=== PATIENT | male | born 1945 | race Caucasian/White ===

== ENCOUNTER 2019-10-17 13:34 | Outpatient (CLI) | payer MEDICARE, SELFPAY ==
--- NOTE | ~2019-10-17 | CT_ITS ---
EXAMINATION: CT chest wo con DATE: 10/17/2019 13:56 INDICATION: Prostate cancer, pleural plaque TECHNIQUE: Computed tomography (CT) of the chest was performed without intravenous contrast. The dose -length product (DLP) was 351.52 mGy-cm. Automated exposure control and iterative reconstruction tech Mediastream were employed. COMPARISON: 10/15/2018 FINDINGS: Scarring is present in the lung apices. There are stable left lung nodules measuring up to 4 mm. There are multiple calcified pleural plaques without significant change, consistent with histor y of asbestos exposure. There are multiple areas of adjacent rounded atelectasis. Small stable pleura l effusions are present. There is no pneumothorax. No pathologically enlarged thoracic lymph nodes ar e identified. The heart size is normal. Calcified coronary artery atherosclerosis is noted. The liver is diffusely low in attenuation when compared with the spleen, consistent with hepatic steatosis. Bi lateral gynecomastia is again seen. IMPRESSION: 1. Unchanged calcified pleural plaques, consistent with history of asbestos exposure. 2. Stable pulmonary nodules, consistent with old granulomatous disease. Reviewed, dictated and finalized at location B. IMPRESSION: 1. Unchanged calcified pleural plaques, consistent with history of asbestos exp osure. 2. Stable pulmonary nodules, consistent with old granulomatous disease.
== END 2019-10-17 13:35 | disposition home or self-care (01) ==
PROVIDERS: PCP Physician Assistant; Visit Provider Internal Medicine Medical Oncology
DX: C61 Malignant neoplasm of prostate (principal); J92.9 Pleural plaque without asbestos; R91.8 Other nonspecific abnormal finding of lung field
CPT/HCPCS: 71250

== ENCOUNTER 2020-10-22 10:38 | Outpatient (CLI) | payer MEDICARE, SELFPAY ==
--- NOTE | ~2020-10-22 | CT_ITS ---
EXAMINATION: CT diagnostic chest wo con DATE: 10/22/2020 11:09 INDICATION: Prostate cancer, pleural plaque TECHNIQUE: Computed tomography (CT) of the chest was performed without intravenous contrast. The dose -length product (DLP) was 305.80 mGy-cm. Automated exposure control and iterative reconstruction tech Abaxiaque were employed. COMPARISON: 10/17/2019 FINDINGS: Scarring is present in the lung apices. There are stable nodules of the left lung which julio sure up to 4 mm. There are stable calcified pleural plaques, some of which demonstrate adjacent round ed atelectasis. Stable small pleural effusions are present. There are peripheral airspace opacities i n the right upper lobe. There is no pneumothorax. No pathologically enlarged thoracic lymph nodes are identified. The heart size is normal. Calcified coronary artery atherosclerosis is noted. The liver is diffusely low in attenuation when compared with the spleen, consistent with hepatic steatosis. The re is bilateral gynecomastia. IMPRESSION: 1. Stable calcified pleural plaques, consistent with prior asbestos exposure. 2. Stable pulmonary nodules, consistent with old granulomatous disease. Reviewed, dictated and finalized at location A.
== END 2020-10-22 10:39 | disposition home or self-care (01) ==
LOC: ANHIMG 10:42
PROVIDERS: PCP Physician Assistant; Visit Provider Internal Medicine Medical Oncology
DX: C61 Malignant neoplasm of prostate (principal); J92.9 Pleural plaque without asbestos; R91.8 Other nonspecific abnormal finding of lung field
CPT/HCPCS: 71250

== ENCOUNTER 2021-10-24 09:57 | Outpatient (CLI) | payer MEDICARE, SELFPAY ==
--- NOTE | ~2021-10-24 | CT_ITS ---
EXAMINATION:CT diagnostic chest w con DATE: 10/24/2021 10:28 INDICATION: Asbestos exposure. TECHNIQUE: Computed tomography (CT) of the chest was performed with 75 mL Omnipaque 350 intravenous c ontrast. Automated exposure control and iterative reconstruction technique were employed. The dose-le ngth product (DLP) was 280.81 mGy-cm. COMPARISON: Chest CT 10/22/2020 FINDINGS: There are calcified pleural plaques bilaterally, which may be seen with asbestosis exposure . There is a trace left pleural effusion. There is mild peripheral rounded atelectasis in all lobes. There is scarring at the lung apices, right worse than left. The heart size is normal. There are ganga nary artery calcifications. No pericardial effusion. There are no pathologically enlarged lymph nodes . There is bilateral gynecomastia. There is diffuse hepatic steatosis. There is a small sliding hiata l hernia. There is mild thoracic spondylosis. IMPRESSION: 1. Stable asbestosis. 2. Small sliding hiatal hernia. Reviewed, dictated and finalized at location A.
[2021-10-24 10:19] LABS: Estimated Glomerular Filt Rate 54
== END 2021-10-24 09:58 | disposition home or self-care (01) ==
PROVIDERS: PCP Physician Assistant; Visit Provider Internal Medicine Medical Oncology
DX: Z77.090 Contact with and (suspected) exposure to asbestos (principal); K44.9 Diaphragmatic hernia without obstruction or gangrene
CPT/HCPCS: 71260; Q9967

== ENCOUNTER 2022-10-25 08:27 | Outpatient (CLI) | payer MEDICARE, SELFPAY ==
--- NOTE | ~2022-10-25 | CT_ITS ---
Clinical Indication: Prostate cancer CT Scan of the Chest with Contrast: Technique: Contiguous sections were acquired throughout the chest after intravenous administration of 75 cc of Omnipaque 350. Dose reduction technique was used on this scan by utilizing automated exposu re control and iterative reconstruction technique. The dose-length product (DLP) was 239.11 mGy-cm. COMPARISON: 10/24/2021 Findings: There is no evidence of any significant mediastinal, hilar or axillary lymphadenopathy. There is no f illing defect in the pulmonary arterial tree to suggest pulmonary embolus. There is no evidence of ao rtic dissection or aneurysm. There is no evidence of pleural or pericardial effusion. Extensive calcified pleural plaques are pres ent. There is right apical and right upper lobe scarring, with additional lingular scarring. No suspicious pulmonary nodule evident. Images through the upper abdomen reveal diffuse fatty infiltration of the liver. 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 Diffuse fatty infiltration of the liver. Reviewed, dictated and finalized at [facility]. 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 Diffuse fatty infiltration of the liver.
[2022-10-25 09:01] LABS: Estimated Glomerular Filt Rate 42
== END 2022-10-25 08:28 | disposition home or self-care (01) ==
PROVIDERS: PCP Physician Assistant; Visit Provider Internal Medicine Medical Oncology
DX: C61 Malignant neoplasm of prostate (principal); Z12.2 Encounter for screening for malignant neoplasm of respiratory organs; Z77.090 Contact with and (suspected) exposure to asbestos; K76.0 Fatty (change of) liver, not elsewhere classified
CPT/HCPCS: 71260; Q9967

== ENCOUNTER 2022-12-12 09:55 | Outpatient (CLI) | payer MEDICARE, SELFPAY ==
--- NOTE | ~2022-12-12 | US_ITS ---
US abdomen limited 12/12/2022 10:24 Indication: Splenomegaly Procedure: High-resolution Limited abdominal ultrasound Comparison: CT dated 09/15/2027 Findings: Spleen is within normal limits measuring 10.4 cm. No focal splenic masses. There is mild le ft hydronephrosis. Nevertheless, left renal echotexture is unremarkable. Left kidney measures 10.2 cm in length. Impression: 1: Normal spleen. 2: Mild left hydronephrosis. Reviewed, dictated and finalized at location L. Impression: 1: Normal spleen. 2: Mild left hydronephrosis.
== END 2022-12-12 09:56 | disposition home or self-care (01) ==
LOC: ANHIMG 09:56
PROVIDERS: PCP Physician Assistant; Visit Provider Internal Medicine Medical Oncology
DX: R16.1 Splenomegaly, not elsewhere classified (principal)
CPT/HCPCS: 76705

== ENCOUNTER 2023-08-07 10:46 | Outpatient (CLI) | payer MEDICARE, SELFPAY ==
--- NOTE | ~2023-08-07 | DEXA_ITS ---
Bone Density Report Name: BLANE TAN Age: 77 Sex: Male Ethnicity: White Date of : 1945 Indication: screening for osteoporosis; height loss; history of glucocorticoids; cancer; Referring Provider: WILLIAM MROA Study: Bone densitometry was performed. Exam Date: August 07, 2023 Accession number: [id number] Bone Density: Region BMD T-score Z-score Classification AP Spine (L1-L4) 1.000 -0.8 0.2 Normal Femoral Neck (Left) 0.666 -1.9 -0.6 Osteopenia Total Hip (Left) 0.850 -1.2 -0.4 Osteopenia Femoral Neck (Right) 0.783 -1.1 0.3 Osteopenia Total Hip (Right) 0.966 -0.4 0.4 Normal Total Hip Mean 0.908 -0.8 0.0 Normal World Health Organization criteria for BMD impression classify patients as: Normal (T-score at or above -1.0), Osteopenia (T-score between -1.0 and -2.5), or Osteoporosis (T-score at or below -2.5). 10-year Fracture Risk(1): Major Osteoporotic Fracture 12% Hip Fracture 4.5% Reported Risk Factors: [place] (), Neck BMD=0.666, BMI=28.7, glucocorticoids (1) FRAX(R) Version 3.08. Fracture probability calculated for an untreated patient. Fracture probability may be lower if the patient has received treatment. Clinical Information Provided by Patient: Has taken Glucocorticoids Has used the following medications: Vitamin D, Calcium, MTV, MARTHA Has the following medical conditions: Cancer, PROSTATE CA WITH RADIATION AND CHEMO -2009 Patient maximum height was 75.0 No regular weight bearing exercise Drinks caffeinated beverages Impression: The patient has low bone mass, based on the Left Femoral Neck T-score. The patient has an estimated ten-year risk of hip fracture of 4.5% and an estimated ten-year risk of major fracture of 12%, based on the WHO FRAX algorithm. The patient has risk factors, including: history of glucocorticoid therapy. Discussion: BONE DENSITY IS LOW AT ONE OR MORE SKELETAL SITES. THE PATIENT'S BMD AND CLINICAL RISK FACTORS CONTRIBUTE TO THIS PATIENT'S INCREASED RISK OF FRACTURE. This patient's lowest T-score is low at one or more skeletal sites. It meets the World Health Organization's (WHO) criteria for ?low bone mass? (T-score between -1.0 and -2.5). The patient's 10-year risk of hip fracture as calculated by FRAX exceeds the threshold where pharmacological therapy is recommended by the National Osteoporosis Foundation (NOF). However, all treatment decisions require clinical judgment and consideration of individual patient factors, including patient preferences, comorbidities, previous drug use, risk factors not captured in the FRAX model (e.g., frailty, falls, vitamin D deficiency, increased bone turnover, interval significant decline in bone density) and possible under or overestimation of fracture risk by FRAX. The patient should follow a healthful
== END 2023-08-07 10:47 ==
LOC: MICIMG 10:47
PROVIDERS: PCP Internal Medicine Medical Oncology; Visit Provider Urology
DX: C61 Malignant neoplasm of prostate (principal); M85.852 Other specified disorders of bone density and structure, left thigh; M85.851 Other specified disorders of bone density and structure, right thigh
CPT/HCPCS: 77080

== ENCOUNTER 2023-12-18 14:17 | Outpatient (CLI) | payer MEDICARE, SELFPAY ==
--- NOTE | ~2023-12-18 | CT_ITS ---
CT abdomen pelvis wo/w con Ordering provider: Hardik Call MD History: 78 years Male with . GROSS HEAMTURIA . Comparison: None. Technique: CT abdomen and pelvis with IV and without oral contrast. Automated exposure control and it erative reconstruction technique were employed. The dose-length product was 1554.51 mGy-cm. 150 mL Om nipaque 350 was given IV. Findings: VISUALIZED LOWER CHEST: Pleural calcification is seen bilaterally which may indicate previous asbesto sis versus postsurgical traumatic changes. UPPER ABDOMINAL ORGANS: Liver: Normal. Gallbladder: Normal. Spleen: Normal. Stomach/duodenum: Normal. Pancreas: Normal. Adrenals: Normal. Kidneys: Left parapelvic cysts. No definite stones in the left ureter. Stones seen in the left kidney lower pole medially. Tiny cyst in the right kidney upper pole. PELVIC ORGANS: The bladder is underfilled with slightly thickened wall. Air is seen in the urinary bl adder which may be due to catheterization. BOWEL AND MESENTERY: Colon: No evidence of diverticulitis. Appendix is not demonstrated most likely removed surgically. Small Bowel: Normal. No obstruction. Peritoneum/mesentery: No free air or free fluid. No mesenteric lymphadenopathy. RETROPERITONEUM: Mild atheromatous disease of the abdominal aorta. Atherosclerotic changes of the [place] perior mesenteric artery with slight narrowing. No retroperitoneal lymphadenopathy. MUSCULOSKELETAL: Superficial soft tissues: Bilateral fat containing inguinal hernias. The superficial soft tissues are normal. Bones: Age appropriate degenerative changes of the spine. IMPRESSION: 1. Left parapelvic cyst with stones in the left kidney lower pole medially. 2. Pleural calcification bilaterally. 3. Thickened wall of the urinary bladder suggestive of cystitis. Reviewed, dictated and finalized at location A.
[2023-12-18 14:41] LABS: Estimated Glomerular Filt Rate 39
== END 2023-12-18 14:18 | disposition home or self-care (01) ==
PROVIDERS: PCP Internal Medicine; Visit Provider Urology
DX: R31.0 Gross hematuria (principal); N28.1 Cyst of kidney, acquired; N20.0 Calculus of kidney; J94.8 Other specified pleural conditions; N32.89 Other specified disorders of bladder
CPT/HCPCS: 74178; Q9967

== ENCOUNTER 2024-01-04 13:05 | Outpatient (CLI) | payer MEDICARE, SELFPAY ==
--- NOTE | 2024-01-04 13:14 | ECG_ITS ---
Test Date: 2024-01-04 13:26:58 Measurements Intervals [place] Rate: 72 P: 34 NV: 210 QRS: -52 QRSD: 110 T: 65 QT: 395 QTc: 433 Interpretive Statements SINUS RHYTHM WITH FIRST DEGREE AV BLOCK WITH OCCASIONAL VENTRICULAR PREMATURE COMPLEXES LEFT ANTERIOR FASCICULAR BLOCK [QRS AXIS <= -45, QR IN I, RS IN II] ANTEROSEPTAL MYOCARDIAL INFARCTION [40+ ms Q WAVE IN V1-V4], PROBABLY OLD No previous ECG available for comparison Electronically Signed On 01-04-2024 13:46:28 CDT by Katelyn Grover M.D.
== END 2024-01-04 13:06 | disposition home or self-care (01) ==
PROVIDERS: PCP Internal Medicine; Visit Provider Urology
DX: Z01.818 Encounter for other preprocedural examination (principal); I10 Essential (primary) hypertension; I44.0 Atrioventricular block, first degree; I44.4 Left anterior fascicular block; I49.3 Ventricular premature depolarization; I21.9 Acute myocardial infarction, unspecified
CPT/HCPCS: 93005

== ENCOUNTER 2024-01-10 01:30 | Day surgery (SDC) | payer MEDICARE, SELFPAY ==
--- NOTE | 2024-01-04 09:04 | PC.NURSE ---
Report to the Outpatient Waiting Room, entrance under the green pavilion located off [facility], at time __11 AM on date 01/10/24 . Planned Procedure Time: _1:00 PM .? Time changes happen often and if your time is changed the preop area will call you the afternoon before. - You and your visitor will be asked to self-screen and do not enter if you have any COVID symptoms. Please call surgeon if you need to reschedule. - A mask is optional within the hospital at this time. Patients may have clear liquids (water, carbonated beverages, clear teas, apple juice) until 3 hours prior to surgery( 10 AM) with a maximum of 20 ounces. - No food from midnight until time of surgery and no smoking - Infants may have breast milk until 4 hours before surgery, infant formula 6 hours prior to surgery. - Children will be allowed to drink immediately following surgery.? If applicable, please bring a bottle or sippy cup to assist with drinking. Juice, water, soda, and popsicles are readily available.? For infants on formula, please bring formula the day of surgery.? Pacifiers are allowed. Take only the following medications with a SIP of water on the morning of surgery: _CARVEDILOL,PREDNISONE DO NOT STOP ANY OF YOUR OTHER PRESCRIPTION MEDICATIONS PRIOR TO SURGERY EXCEPT THE FOLLOWING Medications to discontinue per physician _PT STATES_HOLD ALL VITAMINS AND SUPPLEMENTS 7 DAYS PRE OP_PER DR MORA Date to take last dose 01/02/24 Please no make-up, nail azeri, hairspray, perfume, deodorant, or body powder the day of surgery.? No jewelry (including any body piercings) or valuables the day of surgery, leave them at home.? Please take a shower or bath the night before, or the morning of, surgery with an antibacterial soap.? Wear comfortable, loose fitting clothing.? Children are encouraged to wear pajamas. - Jewelry must be removed prior to entering the operating room.? Rings and piercings that are not removed may be cut off. - The hospital will not accept responsibility for valuables.? - Please leave all valuables, including medications, at home the day of surgery. If you are going home after surgery, a licensed regional company truck driver must drive you home.? - NO public transportation without another adult if you receive anesthesia. - We recommend that an adult stay with you for 24 hours following discharge. - We also recommend that you do not drive, make important decision, drink alcoholic beverages, or take any drugs that were not prescribed by your health care provider for at least 24 hours after your discharge time. For Pediatric surgeries, we recommend two adults accompany the child home. Follow any additional instructions given to you from your surgeon. Telephone instructions given to ___PATIENT and asked if any additional questions and then verbalized understanding. Patient advised to call surgeon office or pre surgery nurse liaison [phone] if any additional questions.
[2024-01-04 09:12] VITALS: BMI 27.6
--- NOTE | 2024-01-08 07:15 | PM.HPGS ---
History of Present Illness History of Present Illness Consent: Risks, benefits, and alternatives have been discussed and questions answered. Patient agrees to proceed with procedure. Chief complaint: gross hematuria Narrative: Tano Gupta is a 78 year old male With remote history of prostate cancer status post pelvic radiation. He recently presented with gross hematuria. CT scan revealed normal upper urinary tracts but possible bladder wall thickening. 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 After discussion of options patient elects for TURBT followed by gemcitabine installation. He is aware of the risks including, but not limited to, recurrent neoplasm, need for additional therapy, bladder injury requiring catheterization or additional surgery. Review of Systems Cardiovascular: Cardiovascular: Denies chest pain, Denies lightheadedness, Denies palpitations and Denies dyspnea Respiratory: Respiratory: Denies dyspnea Gastrointestinal: Gastrointestinal: Denies diarrhea, Denies nausea and Denies vomiting Genitourinary: Genitourinary: Denies hematuria and Denies dysuria Endocrine: Endocrine: Denies palpitations [facility] Past Medical History Medical History (Updated 01/08/24 @ 07:16 by Hardik Call MD) Broken arm (~1952) Cardiac abnormality Essential hypertension History of broken leg (~1970) Incontinence Other idiopathic peripheral autonomic neuropathy Prostate cancer Pure hyperglyceridemia Unspecified disorder of circulatory system Surgical History Surgical History H/O hernia repair (~2014) History of prostatectomy History of sinus surgery Total knee replacement status (~07/23/18) Total knee replacement status (~2005) Family History Family History Father Family history of malignant neoplasm Mother Family history of malignant neoplasm of breast in first degree relative Other Family history of cardiovascular disease Hypertension Social History Social History Social History: Caffeine- Smoking packs per day: 1 Smoking cigarettes per day: 20.0 Years smoked: 25 Smoking pack-years: 25.00 Smoking status: Former smoker Tobacco type: cigarettes Second hand tobacco smoke exposure: No Smoking end date: 03/19/85 Alcohol intake: current Drinks per week: 3 Substance use: never Substance use type: does not use Lack of Transportation: No Lack of Food: Never True Current Housing: I Have Housing Concerned About Future Housing: No Difficulty Paying Gas/Electric Bills: No Difficulty Paying for Meds: No Currently Unemployed: No Education: Associate Degree Difficulty w/ Childcare or Family Care: No Living arrangements: with family Spiritual care concerns: No Meds Home Medications and Allergies Home Medications Medication Instructions Recorded Confirmed Type multivitamin (Multiple Vitamins 1 tablet PO DAILY 09/30/19 01/04/24 History tablet) omeprazole 20 mg capsule,delayed 20 mg PO DAILY 09/30/19 01/04/24 History release pyridoxine (vitamin B6) 500 mg 500 mg PO DAILY 09/30/19 01/04/24 History tablet cholecalciferol (vitamin D3) 50 50 mcg PO DAILY 10/07/19 01/04/24 History mcg (2,000 unit) capsule calcium carbonate (Calcium 500) 600 mg PO DAILY 10/24/19 01/04/24 History leuprolide acetate (6 month) 45 mg 45 mg subcut [id number] 10/24/19 01/04/24 History (6 month) subcutaneous syringe ([employer]) fenofibrate 160 mg tablet 160 mg PO DAILY #90 tabs 04/08/23 01/04/24 Rx gabapentin 300 mg capsule 800 mg PO QHS 06/12/23 01/04/24 History prednisone 10 mg tablet 20 mg PO DAILY 06/12/23 01/04/24 History carvedilol 3.125 mg tablet 3.125 mg PO Q12H #180 tabs 12/21/23 01/04/24 Rx lovastatin 20 mg tablet 20 mg PO DAILY #90 tabs 12/21/23 01/04/24 Rx alendronate 70 mg tablet 70 mg PO WEEKLY 01/04/24 01/04/24 History melatonin 10 mg tablet 10 mg PO HS PRN Insomnia 01/04/24 01/04/24 History Allergies Allergy/AdvReac Type Severity Reaction Status Date / Time No Known Allergies Allergy Verified 01/04/24 08:51 Exam Const: General: no acute distress Resp: Effort & Inspection: normal respiratory effort GI: Inspection: non-distended GI Palp: No abdominal tenderness and No Guarding due to palpation present (GI) Auscultation: normal bowel sounds Assessment and Plan Assessment and plan (1) Gross hematuria: Code(s): R31.0 - Gross hematuria Status: Acute Assessment and Plan: TURBT followed by gemcitabine installation
[2024-01-10] VITALS (13 sets, daily range): BP systolic 114–168; BP diastolic 61–96; PULSE 67–75; RESP 14–20; TEMP 36.2–36.4; O2SAT 93–100; BMI 29.0
--- NOTE | 2024-01-10 06:20 | WPDHPUPDATE1 ---
History and Physical Update Update Date/Time: 01/10/24 06:20 History and Physical has been reviewed, including an updated exam of the patient. There are NO changes in the patient's condition. Risks, benefits, and alternatives have been discussed and questions answered. Patient agrees to proceed with procedure.
[2024-01-10] MEDS: LACTATED RINGERS 1,000 ML 30 ML IV CONT (11:50)
[2024-01-10] MEDS: ceFAZolin 2 GM/D5W 50 ML 2 GM/50 ML BAG IVPB (14:06)
[2024-01-10] MEDS: LIDOCAINE HCL 2% GEL UROJET 10 ML PKG MUCOUS MEM (14:39)
--- NOTE | 2024-01-10 14:42 | P.OP_ITS ---
Procedure Note - Detailed Date of Procedure 01/10/24 Pre-op Diagnosis Gross hematuria Post-op Diagnosis Same Procedure Performed TURBT medium (4 cm) Surgeon Hardik Call MD Anesthesia General Description of Procedure Patient is brought the operative suite was prepped draped in routine sterile fashion while in dorsal lithotomy position after the uneventful induction of a general LMA anesthetic. Has a very tight bladder neck contracture that I had to dilate to 24 F in order to pass a 24 F resectoscope. The bladder was very carefully inspected. He has papillary growth in the left posterior lateral wall it measures 3-4 cm. This is resected in its entirety with attempt made to include detrusor muscle for pathological evaluation of invasion. Base and periphery was cauterized with the rollerball. This is done with care to preserve the ureteral orifices. The remainder the bladder mucosa is endos copically normal. Has a tight bladder neck contracture but the urethra was otherwise unremarkable. He has had a prior prostatectomy. This point the resectoscope was removed and a 16 F coude tip catheter was placed to drainage. Drains Yes Pathology Yes Complications No immediate complications
--- NOTE | 2024-01-10 14:55 | W.PM.PROC2 ---
Procedure Note - Detailed Date of Procedure 01/10/24 Pre-op Diagnosis Gross hematuria Post-op Diagnosis Other ( Bladder tumor) Procedure Performed Gemcitabine installation Surgeon Hardik Call MD Anesthesia General Description of Procedure With the patient in the supine position, a 16F Baird catheter is placed using sterile technique. Using a protective facemask, gown and double layer of gloves Gemcitabine 2gm in 100cc saline is administered through the catheter/into the bladder. The catheter is then plugged. Patient was instructed to lie supine x20min, then to roll both the left and right x20 min. each. Total dwell time will be 60 min., after which the bladder will be drained and catheter removed. Drains No Packing No Pathology None sent
[2024-01-10] MEDS: SODIUM CHLORIDE 0.9% IV 23.7 ML, GEMCITABINE HCL 1,000 MG BLADDER ×2 (15:05→15:06)
[2024-01-10] MEDS: fentaNYL CITRATE INJ (*CRX) 100 MCG/2 ML VIAL 25 MCG IV PUSH ×6 (15:13→16:06)
--- NOTE | 2024-01-10 17:45 | SUR.PHASEII ---
1720: bladder scan= 223ml Dr. Jean notified. new orders received for IVF.
== END 2024-01-10 17:20 | disposition home or self-care (01) ==
PROVIDERS: PCP Internal Medicine; Visit Provider Urology
PROC: 0TBB8ZZ Excision of Bladder, Via Natural or Artificial Opening Endoscopic (ICD-10-PCS; CPT 52235; principal; 2024-01-10 13:00)
DX: C67.2 Malignant neoplasm of lateral wall of bladder (principal); I10 Essential (primary) hypertension; E78.1 Pure hyperglyceridemia; G90.89 Other disorders of autonomic nervous system; Z85.46 Personal history of malignant neoplasm of prostate; Z92.3 Personal history of irradiation; Z87.891 Personal history of nicotine dependence
CPT/HCPCS: 52235; 51720; 88305; C1769; J0690; J1100; J2405; J2704; J3010; J7120; J9201

== ENCOUNTER 2024-06-02 14:43 | Inpatient (IN) | payer MEDICARE, SELFPAY ==
--- NOTE | ~2024-06-02 | US_ITS ---
Limited Abdominal Sonogram: Real-time sonographic imaging of the right upper quadrant was performed. Clinical History: Abnormal LFTs Findings: The liver appears echogenic, with no evidence of mass lesion or bile duct dilatation. Main portal vein demonstrates normal direction of flow. The gallbladder is well distended, and appears no rmal with no evidence of gallstone or wall thickening. The common bile duct measures 4 mm. The visua lized pancreas, aorta, and IVC are unremarkable. Impression: Diffuse fatty infiltration of the liver. Reviewed, dictated and finalized at location M. Impression: Diffuse fatty infiltration of the liver.
--- NOTE | ~2024-06-02 | CT_ITS ---
CLINICAL INDICATION: Fever, UTI, sepsis COMPARISON: 12/18/2023 and 10/25/2022. TECHNIQUE: Multiple contiguous axial images of the abdomen and pelvis were performed without the admi nistration of intravenous contrast The dose-length product (DLP) was 855.05 mGy-cm. Automated exposure control and iterative reconstruction technique were employed. FINDINGS/OBSERVATIONS: Visualized lower thorax: Extensive pleural plaques with bilateral parenchymal scarring. The heart is of normal size, without pericardial effusion. Small hiatal hernia is present. Liver: The liver demonstrates homogeneous attenuation and is enlarged measuring 21 cm in longitudinal dimens ion (an interval increase since 2023 when the liver measured 19 cm in longitudinal dimension. Gallbladder and biliary system: The gallbladder is only minimally distended, and otherwise unremarkable. Pancreas: Limited evaluation of the pancreas secondary to the lack of intravenous contrast. Spleen: The spleen demonstrates homogeneous attenuation and is not enlarged measuring 10 cm in longitudinal d imension. Kidneys: Redemonstration of a 9.6 mm calculus within the lower pole of the left kidney, unchanged from 202. P rominence of the left renal hilum is present, likely secondary to chronic obstruction of the left UVJ , unchanged from 202. The right kidney and remainder of the left are unremarkable. Adrenal glands: Unremarkable. Gastrointestinal tract: Colonic diverticulosis without surrounding inflammatory change. Appendix: The appendix is not definitively visualized. However, no pericecal inflammatory change is identified suggest the presence of acute appendicitis. Vasculature: Densely calcified atherosclerotic disease. Lymph nodes: Limited evaluation without intravenous contrast. Pelvic structures: The bladder is decompressed, limiting its evaluation. The prostate gland is not enlarged. Body wall and musculoskeletal: Degenerative disease within the lumbosacral spine, most prominent at the level of L4/L5 with osteophy te formation, disc space narrowing, endplate changes and vacuum phenomena. IMPRESSION: No acute pathology within the abdomen or pelvis. Innumerable nonacute findings, as detailed above. Incompletely evaluated on the current study is a 24 x 17 mm density which has increased in size from previous studies dating back to [address] examination of the chest is suggested (no nemergently when the patient is clinically able). Reviewed, dictated and finalized at location A. IMPRESSION: No acute pathology within the abdomen or pelvis. Innumerable nonacute findings, as detailed above. Incompletely evaluated on the current study is a 24 x 17 mm density which has i ncreased in size from previous studies dating back to [address] examination of the chest is suggested (nonemergently when the patient is cli nically able).
--- NOTE | ~2024-06-02 | XR_ITS ---
CHEST RADIOGRAPH, PA AND LATERAL CLINICAL HISTORY: sepsis w/u . COMPARISON: Reference is made to a CT examination of the chest dated 10/25/2022 TECHNIQUE: PA and lateral views of the chest. FINDINGS The cardiomediastinal silhouette is unremarkable. Redemonstration of pleural disease (extensive calcified pleural plaques), with right apical scarring as well as right upper lobe scarring. A small amount of scarring is within the left periphery as well. IMPRESSION: Stable imaging of the chest, when compared to 2022, as detailed above. Reviewed, dictated and finalized at location A.
--- NOTE | ~2024-06-02 | CT_ITS ---
EXAMINATION: CT diagnostic chest wo con DATE: 06/03/2024 14:59 INDICATION: ?pneumonia TECHNIQUE: Computed tomography (CT) of the chest was performed without intravenous contrast. Addition al 3D reconstructions utilizing coronal maximum intensity projection (MIP) were performed. Automated exposure control and iterative reconstruction technique were employed. The dose-length product was 32 4.86 mGy-cm. 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 Unchang ed very small left and trace right pleural effusions with some associated pleural thickening. Stable appearance of some biapical pleural-parenchymal scarring as well as scattered peripheral round atelec tasis and linear and curvilinear discoid atelectasis in both lungs. No new opacities suspicious for p neumonia. Heart size is normal. Atherosclerotic coronary artery calcification is. No pericardial effu michelle. Small sliding-type hiatal hernia. Thoracic aorta is normal in caliber. No pathologically enlarg ed thoracic lymphadenopathy. Bilateral gynecomastia. Mild thoracic spondylosis with chronic appearing T5 compression fracture with mild anterior wedging which appears new since 11/04/2022. IMPRESSION: 1. Stable appearance of bilateral calcified pleural plaques with chronic discoid and peripheral round atelectasis in both lungs likely related to asbestosis. 2. Unchanged chronic very small left and trace right pleural effusions. 3. Small sliding-type hiatal hernia. Reviewed, dictated and finalized at location A. IMPRESSION: 1. Stable appearance of bilateral calcified pleural plaques with chronic discoi d and peripheral round atelectasis in both lungs likely related to asbestosis. 2. Unchanged chronic very small left and trace right pleural effusions. 3. Small sliding-type hiatal hernia.
[2024-06-02 15:25] VITALS: BP 93/58; PULSE 92; RESP 16; TEMP 36.4; O2SAT 96
--- OUTSIDE RECORDS SUMMARY | 2024-06-02 17:21 | XMS_ITS | Encounter Summary ---
Author Organization [facility] Healthcare Address [address] [place] [address] Care Team Providers Care Septic Tank Setter Name Role Phone Tano Ibarra DO Unavailable [phone] Hardik Call MD Unavailable [phone] Don Bronson DO Primary Care Provider [phone] Encounter Details Date Type Department Care Team (Late st Contact Info) Description 05/21/2024 Results Follow-Up [facility] at [address] [id number] Kasandra Davila NP [address] [place] [id number] Social History Tobacco Use Types Packs/Day Years Used Date Smoking Tobacco: Former Cigarettes Q uit: 1985 Smokeless Tobacco: Former Comments:Smoking History Pac ks/day: 1 Packs Alcohol Use Standard Drinks/Week Comments Yes 0 (1 standard drink = 0.6 oz pur e alcohol) Sex and Gender Information Value Date Recorded Sex Assigned at Not on file Legal 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 Organism is NOT susceptible to bactrim so a new antibiotic has been called out. Please ensure patient knows to stop the Bactrim and start taking the new antibiotic. Would suggest that he follows up with his primary care doctor in the next week or sooner if symptoms are worsening. ION WEIGHER documented in this encounter Plan of Treatment Not on file documented as of this encounter Visit Diagnoses Not on filedocumented in this encounter Care Teams Septic Tank Setter Relationship Specialty Start Date End Date Don Bronson DO [id number] [place] [address] PCP - General Internal Medicine 05/02/24 Tano Ibarra DO [address] [place] [id number] Medical Oncologist/President [employer] Hematology and Oncology 04/30/20 Hardik Call MD [address] [place] [id number] Consulting Physician Urology 10/28/21 documented as of this encounter
--- OUTSIDE RECORDS SUMMARY | 2024-06-02 17:21 | XMS_ITS | Referral Summary ---
Author Organization [address] Address [address] [place] [address] Care Team Providers Care Biotechnician Name Role Phone Tano Ibarra DO Unavailable [phone] Hardik Call MD Unavailable [phone] Don Bronson DO Primary Care Provider [phone] Encounters Date Type Department Care Team Description 05/26/2024 Telephone [facility] Oncology [address] [place] [address] [address] [place] [address] Jacquelin Rosenberg RN 05/21/2024 Results Follow-Up [facility] at [address] [address] Kasandra Davila NP 05/19/2024 12:14 PM WILDLIFE PROTECTOR - 05/19/2024 11:59 PM WILDLIFE PROTECTOR Hospital Encounter [address] [address] Dysuria Discharge Disposition: Discharge to home or self care 05/19/2024 12:00 PM WILDLIFE PROTECTOR Office Visit [facility] at [address] [address] Veronica Flannery NP Dysuria (Primary Dx) 05/02/2024 1:15 PM WILDLIFE PROTECTOR Office Visit [facility] Oncology [address] [place] [address] [address] [place] [address] Stacey, Tano L., DO Prostate cancer (HCC) (Primary Dx); Pancytopenia (HCC); Osteopenia, unspecified location 04/25/2024 Orders Only [facility] Physicians [facility] Oncology [facility] [address] [place] [address] Tano Ibarra DO from Last 3 Months Allergies No known active allergies Medications omeprazole (PriLOSEC) 20 mg capsule take 1 capsule by oral route every day before a meal 0 0 5 Active Additional Information Patient taking differently:20 mgoral Every other day, Reported on 05/19/2024 lovastatin (MEVACOR) 20 mg tablet TAKE 1 TABLET BY MOUTH EVERY DAY 90 2 2 Active carvedilol (COREG) 3.125 mg tablet Take 1 tablet (3.125 mg total) by mouth 2 (two) times a day with meals. 180 tablet 3 7 Active fenofibrate (TRIGLIDE) 160 mg tablet 8 Active calcium carb and citrate-vitD3 600 mg calcium- 500 unit tablet extended release Take by mouth Active leuprolide, 3 month, (ELIGARD) 22.5 mg syringe Active calcium carbonate-rashmi min D3 500 mg(1,250mg) -400 unit chewable tablet Take 1 tablet by mouth daily Active pyridoxine (VITAMIN B-6) 100 mg tablet Take 1 tablet (100 mg total) by mouth daily Active cholecalcifero l (VITAMIN D-3) 2000 unit capsule 1 capsule (2,000 Units total) Active ciprofloxacin (CIPRO) 500 mg tablet Take 1 tablet (500 mg total) by mouth 2 (two) times a day 5 Active levOCARNitine (CARNITOR) 330 mg tabletIndicati ons:Carnitine Deficiency Take 2 tablets (660 mg total) by mouth 2 (two) times a day For neuropathy 360 tablet 5 026 Active gabapentin (NEURONTIN) 800 mg tablet Take 1 tablet (800 mg total) by mouth daily 90 tablet 3 5 Active predniSONE (DELTASONE) 10 mg tablet Take 1.5 tablets (15 mg) by mouth daily 135 tablet 1 5 Active predniSONE (DELTASONE) 10 mg tablet Take 1.5 tablets (15 mg) by mouth daily 135 tablet 4 025 Discontinu ed(Reorder ) sulfamethoxazo le-trimethopri m (BACTRIM DS) 800-160 mg per tabletIndicati ons:Dysuria Take 1 tablet by mouth 2 (two) times a day for 7 days 14 tablet 5 025 cefdinir (OMNICEF) 300 mg capsuleIndicat ions:Urinary Tract/Genitour inary Infection Take 1 capsule (300 mg total) by mouth 2 (two) times a day for 5 days 10 capsule 5 025 Active Problems Problem Noted Date Diagnosed Date Pancytopenia 05/15/2023 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 Heart failure is unchanged. NYHA Class I. Continue current treatment regimen. Dietary sodium restriction. Heart failure will be reassessed in 3 months. Prostate cancer 08/31/2016 Cancer Staging:Clinical stage from 01/13/2010:Stage IIC(cT2c, cN0, cM0, PSA: 8, Grade Group: 4) - Signed by Tano Ibarra DO on 09/28/2017 Assessment & Plan (08/31/2016 11:07 AM CDT): Continue with current regimen.. Immunizations Immunization Administration Dates Next Due Influenza, Quadrivalent, Spl it, Intramuscular 02/16/2016 Influenza, Trivalent, Adjuva nted, Intramuscular 12/25/2018 Influenza, Trivalent, IM (MDV) 5,12/23/2013,01/17/2013,01/10 Influenza, Unspecified 01/07/2021,12/01/2017, Moderna SARS-CoV-2 Monovalen t Vaccination (12+ YRS) 01/24/2021,07/08/2020,05/10/2020 Pneumococcal Conjugate PCV 13 02/16/2016 Pneumococcal Conjugate, Unspecified 02/22/2017 Pneumococcal Polysaccharide PPV23 02/22/2017,03/2012 Tdap 05/05/2016 Social History Tobacco Use Types Packs/Day Years Used Date Smoking Tobacco: Former Cigarettes Q uit: 1985 Smokeless Tobacco: Former Comments:Smoking History Pac ks/day: 1 Packs Alcohol Use Standard Drinks/Week Comments Yes 0 (1 standard drink = 0.6 oz pur e alcohol) Sex and Gender Information Value Date Recorded Sex Assigned at Not on file Legal Sex Male 2:39 PM WILDLIFE PROTECTOR Gender Identity Not on file Sexual Orientation Not on file Last Filed Vital Signs Vital Sign Reading Time Taken Comments Blood Pressure 157/83 05/19/2024 12:01 PM WILDLIFE PROTECTOR Pulse 95 05/19/2024 12:01 PM WILDLIFE PROTECTOR Temperature 37.4 C (99.3 F) 05/19/2024 12:01 PM WILDLIFE PROTECTOR Respiratory Rate 20 05/19/2024 12:01 PM WILDLIFE PROTECTOR Oxygen Saturation 96% 05/19/2024 12:01 PM WILDLIFE PROTECTOR Inhaled Oxygen Concentration - - Weight 105.2 kg (232 lb) 05/19/2024 12:01 PM WILDLIFE PROTECTOR Height 182.9 cm (6') 05/25/2023 2:58 PM WILDLIFE PROTECTOR Body Mass Index 31.46 05/25/2023 2:58 PM WILDLIFE PROTECTOR Plan of Treatment Not on file Procedures Procedure Name Priority Date/Time Associated Diagnosis Comments URINE CULTURE Routine 05/19/2024 12:14 PM WILDLIFE PROTECTOR Dysuria POCT URINALYSIS DIPSTICK Routine 05/19/2024 12:05 PM WILDLIFE PROTECTOR Dysuria CBC/DIFF AMBIGUOUS DEFAULT Routine 04/25/2024 2:34 PM WILDLIFE PROTECTOR from Last 3 Months Results * (ABNORMAL) Urine culture Urine, clean voided (05/19/2024 12:14 PM WILDLIFE PROTECTOR) Report Final Report: Greater than or equal to 100,000 colonies/mL of Aerococcus urinae Isolates of Aerococcus urinae are typically susceptible to beta-lactams (including penicillin and cephalosporins), vancomycin, and tetracyclines (including doxycycline), but resistant to trimethoprim-sulf amethoxazole. Plus growth of clinically insignificant bacterial gurpreet. (.) Comment:Testing performed by : [facility], [address] [facility], [place]., [address] Organism AEROCOCCUS URINAE SEMAJ Organism PLUS GROWTH OF CLINICALLY INSIGNIFICANT GURPREET. SEMAJ Urine, clean voided 05/19/2024 12:14 PM WILDLIFE PROTECTOR 05/20/2024 12:03 AM WILDLIFE PROTECTOR Narrative [facility] HALL - 05/21/2024 7:46 AM WILDLIFE PROTECTOR Testing performed by [facility] Microbiology Laboratory ([phone]) Veronica Flannery NP LAB MICROBIOLOGY - GENERAL ORDERABLES Final Result SEMAJ [id number] [address] Department [place] [address] * (ABNORMAL) POCT urinalysis dipstick (05/19/2024 12:05 PM WILDLIFE PROTECTOR) Color, Urine, POC Yellow Clarity, ur, POC Cloudy(A) Clear Glucose, ur, POC Negative Negative MG/DL Bilirubin, ur, POC Negative Negative, Small, Moderate, Large Ketones, ur, POC Negative Negative Specific [place], POC 1.020 1.003 - 1.030 Blood, ur, POC Small(A) Negative pH, ur, POC 7.0 5.0 - 8.0 Protein, ur, POC 300.(A) Negative Urobilinogen, urine, POC 1.0 0.2 - 1.0 mg/dL Nitrite, ur, POC Negative Negative Leukocytes, ur, POC Small(A) Negative Lot Number [id number] Urine 05/19/2024 12:0 5 PM WILDLIFE PROTECTOR Veronica Flannery NP POINT OF CARE TEST ORDERAB LES Final Result * (ABNORMAL) CBC/Diff Ambiguous Default (04/25/2024 2:34 PM WILDLIFE PROTECTOR) WBC 2.2(LL) 3.4 - 10.8 x10E3/uL [facility] - 01 RBC 4.36 4.14 - 5.80 x10E6/uL [facility] - 01 Hgb 12.5(L) 13.0 - 17.7 g/dL [facility] - 01 Hct 38.9 37.5 - 51.0 % [facility] - 01 MCV 89 79 - 97 fL [facility] - 01 MCH 28.7 26.6 - 33.0 pg [facility] - 01 MCHC 32.1 31.5 - 35.7 g/dL [facility] - 01 Rdw 13.5 11.6 - 15.4 % [facility] - 01 Platelets 353 150 - 450 x10E3/uL [facility] - 01 Neutrophils pct 51 Not Estab. % [facility] - 01 Lymphs pct 22 Not Estab. % [facility] - 01 Monocytes pct 25 Not Estab. % [facility] - 01 Eosinophils pct 1 Not Estab. % [facility] - 01 Basophil pct 1 Not Estab. % [facility] - 01 Neutrophil abs 1.1(L) 1.4 - 7.0 x10E3/uL [facility] - 01 Lymphs (Absolute) 0.5(L) 0.7 - 3.1 x10E3/uL [facility] - 01 Monocyte abs 0.5 0.1 - 0.9 x10E3/uL [facility] - 01 Eosinophils, abs 0.0 0.0 - 0.4 x10E3/uL [facility] - 01 Basophils, abs 0.0 0.0 - 0.2 x10E3/uL [facility] - 01 Immature Granulocytes 0 Not Estab. % [facility] - 01 Immature Grans (Abs) 0.0 0.0 - 0.1 x10E3/uL [facility] - 01 Hematology Comments: Note: [facility] - 01 Comment: Verified by microscopic examination. A hand-written panel/profile was received from your office. In accordance with the [facility] Ambiguous Test Code Policy dated September 2002, we have assigned CBC with Differential/Platelet, Test Code #836728 to this request. If this is not the testing you wished to receive on this specimen, please [facility] Services Department to clarify the test order. We appreciate your business. 04/25/2024 2:34 PM WILDLIFE PROTECTOR 04/25/2024 Narrative [facility] - 04/26/2024 9:36 AM WILDLIFE PROTECTOR Performed at: [address], [place] [id number] Head Mechanic: Ascencion Thomas PhD, Phone: [phone] us Tano Ibarra DO LAB BLOOD ORDERABLES Final R esult [facility] - 01 from Last 3 Months Insurance MEDICARE [employer] [facility] MEDICARE [facility] MEDICARE SUPPLEMENT MEDICARE [facility] MEDICARE SUPPLEMENT Care Teams Biotechnician Relationship Specialty Start Date End Date Don Bronson DO [address] [place] [address] PCP - General Internal Medicine 05/02/24 Tano Ibarra DO [address] [place] [id number] Medical Oncologist/Disaster Or Damage Control Specialist Hematology and Oncology 04/30/20 aHrdik Call MD [address] [place] [id number] Consulting Physician Urology 10/28/21
--- OUTSIDE RECORDS SUMMARY | 2024-06-02 17:21 | XMS_ITS | Clinical Summary ---
Author Organization [place] [address] [place] Address [address] [place] [address] Care Team Providers Care Protector Plate Attacher Name Role Phone Tano Ibarra DO Unavailable [phone] Hardik Call MD Unavailable [phone] Don Bronson DO Primary Care Provider [phone] Allergies No known active allergies Medications omeprazole [...] 11:07 AM CDT): Continue with current regimen.. Encounters Date Type Department Care Team Description 05/26/[address] [facility] Oncology [address] [facility] [address] [place] [address] Jacquelin Rosenberg RN 05/21/2024 Results Follow-Up [facility] at [address] [address] Kasandra Davila NP 05/19/2024 12:14 PM TECHNICAL INSTRUCTOR - 05/19/2024 11:59 PM TECHNICAL INSTRUCTOR [place] [address] Dysuria Discharge Disposition: Discharge to home or self care 05/19/2024 12:00 PM TECHNICAL INSTRUCTOR Office Visit [facility] at [address] [address] Veronica Flannery NP Dysuria (Primary Dx) 05/02/2024 1:15 PM TECHNICAL INSTRUCTOR Office Visit [facility] Oncology [address] [place] [address] [address] [place] [address] Tano Ibarra DO Prostate cancer (HCC) (Primary Dx); Pancytopenia (HCC); Osteopenia, unspecified location 04/25/[address] [facility] Oncology [address] [place] [address] [address] [place] [address] Tano Ibarra DO from Last 3 Months Immunizations Immunization Administration Dates Next Due Influenza, Quadrivalent, Spl it, Intramuscular 02/16/2016 Influenza, Trivalent, Adjuva nted, Intramuscular 12/25/2018 Influenza, Trivalent, IM (MDV) 5,12/23/2013,01/17/2013,01/10 Influenza, Unspecified 01/07/2021,12/01/2017, Moderna SARS-CoV-2 Monovalen t Vaccination (12+ YRS) 01/24/2021,07/08/2020,05/10/2020 Pneumococcal Conjugate PCV 13 02/16/2016 Pneumococcal Conjugate, Unspecified 02/22/2017 Pneumococcal Polysaccharide PPV23 02/22/2017,03/2012 Tdap 05/05/2016 Surgical History Surgery Date Site/Laterality Comments OTHER SURGICAL HISTORY cancer prostrate: removal KNEE ARTHROPLASTY 03/19/2005 - 03/18/2006 Knee replacement PROSTATE BIOPSY 03/19/2007 - 03/18/2008 Prostate biopsy OTHER SURGICAL HISTORY 03/19/2014 - 03/18/2015 Hx prostrate cancer: Medical Management BLADDER TUMOR EXCISION 03/19/2023 - 04/18/2023 Medical History Medical History Date Comments Hx Other Medical 2009 cancer prostrat e Hx Other Medical 1971 compound fractu re left side Congestive heart failure (HCC) C ongestive heart failure Malignant neoplasm of prostate (HCC) Cancer, prostate Hx Other Medical prostrate cance ; Comments: follow-up for prostrate cancer. Hx Other Medical prostrate cance r; Comments: Patient getting radiation treatment every day/ total of 36 treatments Hx Other Medical Elevated PSA Hx Other Medical Hx prostrate ca ncer Bladder cancer (HCC) Family History Medical History Relation Name Comments Coronary artery disease Father 2 Josselin nary artery disease; Leukemia Father 2 Cancer -leukemi a; Cause of : Cancer -leukemia Breast cancer Mother 2 Cancer, breast ; Coronary artery disease Mother 2 Josselin nary artery disease; Other Mother 2 Alive and well; Relation Name Status Comments Father 1 (Age 68) Father 2 Mother 1 Alive Mother 2 Social History Tobacco Use Types Packs/Day Years Used Date Smoking Tobacco: Former Cigarettes Q uit: 1985 Smokeless Tobacco: Former Comments:Smoking History Pac ks/day: 1 Packs Alcohol Use Standard Drinks/Week Comments Yes 0 (1 standard drink = 0.6 oz pur e alcohol) Sex and Gender Information Value Date Recorded Sex Assigned at Not on file Legal Sex Male 2:39 PM TECHNICAL INSTRUCTOR Gender Identity Not on file Sexual Orientation Not on file Obstetrics History Last Filed Vital Signs Vital Sign Reading Time Taken Comments Blood Pressure 157/83 05/19/2024 12:01 PM TECHNICAL INSTRUCTOR Pulse 95 05/19/2024 12:01 PM TECHNICAL INSTRUCTOR Temperature 37.4 C (99.3 F) 05/19/2024 12:01 PM TECHNICAL INSTRUCTOR Respiratory Rate 20 05/19/2024 12:01 PM TECHNICAL INSTRUCTOR Oxygen Saturation 96% 05/19/2024 12:01 PM TECHNICAL INSTRUCTOR Inhaled Oxygen Concentration - - Weight 105.2 kg (232 lb) 05/19/2024 12:01 PM TECHNICAL INSTRUCTOR Height 182.9 cm (6') 05/25/2023 2:58 PM TECHNICAL INSTRUCTOR Body Mass Index 31.46 05/25/2023 2:58 PM TECHNICAL INSTRUCTOR Plan of Treatment Health Maintenance Due Date Last Done Comments Fall Risk Assessment 1945 Hepatitis C Screening 1945 Hepatitis B Screening 10/11/1965 Zoster Vaccine (1 of 2) 10/11/1966 Abdominal Aortic Aneurysm (A AA) Screen 10/11/2012 Well Visit 65+ 10/11/2012 Depression Screening 12/18/2017 12/18/2016, 08/25/19 17 Covid-19 Vaccine (2023-2 5 season) 2023 01/24/2021, 07/08/2020, 05/10/2020 Influenza Vaccine (#1) 2023 , 12/25/2018, 12/01/2017, Additional history exists DTaP/Tdap/Td Vaccine (2 - Td or Tdap) 05/05/2026 05/05/2016 Pneumococcal vaccine 65+ Completed 017, 02/22/2017, 02/16/2016, Additional history exists Procedures Procedure Name Priority Date/Time Associated Diagnosis Comments URINE CULTURE Routine 05/19/2024 12:14 PM TECHNICAL INSTRUCTOR Dysuria POCT URINALYSIS DIPSTICK Routine 05/19/2024 12:05 PM TECHNICAL INSTRUCTOR Dysuria CBC/DIFF AMBIGUOUS DEFAULT Routine 04/25/2024 2:34 PM TECHNICAL INSTRUCTOR from Last 3 Months Results * (ABNORMAL) Urine culture Urine, clean voided (05/19/2024 12:14 PM TECHNICAL INSTRUCTOR) Report Final Report: Greater than or equal to 100,000 colonies/mL of Aerococcus urinae Isolates of Aerococcus urinae are typically susceptible to beta-lactams (including penicillin and cephalosporins), vancomycin, and tetracyclines (including doxycycline), but resistant to trimethoprim-sulf amethoxazole. Plus growth of clinically insignificant bacterial gurpreet. (.) Comment:Testing performed by : [facility], [address] [place]., [address] Organism AEROCOCCUS URINAE SEMAJ Organism PLUS GROWTH OF CLINICALLY INSIGNIFICANT GURPREET. SEMAJ Urine, clean voided 05/19/2024 12:14 PM TECHNICAL INSTRUCTOR 05/20/2024 12:03 AM TECHNICAL INSTRUCTOR Narrative [facility] - 05/21/2024 7:46 AM TECHNICAL INSTRUCTOR Testing performed by [facility] Microbiology Laboratory ([phone]) Veronica Flannery NP LAB MICROBIOLOGY - GENERAL ORDERABLES Final Result SEMAJ [id number] [address] Department [place] [address] * (ABNORMAL) POCT urinalysis dipstick (05/19/2024 12:05 PM TECHNICAL INSTRUCTOR) Color, Urine, POC Yellow Clarity, ur, POC Cloudy(A) Clear Glucose, ur, POC Negative Negative MG/DL Bilirubin, ur, POC Negative Negative, Small, Moderate, Large Ketones, ur, POC Negative Negative Specific [place], POC 1.020 1.003 - 1.030 Blood, ur, POC Small(A) Negative pH, ur, POC 7.0 5.0 - 8.0 Protein, ur, POC 300.(A) Negative Urobilinogen, urine, POC 1.0 0.2 - 1.0 mg/dL Nitrite, ur, POC Negative Negative Leukocytes, ur, POC Small(A) Negative Lot Number [id number] Urine 05/19/2024 12:0 5 PM TECHNICAL INSTRUCTOR Veronica Flannery NP POINT OF CARE TEST ORDERAB LES Final Result * (ABNORMAL) CBC/Diff Ambiguous Default (04/25/2024 2:34 PM TECHNICAL INSTRUCTOR) WBC 2.2(LL) 3.4 - 10.8 x10E3/uL [facility] [...] from your office. In accordance with the [facility] Ambiguous Test Code Policy dated September 2002, we have assigned CBC with Differential/Platelet, Test Code #[id number] to this request. If this is not the testing you wished to receive on this specimen, please contact the [facility] Client Inquiry/ Technical Services Department to clarify the test order. We appreciate your business. 04/25/2024 2:34 PM TECHNICAL INSTRUCTOR 04/25/2024 Narrative [facility] - 04/26/2024 9:36 AM TECHNICAL INSTRUCTOR Performed at: [address] [place] [id number] Case Checker: Ascencion Thomas PhD, Phone: [phone] us Tano Ibarra DO LAB BLOOD ORDERABLES Final R esult [facility] - 01 from Last 3 Months Insurance [employer] [place] MEDICARE [employer] MEDICARE SUPPLEMENT MEDICARE [facility] MEDICARE SUPPLEMENT Care Teams Protector Plate Attacher Relationship Specialty Start Date End Date Don Bronson DO [address] [place], [place] [id number] PCP - General Internal Medicine 05/02/24 Tano Ibarra DO [address] [place] [id number] Medical Oncologist/Excel Developer Hematology and Oncology 04/30/20 Hardik Call MD [address] [place] [id number] Consulting Physician Urology 10/28/21
--- NOTE | 2024-06-02 17:44 | ED.FEVER ---
HPI - Fever General Chief Complaint: Fever <Yolanda Muhammad PA-C - Last Filed: 06/02/24 22:04> Stated Complaint: fever x 2 days <Yolanda Muhammad PA-C - Last Filed: 06/02/24 22:04> Time Seen by Provider: 06/02/24 17:43 <Yolanda Muhammad PA-C - Last Filed: 06/02/24 22:04> Source: patient <BRYAN Hurst Last Filed: 06/02/24 22:04> Mode of arrival: ambulatory <BRYAN Hurst Last Filed: 06/02/24 22:04> Limitations: no limitations <Yolanda Muhammad PA-C - Last Filed: 06/02/24 22:04> History of Present Illness HPI Narrative: Patient is a 78 year old male, w/ past medical history of prostate cancer s/p prostatectomy, who presents the ED with report of fever. Patient reports he has had intermittent fevers since Sunday. T-max up to 103F. Has been taking Aleve for his fevers. Denies fever today. Reports he has been dealing with recurrent UTI over the last 1.5 months. Has been on multiple different antibiotics, including Macrobid, Bactrim, cefdinir, ciprofloxacin. Most recently finished Macrobid on Sunday. States his most recent urine culture from outpatient facility has grown positive for aerococcus urinae. He does report some difficulty urinating, feeling of incomplete bladder emptying. Denies hematuria. Denies abdominal or back pain. Denies cough or cold symptoms. <Yolanda Muhammad PA-C - Last Filed: 06/02/24 22:04> Related Data Home Medications: Home Medications ?Medication ?Instructions ?Recorded ?Confirmed ?Last Taken ?Type multivitamin (Multiple Vitamins 1 tablet PO DAILY 09/30/19 01/10/24 01/03/24 History tablet) omeprazole 20 mg capsule,delayed 20 mg PO DAILY 09/30/19 01/04/24 Unknown History release pyridoxine (vitamin B6) 500 mg 500 mg PO DAILY 09/30/19 01/10/24 01/03/24 History tablet cholecalciferol (vitamin D3) 50 50 mcg PO DAILY 10/07/19 01/10/24 01/03/24 History mcg (2,000 unit) capsule calcium carbonate (Calcium 500) 600 mg PO DAILY 10/24/19 01/10/24 01/03/24 History leuprolide acetate (6 month) 45 mg 45 mg subcut [id number] 10/24/19 01/04/24 Unknown History (6 month) subcutaneous syringe (Eligard) gabapentin 300 mg capsule 800 mg PO QHS 06/12/23 01/04/24 Unknown History prednisone 10 mg tablet 20 mg PO DAILY 06/12/23 01/10/24 01/10/24 07:00 History alendronate 70 mg tablet 70 mg PO WEEKLY 01/04/24 01/04/24 Unknown History melatonin 10 mg tablet 10 mg PO HS PRN Insomnia 01/04/24 01/04/24 Unknown History <Yolanda Muhammad PA-C - Last Filed: 06/02/24 22:04> Allergies/Adverse Reactions: Allergies Allergy/AdvReac Type Severity Reaction Status Date / Time No Known Allergies Allergy Verified 01/10/24 11:56 <Yolanda Muhammad PA-C - Last Filed: 06/02/24 22:04> Review of Systems Review of Systems: All systems reviewed & are unremarkable except as noted in HPI. <Yolanda Muhammad PA-C - Last Filed: 06/02/24 22:04> All systems reviewed & are unremarkable except as noted in HPI and below <Yolanda uMhammad PA-C - Last Filed: 06/02/24 22:04> [facility] Past Medical History Medical History: Medical History Other idiopathic peripheral autonomic neuropathy Unspecified disorder of circulatory system Broken arm (~1953) History of broken leg (~1970) Prostate cancer Pure hyperglyceridemia Essential hypertension Cardiac abnormality Incontinence <Yolanda Muhammad PA-C - Last Filed: 06/02/24 22:04> Surgical History Surgical History: Surgical History History of prostatectomy History of sinus surgery Total knee replacement status (~2005) H/O hernia repair (~2014) Total knee replacement status (~07/23/18) <Yolanda Muhammad PA-C - Last Filed: 06/02/24 22:04> Family History Family History: Family History Father Family history of malignant neoplasm Mother Family history of malignant neoplasm of breast in first degree relative Other Family history of cardiovascular disease Hypertension <Yolanda Muhammad PA-C - Last Filed: 06/02/24 22:04> Social History Social History: Social History Social History: Caffeine- Smoking packs per day: 1 Smoking cigarettes per day: 20.0 Years smoked: 25 Smoking pack-years: 25.00 Smoking status: Former smoker Tobacco type: cigarettes Second hand tobacco smoke exposure: No Smoking end date: 03/19/85 Alcohol intake: current Drinks per week: 3 Substance use: never Substance use type: does not use Lack of Transportation: No Lack of Food: Never True Current Housing: I Have Housing Concerned About Future Housing: No Difficulty Paying Gas/Electric Bills: No Difficulty Paying for Meds: No Currently Unemployed: No Education: Associate Degree Difficulty w/ Childcare or Family Care: No Living arrangements: with family Spiritual care concerns: No <Yolanda Muhammad PA-C - Last Filed: 06/02/24 22:04> Exam Narrative: GENERAL: Well appearing, obese with BMI of 30.0, non-toxic, in no acute distress. HEAD: Normocephalic, atraumatic. RESPIRATORY: Airway patent, respirations nonlabored. Clear to auscultation bilaterally, no rales, rhonchi, wheezing. CARDIOVASCULAR: Regular rate and rhythm without murmurs, rubs, or gallops. ABDOMINAL: Soft, no tenderness throughout abdomen, nondistended. Normoactive BS. No CVA tenderness to percussion. MUSCULOSKELETAL: Moves all extremities. No gross deformities. SKIN: Warm, dry, normal color. Diffuse papular rash to abdomen, lower legs/ankles, arms, chest pain. No significant rash on back. NEURO: A&O X3. Speech clear. Cranial nerves II-XII grossly intact. Steady gait. No ataxic movements. PSYCHIATRIC: Appropriate mood and affect. Normal interaction. <Yolanda Muhammad PA-C - Last Filed: 06/02/24 22:04> Course PRODUCTION SUPPORT SUPERVISOR/PA Physician Supervision For this patient encounter, I reviewed the PRODUCTION SUPPORT SUPERVISOR or PA documentation, treatment plan, and medical decision making; and I had [id number] time with this patient. <Castillo Kerr MD - Last Filed: 06/02/24 22:34> Vital Signs Vital signs: Vital Signs Temperature 97.6 F 06/02/24 15:25 Pulse Rate 92 06/02/24 15:25 Respiratory Rate 16 06/02/24 15:25 Blood Pressure 93/58 L 06/02/24 15:25 Pulse Oximetry 96 06/02/24 15:25 Temperature 97.9 F 06/02/24 18:22 Pulse Rate 72 06/02/24 22:01 Respiratory Rate 17 06/02/24 22:01 Blood Pressure 112/64 06/02/24 22:01 Pulse Oximetry 94 06/02/24 22:01 <Yolanda Muhammad PA-C - Last Filed: 06/02/24 22:04> Vital Signs Temperature 97.6 F 06/02/24 15:25 Pulse Rate 92 06/02/24 15:25 Respiratory Rate 16 06/02/24 15:25 Blood Pressure 93/58 L 06/02/24 15:25 Pulse Oximetry 96 06/02/24 15:25 Temperature 97.9 F 06/02/24 18:22 Pulse Rate 72 06/02/24 22:01 Respiratory Rate 17 06/02/24 22:01 Blood Pressure 112/64 06/02/24 22:01 Pulse Oximetry 94 06/02/24 22:01 <Castillo Kerr MD - Last Filed: 06/02/24 22:34> MDM - Fever MDM Narrative Medical decision making narrative: Patient presented to ED with several day history of intermittent fevers, dealing with recurrent UTIs over the past 1.5 months. Has been on several antibiotics as an outpatient. Most recently finished course of macrobid on Sunday. Patient was mildly hypotensive upon arrival. Afebrile currently. Sepsis workup was initiated. Patient was only able to void a very small amount for urinalysis but postvoid residual was < 10mL. Will continue to monitor. Patient does appear dry on exam. CBC with white blood cell count of 2.4. There are 43% neutrophils, 42% bands on differential. Lymphocytes are low. H&H is stable. Platelets stable. Sodium 132. Does have anion gap of 15. Fluids are ongoing. Acute renal failure with creatinine today of 3.21. Baseline around 1.3-1.6. Blood sugar is moderately elevated to 338. Will re-evaluate after fluids. Beta hydroxy within normal range. Lactic acid elevated to 2.9. CRP is markedly elevated to 36.3. UA with trace ketones, 1+ leuk esterase, 11-20 WBC. No urine bacteria seen. Sent for culture. Will treat given acute symptomatology. Blood cultures were obtained. Viral swabs are negative. CT abd/pelvis obtained and unremarkable. Bladder without concerning findings. Showing chronic kidney stones which appear unchanged from 2023. Does show density in the lungs recommending nonemergent f/u. Patient is meeting sepsis criteria based on vital signs, laboratory studies, elev lactic. Rocephin started in the ED patient will be admitted for further evaluation. Given 30 cc/kg fluids. Discussed case with Dr. Summers, hospitalist, accepted patient for admission. <Yolanda Muhammad PA-C - Last Filed: 06/02/24 22:04> Medical Records Attestation: I reviewed the patient's medical records. <Yolanda Muhammad PA-C - Last Filed: 06/02/24 22:04> Lab Data Attestation: I reviewed the patient's lab results. <Yolanda Muhammad PA-C - Last Filed: 06/02/24 22:04> Result diagrams: 06/02/24 18:01 06/02/24 18:01 <Yolanda Muhammad PA-C - Last Filed: 06/02/24 22:04> Labs: Lab Results 06/02/24 06/02/24 06/02/24 Range/Units 18:01 18:04 18:58 WBC 2.4 L (4.5-10.0) K/mm3 RBC 4.10 L (4.6-6.20) M/mm3 Hgb 11.4 L (14.0-18.0) g/dL Hct 36.1 L (42.0-52.0) % MCV 88.0 (80-100) fl MCH 27.8 (26-34) pg MCHC 31.6 L (32-36) g/dl RDW 14.9 H (11.5-14.5) % Plt Count 196 (150-375) k/mm3 MPV 8.8 (7.4-10.4) fl Immature Gran % (Auto) Not Reportable Neut % (Auto) Not Reportable Lymph % (Auto) Not Reportable Phillips % (Auto) Not Reportable Eos % (Auto) Not Reportable Baso % (Auto) Not Reportable Lymph # (Auto) Not Reportable Phillips # (Auto) Not Reportable Eos # (Auto) Not Reportable Baso # (Auto) Not Reportable Abs Immat Gran (auto) Not Reportable Absolute Neuts (auto) Not Reportable Absolute Nucleated RBC Not Reportable Total Counted 100 Neutrophils % (Manual) 43 L (46-73) % Band Neutrophils % 42 H (0-6) % Lymphocytes % (Manual) 6.0 L (18-44) % Monocytes % (Manual) 8 (3-9) % Eosinophils % (Manual) 1 (0-4) % Nucleated RBC % Not Reportable Abs Neuts (Manual) 2.04 (1.3-6.7) K/mm3 Abs Lymphs (Manual) 0.14 L (1.1-4.5) K/mm3 Abs Monocytes (Manual) 0.19 (0.1-0.90) K/mm3 Absolute Eos (Manual) 0.02 (0.02-0.50) K/mm3 Platelet Estimate Adequate (Adequate) Clumped Platelets Present Hypochromasia 1+ Schistocytes None seen ESR 48 H (0-20) mm/hr Sodium 132 L (137-145) mmol/L Potassium 4.2 (3.4-5.0) mmol/L Chloride 95 L (98-107) mmol/L Carbon Dioxide 22 (22-30) mmol/L Anion Gap 15 H (4-12) mmol/L BUN 47 H (9-20) mg/dL Creatinine 3.21 H (0.7-1.3) mg/dL Estim Creat Clear Calc 20 ml/min Estimated GFR 19 L (59 - ) Glucose 338 H (65-110) mg/dL Lactic Acid 2.9 H (0.7-2.0) mmol/L Calcium 9.0 (8.4-10.2) mg/dL Total Bilirubin 0.9 (0.2-1.3) mg/dL AST 48 (17-59) U/L ALT 57 H (6-50) U/L Alkaline Phosphatase 106 (38-126) U/L C-Reactive Protein 36.3 H (<1.0) mg/dL Total Protein 7.0 (6.3-8.2) g/dL Albumin 3.9 (3.5-5.1) g/dL Beta-Hydroxybutyrate/Acetoacetate 0.10 (0.02-0.27) mmol/L Urine Color Dark yellow (Yellow) Urine Appearance Cloudy H (Clear) Urine pH 5.0 (5.0-9.0) Ur Specific [place] 1.019 (1.001-1.035) Urine Protein 1+ H (Negative) mg/dL Urine Glucose (UA) Trace H (Negative) mg/dL Urine Ketones Trace H (Negative) mg/dL Ur Blood (Man) Negative (Negative) Urine Nitrate Negative (Negative) Urine Bilirubin 2+ H (Negative) Urine Urobilinogen 1.0 (<2.0) mg/dL Leukocyte Esterase Rfl 1+ H (Negative) ANITA/UL Urine RBC 0-2 (0-2) /hpf Urine WBC 11-20 H (0-3) /hpf Ur Squamous Epith Cells Many H (Few) /hpf Urine Bacteria None seen /hpf Urine Casts >20 Hyaline Casts Present (None) /lpf Urine Eosinophils None seen (None Seen) % Ur Random Creatinine Pending Ur Random Chloride Pending U Random Chloride/Creat Pending Urine Creatinine 292.1 mg/dL Influenza A (RT-PCR) Negative (Negative) Influenza B (RT-PCR) Negative (Negative) RSV (RT-PCR) Negative (Negative) SARS-CoV-2 RNA (RT-PCR) Negative (Negative) <Yolanda Muhammad PA-C - Last Filed: 06/02/24 22:04> Lab Results 06/02/24 06/02/24 06/02/24 Range/Units 18:01 18:04 18:58 WBC 2.4 L (4.5-10.0) K/mm3 RBC 4.10 L (4.6-6.20) M/mm3 Hgb 11.4 L (14.0-18.0) g/dL Hct 36.1 L (42.0-52.0) % MCV 88.0 (80-100) fl MCH 27.8 (26-34) pg MCHC 31.6 L (32-36) g/dl RDW 14.9 H (11.5-14.5) % Plt Count 196 (150-375) k/mm3 MPV 8.8 (7.4-10.4) fl Immature Gran % (Auto) Not Reportable Neut % (Auto) Not Reportable Lymph % (Auto) Not Reportable Phillips % (Auto) Not Reportable Eos % (Auto) Not Reportable Baso % (Auto) Not Reportable Lymph # (Auto) Not Reportable Phillips # (Auto) Not Reportable Eos # (Auto) Not Reportable Baso # (Auto) Not Reportable Abs Immat Gran (auto) Not Reportable Absolute Neuts (auto) Not Reportable Absolute Nucleated RBC Not Reportable Total Counted 100 Neutrophils % (Manual) 43 L (46-73) % Band Neutrophils % 42 H (0-6) % Lymphocytes % (Manual) 6.0 L (18-44) % Monocytes % (Manual) 8 (3-9) % Eosinophils % (Manual) 1 (0-4) % Nucleated RBC % Not Reportable Abs Neuts (Manual) 2.04 (1.3-6.7) K/mm3 Abs Lymphs (Manual) 0.14 L (1.1-4.5) K/mm3 Abs Monocytes (Manual) 0.19 (0.1-0.90) K/mm3 Absolute Eos (Manual) 0.02 (0.02-0.50) K/mm3 Platelet Estimate Adequate (Adequate) Clumped Platelets Present Hypochromasia 1+ Schistocytes None seen ESR 48 H (0-20) mm/hr Sodium 132 L (137-145) mmol/L Potassium 4.2 (3.4-5.0) mmol/L Chloride 95 L (98-107) mmol/L Carbon Dioxide 22 (22-30) mmol/L Anion Gap 15 H (4-12) mmol/L BUN 47 H (9-20) mg/dL Creatinine 3.21 H (0.7-1.3) mg/dL Estim Creat Clear Calc 20 ml/min Estimated GFR 19 L (59 - ) Glucose 338 H (65-110) mg/dL Lactic Acid 2.9 H (0.7-2.0) mmol/L Calcium 9.0 (8.4-10.2) mg/dL Total Bilirubin 0.9 (0.2-1.3) mg/dL AST 48 (17-59) U/L ALT 57 H (6-50) U/L Alkaline Phosphatase 106 (38-126) U/L C-Reactive Protein 36.3 H (<1.0) mg/dL Total Protein 7.0 (6.3-8.2) g/dL Albumin 3.9 (3.5-5.1) g/dL Beta-Hydroxybutyrate/Acetoacetate 0.10 (0.02-0.27) mmol/L Urine Color Dark yellow (Yellow) Urine Appearance Cloudy H (Clear) Urine pH 5.0 (5.0-9.0) Ur Specific [place] 1.019 (1.001-1.035) Urine Protein 1+ H (Negative) mg/dL Urine Glucose (UA) Trace H (Negative) mg/dL Urine Ketones Trace H (Negative) mg/dL Ur Blood (Man) Negative (Negative) Urine Nitrate Negative (Negative) Urine Bilirubin 2+ H (Negative) Urine Urobilinogen 1.0 (<2.0) mg/dL Leukocyte Esterase Rfl 1+ H (Negative) ANITA/UL Urine RBC 0-2 (0-2) /hpf Urine WBC 11-20 H (0-3) /hpf Ur Squamous Epith Cells Many H (Few) /hpf Urine Bacteria None seen /hpf Urine Casts >20 Hyaline Casts Present (None) /lpf Urine Eosinophils None seen (None Seen) % Ur Random Creatinine Pending Ur Random Chloride Pending U Random Chloride/Creat Pending Urine Creatinine 292.1 mg/dL Influenza A (RT-PCR) Negative (Negative) Influenza B (RT-PCR) Negative (Negative) RSV (RT-PCR) Negative (Negative) SARS-CoV-2 RNA (RT-PCR) Negative (Negative) <Castillo Kerr MD - Last Filed: 06/02/24 22:34> Imaging Data Attestation: I personally reviewed and interpreted this imaging study as follows: <Yolanda Muhammad PA-C - Last Filed: 06/02/24 22:04> Radiologist's impression: ITS Impressions Chest X-Ray 06/02/24 19:21 IMPRESSION: Stable imaging of the chest, when compared to 2022, as detailed above. Abdomen/Pelvis CT 06/02/24 19:26 IMPRESSION: No acute pathology within the abdomen or pelvis. Innumerable nonacute findings, as detailed above. Incompletely evaluated on the current study is a 24 x 17 mm density which has increased in size from previous studies dating back to [address] examination of the chest is suggested (nonemergently when the patient is clinically able). <Yolanda Muhammad PA-C - Last Filed: 06/02/24 22:04> Discharge Plan Discharge Clinical Impression: Lactic acidosis UTI (urinary tract infection) Qualifiers: Urinary tract infection type: acute cystitis Hematuria presence: without hematuria Qualified Code(s): N30.00 - Acute cystitis without hematuria Sepsis Qualifiers: Sepsis type: sepsis due to unspecified organism Sepsis acute organ dysfunction status: unspecified Qualified Code(s): A41.9 - Sepsis, unspecified organism Acute renal failure Qualifiers: Acute renal failure type: unspecified Qualified Code(s): N17.9 - Acute kidney failure, unspecified <Yolanda Muhammad PA-C - Last Filed: 06/02/24 22:04> Patient Disposition: Still a Patient <BRYAN Hurst Last Filed: 06/02/24 22:04> Condition: Stable <BRYAN Hurst Last Filed: 06/02/24 22:04>
[2024-06-02 18:09] LABS: Hematocrit 36.1 % (42.0-52.0); Hemoglobin 11.4 g/dL (14.0-18.0); Mean Corpuscular HGB Conc 31.6 g/dl (32-36); Mean Corpuscular Hemoglobin 27.8 pg (26-34); Mean Platelet Volume 8.8 fl (7.4-10.4); Platelet Count Result 196 k/mm3 (150-375); Red Cell Distribution Width 14.9 % (11.5-14.5); White Blood Count 2.4 K/mm3 (4.5-10.0)
[2024-06-02] MEDS: SODIUM CHLORIDE 0.9% IV 1,000 ML 999 ML IV CONT ×3 (18:16)
[2024-06-02 18:20] LABS: Lactic Acid Reflex 2.9 mmol/L (0.7-2.0)
[2024-06-02 18:22] VITALS: BP 109/61; PULSE 84; RESP 16; TEMP 36.6; O2SAT 96
[2024-06-02 18:23] VITALS: RESP 18
[2024-06-02 18:26] LABS: Alanine Aminotransferase 57 U/L (6-50); Albumin Level 3.9 g/dL (3.5-5.1); Alkaline Phosphatase 106 U/L (38-126); Anion Gap 15 mmol/L (4-12); Aspartate Amino Transferase 48 U/L (17-59); Bilirubin,Total 0.9 mg/dL (0.2-1.3); Blood Urea Nitrogen 47 mg/dL (9-20); Carbon Dioxide 22 mmol/L (22-30); Chloride 95 mmol/L (98-107); Estimated CRCL calculation 20 ml/min; Estimated Glomerular Filt Rate 19; Glucose 338 mg/dL (65-110); Potassium 4.2 mmol/L (3.4-5.0); Sodium 132 mmol/L (137-145)
[2024-06-02 18:40] LABS: Band Neutrophils Percent 42 % (0-6); Eosinophils Absolute Manual 0.02 K/mm3 (0.02-0.50); Eosinophils Percent Manual 1 % (0-4); Lymphocytes Absolute Manual 0.14 K/mm3 (1.1-4.5); Monocytes Absolute Manual 0.19 K/mm3 (0.1-0.90); Monocytes Percent Manual 8 % (3-9); Neutrophils Absolute Manual 2.04 K/mm3 (1.3-6.7); Neutrophils Percent Manual 43 % (46-73); Total Cells Counted 100
[2024-06-02 18:41] LABS: Hypochromasia 1+; Platelet Clumps Present; Platelet Estimate Adequate (Adequate); Schistocytes None Seen
[2024-06-02 18:45] LABS: Influenza A QL RT-PCR Negative (Negative); Influenza B QL RT-PCR Negative (Negative); RSV RNA, RT-PCR Negative (Negative); SARS-CoV-2 RNA PCR Negative (Negative)
[2024-06-02 18:50] LABS: CRP 36.3 mg/dL (<1.0)
--- OUTSIDE RECORDS SUMMARY | 2024-06-02 19:10 | XMS_ITS | Referral Summary ---
Author Organization [address] Address [address] [place] [id number] Care Team Providers Care Child & Adolescent Psychiatrist Name Role Phone Tano Ibarra DO Unavailable [phone] Hardik Call MD Unavailable [phone] Don Bronson DO Primary Care Provider [phone] Encounters Date Type Department Care Team Description 05/26/2024 Telephone [facility] Oncology [address] [place] [address] [address] [place] [address] Jacquelin Rosenberg RN 05/21/2024 Results Follow-Up [facility] at [address] [address] Kasandra Davila NP 05/19/2024 12:14 PM LOCOMOTIVE ENGINEER ELECTRIC - 05/19/2024 11:59 PM LOCOMOTIVE ENGINEER ELECTRIC Hospital Encounter [address] [address] Dysuria Discharge Disposition: Discharge to home or self care 05/19/2024 12:00 PM LOCOMOTIVE ENGINEER ELECTRIC Office Visit [facility] at [address] [address] Veronica Flannery NP Dysuria (Primary Dx) 05/02/2024 1:15 PM LOCOMOTIVE ENGINEER ELECTRIC Office Visit [facility] Oncology [address] [place] [address] [address] [place] [address] Stacey, Tano L., DO Prostate cancer (HCC) (Primary Dx); Pancytopenia (HCC); Osteopenia, unspecified location 04/25/2024 Orders Only [facility] Physicians [facility] Oncology [facility] [address] [place] [address] Tano Ibarra DO from Last [...] 8, Grade Group: 4) - Signed by Tnao Ibarra DO on 09/28/2017 Assessment & Plan [...] on file Legal Sex Male 2:39 PM LOCOMOTIVE ENGINEER ELECTRIC Gender Identity Not on file Sexual Orientation Not on file Last Filed Vital Signs Vital Sign Reading Time Taken Comments Blood Pressure 157/83 05/19/2024 12:01 PM LOCOMOTIVE ENGINEER ELECTRIC Pulse 95 05/19/2024 12:01 PM LOCOMOTIVE ENGINEER ELECTRIC Temperature 37.4 C (99.3 F) 05/19/2024 12:01 PM LOCOMOTIVE ENGINEER ELECTRIC Respiratory Rate 20 05/19/2024 12:01 PM LOCOMOTIVE ENGINEER ELECTRIC Oxygen Saturation 96% 05/19/2024 12:01 PM LOCOMOTIVE ENGINEER ELECTRIC Inhaled Oxygen Concentration - - Weight 105.2 kg (232 lb) 05/19/2024 12:01 PM LOCOMOTIVE ENGINEER ELECTRIC Height 182.9 cm (6') 05/25/2023 2:58 PM LOCOMOTIVE ENGINEER ELECTRIC Body Mass Index 31.46 05/25/2023 2:58 PM LOCOMOTIVE ENGINEER ELECTRIC Plan of Treatment Not on file Procedures Procedure Name Priority Date/Time Associated Diagnosis Comments URINE CULTURE Routine 05/19/2024 12:14 PM LOCOMOTIVE ENGINEER ELECTRIC Dysuria POCT URINALYSIS DIPSTICK Routine 05/19/2024 12:05 PM LOCOMOTIVE ENGINEER ELECTRIC Dysuria CBC/DIFF AMBIGUOUS DEFAULT Routine 04/25/2024 2:34 PM LOCOMOTIVE ENGINEER ELECTRIC from Last 3 Months Results * (ABNORMAL) Urine culture Urine, clean voided (05/19/2024 12:14 PM LOCOMOTIVE ENGINEER ELECTRIC) Report Final Report: Greater than or equal to 100,000 colonies/mL of Aerococcus urinae Isolates of Aerococcus urinae are typically susceptible to beta-lactams (including penicillin and cephalosporins), vancomycin, and tetracyclines (including doxycycline), but resistant to trimethoprim-sulf amethoxazole. Plus growth of clinically insignificant bacterial gurpreet. (.) Comment:Testing performed by : [facility], [address] [facility], [place]., [address] Organism AEROCOCCUS URINAE SEMAJ Organism PLUS GROWTH OF CLINICALLY INSIGNIFICANT GURPREET. SEMAJ Urine, clean voided 05/19/2024 12:14 PM LOCOMOTIVE ENGINEER ELECTRIC 05/20/2024 12:03 AM LOCOMOTIVE ENGINEER ELECTRIC Narrative [facility]ALL - 05/21/2024 7:46 AM LOCOMOTIVE ENGINEER ELECTRIC Testing performed by [facility] Microbiology Laboratory ([phone]) Veronica Flannery NP LAB MICROBIOLOGY - GENERAL ORDERABLES Final Result SEMAJ [address] [address] Department [place] [address] * (ABNORMAL) POCT urinalysis dipstick (05/19/2024 12:05 PM LOCOMOTIVE ENGINEER ELECTRIC) Color, Urine, POC Yellow Clarity, ur, POC Cloudy(A) Clear Glucose, ur, POC Negative Negative MG/DL Bilirubin, ur, POC Negative Negative, Small, Moderate, Large Ketones, ur, POC Negative Negative Specific [place], POC 1.020 1.003 - 1.030 Blood, ur, POC Small(A) Negative pH, ur, POC 7.0 5.0 - 8.0 Protein, ur, POC 300.(A) Negative Urobilinogen, urine, POC 1.0 0.2 - 1.0 mg/dL Nitrite, ur, POC Negative Negative Leukocytes, ur, POC Small(A) Negative Lot Number [id number] Urine 05/19/2024 12:0 5 PM LOCOMOTIVE ENGINEER ELECTRIC Veronica Flannery NP POINT OF CARE TEST ORDERAB LES Final Result * (ABNORMAL) CBC/Diff Ambiguous Default (04/25/2024 2:34 PM LOCOMOTIVE ENGINEER ELECTRIC) WBC 2.2(LL) 3.4 - 10.8 x10E3/uL [facility] [...] have assigned CBC with Differential/Platelet, Test Code #[id number] to this request. If this is not the testing you wished to receive on this specimen, please [facility] Services Department to clarify the test order. We appreciate your business. 04/25/2024 2:34 PM LOCOMOTIVE ENGINEER ELECTRIC 04/25/2024 Narrative [facility] - 04/26/2024 9:36 AM LOCOMOTIVE ENGINEER ELECTRIC Performed at: [address], [place] [id number] [employer] Mill[employer]: Ascencion Thomas PhD, Phone: [phone] us Tano Ibarra DO LAB BLOOD ORDERABLES Final R esult [facility] - 01 from Last 3 Months Insurance MEDICARE [facility] [facility] MEDICARE [facility] MEDICARE SUPPLEMENT MEDICARE [facility] MEDICARE SUPPLEMENT Care Teams Child & Adolescent Psychiatrist Relationship Specialty Start Date End Date Don Bronson DO [address] [place] [address] PCP - General Internal Medicine 05/02/24 Tano Ibarra DO [address] [place] [id number] Medical Oncologist/Source Inspector Hematology and Oncology 04/30/20 Hardik Call MD [address] [place] [id number] Consulting Physician Urology 10/28/21
--- OUTSIDE RECORDS SUMMARY | 2024-06-02 19:10 | XMS_ITS | Encounter Summary ---
Author Organization [facility] Healthcare Address [address] [place] [address] Care Team Providers Care Fence Erector Name Role Phone Tano Ibarra DO Unavailable [phone] Hardik Call MD Unavailable [phone] Don Bronson DO Primary Care Provider [phone] Encounter Details Date Type Department Care Team (Late st Contact Info) Description 05/21/2024 Results Follow-Up [facility] at [address] [address] Kasandra Davila NP [address] [place] [address] Social History Tobacco Use Types Packs/Day Years Used Date Smoking Tobacco: Former Cigarettes Q uit: 1985 Smokeless Tobacco: Former Comments:Smoking History Pac ks/day: 1 Packs Alcohol Use Standard Drinks/Week Comments Yes 0 (1 standard drink = 0.6 oz pur e alcohol) Sex and Gender Information Value Date Recorded Sex Assigned at Not on file Legal Sex Male 2:39 PM SALES REPRESENTATIVE LIVESTOCK Gender Identity Not on file Sexual Orientation [...] week or sooner if symptoms are worsening. S REPRESENTATIVE LIVESTOCK documented in this encounter Plan of Treatment Not on file documented as of this encounter Visit Diagnoses Not on filedocumented in this encounter Care Teams Fence Erector Relationship Specialty Start Date End Date Don Bronson DO [address] [place] [address] PCP - General Internal Medicine 05/02/24 Tano Ibarra DO [address] [place] [id number] Medical Oncologist/Lay Out Helper Hematology and Oncology 04/30/20 Hardik Call MD [address] [place] [id number] Consulting Physician Urology 10/28/21 documented as of this encounter
--- OUTSIDE RECORDS SUMMARY | 2024-06-02 19:10 | XMS_ITS | Clinical Summary ---
Author Organization [facility] [id number] Address [address] [place] [id number] Care Team Providers Care Buffer Automatic Name Role Phone Tano Ibarra DO Unavailable [phone] Hardik Call MD Unavailable Don Brosnon DO Primary Care Provider [phone] Allergies No known active allergies Medications omeprazole [...] Type Department Care Team Description 05/26/2024 Telephone [facility] Oncology [address] [place] [address] Jacquelin Rosenberg RN 05/21/2024 Results Follow-Up [facility] at [address] [address] Kasandra Davila NP 05/19/2024 12:14 PM PLAY THERAPIST - 05/19/2024 11:59 PM PLAY [place] [address] Dysuria Discharge Disposition: Discharge to home or self care 05/19/2024 12:00 PM PLAY THERAPIST Office Visit [facility] at [address] [address] Veronica Flannery NP Dysuria (Primary Dx) 05/02/2024 1:15 PM PLAY THERAPIST Office Visit [facility] Oncology [address] [place] [address] [address] [place] [address] Tano Ibarra DO Prostate cancer (HCC) (Primary Dx); Pancytopenia (HCC); Osteopenia, unspecified location 04/25/2024 Orders Only [facility] [address] [place] [address] [address] [place] [address] Tano Ibarra DO from Last [...] on file Legal Sex Male 2:39 PM PLAY THERAPIST Gender Identity Not on file Sexual Orientation Not on file Obstetrics History Last Filed Vital Signs Vital Sign Reading Time Taken Comments Blood Pressure 157/83 05/19/2024 12:01 PM PLAY THERAPIST Pulse 95 05/19/2024 12:01 PM PLAY THERAPIST Temperature 37.4 C (99.3 F) 05/19/2024 12:01 PM PLAY THERAPIST Respiratory Rate 20 05/19/2024 12:01 PM PLAY THERAPIST Oxygen Saturation 96% 05/19/2024 12:01 PM PLAY THERAPIST Inhaled Oxygen Concentration - - Weight 105.2 kg (232 lb) 05/19/2024 12:01 PM PLAY THERAPIST Height 182.9 cm (6') 05/25/2023 2:58 PM PLAY THERAPIST Body Mass Index 31.46 05/25/2023 2:58 PM PLAY THERAPIST Plan of Treatment Health Maintenance Due Date [...] Comments URINE CULTURE Routine 05/19/2024 12:14 PM PLAY THERAPIST Dysuria POCT URINALYSIS DIPSTICK Routine 05/19/2024 12:05 PM PLAY THERAPIST Dysuria CBC/DIFF AMBIGUOUS DEFAULT Routine 04/25/2024 2:34 PM PLAY THERAPIST from Last 3 Months Results * (ABNORMAL) Urine culture Urine, clean voided (05/19/2024 12:14 PM PLAY THERAPIST) Report Final Report: Greater than or equal to 100,000 colonies/mL of Aerococcus urinae Isolates of Aerococcus urinae are typically susceptible to beta-lactams (including penicillin and cephalosporins), vancomycin, and tetracyclines (including doxycycline), but resistant to trimethoprim-sulf amethoxazole. Plus growth of clinically insignificant bacterial gurpreet. (.) Comment:Testing performed by : [facility], [address] [place]., [address] Organism AEROCOCCUS URINAE SEMAJ Organism PLUS GROWTH OF CLINICALLY INSIGNIFICANT GURPREET. SEMAJ Urine, clean voided 05/19/2024 12:14 PM PLAY THERAPIST 05/20/2024 12:03 AM PLAY THERAPIST Narrative SEM[facility] - 05/21/2024 7:46 AM PLAY THERAPIST Testing performed by [facility] Laboratory ([phone]) Veronica Flannery NP LAB MICROBIOLOGY - GENERAL ORDERABLES Final Result SEM[facility] [id number] Department [place] [address] * (ABNORMAL) POCT urinalysis dipstick (05/19/2024 12:05 PM PLAY THERAPIST) Color, Urine, POC Yellow Clarity, ur, POC Cloudy(A) Clear Glucose, ur, POC Negative Negative MG/DL Bilirubin, ur, POC Negative Negative, Small, Moderate, Large Ketones, ur, POC Negative Negative Specific Dilley, POC 1.020 1.003 - 1.030 Blood, ur, POC Small(A) Negative pH, ur, POC 7.0 5.0 - 8.0 Protein, ur, POC 300.(A) Negative Urobilinogen, urine, POC 1.0 0.2 - 1.0 mg/dL Nitrite, ur, POC Negative Negative Leukocytes, ur, POC Small(A) Negative Lot Number [id number] Urine 05/19/2024 12:0 5 PM PLAY THERAPIST Veronica Flannery NP POINT OF CARE TEST ORDERAB LES Final Result * (ABNORMAL) CBC/Diff Ambiguous Default (04/25/2024 2:34 PM PLAY THERAPIST) WBC 2.2(LL) 3.4 - 10.8 x10E3/uL [facility] [...] have assigned CBC with Differential/Platelet, Test Code #[id number] to this request. If this is not the testing you wished to receive on this specimen, please contact the [facility] Client Inquiry/ Technical Services Department to clarify the test order. We appreciate your business. 04/25/2024 2:34 PM PLAY THERAPIST 04/25/2024 Narrative [facility] - 04/26/2024 9:36 AM PLAY THERAPIST Performed at: [address] [place] [id number] Plant Engineering Supervisor: Ascencion Thomas PhD, Phone: [phone] us Tano Ibarra DO LAB BLOOD ORDERABLES Final R esult [facility] - 01 from Last 3 Months Insurance [place] MEDICARE [employer] MEDICARE SUPPLEMENT MEDICARE [facility] MEDICARE SUPPLEMENT Care Teams Buffer Automatic Relationship Specialty Start Date End Date Don Bronson DO [id number] [place], [place] [id number] PCP - General Internal Medicine 05/02/24 Tano Ibarra DO [address] [place] [id number] Medical Oncologist/Retail Wireless Sales Consultant Hematology and Oncology 04/30/20 Hardik Call MD [address] [place] [id number] Consulting Physician Urology 10/28/21
[2024-06-02 19:14] LABS: Add Urine Microscopic? YES; Appearance Urine Cloudy (Clear); Bacteria Urine None Seen /hpf; Bilirubin Urine 2+ (Negative); Blood Urine Negative (Negative); Color Urine Dark Yellow (Yellow); Glucose Urine UA Trace mg/dL (Negative); Hyaline Casts Urine Present /lpf; Ketones Urine Trace mg/dL (Negative); Leukocyte Esterase Ur 1+ LEU/UL (Negative); Nitrate Urine Negative (Negative); Non Pathogenic Casts >20; Protein Urine 1+ mg/dL (Negative); RBC Urine 0-2 /hpf (0-2); Specific Grav Ur 1.019 (1.001-1.035); Squamous Epithelial Cell Urine Many /hpf (Few)
[2024-06-02] MEDS: SODIUM CHLORIDE 0.9% IV 100 ML 999 ML IV CONT (19:55)
[2024-06-02 20:07] LABS: Reflex Lactic Acid Yes or No Add Lactic
[2024-06-02 21:03] VITALS: BP 114/71; PULSE 72; RESP 18; O2SAT 98
[2024-06-02 21:28] LABS: Creatinine Urine 292.1 mg/dL
[2024-06-02 21:34] LABS: Erythrocyte Sedimentation Rate 48 mm/hr (0-20)
[2024-06-02 21:56] LABS: Eosinophil Urine None Seen % (None Seen); Urine Eos QC 2nd Tech Confirmed
[2024-06-02 22:01] VITALS: BP 112/64; PULSE 72; RESP 17; O2SAT 94
[2024-06-02 22:55] VITALS: BMI 31.1
[2024-06-02 22:57] LABS: Lactic Acid 1.1 mmol/L (0.7-2.0)
[2024-06-02 23:04] LABS: Complement C3 126 mg/dL (88-165)
[2024-06-02] MEDS: SODIUM CHLORIDE 0.9% IV 1,000 ML 150 ML IV CONT (23:28)
[2024-06-03] MEDS: diphenhydrAMINE HCl CAP 25 MG CAPSULE PO (00:32)
[2024-06-03 01:32] VITALS: BP 106/55; PULSE 94; RESP 18; TEMP 36.3; O2SAT 96
[2024-06-03 01:58] LABS: Alanine Aminotransferase 53 U/L (6-50); Albumin Level 3.4 g/dL (3.5-5.1); Alkaline Phosphatase 98 U/L (38-126); Aspartate Amino Transferase 42 U/L (17-59); Bilirubin,Total 0.5 mg/dL (0.2-1.3)
[2024-06-03 02:09] LABS: Creatine Kinase 77 U/L (55-170)
[2024-06-03] MEDS: SODIUM CHLORIDE 0.9% IV 1,000 ML 150 ML IV CONT (03:30)
[2024-06-03 06:00] VITALS: BP 101/47; PULSE 79; RESP 16; TEMP 36.5; O2SAT 95
[2024-06-03 14:00] VITALS: BP 133/77; PULSE 93; RESP 18; TEMP 36.3; O2SAT 97
--- NOTE | 2024-06-03 14:35 | P.HP_ITS ---
H&P: HPI History of Present Illness Date/Time: 06/03/24 14:35 Chief Complaint: Fever Narrative: 78-year-old male past medical history of hypertension, prostate cancer status post TURBT followed by Gecitabine instillation, who presented to the ER with complaint of fever. Patient reported he has been treated multiple times recently for UTI, last antibiotics was Bactrim. Noted he has had fever in the past 3 days, and due to persistence he presented to the ER for proper positioning care. Denies any coughing no chest pain or shortness over no nausea no vomiting no dysuria no focal symptoms. Patient reported he has been antibiotics for 6 times in a. Your evaluation notable for temperature 97.7?, pulse rate 79, respiratory 16, blood pressure 101/47, saturating 95% on room air.\ Labs notable for WBC, gradient 3.21, baseline is 1.6. UA positive for leukocyte Estrace, pyuria. Patient was given Rocephin in the ER which reacted to pinprick another option. Antibodies as switched to doxycycline. Review of Systems Review of Systems: All other systems reviewed and negative except as noted in history above who [facility] Past Medical History Medical History Other idiopathic peripheral autonomic neuropathy Unspecified disorder of circulatory system Broken arm (~1952) History of broken leg (~1970) Prostate cancer Pure hyperglyceridemia Essential hypertension Cardiac abnormality Incontinence Surgical History Surgical History History of prostatectomy History of sinus surgery Total knee replacement status (~2005) H/O hernia repair (~2014) Total knee replacement status (~07/23/18) Family History Family History Father Family history of malignant neoplasm Mother Family history of malignant neoplasm of breast in first degree relative Other Family history of cardiovascular disease Hypertension Social History Social History Social History: Caffeine- Smoking packs per day: 1 Smoking cigarettes per day: 20.0 Years smoked: 20 Smoking pack-years: 20.00 Smoking status: Former smoker Tobacco type: cigarettes Second hand tobacco smoke exposure: No Smoking end date: 03/19/85 Alcohol intake: current Drinks per week: 4 Substance use: never Substance use type: does not use Do You Feel Safe in your Home?: Yes Lack of Transportation: No Lack of Food: Never True Current Housing: I Have Housing Concerned About Future Housing: No Difficulty Paying Gas/Electric Bills: No Difficulty Paying for Meds: No Currently Unemployed: No Education: Associate Degree Difficulty w/ Childcare or Family Care: No Living arrangements: with family Spiritual care concerns: No Meds Home Medications and Allergies Home Medications ?Medication ?Instructions ?Recorded ?Confirmed ?Type omeprazole 20 mg capsule,delayed 20 mg PO DAILY 09/30/19 06/03/24 History release pyridoxine (vitamin B6) 500 mg 500 mg PO DAILY 09/30/19 06/03/24 History tablet cholecalciferol (vitamin D3) 50 50 mcg PO DAILY 10/07/19 06/03/24 History mcg (2,000 unit) capsule leuprolide acetate (6 month) 45 mg 45 mg subcut [id number] 10/24/19 06/03/24 History (6 month) subcutaneous syringe (RachaelAvokiakennedy) gabapentin 300 mg capsule 800 mg PO QHS 06/12/23 06/03/24 History prednisone 10 mg tablet 15 mg PO DAILY 06/12/23 06/03/24 History carvedilol 3.125 mg tablet 3.125 mg PO Q12H #180 tabs 12/21/23 06/03/24 Rx lovastatin 20 mg tablet 20 mg PO DAILY #90 tabs 12/21/23 06/03/24 Rx alendronate 70 mg tablet 70 mg PO WEEKLY 01/04/24 06/03/24 History melatonin 10 mg tablet 10 mg PO HS PRN Insomnia 01/04/24 06/03/24 History fenofibrate 160 mg tablet 160 mg PO DAILY #90 tabs 01/25/24 06/03/24 Rx Allergies Allergy/AdvReac Type Severity Reaction Status Date / Time No Known Allergies Allergy Verified 01/10/24 11:56 Vital Signs Vital Signs - 24 hr 06/02/24 15:25 06/02/24 18:22 06/02/24 18:23 Temperature 97.6 F 97.9 F Pulse Rate 92 84 Respiratory Rate 16 16 18 Blood Pressure 93/58 L 109/61 Pulse Oximetry 96 96 Oxygen Delivery 06/02/24 21:03 06/02/24 22:01 06/03/24 01:24 Temperature Pulse Rate 72 72 Respiratory Rate 18 17 Blood Pressure 114/71 112/64 Pulse Oximetry 98 94 Oxygen Delivery Room Air 06/03/24 01:32 06/03/24 06:00 06/03/24 11:22 Temperature 97.3 F L 97.7 F Pulse Rate 94 79 Respiratory Rate 18 16 Blood Pressure 106/55 L 101/47 L Pulse Oximetry 96 95 Oxygen Delivery Room Air Exam Narrative: General: alert and comfortable Eyes: EOMI, PERRLA ENNT External ears normal, Neck is supple, no masses, Respiratory systems: Clear to auscultation Cardiovascular S1, S2, normal rhythm, no murmur, rub, or gallop; no thrill or palpable murmurs on palpation. Gastrointestinal: soft, non-tender, and non-distended abdomen with no masses; BS present Skin: Diffuse maculopapular rash. Musculoskeletal: no abnormality and no tenderness, normal ROM Neurologic: Alert and oriented x3, non focal Mental Status Exam: normal affect H&P: Results Labs Labs: Short CBC 06/02/24 Range/Units 18:01 WBC 2.4 L (4.5-10.0) K/mm3 Hgb 11.4 L (14.0-18.0) g/dL Hct 36.1 L (42.0-52.0) % Plt Count 196 (150-375) k/mm3 BMP 06/02/24 18:01 Sodium 132 L Potassium 4.2 Chloride 95 L Carbon Dioxide 22 BUN 47 H Creatinine 3.21 H Glucose 338 H Calcium 9.0 Cardiac Enzymes 06/02/24 Range/Units 22:34 Total Creatine Kinase 77 (55-170) U/L Liver Function 06/02/24 06/02/24 Range/Units 18:01 22:34 Total Bilirubin 0.9 0.5 (0.2-1.3) mg/dL Direct Bilirubin 0.0 (0-0.3) mg/dL AST 48 42 (17-59) U/L ALT 57 H 53 H (6-50) U/L Alkaline Phosphatase 106 98 (38-126) U/L Albumin 3.9 3.4 L (3.5-5.1) g/dL Urine 06/02/24 Range/Units 18:58 Urine Color Dark yellow (Yellow) Urine Appearance Cloudy H (Clear) Urine pH 5.0 (5.0-9.0) Ur Specific Nadeau 1.019 (1.001-1.035) Urine Protein 1+ H (Negative) mg/dL Urine Glucose (UA) Trace H (Negative) mg/dL Assessment and Plan Assessment and plan (1) Acute renal failure: Qualifiers: Acute renal failure type: unspecified Qualified Code(s): N17.9 - Acute kidney failure, unspecified Code(s): N17.9 - Acute kidney failure, unspecified Status: Acute Plan ELIZABETH on CKD Likely from Bactrim Patient reported he was recently treated for UTI with Bactrim Bactrim on hold. Continue IV fluid Monitor. CT abdomen and pelvis no acute changes Fever likely from UTI Patient noted multiple UTI recently last placed on bactrim which is on hold most recent urine culture positive for Aerococcus urinae sensitive to Bactrim, penicillins, vanc and Doxycycline F/u urine and blood cultures monitor Liver mass per CT ? lung mass US liver and CT chest ordered Prostate s/p TURP with Gencitabine instillation monitor DVT prophylaxis on Sq heparin Full code Surrogate decision maker is Charlene Gupta
[2024-06-03] MEDS: SODIUM CHLORIDE 0.9% IV 1,000 ML 75 ML IV CONT (16:03)
[2024-06-03] MEDS: levoFLOXacin 750 MG/D5W 150 ML 750 MG/150 ML BAG 100 MG IVPB (16:05)
[2024-06-03] MEDS: ACETAMINOPHEN 325 MG TABLET 650 MG PO (16:12)
[2024-06-03 20:52] VITALS: BP 123/59; PULSE 105; RESP 16; TEMP 36.5; O2SAT 95
[2024-06-03] MEDS: HEPARIN SODIUM 5,000 UNITS/ML VIAL 5000 UNITS SUB-Q (20:55)
[2024-06-03] MEDS: DOXYCYCLINE 100 MG/NS 100 ML 100 MG/100 ML BAG IVPB (20:55)
[2024-06-04] MEDS: MELATONIN 5 MG TABLET 10 MG PO (00:22)
[2024-06-04] MEDS: SODIUM CHLORIDE 0.9% IV 1,000 ML 75 ML IV CONT (05:58)
[2024-06-04] MEDS: HEPARIN SODIUM 5,000 UNITS/ML VIAL 5000 UNITS SUB-Q (05:58)
[2024-06-04 06:00] VITALS: BP 139/74; PULSE 107; RESP 16; TEMP 36.6; O2SAT 94
[2024-06-04 06:13] LABS: Basophils Percent Auto 0.4 % (0.2-1.2); Eosinophils Absolute Auto 0.5 K/mm3 (0-0.3); Eosinophils Percent Auto 17.6 % (0-4.4); Hematocrit 31.6 % (42.0-52.0); Hemoglobin 9.8 g/dL (14.0-18.0); Immature Granulocyte Absolute 0.02 K/mm3 (0.00-0.031); Immature Granulocyte Percent A 0.8 % (0-0.5); Lymphocytes Absolute Auto 0.41 K/mm3 (0.9-3.2); Lymphocytes Percent Auto 16.1 % (18.3-44.2); Mean Corpuscular Hemoglobin 27.4 pg (26-34); Mean Corpuscular Volume 88.3 fl (80-100); Mean Platelet Volume 9.3 fl (7.4-10.4); Monocytes Absolute Auto 0.3 K/mm3 (0.1-0.6); Monocytes Percent Auto 10.6 % (2.6-8.5); Neutrophils Absolute Auto 1.4 K/mm3 (1.3-6.7); Neutrophils Percent Auto 54.5 % (45.5-73.1); Platelet Count Result 185 k/mm3 (150-375); Red Blood Count 3.58 M/mm3 (4.6-6.20); White Blood Count 2.6 K/mm3 (4.5-10.0)
[2024-06-04 06:30] LABS: Alanine Aminotransferase 39 U/L (6-50); Alkaline Phosphatase 110 U/L (38-126); Anion Gap 10 mmol/L (4-12); Aspartate Amino Transferase 32 U/L (17-59); Bilirubin,Total 0.5 mg/dL (0.2-1.3); Blood Urea Nitrogen 32 mg/dL (9-20); Calcium 8.3 mg/dL (8.4-10.2); Carbon Dioxide 19 mmol/L (22-30); Chloride 107 mmol/L (98-107); Estimated CRCL calculation 44 ml/min; Estimated Glomerular Filt Rate 41; Glucose 112 mg/dL (65-110); Magnesium 1.7 mg/dL (1.6-2.3); Potassium 3.7 mmol/L (3.4-5.0); Sodium 136 mmol/L (137-145)
[2024-06-04 06:58] LABS: Platelet Estimate Adequate (Adequate)
[2024-06-04 06:59] LABS: Anisocytosis 1+; Hypochromasia 1+; Schistocytes None Seen
[2024-06-04 08:26] LABS: Iron 19 ug/dL (49-181)
[2024-06-04 08:37] LABS: Percent Iron Saturation 6 % (20-50)
[2024-06-04] MEDS: predniSONE 20 MG TABLET 40 MG PO (09:10)
--- NOTE | 2024-06-04 12:13 | PM.DS ---
DS: Admitting Diagnosis Discharge Date 06/04/24 Admitting Diagnosis Fever DS: Discharge Diagnosis Discharge Diagnosis (1) Acute renal failure: Qualifiers: Acute renal failure type: unspecified Qualified Code(s): N17.9 - Acute kidney failure, unspecified Code(s): N17.9 - Acute kidney failure, unspecified Status: Acute DS: Summary Hospital Course Hospital Course: 78-year-old male past medical history of hypertension, prostate cancer status post TURBT followed by Gemcitabine instillation, who presented to the ER with complaint of fever. Patient reported he has been treated multiple times recently for UTI, last antibiotics was Bactrim. Noted he has had fever in the past 3 days, and due to persistence he presented to the ER for proper positioning care. Denies any coughing no chest pain or shortness over no nausea no vomiting no dysuria no focal symptoms. Patient reported he has been antibiotics for 6 times in a. Your evaluation notable for temperature 97.7?, pulse rate 79, respiratory 16, blood pressure 101/47, saturating 95% on room air.\ Labs notable for WBC, gradient 3.21, baseline is 1.6. UA positive for leukocyte Estrace, pyuria. Patient was given Rocephin in the ER which reacted to pinprick another option. Antibodies as switched to doxycycline. Today, patient has not had any fever since admission and urine culture is negative. Patient showed me his outpatient Urine culture that grew Aerococcus urinae sensitive to Bactrim and he completed 7 days of Bactrim. I will consider that adequate treatment for his infection and since he did not have any fever inhouse will discharge him today. Also patient reacted to Rocephin with diffuse body rash, Rocephin was discontinued and no itching this morning, discharge on 2 days of Prednisone. F/u with PCP in 3-5 days Continue other home meds. Time Spent with Patient Time attestation: Total time spent providing and/or coordinating discharge services: DS: Data Data Completed and Pending Labs on day of discharge: Labs from last 24 hours 06/04/24 06/04/24 05:44 05:41 WBC 2.6 L RBC 3.58 L Hgb 9.8 L Hct 31.6 L MCV 88.3 MCH 27.4 MCHC 31.0 L RDW 15.0 H Plt Count 185 MPV 9.3 Immature Gran % (Auto) 0.8 H Neut % (Auto) 54.5 Lymph % (Auto) 16.1 L Denali % (Auto) 10.6 H Eos % (Auto) 17.6 H Baso % (Auto) 0.4 Lymph # (Auto) 0.41 L Denali # (Auto) 0.3 Eos # (Auto) 0.5 H Baso # (Auto) 0.0 Abs Immat Gran (auto) 0.02 Absolute Neuts (auto) 1.4 Absolute Nucleated RBC 0.000 Band Neutrophils % Not Reportable Nucleated RBC % 0.0 Platelet Estimate Adequate Hypochromasia 1+ Anisocytosis 1+ Schistocytes None seen Sodium 136 L Potassium 3.7 Chloride 107 Carbon Dioxide 19 L Anion Gap 10 BUN 32 H D Creatinine 1.65 H Estim Creat Clear Calc 44 Estimated GFR 41 L Glucose 112 H Calcium 8.3 L Magnesium 1.7 Iron 19 L TIBC 293 % Saturation 6 L Ferritin 97.80 Total Bilirubin 0.5 AST 32 ALT 39 Alkaline Phosphatase 110 Total Protein 6.0 L Albumin 3.0 L Preliminary micro results at discharge 06/02/24 18:01 Blood Culture - Preliminary Blood 06/02/24 18:09 Blood Culture - Preliminary Blood Discharge Plan Discharge Attending physician on discharge: Brad Mejia Discharging Clinician: Brad Mejia Anticipated Discharge Date/Time: 06/04/24 12:05 Patient Disposition: Home, Self-Care Activity: as tolerated Diet: regular Patient Instructions: Antibiotic Form Patient Language: Chinese Stand Alone Forms: General Discharge Information Follow-up/Referrals: Don Bronson DO [Primary Care Provider] - (F/u with PCP in 3-5 days ) Discharge Medications: New prednisone 20 mg tablet 20 mg PO DAILY Qty: 2 0RF Continued gabapentin 300 mg capsule 800 mg PO QHS omeprazole 20 mg capsule,delayed release(DR/EC) 20 mg PO DAILY Patient Comments: TAKES EVERYOTHER DAY pyridoxine (vitamin B6) 500 mg tablet 500 mg PO DAILY cholecalciferol (vitamin D3) 50 mcg (2,000 unit) capsule 50 mcg PO DAILY Eligard (6 month) 45 mg syringe 45 mg [id number] prednisone 10 mg tablet 15 mg PO DAILY melatonin 10 mg Tablet 10 mg PO HS PRN (Reason: Insomnia) alendronate 70 mg tablet 70 mg PO WEEKLY Patient Comments: TAKES ON FRIDAYS carvedilol 3.125 mg tablet 3.125 mg PO Q12H Qty: 180 3RF Rx Instructions: must administer with a meal/food lovastatin 20 mg tablet 20 mg PO DAILY Qty: 90 3RF fenofibrate 160 mg tablet 160 mg PO DAILY Qty: 90 3RF Date of admission: 06/03/24 07:50 Primary Care Provider: Don Bronson Admitting Provider: Briseyda Summers Attending physician on admission: Briseyda Summers Condition: Stable
[2024-06-04] MEDS: ACETAMINOPHEN 325 MG TABLET 650 MG PO (12:32)
[2024-06-04 16:14] LABS: Complement Total CH50 >60 U/mL (31-60)
--- NOTE | 2024-06-05 06:26 | WPDCDIQUERY2 ---
CDI Query Clarification Request Sepsis has been documented by ER provider but not in discharge Please clarify if sepsis was ruled in or ruled out The chart reflects the following: Patient is a 78 year old male, w/ past medical history of prostate cancer s/p prostatectomy, who presents the ED with report of fever. Patient reports he has had intermittent fevers since Sunday. T-max up to 103F. Has been taking Aleve for his fevers. Denies fever today. Reports he has been dealing with recurrent UTI over the last 1.5 months. Has been on multiple different antibiotics, including Macrobid, Bactrim, cefdinir, ciprofloxacin. Most recently finished Macrobid on Sunday. States his most recent urine culture from outpatient facility has grown positive for aerococcus urinae. He does report some difficulty urinating, feeling of incomplete bladder emptying. Denies hematuria. Denies abdominal or back pain. Denies cough or cold symptoms. Patient is meeting sepsis criteria based on vital signs, laboratory studies, elev lactic. Rocephin started in the ED patient will be admitted for further evaluation. Given 30 cc/kg fluids. <Zehra Willams RN - Last Filed: 06/05/24 06:29> Clarified Diagnosis Clarified Diagnosis: Sepsis was ruled out <Brad Mejia MD - Last Filed: 06/05/24 09:09>
[2024-06-06 16:44] LABS: Chloride Rand Ur <20 mmol/L (32-290); Creatinine Random Urine 252 mg/dL (20-320)
== END 2024-06-04 13:20 | disposition home or self-care (01) | DRG 684 ==
LOC: ANHED 20:03 → ANH3MEDSUR 21:22 → ANH3MED 22:19
PROVIDERS: Admitting Provider Internal Medicine; Emergency Provider Physician Assistant; PCP Internal Medicine; Visit Provider Internal Medicine
DX: N17.9 Acute kidney failure, unspecified (principal); I12.9 Hypertensive chronic kidney disease with stage 1 through stage 4 chronic kidney disease, or unspecified chronic kidney disease; N18.9 Chronic kidney disease, unspecified; R32 Unspecified urinary incontinence; R16.0 Hepatomegaly, not elsewhere classified; G60.8 Other hereditary and idiopathic neuropathies; L27.0 Generalized skin eruption due to drugs and medicaments taken internally; T36.1X5A Adverse effect of cephalosporins and other beta-lactam antibiotics, initial encounter; Z96.659 Presence of unspecified artificial knee joint; Z20.822 Contact with and (suspected) exposure to COVID-19; Z85.46 Personal history of malignant neoplasm of prostate; Z87.891 Personal history of nicotine dependence
CPT/HCPCS: 36415; 71046; 71250; 74176; 76705; 80053; 80076; 81001; 82010; 82436; 82550; 82570; 82728; 83540; 83550; 83605; 83735; 83930; 85025; 85652; 85999; 86140; 86160; 86162; 87040; 87086; 87637; 96361; 96365; 96375; 99285; A9270; G0378; J0696; J1644; J1956; J7030; J7512

== ENCOUNTER 2024-07-21 20:10 | Inpatient (IN) | payer MEDICARE, SELFPAY ==
[2024-07-21] VITALS (19 sets, daily range): BP systolic 62–132; BP diastolic 40–99; PULSE 90–122; RESP 18–36; TEMP 37.7; O2SAT 85–100
--- NOTE | ~2024-07-21 | CT_ITS ---
CLINICAL INDICATION: Lactic acidosis COMPARISON: 06/02/2024. TECHNIQUE: Multiple contiguous axial images of the abdomen and pelvis were performed without the admi nistration of intravenous contrast The dose-length product (DLP) was 957.65 mGy-cm. Automated exposure control and iterative reconstruction technique were employed. FINDINGS/OBSERVATIONS: Visualized lower thorax: Extensive pleural plaques with bilateral parenchymal scarring. Round atelectasis within the right lower lobe. Small left-sided pleural effusion, unchanged. The heart is of normal size, without pericardial effusion. Small hiatal hernia is present. Liver: The liver demonstrates homogeneous attenuation and is enlarged measuring 21 cm in longitudinal dimens ion, unchanged from prior. Gallbladder and biliary system: The gallbladder is only minimally distended, and otherwise unremarkable. Pancreas: Limited evaluation of the pancreas secondary to the lack of intravenous contrast. Spleen: The spleen demonstrates homogeneous attenuation and is not enlarged. Kidneys: Redemonstration of a 10 mm calculus within the lower pole of the left kidney, unchanged from 2023. Prominence of the left renal hilum is present, likely secondary to chronic obstruction of the left UPJ, unchanged from 2023. The right kidney and the remainder of the left are unremarkable. Adrenal glands: Unremarkable. Gastrointestinal tract: Colonic diverticulosis without surrounding inflammatory change. Appendix: The appendix is not definitively visualized. However, no pericecal inflammatory change is identified suggest the presence of acute appendicitis. Vasculature: Densely calcified atherosclerotic disease. Lymph nodes: Limited evaluation without intravenous contrast. Pelvic structures: The bladder is decompressed, with surrounding inflammatory change and thickened solis, consistent wit h patient's history. The prostate gland is not enlarged. Body wall and musculoskeletal: Age-appropriate degenerative disease. IMPRESSION: No acute pathology within the abdomen or pelvis. Redemonstration of a 10 mm calculus within the left kidney. Chronic left UPJ obstruction. Findings suggesting cystitis Hepatomegaly Reviewed, dictated and finalized at location A.
--- NOTE | ~2024-07-21 | US_ITS ---
EXAM: RENAL ULTRASOUND HISTORY: ELIZABEHT/ARF COMPARISON: None FINDINGS: RIGHT KIDNEY: 11.1 x 5.8 x 6.1 cm. The parenchyma of the right kidney is increased in echogenicity. No hydronephrosis or bulky renal calculi. LEFT KIDNEY: 10.5 x 6.4 x 6.3 cm No hydronephrosis or renal calculi. The parenchyma of the left kidney is increased in echogenicity. Redemonstration of prominence of the left renal pelvis, likely secondary to chronic long-term UPJ obs truction. The 10 mm nonobstructing left renal lower pole calculus present on multiple CT evaluations of the abd omen and pelvis is poorly visualized on the current study. BLADDER: Decompressed, limiting its evaluation (patient is incontinent of urine). IMPRESSION: No hydronephrosis or renal calculi. Findings suggesting medical renal disease. Reviewed, dictated and finalized at location A.
--- NOTE | ~2024-07-21 | US_ITS ---
EXAMINATION: US abdomen limited DATE: 07/22/2024 09:44 INDICATION: Elevated liver function tests TECHNIQUE: Multiple grayscale and Doppler ultrasound images of the abdomen were obtained. COMPARISON: CT dated 07/21/2024 FINDINGS: The pancreatic head and body are normal in appearance. The pancreatic tail is not visualized. Liver has normal contour, with a smooth surface. There is increased parenchymal echogenicity and coarsened echotexture consistent with diffuse hepatic steatosis. No liver lesion identified. No intrahepatic b iliary duct dilation suspected. Portal venous flow was seen in the hepatopetal, normal direction and has normal Doppler waveform. The gallbladder is normal in appearance. There is no cholelithiasis. Th e common bile duct measures 4 mm, which is normal. Sonographic Trotter sign was reported as negative b y the scabbler. Visualized portion of the right kidney demonstrates normal contour and axis tube w ith no hydronephrosis. The visualized proximal aorta and inferior vena cava are normal. IMPRESSION: 1. Diffuse hepatic steatosis. Reviewed, dictated and finalized at location A.
--- NOTE | ~2024-07-21 | XR_ITS ---
CHEST RADIOGRAPH, PA AND LATERAL CLINICAL HISTORY: dizziness . COMPARISON: 06/02/2024 TECHNIQUE: PA and lateral views of the chest. FINDINGS The cardiomediastinal silhouette is unremarkable. Redemonstration of calcified pleural plaques, most prominent within the left lung base and right apex . Coarse interstitial lung markings are detected bilaterally. Blunting of the bilateral costophrenic sulci are present suggesting small bilateral pleural effusions , also unchanged from prior. IMPRESSION: Calcified pleural plaques with coarse interstitial lung markings and small bilateral pleural effusion s Reviewed, dictated and finalized at location A. IMPRESSION: Calcified pleural plaques with coarse interstitial lung markings and small bila teral pleural effusions
--- NOTE | ~2024-07-21 | XR_ITS ---
CHEST RADIOGRAPH CLINICAL HISTORY: s/p CVC . COMPARISON: 07/21/2024 TECHNIQUE: Single portable view of the chest. FINDINGS Interval placement of a left internal jugular central venous catheter, with its tip projecting over t he superior vena cava. No left-sided pneumothorax is identified. Bilateral lung kline are unchanged. IMPRESSION: Interval placement of a left internal jugular central venous catheter, in position and ready for imme diate use. Reviewed, dictated and finalized at location A. IMPRESSION: Interval placement of a left internal jugular central venous catheter, in posit ion and ready for immediate use.
--- OUTSIDE RECORDS SUMMARY | 2024-07-21 20:12 | XMS_ITS | Clinical Summary ---
Author Organization [place] [id number] [place] Address [address] [place] [phone] Care Team Providers Care Vice Squad Police Officer Name Role Phone Tnao Ibarra DO Unavailable [phone] Hardik Call MD Unavailable [phone] Don Bronson DO Primary Care Provider [phone] Allergies No known active allergies Medications omeprazole [...] a day For neuropathy 360 tablet 5 05/02/19 26 Active gabapentin (NEURONTIN) 800 mg tablet Take 1 tablet (800 mg total) by mouth daily 90 tablet 3 5 Active predniSONE (DELTASONE) 10 mg tablet Take 1.5 tablets (15 mg) by mouth daily 135 tablet 1 5 Active predniSONE (DELTASONE) 10 mg tablet Take 1.5 tablets (15 mg) by mouth daily 135 tablet 1 5 07/01/19 25 Discontin ued(Reord er) Active Problems Problem Noted Date Diagnosed Date [...] Encounters Date Type Department Care Team Description 07/01/2024 Orders Only [facility] Oncology [address] [place] [address] 140 [place] [address] Tano Ibarra DO 06/18/2024 Orders Only [facility] Oncology [address] [place] [address] 180 [place] [address] ProviderKy MD 05/26/2024 Telephone [facility] Oncology [address] [facility] [address] [place] [phone] Jacquelin Rosenberg RN 05/21/2024 Results Follow-Up [facility] at [address] [phone] Kasandra Davila NP 05/19/2024 12:14 PM FIELD CONTROL INSPECTOR - 05/19/2024 11:59 PM FIELD CONTROL INSPECTOR Hospital Encounter [address] [address] Dysuria Discharge Disposition: Discharge to home or self care 05/19/2024 12:00 PM FIELD CONTROL INSPECTOR Office Visit [facility] at [address] [address] Veronica Flannery NP Dysuria (Primary Dx) 05/02/2024 1:15 PM FIELD CONTROL INSPECTOR Office Visit [facility] Oncology [address] [place] [address] [address] [place] [address] Tano Ibarra DO Prostate cancer (HCC) (Primary Dx); Pancytopenia (HCC); Osteopenia, unspecified location 04/25/2024 Orders Only [facility] Oncology [address] [place] [address] 140 [place] [address] Tano Ibarra DO from Last [...] 2009 cancer prostrat e Hx Other Medical 1970 compound fractu re left side Congestive heart [...] on file Legal Sex Male 2:39 PM FIELD CONTROL INSPECTOR Gender Identity Not on file Sexual Orientation Not on file Obstetrics History Last Filed Vital Signs Vital Sign Reading Time Taken Comments Blood Pressure 157/83 05/19/2024 12:01 PM FIELD CONTROL INSPECTOR Pulse 95 05/19/2024 12:01 PM FIELD CONTROL INSPECTOR Temperature 37.4 C (99.3 F) 05/19/2024 12:01 PM FIELD CONTROL INSPECTOR Respiratory Rate 20 05/19/2024 12:01 PM FIELD CONTROL INSPECTOR Oxygen Saturation 96% 05/19/2024 12:01 PM FIELD CONTROL INSPECTOR Inhaled Oxygen Concentration - - Weight 105.2 kg (232 lb) 05/19/2024 12:01 PM FIELD CONTROL INSPECTOR Height 182.9 cm (6') 05/25/2023 2:58 PM FIELD CONTROL INSPECTOR Body Mass Index 31.46 05/25/2023 2:58 PM FIELD CONTROL INSPECTOR Plan of Treatment Health Maintenance Due Date Last Done Comments Fall Risk Assessment 1945 Hepatitis C Screening 1945 Hepatitis B Screening 10/11/1965 Zoster Vaccine (1 of 2) 10/11/1966 Abdominal Aortic Aneurysm (A AA) Screen 10/11/2012 Well Visit 65+ 10/11/2012 Depression Screening 12/18/2017 12/18/2016, 08/25/19 17 Covid-19 Vaccine (4 - 2023-2 5 season) 2023 01/24/2021, 07/08/2020, 05/10/2020 Influenza Vaccine (Season Ended) 2024 01/07/2021, 12/25/2018, 12/01/2017, Additional history exists DTaP/Tdap/Td Vaccine (2 - Td or Tdap) 05/05/2026 05/05/2016 Pneumococcal vaccine 65+ Completed 017, 02/22/2017, 02/16/2016, Additional history exists Procedures Procedure Name Priority Date/Time Associated Diagnosis Comments CBC WITH AUTO DIFFERENTIAL Routine 07/01/2024 3:05 PM CDT BMP - BASIC METABOLIC PANEL (7) Routine 06/17/2024 8:42 AM CDT CBC WITH AUTO DIFFERENTIAL Routine 06/17/2024 8:42 AM CDT URINE CULTURE Routine 05/19/2024 12:14 PM FIELD CONTROL INSPECTOR Dysuria POCT URINALYSIS DIPSTICK Routine 05/19/2024 12:05 PM FIELD CONTROL INSPECTOR Dysuria CBC/DIFF AMBIGUOUS DEFAULT Routine 04/25/2024 2:34 PM FIELD CONTROL INSPECTOR from Last 3 Months Results * (ABNORMAL) CBC with auto differential (07/01/2024 3:05 PM CDT) WBC 3.0(L) 3.4 - 10.8 x10E3/uL [facility] - 01 RBC 4.17 4.14 - 5.80 x10E6/uL [facility] - 01 Hgb 11.5(L) 13.0 - 17.7 g/dL [facility] - 01 Hct 35.9(L) 37.5 - 51.0 % [facility] - 01 MCV 86 79 - 97 fL [facility] - 01 MCH 27.6 26.6 - 33.0 pg [facility] - 01 MCHC 32.0 31.5 - 35.7 g/dL [facility] - 01 Rdw 14.3 11.6 - 15.4 % [facility] - 01 Platelets 317 150 - 450 x10E3/uL [facility] - 01 Neutrophils pct 60 Not Estab. % [facility] - 01 Lymphs pct 16 Not Estab. % [facility] - 01 Monocytes pct 20 Not Estab. % [facility] - 01 Eosinophils pct 4 Not Estab. % [facility] - 01 Basophil pct 0 Not Estab. % [facility] - 01 Neutrophil abs 1.8 1.4 - 7.0 x10E3/uL [facility] - 01 Lymphs (Absolute) 0.5(L) 0.7 - 3.1 x10E3/uL [facility] - 01 Monocyte abs 0.6 0.1 - 0.9 x10E3/uL [facility] - 01 Eosinophils, abs 0.1 0.0 - 0.4 x10E3/uL [facility] - 01 Basophils, abs 0.0 0.0 - 0.2 x10E3/uL [facility] - 01 Immature Granulocytes 0 Not Estab. % [facility] - 01 Immature Grans (Abs) 0.0 0.0 - 0.1 x10E3/uL [facility] - 01 07/01/2024 3:05 PM CDT 07/01/2024 Narrative [facility] - 07/02/2024 6:09 AM CDT Performed at: - [facility] [address] [id number] District Resource Officer: Ascencion Thomas PhD, Phone: [phone] Specimen Comment: A courtesy copy of this report has been sent to [phone] us Tano Ibarra DO LAB BLOOD ORDERABLES Final R esult [facility] - * BMP - Basic Metabolic Panel (7) (06/17/2024 8:42 AM CDT) Result [facility] Historical Provider LAB BLOOD ORDERABLES Vivian l Result EXTERNAL LAB * CBC with auto differential (06/17/2024 8:42 AM CDT) Blood Result [facility] Historical Provider MD LAB BLOOD ORDERABLES Vivian l Result * (ABNORMAL) Urine culture Urine, clean voided (05/19/2024 12:14 PM FIELD CONTROL INSPECTOR) Report Final Report: Greater than or equal to 100,000 colonies/mL of Aerococcus urinae Isolates of Aerococcus urinae are typically susceptible to beta-lactams (including penicillin and cephalosporins), vancomycin, and tetracyclines (including doxycycline), but resistant to trimethoprim-sulf amethoxazole. Plus growth of clinically insignificant bacterial gurpreet. (.) Comment:Testing performed by : [facility], [address] [place]., [address] Organism AEROCOCCUS URINAE SEMAJ Organism PLUS GROWTH OF CLINICALLY INSIGNIFICANT GURPREET. SEMAJ Urine, clean voided 05/19/2024 12:14 PM FIELD CONTROL INSPECTOR 05/20/2024 12:03 AM FIELD CONTROL INSPECTOR Narrative SEMAJ - 05/21/2024 7:46 AM FIELD CONTROL INSPECTOR Testing performed by [facility] ([phone]) Veronica Flannery NP LAB MICROBIOLOGY - GENERAL ORDERABLES Final Result Performing Organization Address City/[facility]/ZIP Co de Phone Number SEMAJ [address] Department of Laboratories [place], [place] [id number] * (ABNORMAL) POCT urinalysis dipstick (05/19/2024 12:05 PM FIELD CONTROL INSPECTOR) Color, Urine, POC Yellow Clarity, ur, POC Cloudy(A) Clear Glucose, ur, POC Negative Negative MG/DL Bilirubin, ur, POC Negative Negative, Small, Moderate, Large Ketones, ur, POC Negative Negative Specific [place], POC 1.020 1.003 - 1.030 Blood, ur, POC Small(A) Negative pH, ur, POC 7.0 5.0 - 8.0 Protein, ur, POC 300.(A) Negative Urobilinogen, urine, POC 1.0 0.2 - 1.0 mg/dL Nitrite, ur, POC Negative Negative Leukocytes, ur, POC Small(A) Negative Lot Number [id number] Urine 05/19/2024 12:0 5 PM FIELD CONTROL INSPECTOR Veronica Flannery NP POINT OF CARE TEST ORDERAB LES Final Result * (ABNORMAL) CBC/Diff Ambiguous Default (04/25/2024 2:34 PM FIELD CONTROL INSPECTOR) Pathologist [facility] WBC 2.2(LL) 3.4 - 10.8 x10E3/uL [facility] [...] from your office. In accordance with the [facility] Ambiguous Test Code Policy dated September 2002, we have assigned CBC with Differential/Platelet, Test Code #786068 to this request. If this is not the testing you wished to receive on this specimen, please contact the [facility] Client Inquiry/ Technical Services Department to clarify the test order. We appreciate your business. 04/25/2024 2:34 PM FIELD CONTROL INSPECTOR 04/25/2024 Narrative [facility] - 04/26/2024 9:36 AM FIELD CONTROL INSPECTOR Performed at: - [place] [address] District Resource Officer: Ascencion Thomas PhD, Phone: [phone] us Tano Ibarra DO LAB BLOOD ORDERABLES Final R esult [facility] - 01 from Last 3 Months Insurance MEDICARE [facility] Address: [facility] [id number] [place] [phone] [facility] MEDICARE [facility] MEDICARE SUPPLEMENT MEDICARE [facility] MEDICARE SUPPLEMENT Care Teams Vice Squad Police Officer Relationship Specialty Start Date End Date Don Bronson DO [address] [facility] [address] [place] [address] PCP - General Internal Medicine 05/02/24 Tano Ibarra DO [address] [place] [id number] Medical Oncologist/Airline Reservationist Hematology and Oncology 04/30/20 Hardik Call MD [address] [place] [phone] Consulting Physician Urology 10/28/21
--- OUTSIDE RECORDS SUMMARY | 2024-07-21 20:13 | XMS_ITS | Referral Summary ---
Author Organization [place] [address] [place] Address [address] [place] [address] Care Team Providers Care Shipping Track Supervisor Name Role Phone Tano Ibarra DO Unavailable [phone] Hadrik Call MD Unavailable [phone] Don Bronson DO Primary Care Provider [phone] Encounters Date Type Department Care Team Description 07/01/2024 Orders Only [facility] Physicians [facility] Oncology [address] [place] [address] 140 [place] [address] Tano Ibarra DO 06/18/2024 Orders Only [facility] Physicians [facility] Oncology [address] [place] [address] 180 [place] [address] ProviderKy MD 05/26/2024 Telephone [facility] Oncology [address] [place] [address] 180 [place] [address] Jacquelin Rosenberg, CHANDLER 05/21/2024 Results Follow-Up [facility] Convenient Care at [address] [address] Kasandra Davila NP 05/19/2024 12:14 PM POT ROOM TAPPER - 05/19/2024 11:59 PM POT ROOM TAPPER Hospital Encounter [address] [address] Dysuria Discharge Disposition: Discharge to home or self care 05/19/2024 12:00 PM POT ROOM TAPPER Office Visit [facility] Medical [facility] Convenient Care at [address] [phone] Veronica Flannery NP Dysuria (Primary Dx) 05/02/2024 1:15 PM POT ROOM TAPPER Office Visit [facility] Oncology [address] [place] [address] 140 [place] [address] Tano Ibarra DO Prostate cancer (HCC) (Primary Dx); Pancytopenia (HCC); Osteopenia, unspecified location 04/25/2024 Orders Only [facility] Oncology [address] [place] [address] Tano Ibarra DO from Last 3 [...] on file Legal Sex Male 2:39 PM POT ROOM TAPPER Gender Identity Not on file Sexual Orientation Not on file Last Filed Vital Signs Vital Sign Reading Time Taken Comments Blood Pressure 157/83 05/19/2024 12:01 PM POT ROOM TAPPER Pulse 95 05/19/2024 12:01 PM POT ROOM TAPPER Temperature 37.4 C (99.3 F) 05/19/2024 12:01 PM POT ROOM TAPPER Respiratory Rate 20 05/19/2024 12:01 PM POT ROOM TAPPER Oxygen Saturation 96% 05/19/2024 12:01 PM POT ROOM TAPPER Inhaled Oxygen Concentration - - Weight 105.2 kg (232 lb) 05/19/2024 12:01 PM POT ROOM TAPPER Height 182.9 cm (6') 05/25/2023 2:58 PM POT ROOM TAPPER Body Mass Index 31.46 05/25/2023 2:58 PM POT ROOM TAPPER Plan of Treatment Not on file Procedures Procedure Name Priority Date/Time Associated Diagnosis Comments CBC WITH AUTO DIFFERENTIAL Routine 07/01/2024 3:05 PM CDT BMP - BASIC METABOLIC PANEL (7) Routine 06/17/2024 8:42 AM CDT CBC WITH AUTO DIFFERENTIAL Routine 06/17/2024 8:42 AM CDT URINE CULTURE Routine 05/19/2024 12:14 PM POT ROOM TAPPER Dysuria POCT URINALYSIS DIPSTICK Routine 05/19/2024 12:05 PM POT ROOM TAPPER Dysuria CBC/DIFF AMBIGUOUS DEFAULT Routine 04/25/2024 2:34 PM POT ROOM TAPPER from Last 3 Months Results * (ABNORMAL) [...] 6:09 AM CDT Performed at: - [facility] [address] [id number] Electrical Installation Supervisor: Ascencion Thomas PhD, Phone: [phone] Specimen Comment: A courtesy copy of this report has been sent to [phone] us Tano Ibarra DO LAB BLOOD ORDERABLES Final R esult [facility] - 01 * BMP - Basic Metabolic Panel (7) (06/17/2024 8:42 AM CDT) Result [facility] Historical Provider MD LAB BLOOD ORDERABLES Vivian l Result EXTERNAL LAB * CBC with auto differential (06/17/2024 8:42 AM CDT) Blood Result [facility] Historical Provider MD LAB BLOOD ORDERABLES Vivian l Result * (ABNORMAL) Urine culture Urine, clean voided (05/19/2024 12:14 PM POT ROOM TAPPER) Report Final Report: Greater than or equal to 100,000 colonies/mL of Aerococcus urinae Isolates of Aerococcus urinae are typically susceptible to beta-lactams (including penicillin and cephalosporins), vancomycin, and tetracyclines (including doxycycline), but resistant to trimethoprim-sulf amethoxazole. Plus growth of clinically insignificant bacterial gurpreet. (.) Comment:Testing performed by : [facility], [address] [place]., [address] Organism AEROCOCCUS URINAE SEMAJ HALL Organism PLUS GROWTH OF CLINICALLY INSIGNIFICANT GURPREET. SEMAJ HALL Urine, clean voided 05/19/2024 12:14 PM POT ROOM TAPPER 05/20/2024 12:03 AM POT ROOM TAPPER Narrative SEM[facility] - 05/21/2024 7:46 AM POT ROOM TAPPER Testing performed by [facility] Microbiology Laboratory ([phone]) Veronica Flannery NP LAB MICROBIOLOGY - GENERAL ORDERABLES Final Result [place] [address] [address] Department [place] [address] * (ABNORMAL) POCT urinalysis dipstick (05/19/2024 12:05 PM POT ROOM TAPPER) Color, Urine, POC Yellow Clarity, ur, POC Cloudy(A) Clear Glucose, ur, POC Negative Negative MG/DL Bilirubin, ur, POC Negative Negative, Small, Moderate, Large Ketones, ur, POC Negative Negative Specific [place], POC 1.020 1.003 - 1.030 Blood, ur, POC Small(A) Negative pH, ur, POC 7.0 5.0 - 8.0 Protein, ur, POC 300.(A) Negative Urobilinogen, urine, POC 1.0 0.2 - 1.0 mg/dL Nitrite, ur, POC Negative Negative Leukocytes, ur, POC Small(A) Negative Lot Number [id number] Urine 05/19/2024 12:0 5 PM POT ROOM TAPPER Veronica Flannery NP POINT OF CARE TEST ORDERAB LES Final Result * (ABNORMAL) CBC/Diff Ambiguous Default (04/25/2024 2:34 PM POT ROOM TAPPER) WBC 2.2(LL) 3.4 - 10.8 x10E3/uL [facility] [...] from your office. In accordance with the [facility] Ambiguous Test Code Policy dated September 2002, we have assigned CBC with Differential/Platelet, Test Code #[id number] to this request. If this is not the testing you wished to receive on this specimen, please contact the [facility] Client Inquiry/ Technical Services Department to clarify the test order. We appreciate your business. 04/25/2024 2:34 PM POT ROOM TAPPER 04/25/2024 Narrative [facility] - 04/26/2024 9:36 AM POT ROOM TAPPER Performed at: [facility] [id number] Electrical Installation Supervisor: Ascencion Thomas PhD, Phone: [phone] Tano Ibarra DO LAB BLOOD ORDERABLES Final R esult Performing Organization Address City/State/[facility] Co de Phone Number [facility] - 01 from Last 3 Months Insurance MEDICARE [facility] MEDICARE [facility] MEDICARE SUPPLEMENT MEDICARE [place] [facility] MEDICARE SUPPLEMENT Care Teams Shipping Track Supervisor Relationship Specialty Start Date End Date Don Bronson DO [address] [facility] [address] [place], [place] [id number] PCP - General Internal Medicine 05/02/24 Tano Ibarra DO [address] [place] [id number] Medical Oncologist/Vegetable Washing Machine Operator Hematology and Oncology 04/30/20 Hardik Call MD [facility] [address] Consulting Physician Urology 10/28/21
--- OUTSIDE RECORDS SUMMARY | 2024-07-21 20:13 | XMS_ITS | Encounter Summary ---
Author Organization [facility] Healthcare Address [address] [place] [address] Care Team Providers Care Nurses Medical Assistants Phlebotomists Name Role Phone Tano Ibarra DO Unavailable [phone] Hardik Call MD Unavailable [phone] Don Bronson DO Primary Care Provider [phone] Encounter Details Date Type Department Care Team (Late st Contact Info) Description 05/21/2024 Results Follow-Up [facility] Medical Group Convenient Care at [address] [address] Kasandra Davila NP [address] [place] [address] Social History Tobacco Use Types Packs/Day Years Used Date Smoking Tobacco: Former Cigarettes Q uit: 1985 Smokeless Tobacco: Former Comments:Smoking History Pac ks/day: 1 Packs Alcohol Use Standard Drinks/Week Comments Yes 0 (1 standard drink = 0.6 oz pur e alcohol) Sex and Gender Information Value Date Recorded Sex Assigned at Not on file Legal Sex Male 2:39 PM TESTER VIBRATOR EQUIPMENT Gender Identity Not on file Sexual Orientation [...] week or sooner if symptoms are worsening. ER VIBRATOR EQUIPMENT documented in this encounter Plan of Treatment Not on file documented as of this encounter Visit Diagnoses Not on filedocumented in this encounter Care Teams Nurses Medical Assistants Phlebotomists Relationship Specialty Start Date End Date Don Bronson DO [address] [place] [address] PCP - General Internal Medicine 05/02/24 Tano Ibarra DO [address] [place] [id number] Medical Oncologist/Armhole Sewer Hematology and Oncology 04/30/20 Hardik Call MD [address] [place] [address] Consulting Physician Urology 10/28/21 documented as of this encounter
--- NOTE | 2024-07-21 20:22 | ECG_ITS ---
Test Date: 2024-07-21 21:20:15 Measurements Intervals [place] Rate: 108 P: 11 [place]: 163 QRS: -65 QRSD: 109 T: 107 QT: 339 QTc: 456 Interpretive Statements SINUS TACHYCARDIA LEFT ANTERIOR FASCICULAR BLOCK [QRS AXIS <= -45, QR IN I, RS IN II] ANTEROSEPTAL MYOCARDIAL INFARCTION , PROBABLY OLD [40+ ms Q WAVE IN V1-V4] MODERATE T-WAVE ABNORMALITY, CONSIDER LATERAL ISCHEMIA [-0.1+ mV T WAVE IN I/aVL/V5/V6] Compared to ECG 01/04/2024 13:26:58 SINUS TACHYCARDIA NOW PRESENT Electronically Signed On 07-22-2024 14:20:20 CDT by Katelyn Grover M.D.
[2024-07-21] MEDS: ACETAMINOPHEN 325 MG TABLET 650 MG PO (21:16)
--- OUTSIDE RECORDS SUMMARY | 2024-07-21 21:31 | XMS_ITS | Referral Summary ---
Author Organization [place] [facility] [facility] Address [address] [place] [address] Care Team Providers Care Coding And Reimbursement Specialist Name Role Phone Tano Ibarra DO Unavailable [phone] Hardik Call MD Unavailable [phone] Don Bronson DO Primary Care Provider [phone] Encounters Date Type Department Care Team Description 07/01/2024 Orders Only [facility] Oncology [address] [place] [address] [address] [place] [address] Tano Ibarra DO 06/18/2024 Orders Only [facility] Oncology [address] [place] [address] [address] [place] [address] ProviderKy MD 05/26/2024 Telephone [facility] Oncology [address] [place] [address] [address] [place] [address] Jacquelin Rosenberg, CHANDLER 05/21/2024 Results Follow-Up [facility] Con[facility]ient Care at [address] [address] Kasandra Davila NP 05/19/2024 12:14 PM CONVERTIBLE SOFA BEDSPRING TESTER - 05/19/2024 11:59 PM CONVERTIBLE SOFA BEDSPRING TESTER Hospital Encounter [address] [address] Dysuria Discharge Disposition: Discharge to home or self care 05/19/2024 12:00 PM CONVERTIBLE SOFA BEDSPRING TESTER Office Visit [facility] Care at [address] [phone] Veronica Flannery NP Dysuria (Primary Dx) 05/02/2024 1:15 PM CONVERTIBLE SOFA BEDSPRING TESTER Office Visit [facility] Oncology [address] [place] [address] [address] [place] [address] Tano Ibarra DO Prostate cancer (HCC) (Primary Dx); Pancytopenia (HCC); Osteopenia, unspecified location 04/25/2024 Orders Only [facility] Oncology [address] [place] [address] Tano Ibarra DO from Last 3 [...] on file Legal Sex Male 2:39 PM CONVERTIBLE SOFA BEDSPRING TESTER Gender Identity Not on file Sexual Orientation Not on file Last Filed Vital Signs Vital Sign Reading Time Taken Comments Blood Pressure 157/83 05/19/2024 12:01 PM CONVERTIBLE SOFA BEDSPRING TESTER Pulse 95 05/19/2024 12:01 PM CONVERTIBLE SOFA BEDSPRING TESTER Temperature 37.4 C (99.3 F) 05/19/2024 12:01 PM CONVERTIBLE SOFA BEDSPRING TESTER Respiratory Rate 20 05/19/2024 12:01 PM CONVERTIBLE SOFA BEDSPRING TESTER Oxygen Saturation 96% 05/19/2024 12:01 PM CONVERTIBLE SOFA BEDSPRING TESTER Inhaled Oxygen Concentration - - Weight 105.2 kg (232 lb) 05/19/2024 12:01 PM CONVERTIBLE SOFA BEDSPRING TESTER Height 182.9 cm (6') 05/25/2023 2:58 PM CONVERTIBLE SOFA BEDSPRING TESTER Body Mass Index 31.46 05/25/2023 2:58 PM CONVERTIBLE SOFA BEDSPRING TESTER Plan of Treatment Not on file Procedures Procedure Name Priority Date/Time Associated Diagnosis Comments CBC WITH AUTO DIFFERENTIAL Routine 07/01/2024 3:05 PM CDT BMP - BASIC METABOLIC PANEL (7) Routine 06/17/2024 8:42 AM CDT CBC WITH AUTO DIFFERENTIAL Routine 06/17/2024 8:42 AM CDT URINE CULTURE Routine 05/19/2024 12:14 PM CONVERTIBLE SOFA BEDSPRING TESTER Dysuria POCT URINALYSIS DIPSTICK Routine 05/19/2024 12:05 PM CONVERTIBLE SOFA BEDSPRING TESTER Dysuria CBC/DIFF AMBIGUOUS DEFAULT Routine 04/25/2024 2:34 PM CONVERTIBLE SOFA BEDSPRING TESTER from Last 3 Months Results * (ABNORMAL) [...] 6:09 AM CDT Performed at: - [facility] [address] [id number] Radiator Specialist: Ascencion Thomas PhD, Phone: [phone] Specimen Comment: A courtesy copy of this report has been sent to [phone] us Tano Ibarra DO LAB BLOOD ORDERABLES Final R esult [facility] - 01 * BMP - Basic Metabolic Panel (7) (06/17/2024 8:42 AM CDT) Result [facility] Historical Provider MD LAB BLOOD ORDERABLES Vivian l Result EXTERNAL LAB * CBC with auto differential (06/17/2024 8:42 AM CDT) Blood Result [facility] Historical Provider MD LAB BLOOD ORDERABLES Vivian l Result * (ABNORMAL) Urine culture Urine, clean voided (05/19/2024 12:14 PM CONVERTIBLE SOFA BEDSPRING TESTER) Report Final Report: Greater than or equal to 100,000 colonies/mL of Aerococcus urinae Isolates of Aerococcus urinae are typically susceptible to beta-lactams (including penicillin and cephalosporins), vancomycin, and tetracyclines (including doxycycline), but resistant to trimethoprim-sulf amethoxazole. Plus growth of clinically insignificant bacterial gurpreet. (.) Comment:Testing performed by : [facility], [address] [place]., [address] Organism AEROCOCCUS URINAE SEMAJ HALL Organism PLUS GROWTH OF CLINICALLY INSIGNIFICANT GURPREET. SEMAJ HALL Urine, clean voided 05/19/2024 12:14 PM CONVERTIBLE SOFA BEDSPRING TESTER 05/20/2024 12:03 AM CONVERTIBLE SOFA BEDSPRING TESTER Narrative SEMAJ - 05/21/2024 7:46 AM CONVERTIBLE SOFA BEDSPRING TESTER Testing performed by [facility] Microbiology Laboratory ([phone]) Veronica Flannery NP LAB MICROBIOLOGY - GENERAL ORDERABLES Final Result [facility] [address] [address] [place] [address] * (ABNORMAL) POCT urinalysis dipstick (05/19/2024 12:05 PM CONVERTIBLE SOFA BEDSPRING TESTER) Color, Urine, POC Yellow Clarity, ur, POC Cloudy(A) Clear Glucose, ur, POC Negative Negative MG/DL Bilirubin, ur, POC Negative Negative, Small, Moderate, Large Ketones, ur, POC Negative Negative Specific [place]ony, POC 1.020 1.003 - 1.030 Blood, ur, POC Small(A) Negative pH, ur, POC 7.0 5.0 - 8.0 Protein, ur, POC 300.(A) Negative Urobilinogen, urine, POC 1.0 0.2 - 1.0 mg/dL Nitrite, ur, POC Negative Negative Leukocytes, ur, POC Small(A) Negative Lot Number [id number] Urine 05/19/2024 12:0 5 PM CONVERTIBLE SOFA BEDSPRING TESTER Veronica Flannery NP POINT OF CARE TEST ORDERAB LES Final Result * (ABNORMAL) CBC/Diff Ambiguous Default (04/25/2024 2:34 PM CONVERTIBLE SOFA BEDSPRING TESTER) WBC 2.2(LL) 3.4 - 10.8 x10E3/uL [facility] [...] from your office. In accordance with the [facility] Ambiguous Test Code Policy dated September 2002, we have assigned CBC with Differential/Platelet, Test Code #173013 to this request. If this is not the testing you wished to receive on this specimen, please contact the [facility] Client Inquiry/ Technical Services Department to clarify the test order. We appreciate your business. 04/25/2024 2:34 PM CONVERTIBLE SOFA BEDSPRING TESTER 04/25/2024 Narrative [facility] - 04/26/2024 9:36 AM CONVERTIBLE SOFA BEDSPRING TESTER Performed at: [facility] [id number] Radiator Specialist: Ascencion Thomas PhD, Phone: [phone] Tano Ibarra DO LAB BLOOD ORDERABLES Final R esult Performing Organization Address City/State/[facility] Co de Phone Number [facility] - 01 from Last 3 Months Insurance MEDICARE [facility] MEDICARE [facility] MEDICARE SUPPLEMENT MEDICARE [employer] MEDICARE SUPPLEMENT Care Teams Coding And Reimbursement Specialist Relationship Specialty Start Date End Date Don Bronson DO [address] [facility] [address] [place], [place] [id number] PCP - General Internal Medicine 05/02/24 Tano Ibarra DO [address] [place] [id number] Medical Oncologist/Grape Picker Hematology and Oncology 04/30/20 Hardik Call MD [employer] [address] Consulting Physician Urology 10/28/21
--- OUTSIDE RECORDS SUMMARY | 2024-07-21 21:31 | XMS_ITS | Encounter Summary ---
Author Organization [facility] Address [address] [place] [address] Care Team Providers Care Glove Turner And Former Name Role Phone Tano Ibarra DO Unavailable Hardik Call MD Unavailable [phone] Don Bronson DO Primary Care Provider [phone] Encounter Details Date Type Department Care Team (Late st Contact Info) Description 05/21/2024 Results Follow-Up [facility] Convenient Care at [address] [address] Kasandra Davila NP [address] [place] [address] Social History Tobacco Use Types Packs/Day Years Used Date Smoking Tobacco: Former Cigarettes Q uit: 1985 Smokeless Tobacco: Former Comments:Smoking History Pac ks/day: 1 Packs Alcohol Use Standard Drinks/Week Comments Yes 0 (1 standard drink = 0.6 oz pur e alcohol) Sex and Gender Information Value Date Recorded Sex Assigned at Not on file Legal Sex Male 2:39 PM MANAGER MSW Gender Identity Not on file Sexual Orientation [...] week or sooner if symptoms are worsening. GER MSW documented in this encounter Plan of Treatment Not on file documented as of this encounter Visit Diagnoses Not on filedocumented in this encounter Care Teams Glove Turner And Former Relationship Specialty Start Date End Date Don Bronson DO [address] [place] [address] PCP - General Internal Medicine 05/02/24 Tano Ibarra DO [address] [place] [address] Medical Oncologist/Hat Brim Curler Hematology and Oncology 04/30/20 Hardik Call MD [address] [place] [address] Consulting Physician Urology 10/28/21 documented as of this encounter
--- OUTSIDE RECORDS SUMMARY | 2024-07-21 21:31 | XMS_ITS | Clinical Summary ---
Author Organization [place] [address] [place] Address [address] [place] [address] Care Team Providers Care Health Researcher Name Role Phone Tano Ibarra DO Unavailable [phone] Hardik Call MD Unavailable [phone] Don Bronson DO Primary Care Provider [phone] Allergies No known active allergies Medications omeprazole [...] Department Care Team Description 07/01/2024 Orders Only [facility] Phys[facility] Oncology [address] [place] [address] [address] [place] [address] Tano Ibarra DO 06/18/2024 Orders Only [facility] [address] [place] [address] [address] [place] [address] ProviderKy MD 05/26/2024 Telephone [facility] [address] [facility] [address] [place] [phone] Jacquelin Rosenberg RN 05/21/2024 Results Follow-Up [facility] Convenient Care at [address] [phone] Kasandra Davila NP 05/19/2024 12:14 PM CASINO MANAGER - 05/19/2024 11:59 PM CASINO MANAGER Hospital Encounter [address] [address] Dysuria Discharge Disposition: Discharge to home or self care 05/19/2024 12:00 PM CASINO MANAGER Office Visit [facility] Convenient Care at [address] [address] Veronica Flannery NP Dysuria (Primary Dx) 05/02/2024 1:15 PM CASINO MANAGER Office Visit [facility] [address] [place] [address] [address] [place] [address] Tano Ibarra DO Prostate cancer (HCC) (Primary Dx); Pancytopenia (HCC); Osteopenia, unspecified location 04/25/2024 Orders Only [facility] [address] [place] [address] [address] [place] [address] Tano Ibarra DO from Last [...] on file Legal Sex Male 2:39 PM CASINO MANAGER Gender Identity Not on file Sexual Orientation Not on file Obstetrics History Last Filed Vital Signs Vital Sign Reading Time Taken Comments Blood Pressure 157/83 05/19/2024 12:01 PM CASINO MANAGER Pulse 95 05/19/2024 12:01 PM CASINO MANAGER Temperature 37.4 C (99.3 F) 05/19/2024 12:01 PM CASINO MANAGER Respiratory Rate 20 05/19/2024 12:01 PM CASINO MANAGER Oxygen Saturation 96% 05/19/2024 12:01 PM CASINO MANAGER Inhaled Oxygen Concentration - - Weight 105.2 kg (232 lb) 05/19/2024 12:01 PM CASINO MANAGER Height 182.9 cm (6') 05/25/2023 2:58 PM CASINO MANAGER Body Mass Index 31.46 05/25/2023 2:58 PM CASINO MANAGER Plan of Treatment Health Maintenance Due Date [...] CDT URINE CULTURE Routine 05/19/2024 12:14 PM CASINO MANAGER Dysuria POCT URINALYSIS DIPSTICK Routine 05/19/2024 12:05 PM CASINO MANAGER Dysuria CBC/DIFF AMBIGUOUS DEFAULT Routine 04/25/2024 2:34 PM CASINO MANAGER from Last 3 Months Results * (ABNORMAL) [...] 6:09 AM CDT Performed at: - [facility] [address] [id number] [place] Clerk: Ascencion Thomas PhD, Phone: [phone] Specimen Comment: A courtesy copy of this report has been sent to [phone] us Tano Ibarra DO LAB BLOOD ORDERABLES Final R esult [facility] - * BMP - Basic Metabolic Panel (7) (06/17/2024 8:42 AM CDT) Result [facility] Historical Provider LAB BLOOD ORDERABLES Vivian l Result EXTERNAL LAB * CBC with auto differential (06/17/2024 8:42 AM CDT) Blood Result [facility] Historical Provider MD LAB BLOOD ORDERABLES Vivian l Result * (ABNORMAL) Urine culture Urine, clean voided (05/19/2024 12:14 PM CASINO MANAGER) Report Final Report: Greater than or equal to 100,000 colonies/mL of Aerococcus urinae Isolates of Aerococcus urinae are typically susceptible to beta-lactams (including penicillin and cephalosporins), vancomycin, and tetracyclines (including doxycycline), but resistant to trimethoprim-sulf amethoxazole. Plus growth of clinically insignificant bacterial gurpreet. (.) Comment:Testing performed by : [facility], [address] [place]., [address] Organism AEROCOCCUS URINAE SEMAJ Organism PLUS GROWTH OF CLINICALLY INSIGNIFICANT GURPREET. SEMAJ Urine, clean voided 05/19/2024 12:14 PM CASINO MANAGER 05/20/2024 12:03 AM CASINO MANAGER Narrative SEMAJ - 05/21/2024 7:46 AM CASINO MANAGER Testing performed by [facility] Microbiology Laboratory ([phone]) Veronica Flannery NP LAB MICROBIOLOGY - GENERAL ORDERABLES Final Result Performing Organization Address City/[facility]/ZIP Co de Phone Number [facility] [address] [address] Department of Laboratories [place], [place] [id number] * (ABNORMAL) POCT urinalysis dipstick (05/19/2024 12:05 PM CASINO MANAGER) Color, Urine, POC Yellow Clarity, ur, POC Cloudy(A) Clear Glucose, ur, POC Negative Negative MG/DL Bilirubin, ur, POC Negative Negative, Small, Moderate, Large Ketones, ur, POC Negative Negative Specific [place], POC 1.020 1.003 - 1.030 Blood, ur, POC Small(A) Negative pH, ur, POC 7.0 5.0 - 8.0 Protein, ur, POC 300.(A) Negative Urobilinogen, urine, POC 1.0 0.2 - 1.0 mg/dL Nitrite, ur, POC Negative Negative Leukocytes, ur, POC Small(A) Negative Lot Number [id number] Urine 05/19/2024 12:0 5 PM CASINO MANAGER Veronica Flannery NP POINT OF CARE TEST ORDERAB LES Final Result * (ABNORMAL) CBC/Diff Ambiguous Default (04/25/2024 2:34 PM CASINO MANAGER) Pathologist [facility] WBC 2.2(LL) 3.4 - 10.8 x10E3/uL [facility] [...] from your office. In accordance with the [facility] Ambiguous Test Code Policy dated September 2002, we have assigned CBC with Differential/Platelet, Test Code #787445 to this request. If this is not the testing you wished to receive on this specimen, please contact the [facility] Client Inquiry/ Technical Services Department to clarify the test order. We appreciate your business. 04/25/2024 2:34 PM CASINO MANAGER 04/25/2024 Narrative [facility] - 04/26/2024 9:36 AM CASINO MANAGER Performed at: - [place] [address] [place] Clerk: Ascencion Thomas PhD, Phone: [phone] us Tano Ibarra DO LAB BLOOD ORDERABLES Final [facility]ult [facility] - 01 from Last 3 Months Insurance [facility] MEDICARE SUPPLEMENT MEDICARE [facility] MEDICARE SUPPLEMENT Care Teams Health Researcher Relationship Specialty Start Date End Date Don Bronson DO [address] [facility] [address] [place] [address] PCP - General Internal Medicine 05/02/24 Tano Ibarra DO [address] [place] [phone] Medical Oncologist/Crm Marketing Manager Hematology and Oncology 04/30/20 Hardik Call MD [address] [place] [phone] Consulting Physician Urology 10/28/21
[2024-07-21 21:35] LABS: Basophils Percent Auto 0.4 % (0.2-1.2); Eosinophils Absolute Auto 0.2 K/mm3 (0-0.3); Eosinophils Percent Auto 2.4 % (0-4.4); Hematocrit 37.7 % (42.0-52.0); Hemoglobin 11.4 g/dL (14.0-18.0); Immature Granulocyte Absolute 0.04 K/mm3 (0.00-0.031); Immature Granulocyte Percent A 0.5 % (0-0.5); Lymphocytes Absolute Auto 0.06 K/mm3 (0.9-3.2); Lymphocytes Percent Auto 0.8 % (18.3-44.2); Mean Corpuscular HGB Conc 30.2 g/dl (32-36); Mean Corpuscular Hemoglobin 27.5 pg (26-34); Mean Corpuscular Volume 90.8 fl (80-100); Mean Platelet Volume 8.7 fl (7.4-10.4); Monocytes Absolute Auto 0.1 K/mm3 (0.1-0.6); Monocytes Percent Auto 1.5 % (2.6-8.5); Neutrophils Percent Auto 94.4 % (45.5-73.1); Platelet Count Result 271 k/mm3 (150-375); Red Blood Count 4.15 M/mm3 (4.6-6.20); White Blood Count 7.4 K/mm3 (4.5-10.0)
[2024-07-21 21:47] LABS: Bacteria Urine None Seen /hpf; Mucus Urine Present /lpf; Need Manual Microscopic Reviewed; Non Pathogenic Casts >20; RBC Urine >100 /hpf (0-2); Squamous Epithelial Cell Urine Many /hpf (Few); WBC Clumps Urine Present /HPF; WBC Urine >100 /hpf (0-3)
[2024-07-21 21:51] LABS: Add Urine Microscopic? YES; Appearance Urine Cloudy (Clear); Color Urine Yellow (Yellow); Glucose Urine UA Negative (Negative); Ketones Urine 1+ mg/dL (Negative); Protein Urine 3+ mg/dL (Negative); Specific Grav Ur >= 1.030 (1.001-1.035); pH Urine 5.5 (5.0-9.0)
[2024-07-21 21:52] LABS: Bilirubin Urine 2+ (Negative); Blood Urine 3+ (Negative); Leukocyte Esterase Ur 1+ LEU/UL (Negative); Nitrate Urine Negative (Negative)
[2024-07-21 21:53] LABS: Alanine Aminotransferase 105 U/L (6-50); Albumin Level 4.1 g/dL (3.5-5.1); Alkaline Phosphatase 87 U/L (38-126); Anion Gap 14 mmol/L (4-12); Aspartate Amino Transferase 351 U/L (17-59); Bilirubin,Total 1.1 mg/dL (0.2-1.3); Blood Urea Nitrogen 28 mg/dL (9-20); Calcium 9.1 mg/dL (8.4-10.2); Carbon Dioxide 22 mmol/L (22-30); Chloride 101 mmol/L (98-107); Estimated CRCL calculation 27 ml/min; Estimated Glomerular Filt Rate 25; Glucose 117 mg/dL (65-110); Potassium 4.2 mmol/L (3.4-5.0); Sodium 137 mmol/L (137-145)
[2024-07-21 22:07] LABS: Anisocytosis 1+; Ovalocytes 1+; Platelet Estimate Adequate (Adequate); Schistocytes None Seen
[2024-07-21] MEDS: LACTATED RINGERS 1,000 ML 999 ML IV CONT ×2 (22:07→22:12)
[2024-07-21 22:08] LABS: Influenza A QL RT-PCR Negative (Negative); Influenza B QL RT-PCR Negative (Negative); RSV RNA, RT-PCR Negative (Negative); SARS-CoV-2 RNA PCR Negative (Negative)
[2024-07-21] MEDS: IPRATROPIUM 0.5 MG/ALBUTEROL SULFATE 2.5 MG AMPUL.NEB 3 ML INHALATION (22:14)
[2024-07-21 22:42] LABS: INR 1.1; Prothrombin Time 14.2 Seconds (11.1-14.7)
[2024-07-21 22:43] LABS: Partial Thromboplastin Time 23.8 Seconds (22.3-36.8)
[2024-07-21 23:01] LABS: CRP 4.3 mg/dL (<1.0)
[2024-07-21 23:02] LABS: Lactic Acid Reflex 4.8 mmol/L (0.7-2.0)
[2024-07-22] VITALS (81 sets, daily range): BP systolic 53–139; BP diastolic 33–91; PULSE 75–115; RESP 14–35; TEMP 36.4–36.8; O2SAT 94–100; BMI 27.0
--- NOTE | 2024-07-22 | ECHO_ITS ---
Patient Info Name: Tano Gupta Age: 78 years : 1945 Gender: Male Ht: 75 in Wt: 216 lbs BSA: 2.29 m2 HR: 101 bpm BP: 97 / 50 mmHg Heart Rhythm: Sinus Rhythm Technical Quality: Fair Exam Date: 07/22/2024 11:04 AM Exam Location: Echo Lab Patient Status: Inpatient Admit Date: 07/22/2024 Staff Ordering Physician: Duy Jules MD Dramatic Reader: Leeanne Blancas RDCS Attending Provider: Brad Mejia MD Exam Type: CA echo doppler color flow Study Info Indications - Shock Complete two-dimensional, color flow and Doppler transthoracic echocardiogram is performed. Summary 1. Complete two-dimensional, color flow and Doppler transthoracic echocardiogram is performed. 2. Left ventricular chamber dimension is normal. 3. Left ventricular systolic function is normal, estimated at 60-65%. 4. There is mild concentric increased left ventricular wall thickness. 5. The left ventricular diastolic function is grade I diastolic dysfunction. 6. E/e' 10 is mildly elevated. 7. The aortic root size at the sinus of Valsalva is borderline dilated at 4.2 cm. Left Ventricle E/e' 10 is mildly elevated. Left ventricular chamber dimension is normal. Left ventricular systolic function is normal, estimated at 60-65%. There is mild concentric increased left ventricular wall thickness. The left ventricular diastolic function is grade I diastolic dysfunction. Right Ventricle Right ventricular systolic function is normal and with normal TAPSE 1.9 cm. Right ventricular chamber dimension is normal. Left Atria Left atrial chamber dimension is normal. Right Atria Right atrial chamber dimension is normal. Aortic Valve The aortic valve is trileaflet. There is no aortic valve stenosis. There is no aortic valve regurgitation. Pulmonic Valve There is no pulmonic regurgitation. Mitral Valve There is no mitral valve stenosis. There is no mitral valve regurgitation. Tricuspid Valve There is no tricuspid valve regurgitation. Pericardium/Pleural There is no pericardial effusion. Inferior Vena Cava Normal inferior vena cava with >50% collapse upon inspiration consistent with normal right atrial pressure, 5 mmHg. Aorta The aortic root size at the sinus of Valsalva is borderline dilated at 4.2 cm. Left Ventricular Outflow Tract Name Value Normal LVOT 2D LVOT Diameter 2.0 cm LVOT Doppler LVOT Peak Gradient 3 mmHg LVOT Mean Gradient 2 mmHg LVOT VTI 16 cm LVOT VTI/AV VTI Ratio 0.8 LVOT Stroke Volume 49 ml LVOT CO 4.5 l/min LVOT CI 2.0 l/min/m2 Pulmonic Valve Name Value Normal RVOT Doppler RVOT Peak Gradient 4 mmHg PV Doppler PV Peak Gradient 6 mmHg Mitral Valve Name Value Normal MV Doppler MV Decel [place] 640 cm/s2 MV PHT 50 ms MV Area (PHT) 4.4 cm2 4.0-5.0 MV Diastolic Function MV E Peak Velocity 110 cm/s MV A Peak Velocity 133 cm/s MV E/A 0.8 MV Decel Time 172 ms MV Annular TDI MV E/e' (Septal) 16.3 <=8.0 MV E/e' (Lateral) 17.6 <=8.0 MV E/e' (Average) 17.0 Tricuspid Valve Name Value Normal Estimated PAP/RSVP RA Pressure 5 mmHg <=5 Aorta Name Value Normal Ascending Aorta Ao Root Diameter (MM) 4.2 cm Ao Root Diam Index (MM) 1.8 cm/m2 Aortic Valve Name Value Normal AV Doppler AV Peak Velocity 129 cm/s AV Peak Gradient 7 mmHg AV Mean Gradient 4 mmHg AV VTI 20 cm AV Area (Cont Eq VTI) 2.5 cm2 >=3.0 AV Area (Cont Eq Serafin) 2.0 cm2 AV Regurgitation 2D LVOT Area 3.1 cm2 Ventricles Name Value Normal LV Dimensions 2D/MM IVS Diastolic Thickness (2D) 0.9 cm 0.6-1.0 LVID Diastole (2D) 5.7 cm 4.2-5.8 LVIW Diastolic Thickness (2D) 0.9 cm 0.6-1.0 LVID Systole (2D) 3.3 cm 2.5-4.0 LVOT Diameter 2.0 cm LV Mass (2D Cubed) 203.17 g 88.00-224.00 LV Mass Index (2D Cubed) 89 g/m2 49-115 Relative Wall Thickness (2D) 0.33 LV Fractional Shortening/Ejection Fraction 2D/MM LV Fractional Shortening (2D) 42 % 25-43 LV EF (2D Teicholz) 73 % 52-72 LV Diastolic Volume (4C MOD) 73 ml LV EF (4C MOD) 69 % LV Diastolic Volume (2C MOD) 69 ml LV EF (2C MOD) 68 % LV Diastolic Volume (BP MOD) 74 ml 62-150 LV Diastolic Volume Index (BP MOD) 32 ml/m2 34-74 LV Systolic Volume (BP MOD) 23 ml 21-61 LV Systolic Volume Index (BP MOD) 10 ml/m2 11-31 LV EF (BP MOD) 69 % 52-72 LV Diastolic Length (4C) 7.6 cm LV Systolic Length (4C) 7.4 cm LV Stroke Volume (4C MOD) 50 ml Atria Name Value Normal LA Dimensions LA Dimension (MM) 3.6 cm 3.0-4.1 LA Volume (4C A-L) 43 ml LA Volume (BP A-L) 40 ml RA Dimensions RA Area (4C) 17.5 cm2 <=18.0 Report Signatures
[2024-07-22] MEDS: NOREPINEPHRINE 8 MG/D5W 250 ML 8 MG/250 ML BAG 9.38 MG IV CONT (00:15)
[2024-07-22 00:29] LABS: Reflex Lactic Acid Yes or No Add Lactic
[2024-07-22] MEDS: LACTATED RINGERS 1,000 ML 999 ML IV CONT (01:02)
--- NOTE | 2024-07-22 01:08 | PC.NURSE ---
Assisted MD Cook in CVC placement, sterile technique maintained and placement confirmed.
[2024-07-22 01:09] LABS: Lactic Acid 4.4 mmol/L (0.7-2.0)
--- NOTE | 2024-07-22 01:12 | ED_ITS ---
HPI - Syncope General Chief Complaint: Dizziness Stated Complaint: UTI? dizziness, fever Time Seen by Provider: 07/21/24 20:51 History of Present Illness HPI narrative: Patient has been treated recently for urinary tract infection, with several rounds of antibiotics recently, today was feeling generalized weakness and finally almost passed out, has been feeling weak with some shortness of breath also. Related Data Home Medications ?Medication ?Instructions ?Recorded ?Confirmed ?Last Taken ?Type omeprazole 20 mg capsule,delayed 20 mg PO DAILY 09/30/19 06/17/24 Unknown History release pyridoxine (vitamin B6) 500 mg 500 mg PO DAILY 09/30/19 06/17/24 01/03/24 History tablet cholecalciferol (vitamin D3) 50 50 mcg PO DAILY 10/07/19 06/17/24 01/03/24 History mcg (2,000 unit) capsule leuprolide acetate (6 month) 45 mg 45 mg subcut [id number] 10/24/19 06/17/24 Unknown History (6 month) subcutaneous syringe ([employer]) gabapentin 300 mg capsule 800 mg PO QHS 06/12/23 06/17/24 Unknown History prednisone 10 mg tablet 15 mg PO DAILY 06/12/23 06/17/24 01/10/24 07:00 History alendronate 70 mg tablet 70 mg PO WEEKLY 01/04/24 06/17/24 Unknown History melatonin 10 mg tablet 10 mg PO HS PRN Insomnia 01/04/24 06/17/24 Unknown History Allergies Allergy/AdvReac Type Severity Reaction Status Date / Time ceftriaxone (From Rocephin) AdvReac Mild Rash Verified 07/21/24 20:12 Review of Systems 2 Review of Systems: All systems reviewed & are unremarkable except as noted in HPI and below PMFSH Past Medical History Medical History (Updated 07/22/24 @ 02:40 by Amy Cook MD) LFT elevation Septic shock Other idiopathic peripheral autonomic neuropathy Unspecified disorder of circulatory system Broken arm (~3) History of broken leg (~1970) Prostate cancer Pure hyperglyceridemia Essential hypertension Cardiac abnormality Incontinence Surgical History Surgical History History of prostatectomy History of sinus surgery Total knee replacement status (~2005) H/O hernia repair (~2014) Total knee replacement status (~07/23/18) Family History Family History Father Family history of malignant neoplasm Mother Family history of malignant neoplasm of breast in first degree relative Other Family history of cardiovascular disease Hypertension Social History Social History Social History: Caffeine- Smoking packs per day: 1 Smoking cigarettes per day: 20.0 Years smoked: 20 Smoking pack-years: 20.00 Smoking status: Former smoker Tobacco type: cigarettes Second hand tobacco smoke exposure: No Smoking end date: 03/19/85 Alcohol intake: current Drinks per week: 4 Substance use: never Substance use type: does not use Do You Feel Safe in your Home?: Yes Lack of Transportation: No Lack of Food: Never True Current Housing: I Have Housing Concerned About Future Housing: No Difficulty Paying Gas/Electric Bills: No Difficulty Paying for Meds: No Currently Unemployed: No Education: Associate Degree Difficulty w/ Childcare or Family Care: No Living arrangements: with family Spiritual care concerns: No Exam 2 Narrative: EXAMINATION OF ORGAN SYSTEMS/BODY AREAS: Constitutional: Vital signs per nursing GENERAL: Appears sleepy and tired HEAD: Normal with no signs of head trauma. EYES: EOMI, conjunctiva normal ENT: Hearing grossly intact LUNGS: Nonlabored breathing. HEART: Tachycardic ABD: [Soft], [nontender to palpation] EXT: Normal range of motion SKIN: [No rashes or lesions.] NEURO: [Slightly sleepy but wakes easily. No gross focal sensory or strength deficits.] PSYCH: Normal affect Course Vital Signs Vital signs: Vital Signs Temperature 99.8 F H 07/21/24 20:23 Pulse Rate 122 H 07/21/24 20:23 Respiratory Rate 18 07/21/24 20:23 Blood Pressure 132/83 07/21/24 20:23 Pulse Oximetry 92 07/21/24 20:23 Oxygen Delivery Room Air 07/21/24 20:23 Temperature 99.8 F H 07/21/24 20:23 Pulse Rate 99 07/22/24 02:17 Respiratory Rate 25 H 07/22/24 01:55 Blood Pressure 71/38 L 07/22/24 02:17 Pulse Oximetry 98 07/22/24 02:05 Oxygen Delivery Nasal Cannula 07/21/24 22:18 Oxygen Flow Rate 2 07/21/24 22:18 Procedures Central Line Placement Left IJ: Central Line Date: 07/22/24 Central Line Time: 00:00 Discussed w/ the patient/family/POA,the placement of a central venous catheter, including its clinical necessity/indication & associated potential risks, benifits and alternatives.: Yes The patient/family/POA understand(s) and acknowledge(s) the need to proceed with central venous catheter insertion as an important element of the patient's clinical management.: Yes Patient Placed on Monitor/Pulse Ox: Yes Max. Sterile Barrier Technique: Caps, large sterile sheet and hand hygiene Central Line Prep: 2% chlorhexidine scrub and sterile drapes applied Technique: US-Guided Local Anesthetic: lidocaine 1% Amount of anesthesia used (mL): 3 Ultrasound Used for Placement: Yes Central Line Lumen Inserted: triple Post Procedure: sutured in place, all ports aspirated, flushed, capped and sterile dressing applied Post Procedure X-Ray: tip of catheter in good position and no pneumothorax seen Patient Tolerated Procedure: well and no complications Additional Comments: Initial CVC wire would not thread through the CVC brown port. New CVC kit opened and CVC easily threaded on guidewire and CVC inserted; no blood return through brown port but flushes well. Good blood return through white and blue ports. Sutured into place and confirmed placement on CXR. MDM - Syncope MDM Narrative Medical decision making narrative: Patient presenting with chills, generalized weakness, presyncope, shortness of breath. On exam he is quite hypertensive and tachycardic, with some increased work of breathing, infectious workup immediately initiated with sepsis protocol, 30 cc/kg IV fluids given, initial lactic elevated, slightly improved after fluids, blood pressure still quite low so I did offer central line placement and pressors started Patient and agreeable to plan throughout and he is full code. He is have elevated creatinine above baseline as well as LFTs, which I suspect may be from the low blood pressure, urine does show large amount of RBCs and WBCs, he has allergies ceftriaxone so I have started him on Levofloxacin after checking prior urine cultures. CT obtained to rule out infected stone, I did discuss this with urologist, no obvious obstruction so no plan for stent. But they will consult. Also consulted ICU, and discussed case with hospitalist for admission. Lab Data 07/21/24 21:26 07/21/24 21:26 Labs: Lab Results 07/21/24 07/21/24 07/21/24 Range/Units 21:26 21:28 22:24 WBC 7.4 (4.5-10.0) K/mm3 RBC 4.15 L (4.6-6.20) M/mm3 Hgb 11.4 L (14.0-18.0) g/dL Hct 37.7 L (42.0-52.0) % MCV 90.8 (80-100) fl MCH 27.5 (26-34) pg MCHC 30.2 L (32-36) g/dl RDW 16.0 H (11.5-14.5) % Plt Count 271 (150-375) k/mm3 MPV 8.7 (7.4-10.4) fl Immature Gran % (Auto) 0.5 (0-0.5) % Neut % (Auto) 94.4 H (45.5-73.1) % Lymph % (Auto) 0.8 L (18.3-44.2) % [place] % (Auto) 1.5 L (2.6-8.5) % Eos % (Auto) 2.4 (0-4.4) % Baso % (Auto) 0.4 (0.2-1.2) % Lymph # (Auto) 0.06 L (0.9-3.2) K/mm3 [place] # (Auto) 0.1 (0.1-0.6) K/mm3 Eos # (Auto) 0.2 (0-0.3) K/mm3 Baso # (Auto) 0.0 (0.0-0.1) K/mm3 Abs Immat Gran (auto) 0.04 H (0.00-0.031) K/mm3 Absolute Neuts (auto) 7.0 H (1.3-6.7) K/mm3 Absolute Nucleated RBC 0.000 (0.0-0.012) K/mm3 Band Neutrophils % Not Reportable Nucleated RBC % 0.0 (0.0-0.2) % Platelet Estimate Adequate (Adequate) Anisocytosis 1+ Ovalocytes 1+ Schistocytes None seen PT 14.2 (11.1-14.7) Seconds INR 1.1 APTT 23.8 (22.3-36.8) Seconds Sodium 137 (137-145) mmol/L Potassium 4.2 (3.4-5.0) mmol/L Chloride 101 (98-107) mmol/L Carbon Dioxide 22 (22-30) mmol/L Anion Gap 14 H (4-12) mmol/L BUN 28 H (9-20) mg/dL Creatinine 2.55 H (0.7-1.3) mg/dL Estim Creat Clear Calc 27 ml/min Estimated GFR 25 L (59 - ) Glucose 117 H (65-110) mg/dL Lactic Acid 4.8 H* (0.7-2.0) mmol/L Calcium 9.1 (8.4-10.2) mg/dL Total Bilirubin 1.1 (0.2-1.3) mg/dL AST 351 H (17-59) U/L ALT 105 H (6-50) U/L Alkaline Phosphatase 87 (38-126) U/L C-Reactive Protein 4.3 H (<1.0) mg/dL Total Protein 7.0 (6.3-8.2) g/dL Albumin 4.1 (3.5-5.1) g/dL Urine Color Yellow (Yellow) Urine Appearance Cloudy H (Clear) Urine pH 5.5 (5.0-9.0) Ur Specific [place] >= 1.030 (1.001-1.035) Urine Protein 3+ H (Negative) mg/dL Urine Glucose (UA) Negative (Negative) mg/dL Urine Ketones 1+ H (Negative) mg/dL Ur Blood (Man) 3+ H (Negative) Urine Nitrate Negative (Negative) Urine Bilirubin 2+ H (Negative) Urine Urobilinogen 1.0 (<2.0) mg/dL Add Ur Microanalysis Reviewed Leukocyte Esterase Rfl 1+ H (Negative) ANITA/UL Urine RBC >100 H (0-2) /hpf Urine WBC >100 H (0-3) /hpf Urine WBC Clumps Present H (None) /HPF Ur Squamous Epith Cells Many H (Few) /hpf Urine Bacteria None seen /hpf Urine Casts >20 Urine Mucus Present /lpf Influenza A (RT-PCR) Negative (Negative) Influenza B (RT-PCR) Negative (Negative) RSV (RT-PCR) Negative (Negative) SARS-CoV-2 RNA (RT-PCR) Negative (Negative) 07/22/24 Range/Units 00:51 WBC (4.5-10.0) K/mm3 RBC (4.6-6.20) M/mm3 Hgb (14.0-18.0) g/dL Hct (42.0-52.0) % MCV (80-100) fl MCH (26-34) pg MCHC (32-36) g/dl RDW (11.5-14.5) % Plt Count (150-375) k/mm3 MPV (7.4-10.4) fl Immature Gran % (Auto) (0-0.5) % Neut % (Auto) (45.5-73.1) % Lymph % (Auto) (18.3-44.2) % [place] % (Auto) (2.6-8.5) % Eos % (Auto) (0-4.4) % Baso % (Auto) (0.2-1.2) % Lymph # (Auto) (0.9-3.2) K/mm3 [place] # (Auto) (0.1-0.6) K/mm3 Eos # (Auto) (0-0.3) K/mm3 Baso # (Auto) (0.0-0.1) K/mm3 Abs Immat Gran (auto) (0.00-0.031) K/mm3 Absolute Neuts (auto) (1.3-6.7) K/mm3 Absolute Nucleated RBC (0.0-0.012) K/mm3 Band Neutrophils % Nucleated RBC % (0.0-0.2) % Platelet Estimate (Adequate) Anisocytosis Ovalocytes Schistocytes PT (11.1-14.7) Seconds INR APTT (22.3-36.8) Seconds Sodium (137-145) mmol/L Potassium (3.4-5.0) mmol/L Chloride (98-107) mmol/L Carbon Dioxide (22-30) mmol/L Anion Gap (4-12) mmol/L BUN (9-20) mg/dL Creatinine (0.7-1.3) mg/dL Estim Creat Clear Calc ml/min Estimated GFR (59 - ) Glucose (65-110) mg/dL Lactic Acid 4.4 H* (0.7-2.0) mmol/L Calcium (8.4-10.2) mg/dL Total Bilirubin (0.2-1.3) mg/dL AST (17-59) U/L ALT (6-50) U/L Alkaline Phosphatase (38-126) U/L C-Reactive Protein (<1.0) mg/dL Total Protein (6.3-8.2) g/dL Albumin (3.5-5.1) g/dL Urine Color (Yellow) Urine Appearance (Clear) Urine pH (5.0-9.0) Ur Specific [place] (1.001-1.035) Urine Protein (Negative) mg/dL Urine Glucose (UA) (Negative) mg/dL Urine Ketones (Negative) mg/dL Ur Blood (Man) (Negative) Urine Nitrate (Negative) Urine Bilirubin (Negative) Urine Urobilinogen (<2.0) mg/dL Add Ur Microanalysis Leukocyte Esterase Rfl (Negative) ANITA/UL Urine RBC (0-2) /hpf Urine WBC (0-3) /hpf Urine WBC Clumps (None) /HPF Ur Squamous Epith Cells (Few) /hpf Urine Bacteria /hpf Urine Casts Urine Mucus /lpf Influenza A (RT-PCR) (Negative) Influenza B (RT-PCR) (Negative) RSV (RT-PCR) (Negative) SARS-CoV-2 RNA (RT-PCR) (Negative) Critical Care Time Critical Care Time Critical Care Time: Yes Total Critical Care Time: 61 Discharge Plan Discharge Clinical Impression: Septic shock, Lactic acidosis, Gross hematuria UTI (urinary tract infection) Qualifiers: Urinary tract infection type: acute cystitis Hematuria presence: without hematuria Qualified Code(s): N30.00 - Acute cystitis without hematuria Patient Disposition: Still a Patient Condition: Critical
[2024-07-22] MEDS: levoFLOXacin 750 MG/D5W 150 ML 750 MG/150 ML BAG 100 MG IVPB (01:22)
--- NOTE | 2024-07-22 01:32 | P.PNUR_ITS ---
Progress Note: A&P Assessment and Plan (1) UTI (urinary tract infection): Qualifiers: Hematuria presence: without hematuria Urinary tract infection type: acute cystitis Qualified Code(s): N30.00 - Acute cystitis without hematuria Code(s): N39.0 - Urinary tract infection, site not specified Status: Acute Plan Called about patient with sepsis, possible from UTI, and left hydro without obstructing stone. On review of CT, left kidney looks like a parapelvic cyst which is confirmed on prior CT with contrast last year. There appears to be no evidence of any urinary tract obstruction and nothing I can imporove upon tonight. Will pass along to daytime team tomorrow to see. Subjective Subjective Date/Time Seen: 07/22/24 01:32 Objective Data Vital Signs Vital Signs: Vital Signs - 24 hr 07/21/24 20:23 07/21/24 20:43 07/21/24 20:43 Temperature 37.7 C H Pulse Rate 122 H Respiratory Rate 18 Blood Pressure 132/83 Pulse Oximetry 92 85 L 96 Oxygen Delivery Room Air Room Air Nasal Cannula Oxygen Flow Rate 2 07/21/24 21:29 07/21/24 21:55 07/21/24 22:11 Temperature Pulse Rate 109 H 106 H 111 H Respiratory Rate 36 H 34 H 26 H Blood Pressure 84/46 L 74/51 L 119/99 H Pulse Oximetry 93 Oxygen Delivery Oxygen Flow Rate 07/21/24 22:17 07/21/24 22:18 07/21/24 23:01 Temperature Pulse Rate 106 H 99 Respiratory Rate 20 34 H Blood Pressure 73/47 L Pulse Oximetry 97 97 Oxygen Delivery Nasal Cannula Oxygen Flow Rate 2 07/21/24 23:05 07/21/24 23:09 07/21/24 23:11 Temperature Pulse Rate 95 98 95 Respiratory Rate 31 H 31 H 29 H Blood Pressure 77/43 L 74/49 L 76/52 L Pulse Oximetry 96 96 97 Oxygen Delivery Oxygen Flow Rate 07/21/24 23:26 07/21/24 23:30 07/21/24 23:31 Temperature Pulse Rate 91 90 92 Respiratory Rate 27 H 30 H 24 H Blood Pressure 66/40 L 62/43 L Pulse Oximetry 97 96 97 Oxygen Delivery Oxygen Flow Rate 07/21/24 23:35 07/21/24 23:35 07/21/24 23:40 Temperature Pulse Rate 90 90 93 Respiratory Rate 27 H 29 H 30 H Blood Pressure 66/44 L 66/44 L 63/46 L Pulse Oximetry 96 96 97 Oxygen Delivery Oxygen Flow Rate 07/21/24 23:45 07/21/24 23:50 07/21/24 23:55 Temperature Pulse Rate 93 93 100 Respiratory Rate 30 H 22 H 22 H Blood Pressure 68/41 L 76/44 L 84/49 L Pulse Oximetry 98 97 100 Oxygen Delivery Oxygen Flow Rate 07/22/24 00:00 07/22/24 00:01 07/22/24 00:05 Temperature Pulse Rate 94 97 98 Respiratory Rate 29 H 32 H 32 H Blood Pressure 74/42 L 74/42 L Pulse Oximetry 100 100 100 Oxygen Delivery Oxygen Flow Rate 07/22/24 00:10 07/22/24 00:15 07/22/24 00:15 Temperature Pulse Rate 99 99 106 H Respiratory Rate 28 H 31 H Blood Pressure 67/43 L 67/43 L Pulse Oximetry 100 100 Oxygen Delivery Oxygen Flow Rate 07/22/24 00:17 07/22/24 00:19 07/22/24 00:20 Temperature Pulse Rate 93 97 94 Respiratory Rate 29 H 26 H 26 H Blood Pressure 57/38 L 53/35 L Pulse Oximetry 100 99 97 Oxygen Delivery Oxygen Flow Rate 07/22/24 00:22 07/22/24 00:25 07/22/24 00:26 Temperature Pulse Rate 94 99 91 Respiratory Rate 27 H 31 H Blood Pressure 59/37 L 63/42 L 63/42 L Pulse Oximetry 96 97 Oxygen Delivery Oxygen Flow Rate 07/22/24 00:30 07/22/24 00:35 07/22/24 00:41 Temperature Pulse Rate 91 97 96 Respiratory Rate 31 H 25 H 30 H Blood Pressure 70/39 L 74/44 L 76/40 L Pulse Oximetry 96 98 98 Oxygen Delivery Oxygen Flow Rate 07/22/24 00:42 07/22/24 00:45 07/22/24 00:46 Temperature Pulse Rate 93 95 92 Respiratory Rate 29 H 29 H Blood Pressure 76/40 L 69/42 L Pulse Oximetry 98 98 Oxygen Delivery Oxygen Flow Rate 07/22/24 00:50 07/22/24 00:51 07/22/24 00:53 Temperature Pulse Rate 90 90 100 Respiratory Rate 29 H 28 H Blood Pressure 60/38 L 60/38 L 57/38 L Pulse Oximetry 98 97 Oxygen Delivery Oxygen Flow Rate 07/22/24 01:00 07/22/24 01:04 07/22/24 01:05 Temperature Pulse Rate 92 90 91 Respiratory Rate 25 H 35 H 24 H Blood Pressure 60/38 L 63/39 L 68/41 L Pulse Oximetry 94 94 96 Oxygen Delivery Oxygen Flow Rate 07/22/24 01:19 07/22/24 01:23 Temperature Pulse Rate 90 91 Respiratory Rate Blood Pressure 60/38 L 74/41 L Pulse Oximetry Oxygen Delivery Oxygen Flow Rate Intake/Output Intake/Output: Intake & Output 07/19/24 07/20/24 07/21/24 07/22/24 23:59 23:59 23:59 23:59 Intake Total 3014.9 Balance 3014.9 Meds/Results Medications: Active Medications Generic Name Dose Route Start Last Admin Trade Name Freq PRN Reason Stop Dose Admin Norepinephrine Bitartrate 8 mg in 250 mls @ 18.75 mls/hr 07/21/24 23:55 07/22/24 01:23 Levophed 8 Mg/D5w 250 Ml IV CONT 10 mcg/min .[id number] [facility] 18.75 mls/hr Titration Protocol 10 MCG/MIN Lactated Ringer's 500 mls @ 150 mls/hr 07/22/24 01:15 Lactated Ringers IV CONT .[id number] [facility] Radiology Results: ITS Impressions Abdomen/Pelvis CT 07/21/24 23:33 IMPRESSION: No acute pathology within the abdomen or pelvis. Redemonstration of a 10 mm calculus within the left kidney. Chronic left UPJ obstruction. Findings suggesting cystitis Hepatomegaly Chest X-Ray 07/22/24 01:07 IMPRESSION: Interval placement of a left internal jugular central venous catheter, in position and ready for immediate use. Labs Labs: Laboratory Results - last 24 hr 07/21/24 07/21/24 07/21/24 21:26 21:28 22:24 WBC 7.4 RBC 4.15 L Hgb 11.4 L Hct 37.7 L MCV 90.8 MCH 27.5 MCHC 30.2 L RDW 16.0 H Plt Count 271 MPV 8.7 Immature Gran % (Auto) 0.5 Neut % (Auto) 94.4 H Lymph % (Auto) 0.8 L [place] % (Auto) 1.5 L Eos % (Auto) 2.4 Baso % (Auto) 0.4 Lymph # (Auto) 0.06 L [place] # (Auto) 0.1 Eos # (Auto) 0.2 Baso # (Auto) 0.0 Abs Immat Gran (auto) 0.04 H Absolute Neuts (auto) 7.0 H Absolute Nucleated RBC 0.000 Band Neutrophils % Not Reportable Nucleated RBC % 0.0 Platelet Estimate Adequate Anisocytosis 1+ Ovalocytes 1+ Schistocytes None seen PT 14.2 INR 1.1 APTT 23.8 Sodium 137 Potassium 4.2 Chloride 101 Carbon Dioxide 22 Anion Gap 14 H BUN 28 H Creatinine 2.55 H Estim Creat Clear Calc 27 Estimated GFR 25 L Glucose 117 H Lactic Acid 4.8 H* Calcium 9.1 Total Bilirubin 1.1 AST 351 H ALT 105 H Alkaline Phosphatase 87 C-Reactive Protein 4.3 H Total Protein 7.0 Albumin 4.1 Urine Color Yellow Urine Appearance Cloudy H Urine pH 5.5 Ur Specific [place] >= 1.030 Urine Protein 3+ H Urine Glucose (UA) Negative Urine Ketones 1+ H Ur Blood (Man) 3+ H Urine Nitrate Negative Urine Bilirubin 2+ H Urine Urobilinogen 1.0 Add Ur Microanalysis Reviewed Leukocyte Esterase Rfl 1+ H Urine RBC >100 H Urine WBC >100 H Urine WBC Clumps Present H Ur Squamous Epith Cells Many H Urine Bacteria None seen Urine Casts >20 Urine Mucus Present Influenza A (RT-PCR) Negative Influenza B (RT-PCR) Negative RSV (RT-PCR) Negative SARS-CoV-2 RNA (RT-PCR) Negative 07/22/24 00:51 WBC RBC Hgb Hct MCV MCH MCHC RDW Plt Count MPV Immature Gran % (Auto) Neut % (Auto) Lymph % (Auto) [place] % (Auto) Eos % (Auto) Baso % (Auto) Lymph # (Auto) [place] # (Auto) Eos # (Auto) Baso # (Auto) Abs Immat Gran (auto) Absolute Neuts (auto) Absolute Nucleated RBC Band Neutrophils % Nucleated RBC % Platelet Estimate Anisocytosis Ovalocytes Schistocytes PT INR APTT Sodium Potassium Chloride Carbon Dioxide Anion Gap BUN Creatinine Estim Creat Clear Calc Estimated GFR Glucose Lactic Acid 4.4 H* Calcium Total Bilirubin AST ALT Alkaline Phosphatase C-Reactive Protein Total Protein Albumin Urine Color Urine Appearance Urine pH Ur Specific [place] Urine Protein Urine Glucose (UA) Urine Ketones Ur Blood (Man) Urine Nitrate Urine Bilirubin Urine Urobilinogen Add Ur Microanalysis Leukocyte Esterase Rfl Urine RBC Urine WBC Urine WBC Clumps Ur Squamous Epith Cells Urine Bacteria Urine Casts Urine Mucus Influenza A (RT-PCR) Influenza B (RT-PCR) RSV (RT-PCR) SARS-CoV-2 RNA (RT-PCR)
[2024-07-22] MEDS: LACTATED RINGERS 500 ML 150 ML IV CONT (01:38)
--- NOTE | 2024-07-22 02:10 | PC.NURSE ---
Pt being taken to ICU on stretcher, clinical research monitor and cont. pulse oximeter with oxygen saturation 96% on 2L via NC by this RN and Ronnie electrophysiology tech. Pt has levo 12mcg/min infusing, Levofloxacin @ 100ML/hr and LR 2 150mg/hr.
--- NOTE | 2024-07-22 02:20 | P.HP_ITS ---
H&P: HPI History of Present Illness Date/Time: 07/22/24 02:20 Chief Complaint: Dizziness and weakness Narrative: This 78-year-old male patient with past medical history of idiopathic peripheral autonomic neuropathy, prostate cancer, hypertension, previous prostatectomy, previous total knee replacement who is a former user of tobacco, occasional user of alcohol and a nonuser of drugs comes to the emergency room with complaints of having dizziness and weakness. Patient endorses that he recently has been treated for a urinary tract infection and has just started his 2nd round of antibiotics this morning having had taken this 1st dose of Macrobid. Patient states he felt ill today generally overall and felt very weak. He states he fell at home and landed on his buttock, not hitting his head or injuring any other part of his body. Patient reports he has generalized weakness and denies any one-sided neglect. He has not had any fevers. No nausea, vomiting, diarrhea. He does endorse occasional burning with urination. Previous urine culture from June 02, 2024 in our EMR system shows no growth. Upon arrival to the emergency room patient is found to be hypotensive. Workup is initiated and findings significant for ELIZABETH with a creatinine of 2.5 which is well above patient's baseline, lactic acid of 4.8, CRP of 4.3 and elevated liver enzymes above be on patient's normal. Given that patient is allergic to ceftriaxone he was started on Levaquin in the emergency room and given a 2-1/2 L bolus of IV fluids. Despite this bolus of IV fluids patient remains hypotensive requiring central line placement and initiation of Levophed. Urinalysis continues to be consistent with an acute UTI. Urology was consulted and presented to the bedside to evaluate patient. There does not appear to be any acute findings on CT this evening that could be corrected surgically. There was redemonstration of a 10 mm calculus within the left kidney, chronic left UPJ obstruction and findings suggesting cystitis. Urology will continue to follow and patient is being placed in ICU at this time for further management of septic shock secondary to urinary tract infection. Review of Systems Review of Systems: All systems reviewed & are unremarkable except as noted in HPI and below PMFSH Past Medical History Medical History (Updated 07/22/24 @ 02:34 by ANTONIA RileyN-C) LFT elevation Septic shock Other idiopathic peripheral autonomic neuropathy Unspecified disorder of circulatory system Broken arm (~195) History of broken leg (~1970) Prostate cancer Pure hyperglyceridemia Essential hypertension Cardiac abnormality Incontinence Surgical History Surgical History History of prostatectomy History of sinus surgery Total knee replacement status (~2005) H/O hernia repair (~2014) Total knee replacement status (~07/23/18) Family History Family History Father Family history of malignant neoplasm Mother Family history of malignant neoplasm of breast in first degree relative Other Family history of cardiovascular disease Hypertension Social History Social History Social History: Caffeine- Smoking packs per day: 1 Smoking cigarettes per day: 20.0 Years smoked: 20 Smoking pack-years: 20.00 Smoking status: Former smoker Tobacco type: cigarettes Second hand tobacco smoke exposure: No Smoking end date: 03/19/85 Alcohol intake: current Drinks per week: 4 Substance use: never Substance use type: does not use Do You Feel Safe in your Home?: Yes Lack of Transportation: No Lack of Food: Never True Current Housing: I Have Housing Concerned About Future Housing: No Difficulty Paying Gas/Electric Bills: No Difficulty Paying for Meds: No Currently Unemployed: No Education: Associate Degree Difficulty w/ Childcare or Family Care: No Living arrangements: with family Spiritual care concerns: No Meds Home Medications and Allergies Home Medications ?Medication ?Instructions ?Recorded ?Confirmed ?Type omeprazole 20 mg capsule,delayed 20 mg PO DAILY 09/30/19 06/17/24 History release pyridoxine (vitamin B6) 500 mg 500 mg PO DAILY 09/30/19 06/17/24 History tablet cholecalciferol (vitamin D3) 50 50 mcg PO DAILY 10/07/19 06/17/24 History mcg (2,000 unit) capsule leuprolide acetate (6 month) 45 mg 45 mg subcut [id number] 10/24/19 06/17/24 History (6 month) subcutaneous syringe (Remember The Member) gabapentin 300 mg capsule 800 mg PO QHS 06/12/23 06/17/24 History prednisone 10 mg tablet 15 mg PO DAILY 06/12/23 06/17/24 History carvedilol 3.125 mg tablet 3.125 mg PO Q12H #180 tabs 12/21/23 06/17/24 Rx lovastatin 20 mg tablet 20 mg PO DAILY #90 tabs 12/21/23 06/17/24 Rx alendronate 70 mg tablet 70 mg PO WEEKLY 01/04/24 06/17/24 History melatonin 10 mg tablet 10 mg PO HS PRN Insomnia 01/04/24 06/17/24 History fenofibrate 160 mg tablet 160 mg PO DAILY #90 tabs 01/25/24 06/17/24 Rx Allergies Allergy/AdvReac Type Severity Reaction Status Date / Time ceftriaxone (From [facility]) AdvReac Mild Rash Verified 07/21/24 20:12 Vital Signs Vital Signs - 24 hr 07/21/24 20:23 07/21/24 20:43 07/21/24 20:43 Temperature 99.8 F H Pulse Rate 122 H Respiratory Rate 18 Blood Pressure 132/83 Pulse Oximetry 92 85 L 96 Oxygen Delivery Room Air Room Air Nasal Cannula Oxygen Flow Rate 2 07/21/24 21:29 07/21/24 21:55 07/21/24 22:11 Temperature Pulse Rate 109 H 106 H 111 H Respiratory Rate 36 H 34 H 26 H Blood Pressure 84/46 L 74/51 L 119/99 H Pulse Oximetry 93 Oxygen Delivery Oxygen Flow Rate 07/21/24 22:17 07/21/24 22:18 07/21/24 23:01 Temperature Pulse Rate 106 H 99 Respiratory Rate 20 34 H Blood Pressure 73/47 L Pulse Oximetry 97 97 Oxygen Delivery Nasal Cannula Oxygen Flow Rate 2 07/21/24 23:05 07/21/24 23:09 07/21/24 23:11 Temperature Pulse Rate 95 98 95 Respiratory Rate 31 H 31 H 29 H Blood Pressure 77/43 L 74/49 L 76/52 L Pulse Oximetry 96 96 97 Oxygen Delivery Oxygen Flow Rate 07/21/24 23:26 07/21/24 23:30 07/21/24 23:31 Temperature Pulse Rate 91 90 92 Respiratory Rate 27 H 30 H 24 H Blood Pressure 66/40 L 62/43 L Pulse Oximetry 97 96 97 Oxygen Delivery Oxygen Flow Rate 07/21/24 23:35 07/21/24 23:35 07/21/24 23:40 Temperature Pulse Rate 90 90 93 Respiratory Rate 27 H 29 H 30 H Blood Pressure 66/44 L 66/44 L 63/46 L Pulse Oximetry 96 96 97 Oxygen Delivery Oxygen Flow Rate 07/21/24 23:45 07/21/24 23:50 07/21/24 23:55 Temperature Pulse Rate 93 93 100 Respiratory Rate 30 H 22 H 22 H Blood Pressure 68/41 L 76/44 L 84/49 L Pulse Oximetry 98 97 100 Oxygen Delivery Oxygen Flow Rate 07/22/24 00:00 07/22/24 00:01 07/22/24 00:05 Temperature Pulse Rate 94 97 98 Respiratory Rate 29 H 32 H 32 H Blood Pressure 74/42 L 74/42 L Pulse Oximetry 100 100 100 Oxygen Delivery Oxygen Flow Rate 07/22/24 00:10 07/22/24 00:15 07/22/24 00:15 Temperature Pulse Rate 99 99 106 H Respiratory Rate 28 H 31 H Blood Pressure 67/43 L 67/43 L Pulse Oximetry 100 100 Oxygen Delivery Oxygen Flow Rate 07/22/24 00:17 07/22/24 00:19 07/22/24 00:20 Temperature Pulse Rate 93 97 94 Respiratory Rate 29 H 26 H 26 H Blood Pressure 57/38 L 53/35 L Pulse Oximetry 100 99 97 Oxygen Delivery Oxygen Flow Rate 07/22/24 00:22 07/22/24 00:25 07/22/24 00:26 Temperature Pulse Rate 94 99 91 Respiratory Rate 27 H 31 H Blood Pressure 59/37 L 63/42 L 63/42 L Pulse Oximetry 96 97 Oxygen Delivery Oxygen Flow Rate 07/22/24 00:30 07/22/24 00:35 07/22/24 00:41 Temperature Pulse Rate 91 97 96 Respiratory Rate 31 H 25 H 30 H Blood Pressure 70/39 L 74/44 L 76/40 L Pulse Oximetry 96 98 98 Oxygen Delivery Oxygen Flow Rate 07/22/24 00:42 07/22/24 00:45 07/22/24 00:46 Temperature Pulse Rate 93 95 92 Respiratory Rate 29 H 29 H Blood Pressure 76/40 L 69/42 L Pulse Oximetry 98 98 Oxygen Delivery Oxygen Flow Rate 07/22/24 00:50 07/22/24 00:51 07/22/24 00:53 Temperature Pulse Rate 90 90 100 Respiratory Rate 29 H 28 H Blood Pressure 60/38 L 60/38 L 57/38 L Pulse Oximetry 98 97 Oxygen Delivery Oxygen Flow Rate 07/22/24 01:00 07/22/24 01:04 07/22/24 01:05 Temperature Pulse Rate 92 90 91 Respiratory Rate 25 H 35 H 24 H Blood Pressure 60/38 L 63/39 L 68/41 L Pulse Oximetry 94 94 96 Oxygen Delivery Oxygen Flow Rate 07/22/24 01:11 07/22/24 01:15 07/22/24 01:19 Temperature Pulse Rate 97 98 90 Respiratory Rate 32 H 24 H Blood Pressure 72/41 L 72/46 L 60/38 L Pulse Oximetry 97 97 Oxygen Delivery Oxygen Flow Rate 07/22/24 01:23 07/22/24 01:26 07/22/24 01:30 Temperature Pulse Rate 91 93 95 Respiratory Rate 27 H 24 H Blood Pressure 74/41 L 79/40 L 70/43 L Pulse Oximetry 98 100 Oxygen Delivery Oxygen Flow Rate 07/22/24 01:40 07/22/24 01:40 07/22/24 01:42 Temperature Pulse Rate 100 101 H 99 Respiratory Rate 33 H 30 H Blood Pressure 78/47 L 78/47 L 84/53 L Pulse Oximetry 96 97 Oxygen Delivery Oxygen Flow Rate 07/22/24 01:51 07/22/24 01:55 07/22/24 01:57 Temperature Pulse Rate 101 H 99 Respiratory Rate 27 H 25 H Blood Pressure 74/40 L 85/33 L 76/42 L Pulse Oximetry 97 97 98 Oxygen Delivery Oxygen Flow Rate 07/22/24 02:00 07/22/24 02:01 07/22/24 02:05 Temperature Pulse Rate Respiratory Rate Blood Pressure 69/45 L 73/41 L Pulse Oximetry 100 98 98 Oxygen Delivery Oxygen Flow Rate 07/22/24 02:10 07/22/24 02:17 Temperature Pulse Rate 97 99 Respiratory Rate Blood Pressure 67/46 L 71/38 L Pulse Oximetry Oxygen Delivery Oxygen Flow Rate Exam Const: Other: Elderly male patient lying supine on stretcher at this time in no acute distress but appears acutely ill. HENMT: Mouth: Yes dry mucous membranes Eyes: General: appearance normal, both eyes and all related structures Sclera: sclerae normal Pupils: Equal, round and reactive pupils present EOM: EOMs intact bilaterally Neck: Neck: supple and no JVD Lymphatic: lymphadenopathy not noted Resp: Effort & Inspection: normal respiratory effort Auscultation: clear to auscultation bilaterally Cardio: Rate: regular rate Rhythm: regular rhythm Heart sounds: no gallops, Murmur heart sound present and no rubs Other: Grade 2 holosystolic murmur GI: Inspection: non-distended GI Palp: Yes Soft to palpation and No Tenderness to palpation present (GI) Auscultation: normal bowel sounds Skin: General skin exam: No normal color ([place]) Rashes: no rashes noted Wounds: no wounds Neuro: Speech: normal speech Motor exam (neuro): Abnormal motor strength present (Generalized, nonfocal weakness) Sensory Exam: normal sensation Extrem: General: normal to inspection, no edema and no pedal edema Other: Patient freely and equally moves all extremities well without deficit. Psych: Mental Status: mental status grossly normal Affect: normal affect H&P: Results Labs Labs: Short CBC 07/21/24 Range/Units 21:26 WBC 7.4 (4.5-10.0) K/mm3 Hgb 11.4 L (14.0-18.0) g/dL Hct 37.7 L (42.0-52.0) % Plt Count 271 (150-375) k/mm3 BMP 07/21/24 21:26 Sodium 137 Potassium 4.2 Chloride 101 Carbon Dioxide 22 BUN 28 H Creatinine 2.55 H Glucose 117 H Calcium 9.1 Liver Function 07/21/24 Range/Units 21:26 Total Bilirubin 1.1 (0.2-1.3) mg/dL AST 351 H (17-59) U/L ALT 105 H (6-50) U/L Alkaline Phosphatase 87 (38-126) U/L Albumin 4.1 (3.5-5.1) g/dL Urine 07/21/24 Range/Units 21:28 Urine Color Yellow (Yellow) Urine Appearance Cloudy H (Clear) Urine pH 5.5 (5.0-9.0) Ur Specific [place] >= 1.030 (1.001-1.035) Urine Protein 3+ H (Negative) mg/dL Urine Glucose (UA) Negative (Negative) mg/dL Assessment and Plan Assessment and plan (1) Septic shock: Code(s): A41.9 - Sepsis, unspecified organism; R65.21 - Severe sepsis with septic shock Status: Acute Assessment and Plan: * As evidenced by lactic acid of 4.8, hypotension persistent despite initiation of Levophed and IV fluids * Patient received IV fluid bolus of 2.5 L in the ER. * Blood cultures pending * Urine culture pending * Levaquin initiated * Admit to ICU * Monitor and trend labs and vitals * Repeat lactic acid * Sample Processor consulted and will follow. (2) UTI (urinary tract infection): Qualifiers: Hematuria presence: without hematuria Urinary tract infection type: acute cystitis Qualified Code(s): N30.00 - Acute cystitis without hematuria Code(s): N39.0 - Urinary tract infection, site not specified Status: Acute Assessment and Plan: * See 1. (3) LFT elevation: Code(s): R79.89 - Other specified abnormal findings of blood chemistry Status: Acute Assessment and Plan: * Uncertain etiology * Right upper quadrant ultrasound ordered * Patient is asymptomatic and biliary colic * Check lipase * Monitor and trend labs and vitals (4) Acute renal failure: Qualifiers: Acute renal failure type: unspecified Qualified Code(s): N17.9 - Acute kidney failure, unspecified Code(s): N17.9 - Acute kidney failure, unspecified Status: Acute Assessment and Plan: * Baseline creatinine 1.2-1.6 * Currently 2.55 * Patient receiving 500 mL of LR at 150 mL/hour. * Monitor and trend labs and vital signs. * Urology consult, CT scan was reviewed and no emergent surgical intervention is needed at this time. Urology will continue to follow. (5) Hyperlipidemia: Qualifiers: Hyperlipidemia type: unspecified Qualified Code(s): E78.5 - Hyperlipidemia, unspecified Code(s): E78.5 - Hyperlipidemia, unspecified Status: Chronic Assessment and Plan: * Continue home medications (6) Essential hypertension: Code(s): I10 - Essential (primary) hypertension Status: Chronic Assessment and Plan: * Hold home hypertensive medications in the setting that patient is requiring Levophed to maintain blood pressure. Quality VTE Prophylaxis VTE prophylaxis: pharmacologic ordered Hospitalist MIPS Advance Care Plan I have confirmed that the patient's Advanced Care Plan is present, code status is documented, or surrogate decision maker is listed in patient medical record.: Yes Medication Reconciliation I have utilized all available resources to obtain, update and review the patients current medications (includes all prescriptions, OTC, herbals, cannabis, and nutritional supplements).: Yes
--- NOTE | 2024-07-22 02:38 | PC.NURSE ---
This patient, Tano Gupta, was admitted to Intensive Care Unit-3. Patient/family oriented to hospital policies and general routines including ID bracelet, bed and alarms, visiting hours, pain management, procedures, bathroom and other care routines, personal items, smoking policy, room service/diet, and visiting hours. Information on how to activate the Rapid Response Team has been discussed. Patient/Family are encouraged to report perceived risks to care and to ask questions if they do not understand what they are told or what they should do.
--- NOTE | 2024-07-22 03:16 | PC.NURSE ---
Call placed to Dr. Sierra at this time r/t patient's blood pressures, MD with orders to continue titrating levophed drip and if blood pressure doesn't sustain with a MAP of 65 to add vasopressin.
[2024-07-22 04:35] LABS: MRSA (PCR) NOT DETECTED (NOT DETECTE)
[2024-07-22] MEDS: NOREPINEPHRINE 8 MG/D5W 250 ML 8 MG/250 ML BAG 46.88 MG IV CONT (07:53)
--- NOTE | 2024-07-22 09:38 | WPDCNINT ---
Assessment and Plan Assessment and plan (1) Septic shock: Code(s): A41.9 - Sepsis, unspecified organism; R65.21 - Severe sepsis with septic shock Status: Acute Assessment and Plan: Septic shock secondary to UTI. UA consistent of UTI and history CT scan review Blood and urine culture have been sent He is allergic to ceftriaxone and was started on Levaquin. I will discuss with Infectious Disease pharmacist Continue Levophed Add vasopressin and stress dose hydrocortisone Continue IV fluids Hold Coreg Check echo (2) Acute renal failure: Qualifiers: Acute renal failure type: unspecified Qualified Code(s): N17.9 - Acute kidney failure, unspecified Code(s): N17.9 - Acute kidney failure, unspecified Status: Acute Assessment and Plan: Patient was recently admitted and treated for acute kidney injury. Patient has elevated creatinine since 2022 and I suspect he has chronic kidney disease. His discharge creatinine was 1.65 and he presented today with 2.55 suggestive of ELIZABETH likely secondary to sepsis and septic shock Continue IV fluids. Monitor urine output electrolytes and creatinine Check urine electrolytes and CK level CT scan reviewed and showed No acute pathology within the abdomen or pelvis. Redemonstration of a 10 mm calculus within the left kidney. Chronic left UPJ obstruction. Findings suggesting cystitis Hepatomegaly Urology is following the patient (3) UTI (urinary tract infection): Qualifiers: Hematuria presence: without hematuria Urinary tract infection type: acute cystitis Qualified Code(s): N30.00 - Acute cystitis without hematuria Code(s): N39.0 - Urinary tract infection, site not specified Status: Acute Assessment and Plan: See above (4) LFT elevation: Code(s): R79.89 - Other specified abnormal findings of blood chemistry Status: Acute Assessment and Plan: Presented with elevated AST and ALT I suspect this is secondary to shock liver He had normal less than 2 months ago Right upper quadrant ultrasound is ordered. Hold statin Plan DVT prophylaxis -Lovenox Stress ulcer prophylaxis -Protonix Nutrition -diet ordered Code Status - Full Code Total Critical Care Time - 35 minutes Due to a high probability of clinically significant, life threatening deterioration, the patient required my highest level of preparedness to intervene emergently and I personally spent this critical care time directly and personally managing the patient. This critical care time included obtaining a history; examining the patient; pulse oximetry; ordering and review of studies; arranging urgent treatment with development of a management plan; evaluation of patient's response to treatment; frequent reassessment; and discussions with other providers. It was exclusive of separately billable procedures and treating other patients and teaching time. 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 He states that he has been diagnosed with UTI for last 3 months and has been on and off treatment. He is being managed by his urologist. He was currently taking Macrobid. Yesterday he felt so weak and dizzy and he fell on his buttocks. No loss of consciousness or injury to his head. He was brought to ER and was found to be hypotensive and tachycardic. He was diagnosed with UTI, sepsis and shock. He was given IV fluid bolus. Despite IV fluids blood pressure remained low. A central venous catheter was placed patient was started on Levophed. He also had elevated creatinine. Urology was consulted for CT scan finding. As a obstructing left kidney stone was suspected along with left hydronephrosis. Urologist felt that this is a cyst and not hydronephrosis. Patient now admitted to ICU for further evaluation management. He states he feels much better and denies any dizziness lightheadedness or weakness at this time. In review of system he did admit that he has some dysuria but no hematuria hematochezia melena. He states he had loose bowel movement after coming to the hospital. He states he has no problems with urination. All other systems were reviewed and were negative Review of Systems Review of Systems: All systems reviewed & are unremarkable except as noted in HPI and below (HPI) [facility] Past Medical History Medical History LFT elevation Septic shock Other idiopathic peripheral autonomic neuropathy Unspecified disorder of circulatory system Broken arm (~1952) History of broken leg (~1970) Prostate cancer Pure hyperglyceridemia Essential hypertension Cardiac abnormality Incontinence Surgical History Surgical History History of prostatectomy History of sinus surgery Total knee replacement status (~2005) H/O hernia repair (~2014) Total knee replacement status (~07/23/18) Family History Family History Father Family history of malignant neoplasm Mother Family history of malignant neoplasm of breast in first degree relative Other Family history of cardiovascular disease Hypertension Social History Social History Social History: Caffeine- Smoking packs per day: 1 Smoking cigarettes per day: 20.0 Years smoked: 20 Smoking pack-years: 20.00 Smoking status: Former smoker Tobacco type: cigarettes Second hand tobacco smoke exposure: No Smoking end date: 03/19/85 Alcohol intake: current Drinks per week: 4 Substance use: never Substance use type: does not use Do You Feel Safe in your Home?: Yes Lack of Transportation: No Lack of Food: Never True Current Housing: I Have Housing Concerned About Future Housing: No Difficulty Paying Gas/Electric Bills: No Difficulty Paying for Meds: No Currently Unemployed: No Education: Associate Degree Difficulty w/ Childcare or Family Care: No Living arrangements: with family Spiritual care concerns: No Meds Home Medications and Allergies Home Medications ?Medication ?Instructions ?Recorded ?Confirmed ?Type omeprazole 20 mg capsule,delayed 20 mg PO DAILY 09/30/19 07/22/24 History release pyridoxine (vitamin B6) 500 mg 500 mg PO DAILY 09/30/19 07/22/24 History tablet cholecalciferol (vitamin D3) 50 50 mcg PO DAILY 10/07/19 07/22/24 History mcg (2,000 unit) capsule leuprolide acetate (6 month) 45 mg 45 mg subcut [id number] 10/24/19 07/22/24 History (6 month) subcutaneous syringe (EliVineloopd) gabapentin 300 mg capsule 800 mg PO QHS 06/12/23 07/22/24 History prednisone 10 mg tablet 15 mg PO DAILY 06/12/23 07/22/24 History carvedilol 3.125 mg tablet 3.125 mg PO Q12H #180 tabs 12/21/23 07/22/24 Rx lovastatin 20 mg tablet 20 mg PO DAILY #90 tabs 12/21/23 07/22/24 Rx alendronate 70 mg tablet 70 mg PO WEEKLY 01/04/24 07/22/24 History melatonin 10 mg tablet 10 mg PO HS PRN Insomnia 01/04/24 07/22/24 History fenofibrate 160 mg tablet 160 mg PO DAILY #90 tabs 01/25/24 07/22/24 Rx calcium 600 mg (as 1 tablet PO BID 07/22/24 07/22/24 History carbonate)-vitamin D3 5 mcg (200 unit) tablet (Calcium 600 + D(3)) Allergies Allergy/AdvReac Type Severity Reaction Status Date / Time ceftriaxone (From [facility]) AdvReac Mild Rash Verified 07/22/24 02:46 Vital Signs Vital Signs - 24 hr 07/21/24 20:23 07/21/24 20:43 07/21/24 20:43 Temperature 37.7 C H Pulse Rate 122 H Respiratory Rate 18 Blood Pressure 132/83 Pulse Oximetry 92 85 L 96 Oxygen Delivery Room Air Room Air Nasal Cannula Oxygen Flow Rate 2 07/21/24 21:29 07/21/24 21:55 07/21/24 22:11 Temperature Pulse Rate 109 H 106 H 111 H Respiratory Rate 36 H 34 H 26 H Blood Pressure 84/46 L 74/51 L 119/99 H Pulse Oximetry 93 Oxygen Delivery Oxygen Flow Rate 07/21/24 22:17 07/21/24 22:18 07/21/24 23:01 Temperature Pulse Rate 106 H 99 Respiratory Rate 20 34 H Blood Pressure 73/47 L Pulse Oximetry 97 97 Oxygen Delivery Nasal Cannula Oxygen Flow Rate 2 07/21/24 23:05 07/21/24 23:09 07/21/24 23:11 Temperature Pulse Rate 95 98 95 Respiratory Rate 31 H 31 H 29 H Blood Pressure 77/43 L 74/49 L 76/52 L Pulse Oximetry 96 96 97 Oxygen Delivery Oxygen Flow Rate 07/21/24 23:26 07/21/24 23:30 07/21/24 23:31 Temperature Pulse Rate 91 90 92 Respiratory Rate 27 H 30 H 24 H Blood Pressure 66/40 L 62/43 L Pulse Oximetry 97 96 97 Oxygen Delivery Oxygen Flow Rate 07/21/24 23:35 07/21/24 23:35 07/21/24 23:40 Temperature Pulse Rate 90 90 93 Respiratory Rate 27 H 29 H 30 H Blood Pressure 66/44 L 66/44 L 63/46 L Pulse Oximetry 96 96 97 Oxygen Delivery Oxygen Flow Rate 07/21/24 23:45 07/21/24 23:50 07/21/24 23:55 Temperature Pulse Rate 93 93 100 Respiratory Rate 30 H 22 H 22 H Blood Pressure 68/41 L 76/44 L 84/49 L Pulse Oximetry 98 97 100 Oxygen Delivery Oxygen Flow Rate 07/22/24 00:00 07/22/24 00:01 07/22/24 00:05 Temperature Pulse Rate 94 97 98 Respiratory Rate 29 H 32 H 32 H Blood Pressure 74/42 L 74/42 L Pulse Oximetry 100 100 100 Oxygen Delivery Oxygen Flow Rate 07/22/24 00:10 07/22/24 00:15 07/22/24 00:15 Temperature Pulse Rate 99 99 106 H Respiratory Rate 28 H 31 H Blood Pressure 67/43 L 67/43 L Pulse Oximetry 100 100 Oxygen Delivery Oxygen Flow Rate 07/22/24 00:17 07/22/24 00:19 07/22/24 00:20 Temperature Pulse Rate 93 97 94 Respiratory Rate 29 H 26 H 26 H Blood Pressure 57/38 L 53/35 L Pulse Oximetry 100 99 97 Oxygen Delivery Oxygen Flow Rate 07/22/24 00:22 07/22/24 00:25 07/22/24 00:26 Temperature Pulse Rate 94 99 91 Respiratory Rate 27 H 31 H Blood Pressure 59/37 L 63/42 L 63/42 L Pulse Oximetry 96 97 Oxygen Delivery Oxygen Flow Rate 07/22/24 00:30 07/22/24 00:35 07/22/24 00:41 Temperature Pulse Rate 91 97 96 Respiratory Rate 31 H 25 H 30 H Blood Pressure 70/39 L 74/44 L 76/40 L Pulse Oximetry 96 98 98 Oxygen Delivery Oxygen Flow Rate 07/22/24 00:42 07/22/24 00:45 07/22/24 00:46 Temperature Pulse Rate 93 95 92 Respiratory Rate 29 H 29 H Blood Pressure 76/40 L 69/42 L Pulse Oximetry 98 98 Oxygen Delivery Oxygen Flow Rate 07/22/24 00:50 07/22/24 00:51 07/22/24 00:53 Temperature Pulse Rate 90 90 100 Respiratory Rate 29 H 28 H Blood Pressure 60/38 L 60/38 L 57/38 L Pulse Oximetry 98 97 Oxygen Delivery Oxygen Flow Rate 07/22/24 01:00 07/22/24 01:04 07/22/24 01:05 Temperature Pulse Rate 92 90 91 Respiratory Rate 25 H 35 H 24 H Blood Pressure 60/38 L 63/39 L 68/41 L Pulse Oximetry 94 94 96 Oxygen Delivery Oxygen Flow Rate 07/22/24 01:11 07/22/24 01:15 07/22/24 01:19 Temperature Pulse Rate 97 98 90 Respiratory Rate 32 H 24 H Blood Pressure 72/41 L 72/46 L 60/38 L Pulse Oximetry 97 97 Oxygen Delivery Oxygen Flow Rate 07/22/24 01:23 07/22/24 01:26 07/22/24 01:30 Temperature Pulse Rate 91 93 95 Respiratory Rate 27 H 24 H Blood Pressure 74/41 L 79/40 L 70/43 L Pulse Oximetry 98 100 Oxygen Delivery Oxygen Flow Rate 07/22/24 01:40 07/22/24 01:40 07/22/24 01:42 Temperature Pulse Rate 100 101 H 99 Respiratory Rate 33 H 30 H Blood Pressure 78/47 L 78/47 L 84/53 L Pulse Oximetry 96 97 Oxygen Delivery Oxygen Flow Rate 07/22/24 01:51 07/22/24 01:55 07/22/24 01:57 Temperature Pulse Rate 101 H 99 Respiratory Rate 27 H 25 H Blood Pressure 74/40 L 85/33 L 76/42 L Pulse Oximetry 97 97 98 Oxygen Delivery Oxygen Flow Rate 07/22/24 02:00 07/22/24 02:01 07/22/24 02:05 Temperature Pulse Rate Respiratory Rate Blood Pressure 69/45 L 73/41 L Pulse Oximetry 100 98 98 Oxygen Delivery Oxygen Flow Rate 07/22/24 02:10 07/22/24 02:17 07/22/24 02:38 Temperature Pulse Rate 97 99 Respiratory Rate Blood Pressure 67/46 L 71/38 L Pulse Oximetry 97 Oxygen Delivery Nasal Cannula Oxygen Flow Rate 2 07/22/24 02:45 07/22/24 03:00 07/22/24 03:15 Temperature Pulse Rate 105 H 102 H 100 Respiratory Rate Blood Pressure 79/42 L 81/47 L 92/65 L Pulse Oximetry Oxygen Delivery Oxygen Flow Rate 07/22/24 03:45 07/22/24 04:00 07/22/24 04:00 Temperature Pulse Rate 94 95 Respiratory Rate Blood Pressure 91/48 L 103/53 L Pulse Oximetry 99 Oxygen Delivery Nasal Cannula Oxygen Flow Rate 2 07/22/24 04:00 07/22/24 04:00 07/22/24 04:30 Temperature 36.8 C Pulse Rate 95 98 94 Respiratory Rate 19 Blood Pressure 103/53 L 89/46 L Pulse Oximetry 98 Oxygen Delivery Oxygen Flow Rate 07/22/24 04:45 07/22/24 05:30 07/22/24 06:00 Temperature Pulse Rate 115 H 94 93 Respiratory Rate 20 Blood Pressure 100/79 97/48 L 90/57 L Pulse Oximetry 99 Oxygen Delivery Oxygen Flow Rate 07/22/24 06:00 07/22/24 06:15 07/22/24 06:30 Temperature Pulse Rate 93 96 93 Respiratory Rate Blood Pressure 83/57 L 91/58 L Pulse Oximetry Oxygen Delivery Oxygen Flow Rate 07/22/24 07:53 07/22/24 07:53 07/22/24 08:00 Temperature 36.4 C Pulse Rate 95 95 101 H Respiratory Rate 24 H Blood Pressure 103/51 L 103/51 L 97/50 L Pulse Oximetry 99 Oxygen Delivery Oxygen Flow Rate 07/22/24 08:00 Temperature Pulse Rate 93 Respiratory Rate 22 H Blood Pressure Pulse Oximetry 98 Oxygen Delivery Nasal Cannula Oxygen Flow Rate 2 Exam Narrative: General: Pt is alert awake and in NAD Lungs/Chest: Trachea central Clear BS B/L, No crackles or wheezing. Cardiac: RRR. Normal S1 S2. No murmurs Circulation: Pedal pulses are intact and symmetrical. Abdomen: Normal bowel sounds.. Soft. NT. ND. Extremities: No clubbing, cyanosis or edema. Warm : NAD Neurologic: Follows commands. Moves all 4 extremities PERRL Skin: No Rash Results Labs 07/21/24 21:26 07/21/24 21:26 Labs: Impressions Chest X-Ray 07/21/24 21:45 IMPRESSION: Calcified pleural plaques with coarse interstitial lung markings and small bilateral pleural effusions Abdomen/Pelvis CT 07/21/24 23:33 IMPRESSION: No acute pathology within the abdomen or pelvis. Redemonstration of a 10 mm calculus within the left kidney. Chronic left UPJ obstruction. Findings suggesting cystitis Hepatomegaly Chest X-Ray 07/22/24 01:07 IMPRESSION: Interval placement of a left internal jugular central venous catheter, in position and ready for immediate use. Short CBC 07/21/24 Range/Units 21:26 WBC 7.4 (4.5-10.0) K/mm3 Hgb 11.4 L (14.0-18.0) g/dL Hct 37.7 L (42.0-52.0) % Plt Count 271 (150-375) k/mm3 BMP 07/21/24 21:26 Sodium 137 Potassium 4.2 Chloride 101 Carbon Dioxide 22 BUN 28 H Creatinine 2.55 H Glucose 117 H Calcium 9.1 Liver Function 07/21/24 Range/Units 21:26 Total Bilirubin 1.1 (0.2-1.3) mg/dL AST 351 H (17-59) U/L ALT 105 H (6-50) U/L Alkaline Phosphatase 87 (38-126) U/L Albumin 4.1 (3.5-5.1) g/dL Urine 07/21/24 Range/Units 21:28 Urine Color Yellow (Yellow) Urine Appearance Cloudy H (Clear) Urine pH 5.5 (5.0-9.0) Ur Specific [place] >= 1.030 (1.001-1.035) Urine Protein 3+ H (Negative) mg/dL Urine Glucose (UA) Negative (Negative) mg/dL
[2024-07-22] MEDS: PANTOPRAZOLE 40 MG TABLET PO (09:46)
[2024-07-22] MEDS: [UNRECOGNIZED DRUG - OTHER] BY MOUTH (09:46)
[2024-07-22] MEDS: ENOXAPARIN 40 MG/0.4 ML SYRINGE SUB-Q (09:46)
[2024-07-22] MEDS: CHOLECALCIFEROL 1,000 UNITS TABLET 2000 UNITS PO (09:46)
[2024-07-22] MEDS: FENOFIBRATE 160 MG BY MOUTH (09:46)
[2024-07-22] MEDS: LACTATED RINGERS 1,000 ML 150 ML IV CONT ×2 (09:47→16:58)
[2024-07-22] MEDS: CALCIUM/VITAMIN D 500 MG/5 MCG (200 I.U.) TABLET PO ×2 (09:47→16:57)
[2024-07-22 10:14] LABS: Creatine Kinase 156 U/L (55-170)
[2024-07-22] MEDS: MEROPENEM 1 GM/NS 100 ML 1 GM/100 ML BAG IVPB ×2 (10:53→20:27)
[2024-07-22 12:10] LABS: Creatinine Urine 72.6 mg/dL
[2024-07-22 12:12] LABS: Sodium Urine Random 29 meq/L
--- NOTE | 2024-07-22 12:13 | P.PNIM_ITS ---
Progress Note: A&P Assessment and Plan (1) Septic shock: Code(s): A41.9 - Sepsis, unspecified organism; R65.21 - Severe sepsis with septic shock Status: Acute Assessment and Plan: * As evidenced by lactic acid of 4.8, hypotension persistent despite initiation of IV fluids. * Started on Levophed * Patient received IV fluid bolus of 2.5 L in the ER. * Blood cultures pending * Urine culture pending * Levaquin initiated which has been switched to meropenem On hydrocortisone I (2) UTI (urinary tract infection): Qualifiers: Hematuria presence: without hematuria Urinary tract infection type: acute cystitis Qualified Code(s): N30.00 - Acute cystitis without hematuria Code(s): N39.0 - Urinary tract infection, site not specified Status: Acute Assessment and Plan: * See 1. 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 10 mm calculus within left kidney * Urology consult (5) Hyperlipidemia: Qualifiers: Hyperlipidemia type: unspecified Qualified Code(s): E78.5 - Hyperlipidemia, unspecified Code(s): E78.5 - Hyperlipidemia, unspecified Status: Chronic Assessment and Plan: * Continue home medications (6) Essential hypertension: Code(s): I10 - Essential (primary) hypertension Status: Chronic Assessment and Plan: * Hold home hypertensive medications in the setting that patient is requiring Levophed to maintain blood pressure. Plan DVT prophylaxis Lovenox Code status full code Subjective Date/time seen: 07/22/24 12:13 Interval history: Patient remains on Levophed. Feels better. Denies any other complaints. Review of Systems Review of Systems: All systems reviewed & are unremarkable except as noted in HPI and below (HPI) Exam Narrative: General: Pt is alert awake and in NAD Lungs/Chest: Trachea central Clear BS B/L, No crackles or wheezing. Cardiac: RRR. Normal S1 S2. No murmurs Circulation: Pedal pulses are intact and symmetrical. Abdomen: Normal bowel sounds.. Soft. NT. ND. Extremities: No clubbing, cyanosis or edema. Warm : NAD Neurologic: Follows commands. Moves all 4 extremities PERRL Skin: No Rash Objective Data Vital Signs Vital Signs: Vital Signs - 24 hr 07/21/24 20:23 07/21/24 20:43 07/21/24 20:43 Temperature 99.8 F H Pulse Rate 122 H Respiratory Rate 18 Blood Pressure 132/83 Pulse Oximetry 92 85 L 96 Oxygen Delivery Room Air Room Air Nasal Cannula Oxygen Flow Rate 2 07/21/24 21:29 07/21/24 21:55 07/21/24 22:11 Temperature Pulse Rate 109 H 106 H 111 H Respiratory Rate 36 H 34 H 26 H Blood Pressure 84/46 L 74/51 L 119/99 H Pulse Oximetry 93 Oxygen Delivery Oxygen Flow Rate 07/21/24 22:17 07/21/24 22:18 07/21/24 23:01 Temperature Pulse Rate 106 H 99 Respiratory Rate 20 34 H Blood Pressure 73/47 L Pulse Oximetry 97 97 Oxygen Delivery Nasal Cannula Oxygen Flow Rate 2 07/21/24 23:05 07/21/24 23:09 07/21/24 23:11 Temperature Pulse Rate 95 98 95 Respiratory Rate 31 H 31 H 29 H Blood Pressure 77/43 L 74/49 L 76/52 L Pulse Oximetry 96 96 97 Oxygen Delivery Oxygen Flow Rate 07/21/24 23:26 07/21/24 23:30 07/21/24 23:31 Temperature Pulse Rate 91 90 92 Respiratory Rate 27 H 30 H 24 H Blood Pressure 66/40 L 62/43 L Pulse Oximetry 97 96 97 Oxygen Delivery Oxygen Flow Rate 07/21/24 23:35 07/21/24 23:35 07/21/24 23:40 Temperature Pulse Rate 90 90 93 Respiratory Rate 27 H 29 H 30 H Blood Pressure 66/44 L 66/44 L 63/46 L Pulse Oximetry 96 96 97 Oxygen Delivery Oxygen Flow Rate 07/21/24 23:45 07/21/24 23:50 07/21/24 23:55 Temperature Pulse Rate 93 93 100 Respiratory Rate 30 H 22 H 22 H Blood Pressure 68/41 L 76/44 L 84/49 L Pulse Oximetry 98 97 100 Oxygen Delivery Oxygen Flow Rate 07/22/24 00:00 07/22/24 00:01 07/22/24 00:05 Temperature Pulse Rate 94 97 98 Respiratory Rate 29 H 32 H 32 H Blood Pressure 74/42 L 74/42 L Pulse Oximetry 100 100 100 Oxygen Delivery Oxygen Flow Rate 07/22/24 00:10 07/22/24 00:15 07/22/24 00:15 Temperature Pulse Rate 99 99 106 H Respiratory Rate 28 H 31 H Blood Pressure 67/43 L 67/43 L Pulse Oximetry 100 100 Oxygen Delivery Oxygen Flow Rate 07/22/24 00:17 07/22/24 00:19 07/22/24 00:20 Temperature Pulse Rate 93 97 94 Respiratory Rate 29 H 26 H 26 H Blood Pressure 57/38 L 53/35 L Pulse Oximetry 100 99 97 Oxygen Delivery Oxygen Flow Rate 07/22/24 00:22 07/22/24 00:25 07/22/24 00:26 Temperature Pulse Rate 94 99 91 Respiratory Rate 27 H 31 H Blood Pressure 59/37 L 63/42 L 63/42 L Pulse Oximetry 96 97 Oxygen Delivery Oxygen Flow Rate 07/22/24 00:30 07/22/24 00:35 07/22/24 00:41 Temperature Pulse Rate 91 97 96 Respiratory Rate 31 H 25 H 30 H Blood Pressure 70/39 L 74/44 L 76/40 L Pulse Oximetry 96 98 98 Oxygen Delivery Oxygen Flow Rate 07/22/24 00:42 07/22/24 00:45 07/22/24 00:46 Temperature Pulse Rate 93 95 92 Respiratory Rate 29 H 29 H Blood Pressure 76/40 L 69/42 L Pulse Oximetry 98 98 Oxygen Delivery Oxygen Flow Rate 07/22/24 00:50 07/22/24 00:51 07/22/24 00:53 Temperature Pulse Rate 90 90 100 Respiratory Rate 29 H 28 H Blood Pressure 60/38 L 60/38 L 57/38 L Pulse Oximetry 98 97 Oxygen Delivery Oxygen Flow Rate 07/22/24 01:00 07/22/24 01:04 07/22/24 01:05 Temperature Pulse Rate 92 90 91 Respiratory Rate 25 H 35 H 24 H Blood Pressure 60/38 L 63/39 L 68/41 L Pulse Oximetry 94 94 96 Oxygen Delivery Oxygen Flow Rate 07/22/24 01:11 07/22/24 01:15 07/22/24 01:19 Temperature Pulse Rate 97 98 90 Respiratory Rate 32 H 24 H Blood Pressure 72/41 L 72/46 L 60/38 L Pulse Oximetry 97 97 Oxygen Delivery Oxygen Flow Rate 07/22/24 01:23 07/22/24 01:26 07/22/24 01:30 Temperature Pulse Rate 91 93 95 Respiratory Rate 27 H 24 H Blood Pressure 74/41 L 79/40 L 70/43 L Pulse Oximetry 98 100 Oxygen Delivery Oxygen Flow Rate 07/22/24 01:40 07/22/24 01:40 07/22/24 01:42 Temperature Pulse Rate 100 101 H 99 Respiratory Rate 33 H 30 H Blood Pressure 78/47 L 78/47 L 84/53 L Pulse Oximetry 96 97 Oxygen Delivery Oxygen Flow Rate 07/22/24 01:51 07/22/24 01:55 07/22/24 01:57 Temperature Pulse Rate 101 H 99 Respiratory Rate 27 H 25 H Blood Pressure 74/40 L 85/33 L 76/42 L Pulse Oximetry 97 97 98 Oxygen Delivery Oxygen Flow Rate 07/22/24 02:00 07/22/24 02:01 07/22/24 02:05 Temperature Pulse Rate Respiratory Rate Blood Pressure 69/45 L 73/41 L Pulse Oximetry 100 98 98 Oxygen Delivery Oxygen Flow Rate 07/22/24 02:10 07/22/24 02:17 07/22/24 02:38 Temperature Pulse Rate 97 99 Respiratory Rate Blood Pressure 67/46 L 71/38 L Pulse Oximetry 97 Oxygen Delivery Nasal Cannula Oxygen Flow Rate 2 07/22/24 02:45 07/22/24 03:00 07/22/24 03:15 Temperature Pulse Rate 105 H 102 H 100 Respiratory Rate Blood Pressure 79/42 L 81/47 L 92/65 L Pulse Oximetry Oxygen Delivery Oxygen Flow Rate 07/22/24 03:45 07/22/24 04:00 07/22/24 04:00 Temperature Pulse Rate 94 95 Respiratory Rate Blood Pressure 91/48 L 103/53 L Pulse Oximetry 99 Oxygen Delivery Nasal Cannula Oxygen Flow Rate 2 07/22/24 04:00 07/22/24 04:00 07/22/24 04:30 Temperature 98.2 F Pulse Rate 95 98 94 Respiratory Rate 19 Blood Pressure 103/53 L 89/46 L Pulse Oximetry 98 Oxygen Delivery Oxygen Flow Rate 07/22/24 04:45 07/22/24 05:30 07/22/24 06:00 Temperature Pulse Rate 115 H 94 93 Respiratory Rate 20 Blood Pressure 100/79 97/48 L 90/57 L Pulse Oximetry 99 Oxygen Delivery Oxygen Flow Rate 07/22/24 06:00 07/22/24 06:15 07/22/24 06:30 Temperature Pulse Rate 93 96 93 Respiratory Rate Blood Pressure 83/57 L 91/58 L Pulse Oximetry Oxygen Delivery Oxygen Flow Rate 07/22/24 07:53 07/22/24 07:53 07/22/24 08:00 Temperature 97.6 F Pulse Rate 95 95 101 H Respiratory Rate 24 H Blood Pressure 103/51 L 103/51 L 97/50 L Pulse Oximetry 99 Oxygen Delivery Oxygen Flow Rate 07/22/24 08:00 07/22/24 08:00 07/22/24 08:00 Temperature Pulse Rate 93 93 95 Respiratory Rate 22 H Blood Pressure 114/43 L Pulse Oximetry 98 Oxygen Delivery Nasal Cannula Oxygen Flow Rate 2 07/22/24 10:00 07/22/24 10:00 07/22/24 10:00 Temperature Pulse Rate 94 95 97 Respiratory Rate 20 Blood Pressure 95/56 L 100/56 L Pulse Oximetry 100 Oxygen Delivery Oxygen Flow Rate 07/22/24 11:24 07/22/24 12:00 Temperature 97.8 F Pulse Rate 98 99 Respiratory Rate 20 Blood Pressure 114/56 L 114/57 L Pulse Oximetry 98 Oxygen Delivery Oxygen Flow Rate Intake/Output Intake/Output: Intake & Output 07/19/24 07/20/24 07/21/24 07/22/24 23:59 23:59 23:59 23:59 Intake Total 4164.9 Balance 4164.9 Meds/Results Medications: Active Medications Generic Name Dose Route Start Last Admin Trade Name Freq PRN Reason Stop Dose Admin Alendronate Sodium 70 mg 07/25/24 06:30 Alendronate Sodium 70 Mg Tablet PO WEEKLY@0630 [facility] Calcium Carbonate 500 mg 07/22/24 09:00 07/22/24 09:47 Calcium/Vitamin D 500 Mg/5 Mcg (200 I.U.) Tablet PO 500 mg BID [facility] Administration Enoxaparin Sodium 40 mg 07/22/24 09:00 07/22/24 09:46 Enoxaparin 40 Mg/0.4 Ml Syringe SUB-Q 40 mg DAILY ANOOP Administration Gabapentin 800 mg 07/22/24 21:00 Gabapentin 400 Mg Capsule PO QHS ANOOP Hydrocortisone Sodium Succinate 100 mg 07/22/24 14:00 Hydrocortisone Sodium Succinate 100 Mg/2 Ml Vial IV PUSH Q8HR ANOOP Norepinephrine Bitartrate 8 mg in 250 mls @ 43.125 mls/hr 07/21/24 23:55 07/22/24 11:24 Levophed 8 Mg/D5w 250 Ml IV CONT 23 mcg/min .Q5H48M ANOOP 43.13 mls/hr Titration Protocol 23 MCG/MIN Vasopressin 100 units/ 100 mls @ 2.4 mls/hr 07/22/24 08:55 Dextrose IV CONT .[id number] [facility] Protocol 0.04 UNITS/MIN Lactated Ringer's 1,000 mls @ 150 mls/hr 07/22/24 08:59 07/22/24 09:47 Lactated Ringers IV CONT 150 mls/hr .Q6H40M ANOOP Administration Meropenem 1 gm in 100 mls @ 200 mls/hr 07/22/24 11:00 07/22/24 11:23 IVPB Infused Q12HR ANOOP Infusion Melatonin 10 mg 07/22/24 04:50 Melatonin 5 Mg Tablet PO HS PRN Insomnia Miscellaneous Information 1 each 07/22/24 00:01 Pyridoxine 500 Mg Tablet Nonformulary, We Do Carry 50 Mg Tablets But Pt Would Have To Take XX 08/21/24 00:00 CLARIFY [facility] Miscellaneous Information 1 each 07/22/24 00:01 Duplicate Therapy Pantoprazole Iv & Po Order XX 08/21/24 00:00 CLARIFY [facility] Nonformulary Drug 0 mg 07/22/24 09:00 07/22/24 09:46 Fenofibrate 160 Mg BY MOUTH 08/21/24 08:59 160 mg Tablet DAILY ANOOP Administration Non-Formulary Medication 500 mg 07/22/24 09:00 Pyridoxine (Vitamin B6) PO 08/21/24 08:59 DAILY ANOOP Pantoprazole Sodium 40 mg 07/22/24 09:00 07/22/24 09:46 Pantoprazole 40 Mg Tablet PO 40 mg Q48H ANOOP Administration Pantoprazole Sodium 40 mg 07/22/24 09:00 Pantoprazole Sodium Iv 40 Mg Vial IV PUSH QAM [facility] Perflutren Lipid Microsphere 0 ml 07/22/24 08:38 Perflutren Lipid Microspheres 1.5 Ml Vial Diluted To 10 Ml Total Volume IV PUSH 07/25/24 08:38 ONCE PRN adequate visualization Protocol Vitamin D 2,000 units 07/22/24 09:00 07/22/24 09:46 Cholecalciferol 1,000 Units Tablet PO 2,000 units DAILY ANOOP Administration Radiology Results: ITS Impressions Abdomen/Pelvis CT 07/21/24 23:33 IMPRESSION: No acute pathology within the abdomen or pelvis. Redemonstration of a 10 mm calculus within the left kidney. Chronic left UPJ obstruction. Findings suggesting cystitis Hepatomegaly Chest X-Ray 07/22/24 01:07 IMPRESSION: Interval placement of a left internal jugular central venous catheter, in position and ready for immediate use. Abdomen Ultrasound 07/22/24 09:47 IMPRESSION: 1. Diffuse hepatic steatosis. Labs Labs: Laboratory Results - last 24 hr 07/21/24 07/21/24 07/21/24 21:26 21:28 22:24 WBC 7.4 RBC 4.15 L Hgb 11.4 L Hct 37.7 L MCV 90.8 MCH 27.5 MCHC 30.2 L RDW 16.0 H Plt Count 271 MPV 8.7 Immature Gran % (Auto) 0.5 Neut % (Auto) 94.4 H Lymph % (Auto) 0.8 L [place] % (Auto) 1.5 L Eos % (Auto) 2.4 Baso % (Auto) 0.4 Lymph # (Auto) 0.06 L [place] # (Auto) 0.1 Eos # (Auto) 0.2 Baso # (Auto) 0.0 Abs Immat Gran (auto) 0.04 H Absolute Neuts (auto) 7.0 H Absolute Nucleated RBC 0.000 Band Neutrophils % Not Reportable Nucleated RBC % 0.0 Platelet Estimate Adequate Anisocytosis 1+ Ovalocytes 1+ Schistocytes None seen PT 14.2 INR 1.1 APTT 23.8 Sodium 137 Potassium 4.2 Chloride 101 Carbon Dioxide 22 Anion Gap 14 H BUN 28 H Creatinine 2.55 H Estim Creat Clear Calc 27 Estimated GFR 25 L Glucose 117 H Lactic Acid 4.8 H* Calcium 9.1 Total Bilirubin 1.1 AST 351 H ALT 105 H Alkaline Phosphatase 87 Total Creatine Kinase C-Reactive Protein 4.3 H Total Protein 7.0 Albumin 4.1 Urine Color Yellow Urine Appearance Cloudy H Urine pH 5.5 Ur Specific [place] >= 1.030 Urine Protein 3+ H Urine Glucose (UA) Negative Urine Ketones 1+ H Ur Blood (Man) 3+ H Urine Nitrate Negative Urine Bilirubin 2+ H Urine Urobilinogen 1.0 Add Ur Microanalysis Reviewed Leukocyte Esterase Rfl 1+ H Urine RBC >100 H Urine WBC >100 H Urine WBC Clumps Present H Ur Squamous Epith Cells Many H Urine Bacteria None seen Urine Casts >20 Urine Mucus Present Ur Random Sodium Urine Creatinine Nasal MRSA (PCR) Influenza A (RT-PCR) Negative Influenza B (RT-PCR) Negative RSV (RT-PCR) Negative SARS-CoV-2 RNA (RT-PCR) Negative 07/22/24 07/22/24 07/22/24 00:51 03:19 09:44 WBC RBC Hgb Hct MCV MCH MCHC RDW Plt Count MPV Immature Gran % (Auto) Neut % (Auto) Lymph % (Auto) [place] % (Auto) Eos % (Auto) Baso % (Auto) Lymph # (Auto) [place] # (Auto) Eos # (Auto) Baso # (Auto) Abs Immat Gran (auto) Absolute Neuts (auto) Absolute Nucleated RBC Band Neutrophils % Nucleated RBC % Platelet Estimate Anisocytosis Ovalocytes Schistocytes PT INR APTT Sodium Potassium Chloride Carbon Dioxide Anion Gap BUN Creatinine Estim Creat Clear Calc Estimated GFR Glucose Lactic Acid 4.4 H* Calcium Total Bilirubin AST ALT Alkaline Phosphatase Total Creatine Kinase 156 C-Reactive Protein Total Protein Albumin Urine Color Urine Appearance Urine pH Ur Specific [place] Urine Protein Urine Glucose (UA) Urine Ketones Ur Blood (Man) Urine Nitrate Urine Bilirubin Urine Urobilinogen Add Ur Microanalysis Leukocyte Esterase Rfl Urine RBC Urine WBC Urine WBC Clumps Ur Squamous Epith Cells Urine Bacteria Urine Casts Urine Mucus Ur Random Sodium Urine Creatinine Nasal MRSA (PCR) Not detected Influenza A (RT-PCR) Influenza B (RT-PCR) RSV (RT-PCR) SARS-CoV-2 RNA (RT-PCR) 07/22/24 11:46 WBC RBC Hgb Hct MCV MCH MCHC RDW Plt Count MPV Immature Gran % (Auto) Neut % (Auto) Lymph % (Auto) [place] % (Auto) Eos % (Auto) Baso % (Auto) Lymph # (Auto) [place] # (Auto) Eos # (Auto) Baso # (Auto) Abs Immat Gran (auto) Absolute Neuts (auto) Absolute Nucleated RBC Band Neutrophils % Nucleated RBC % Platelet Estimate Anisocytosis Ovalocytes Schistocytes PT INR APTT Sodium Potassium Chloride Carbon Dioxide Anion Gap BUN Creatinine Estim Creat Clear Calc Estimated GFR Glucose Lactic Acid Calcium Total Bilirubin AST ALT Alkaline Phosphatase Total Creatine Kinase C-Reactive Protein Total Protein Albumin Urine Color Urine Appearance Urine pH Ur Specific [place] Urine Protein Urine Glucose (UA) Urine Ketones Ur Blood (Man) Urine Nitrate Urine Bilirubin Urine Urobilinogen Add Ur Microanalysis Leukocyte Esterase Rfl Urine RBC Urine WBC Urine WBC Clumps Ur Squamous Epith Cells Urine Bacteria Urine Casts Urine Mucus Ur Random Sodium 29 Urine Creatinine 72.6 Nasal MRSA (PCR) Influenza A (RT-PCR) Influenza B (RT-PCR) RSV (RT-PCR) SARS-CoV-2 RNA (RT-PCR)
[2024-07-22] MEDS: NOREPINEPHRINE 8 MG/D5W 250 ML 8 MG/250 ML BAG 43.13 MG IV CONT (13:23)
[2024-07-22] MEDS: HYDROCORTISONE SODIUM SUCCINATE 100 MG/2 ML VIAL IV PUSH ×2 (13:25→20:27)
[2024-07-22] MEDS: VASOPRESSIN INJ 100 UNITS in DEXTROSE 5% 95 ML IV CONT (13:51)
--- NOTE | 2024-07-22 15:37 | PC.NURSE ---
Addendum entered by Bruce Moses RN 07/22/24 15:39: Pyridoxine* Original Note: Informed patient and about unavailability of Pyroxidine in house for appropriate home dose. She will bring it in tomorrow for home supply use. Will verify med with pharmacy at that time.
[2024-07-22 15:45] LABS: Toxigenic C. Diff NEGATIVE (NEGATIVE)
--- NOTE | 2024-07-22 16:27 | P.CONUR_ITS ---
Assessment and Plan Assessment and plan (1) Acute renal failure: Qualifiers: Acute renal failure type: unspecified Qualified Code(s): N17.9 - Acute kidney failure, unspecified Code(s): N17.9 - Acute kidney failure, unspecified Status: Acute (2) UTI (urinary tract infection): Qualifiers: Hematuria presence: without hematuria Urinary tract infection type: a cute cystitis Qualified Code(s): N30.00 - Acute cystitis without hematuria Code(s): N39.0 - Urinary tract infection, site not specified Status: Acute (3) Hydronephrosis: Qualifiers: Hydronephrosis type: unspecified Qualified Code(s): N13.30 - Unspecified hydronephrosis Code(s): N13.30 - Unspecified hydronephrosis Status: Acute (4) Renal calculus, left: Code(s): N20.0 - Calculus of kidney Status: Acute Plan - Septic shock requiring pressor support, likely secondary to urinary tract infection following 07/16/24 cystoscopy. - Remote history of prostate cancer. 12/2023 TURBT revealed low-grade noninvasive urothelial carcinoma. - Acute kidney injury on chronic kidney disease. Cr 2.55 (baseline around 1.6). - Chronic, stable left kidney hydronephrosis (non-obstructing) - Nonobstructing left renal stone, 8-10mm Plan: - Agree with culture-directed antibiotics - Monitor urinary output and renal function - No indication for urologic intervention at this time as there is no evidence of obstruction - Consider suppressive antibiotic therapy after resolution of current infection - Follow up with Dr. Call for outpatient management Urology Consult Note HPI Date Seen: 07/22/24 Requesting Physician: Brad Mejia MD Primary Care Provider: Don Bronson DO Consult Narrative Reason for consult: UTI, left hydronephrosis Narrative: Mr. Gupta is a 78-year-old male admitted to [facility] on 07/22/2024 for evaluation of dizziness, suspected UTI, and fever. Yesterday he experienced weakness, near-syncope, and some shortness of breath. He underwent cystoscopy with Dr. Call on 07/16/2024 as part of surveillance for low-grade noninvasive urothelial carcinoma diagnosed December 2023. The patient denies feeling feverish yesterday but acknowledges improvement in his condition today. He has a history of recurrent UTIs, with his most recent infection occurring in May. -PERTINENT LABS: 07/21/2024 - WBC 7.4, hemoglobin 11.4, platelets 271, lactic acid 4.8, creatinine 2.55 07/21/2024 - Urinalysis: 3+ blood, negative nitrite, 1+ leukocyte esterase, >100 RBC, >100 WBC Blood and urine cultures pending -PERTINENT IMAGING: CT AP WO CON - No acute pathology within the abdomen or pelvis. Redemonstration of a 10 mm calculus within the left kidney. Chronic left UPJ obstruction. Findings suggesting cystitis Review of Systems 2 Constitutional: Constitutional: Reports weakness Cardiovascular: Cardiovascular: Denies chest pain Respiratory: Respiratory: Denies dyspnea Gastrointestinal: Gastrointestinal: Denies abdominal pain Genitourinary: Genitourinary: Denies hematuria, Denies flank pain and Reports urinary frequency [facility] Past Medical History Medical History LFT elevation Septic shock Other idiopathic peripheral autonomic neuropathy Unspecified disorder of circulatory system Broken arm (~1952) History of broken leg (~1970) Prostate cancer Pure hyperglyceridemia Essential hypertension Cardiac abnormality Incontinence Surgical History Surgical History History of prostatectomy History of sinus surgery Total knee replacement status (~2005) H/O hernia repair (~2014) Total knee replacement status (~07/23/18) Family History Family History Father Family history of malignant neoplasm Mother Family history of malignant neoplasm of breast in first degree relative Other Family history of cardiovascular disease Hypertension Social History Social History Social History: Caffeine- Smoking packs per day: 1 Smoking cigarettes per day: 20.0 Years smoked: 20 Smoking pack-years: 20.00 Smoking status: Former smoker Tobacco type: cigarettes Second hand tobacco smoke exposure: No Smoking end date: 03/19/85 Alcohol intake: current Drinks per week: 4 Substance use: never Substance use type: does not use Do You Feel Safe in your Home?: Yes Lack of Transportation: No Lack of Food: Never True Current Housing: I Have Housing Concerned About Future Housing: No Difficulty Paying Gas/Electric Bills: No Difficulty Paying for Meds: No Currently Unemployed: No Education: Associate Degree Difficulty w/ Childcare or Family Care: No Living arrangements: with family Spiritual care concerns: No Meds Home Medications and Allergies Home Medications ?Medication ?Instructions ?Recorded ?Confirmed ?Type omeprazole 20 mg capsule,delayed 20 mg PO DAILY 09/30/19 07/22/24 History release pyridoxine (vitamin B6) 500 mg 500 mg PO DAILY 09/30/19 07/22/24 History tablet cholecalciferol (vitamin D3) 50 50 mcg PO DAILY 10/07/19 07/22/24 History mcg (2,000 unit) capsule leuprolide acetate (6 month) 45 mg 45 mg subcut [id number] 10/24/19 07/22/24 History (6 month) subcutaneous syringe (Elifariba) gabapentin 300 mg capsule 800 mg PO QHS 06/12/23 07/22/24 History prednisone 10 mg tablet 15 mg PO DAILY 06/12/23 07/22/24 History carvedilol 3.125 mg tablet 3.125 mg PO Q12H #180 tabs 12/21/23 07/22/24 Rx lovastatin 20 mg tablet 20 mg PO DAILY #90 tabs 12/21/23 07/22/24 Rx alendronate 70 mg tablet 70 mg PO WEEKLY 01/04/24 07/22/24 History melatonin 10 mg tablet 10 mg PO HS PRN Insomnia 01/04/24 07/22/24 History fenofibrate 160 mg tablet 160 mg PO DAILY #90 tabs 01/25/24 07/22/24 Rx calcium 600 mg (as 1 tablet PO BID 07/22/24 07/22/24 History carbonate)-vitamin D3 5 mcg (200 unit) tablet (Calcium 600 + D(3)) Allergies Allergy/AdvReac Type Severity Reaction Status Date / Time [facility] Adv[facility]ac Mild Rash Verified 07/22/24 02:46 Vital Signs Vital Signs - 24 hr 07/21/24 20:23 07/21/24 20:43 07/21/24 20:43 Temperature 99.8 F H Pulse Rate 122 H Respiratory Rate 18 Blood Pressure 132/83 Pulse Oximetry 92 85 L 96 Oxygen Delivery Room Air Room Air Nasal Cannula Oxygen Flow Rate 2 07/21/24 21:29 07/21/24 21:55 07/21/24 22:11 Temperature Pulse Rate 109 H 106 H 111 H Respiratory Rate 36 H 34 H 26 H Blood Pressure 84/46 L 74/51 L 119/99 H Pulse Oximetry 93 Oxygen Delivery Oxygen Flow Rate 07/21/24 22:17 07/21/24 22:18 07/21/24 23:01 Temperature Pulse Rate 106 H 99 Respiratory Rate 20 34 H Blood Pressure 73/47 L Pulse Oximetry 97 97 Oxygen Delivery Nasal Cannula Oxygen Flow Rate 2 07/21/24 23:05 07/21/24 23:09 07/21/24 23:11 Temperature Pulse Rate 95 98 95 Respiratory Rate 31 H 31 H 29 H Blood Pressure 77/43 L 74/49 L 76/52 L Pulse Oximetry 96 96 97 Oxygen Delivery Oxygen Flow Rate 07/21/24 23:26 07/21/24 23:30 07/21/24 23:31 Temperature Pulse Rate 91 90 92 Respiratory Rate 27 H 30 H 24 H Blood Pressure 66/40 L 62/43 L Pulse Oximetry 97 96 97 Oxygen Delivery Oxygen Flow Rate 07/21/24 23:35 07/21/24 23:35 07/21/24 23:40 Temperature Pulse Rate 90 90 93 Respiratory Rate 27 H 29 H 30 H Blood Pressure 66/44 L 66/44 L 63/46 L Pulse Oximetry 96 96 97 Oxygen Delivery Oxygen Flow Rate 07/21/24 23:45 07/21/24 23:50 07/21/24 23:55 Temperature Pulse Rate 93 93 100 Respiratory Rate 30 H 22 H 22 H Blood Pressure 68/41 L 76/44 L 84/49 L Pulse Oximetry 98 97 100 Oxygen Delivery Oxygen Flow Rate 07/22/24 00:00 07/22/24 00:01 07/22/24 00:05 Temperature Pulse Rate 94 97 98 Respiratory Rate 29 H 32 H 32 H Blood Pressure 74/42 L 74/42 L Pulse Oximetry 100 100 100 Oxygen Delivery Oxygen Flow Rate 07/22/24 00:10 07/22/24 00:15 07/22/24 00:15 Temperature Pulse Rate 99 99 106 H Respiratory Rate 28 H 31 H Blood Pressure 67/43 L 67/43 L Pulse Oximetry 100 100 Oxygen Delivery Oxygen Flow Rate 07/22/24 00:17 07/22/24 00:19 07/22/24 00:20 Temperature Pulse Rate 93 97 94 Respiratory Rate 29 H 26 H 26 H Blood Pressure 57/38 L 53/35 L Pulse Oximetry 100 99 97 Oxygen Delivery Oxygen Flow Rate 07/22/24 00:22 07/22/24 00:25 07/22/24 00:26 Temperature Pulse Rate 94 99 91 Respiratory Rate 27 H 31 H Blood Pressure 59/37 L 63/42 L 63/42 L Pulse Oximetry 96 97 Oxygen Delivery Oxygen Flow Rate 07/22/24 00:30 07/22/24 00:35 07/22/24 00:41 Temperature Pulse Rate 91 97 96 Respiratory Rate 31 H 25 H 30 H Blood Pressure 70/39 L 74/44 L 76/40 L Pulse Oximetry 96 98 98 Oxygen Delivery Oxygen Flow Rate 07/22/24 00:42 07/22/24 00:45 07/22/24 00:46 Temperature Pulse Rate 93 95 92 Respiratory Rate 29 H 29 H Blood Pressure 76/40 L 69/42 L Pulse Oximetry 98 98 Oxygen Delivery Oxygen Flow Rate 07/22/24 00:50 07/22/24 00:51 07/22/24 00:53 Temperature Pulse Rate 90 90 100 Respiratory Rate 29 H 28 H Blood Pressure 60/38 L 60/38 L 57/38 L Pulse Oximetry 98 97 Oxygen Delivery Oxygen Flow Rate 07/22/24 01:00 07/22/24 01:04 07/22/24 01:05 Temperature Pulse Rate 92 90 91 Respiratory Rate 25 H 35 H 24 H Blood Pressure 60/38 L 63/39 L 68/41 L Pulse Oximetry 94 94 96 Oxygen Delivery Oxygen Flow Rate 07/22/24 01:11 07/22/24 01:15 07/22/24 01:19 Temperature Pulse Rate 97 98 90 Respiratory Rate 32 H 24 H Blood Pressure 72/41 L 72/46 L 60/38 L Pulse Oximetry 97 97 Oxygen Delivery Oxygen Flow Rate 07/22/24 01:23 07/22/24 01:26 07/22/24 01:30 Temperature Pulse Rate 91 93 95 Respiratory Rate 27 H 24 H Blood Pressure 74/41 L 79/40 L 70/43 L Pulse Oximetry 98 100 Oxygen Delivery Oxygen Flow Rate 07/22/24 01:40 07/22/24 01:40 07/22/24 01:42 Temperature Pulse Rate 100 101 H 99 Respiratory Rate 33 H 30 H Blood Pressure 78/47 L 78/47 L 84/53 L Pulse Oximetry 96 97 Oxygen Delivery Oxygen Flow Rate 07/22/24 01:51 07/22/24 01:55 07/22/24 01:57 Temperature Pulse Rate 101 H 99 Respiratory Rate 27 H 25 H Blood Pressure 74/40 L 85/33 L 76/42 L Pulse Oximetry 97 97 98 Oxygen Delivery Oxygen Flow Rate 07/22/24 02:00 07/22/24 02:01 07/22/24 02:05 Temperature Pulse Rate Respiratory Rate Blood Pressure 69/45 L 73/41 L Pulse Oximetry 100 98 98 Oxygen Delivery Oxygen Flow Rate 07/22/24 02:10 07/22/24 02:17 07/22/24 02:38 Temperature Pulse Rate 97 99 Respiratory Rate Blood Pressure 67/46 L 71/38 L Pulse Oximetry 97 Oxygen Delivery Nasal Cannula Oxygen Flow Rate 2 07/22/24 02:45 07/22/24 03:00 07/22/24 03:15 Temperature Pulse Rate 105 H 102 H 100 Respiratory Rate Blood Pressure 79/42 L 81/47 L 92/65 L Pulse Oximetry Oxygen Delivery Oxygen Flow Rate 07/22/24 03:45 07/22/24 04:00 07/22/24 04:00 Temperature Pulse Rate 94 95 Respiratory Rate Blood Pressure 91/48 L 103/53 L Pulse Oximetry 99 Oxygen Delivery Nasal Cannula Oxygen Flow Rate 2 07/22/24 04:00 07/22/24 04:00 07/22/24 04:30 Temperature 98.2 F Pulse Rate 95 98 94 Respiratory Rate 19 Blood Pressure 103/53 L 89/46 L Pulse Oximetry 98 Oxygen Delivery Oxygen Flow Rate 07/22/24 04:45 07/22/24 05:30 07/22/24 06:00 Temperature Pulse Rate 115 H 94 93 Respiratory Rate 20 Blood Pressure 100/79 97/48 L 90/57 L Pulse Oximetry 99 Oxygen Delivery Oxygen Flow Rate 07/22/24 06:00 07/22/24 06:15 07/22/24 06:30 Temperature Pulse Rate 93 96 93 Respiratory Rate Blood Pressure 83/57 L 91/58 L Pulse Oximetry Oxygen Delivery Oxygen Flow Rate 07/22/24 07:53 07/22/24 07:53 07/22/24 08:00 Temperature 97.6 F Pulse Rate 95 95 101 H Respiratory Rate 24 H Blood Pressure 103/51 L 103/51 L 97/50 L Pulse Oximetry 99 Oxygen Delivery Oxygen Flow Rate 07/22/24 08:00 07/22/24 08:00 07/22/24 08:00 Temperature Pulse Rate 93 93 95 Respiratory Rate 22 H Blood Pressure 114/43 L Pulse Oximetry 98 Oxygen Delivery Nasal Cannula Oxygen Flow Rate 2 07/22/24 10:00 07/22/24 10:00 07/22/24 10:00 Temperature Pulse Rate 94 95 97 Respiratory Rate 20 Blood Pressure 95/56 L 100/56 L Pulse Oximetry 100 Oxygen Delivery Oxygen Flow Rate 07/22/24 11:24 07/22/24 12:00 07/22/24 12:00 Temperature 97.8 F Pulse Rate 98 99 93 Respiratory Rate 20 Blood Pressure 114/56 L 114/57 L Pulse Oximetry 98 Oxygen Delivery Oxygen Flow Rate 07/22/24 12:00 07/22/24 13:23 07/22/24 13:23 Temperature Pulse Rate 93 96 96 Respiratory Rate 24 H Blood Pressure 107/63 107/63 Pulse Oximetry 98 Oxygen Delivery Nasal Cannula Oxygen Flow Rate 2 07/22/24 13:51 07/22/24 13:51 07/22/24 14:15 Temperature Pulse Rate 100 99 92 Respiratory Rate Blood Pressure 107/63 132/60 139/50 L Pulse Oximetry Oxygen Delivery Oxygen Flow Rate 07/22/24 14:30 07/22/24 15:45 Temperature Pulse Rate 87 82 Respiratory Rate Blood Pressure 131/60 129/65 Pulse Oximetry Oxygen Delivery Oxygen Flow Rate Exam 2 Const: General: comfortable and no acute distress HENMT: Face/Nose/Sinus: Normal nares present Resp: Effort & Inspection: normal respiratory effort Cardio: Rate: regular rate : Other: Yellow urine in bedside urinal Skin: General skin exam: normal color Neuro: Speech: normal speech Psych: Speech and movement: Normal speech and movement present Affect: n ormal affect Results Labs 07/21/24 21:26 07/21/24 21:26 Labs: Short CBC 07/21/24 Range/Units 21:26 WBC 7.4 (4.5-10.0) K/mm3 Hgb 11.4 L (14.0-18.0) g/dL Hct 37.7 L (42.0-52.0) % Plt Count 271 (150-375) k/mm3 BMP 05/05/25 21:26 Sodium 137 Potassium 4.2 Chloride 101 Carbon Dioxide 22 BUN 28 H Creatinine 2.55 H Glucose 117 H Calcium 9.1 Cardiac Enzymes 07/22/24 Range/Units 09:44 Total Creatine Kinase 156 (55-170) U/L Liver Function 07/21/24 Range/Units 21:26 Total Bilirubin 1.1 (0.2-1.3) mg/dL AST 351 H (17-59) U/L ALT 105 H (6-50) U/L Alkaline Phosphatase 87 (38-126) U/L Albumin 4.1 (3.5-5.1) g/dL Urine 07/21/24 Range/Units 21:28 Urine Color Yellow (Yellow) Urine Appearance Cloudy H (Clear) Urine pH 5.5 (5.0-9.0) Ur Specific [place] >= 1.030 (1.001-1.035) Urine Protein 3+ H (Negative) mg/dL Urine Glucose (UA) Negative (Negative) mg/dL
[2024-07-22] MEDS: GABAPENTIN 400 MG CAPSULE 800 MG PO (20:27)
[2024-07-22] MEDS: CENTRAL LINE FLUSH 10 ML IV PUSH (22:19)
[2024-07-23] VITALS (17 sets, daily range): BP systolic 111–147; BP diastolic 59–93; PULSE 79–103; RESP 14–28; TEMP 36.2–37.6; O2SAT 93–100
[2024-07-23] MEDS: LACTATED RINGERS 1,000 ML 150 ML IV CONT (00:26)
[2024-07-23] MEDS: LACTATED RINGERS 1,000 ML 150 ML (00:28)
[2024-07-23] MEDS: MELATONIN 5 MG TABLET 10 MG PO ×2 (01:41→22:17)
[2024-07-23 04:24] LABS: Eosinophils Percent Auto 0.5 % (0-4.4); Hematocrit 31.6 % (42.0-52.0); Hemoglobin 9.8 g/dL (14.0-18.0); Immature Granulocyte Absolute 0.01 K/mm3 (0.00-0.031); Immature Granulocyte Percent A 0.5 % (0-0.5); Lymphocytes Absolute Auto 0.13 K/mm3 (0.9-3.2); Lymphocytes Percent Auto 6.9 % (18.3-44.2); Mean Corpuscular Hemoglobin 27.5 pg (26-34); Mean Corpuscular Volume 88.5 fl (80-100); Mean Platelet Volume 8.3 fl (7.4-10.4); Monocytes Absolute Auto 0.4 K/mm3 (0.1-0.6); Monocytes Percent Auto 19.1 % (2.6-8.5); Neutrophils Absolute Auto 1.4 K/mm3 (1.3-6.7); Platelet Count Result 160 k/mm3 (150-375); Red Blood Count 3.57 M/mm3 (4.6-6.20); Red Cell Distribution Width 15.7 % (11.5-14.5)
[2024-07-23 04:38] LABS: Alanine Aminotransferase 79 U/L (6-50); Alkaline Phosphatase 86 U/L (38-126); Anion Gap 9 mmol/L (4-12); Aspartate Amino Transferase 86 U/L (17-59); Bilirubin,Total 0.6 mg/dL (0.2-1.3); Blood Urea Nitrogen 37 mg/dL (9-20); Calcium 8.4 mg/dL (8.4-10.2); Carbon Dioxide 23 mmol/L (22-30); Chloride 103 mmol/L (98-107); Estimated CRCL calculation 29 ml/min; Estimated Glomerular Filt Rate 27; Glucose 132 mg/dL (65-110); Lipase 528 U/L (23-300); Magnesium 1.6 mg/dL (1.6-2.3); Potassium 4.2 mmol/L (3.4-5.0); Sodium 135 mmol/L (137-145)
[2024-07-23 04:39] LABS: Lactic Acid Reflex 1.3 mmol/L (0.7-2.0)
[2024-07-23 05:29] LABS: White Blood Count 1.9 K/mm3 (4.5-10.0)
[2024-07-23 05:31] LABS: Band Neutrophils Percent 0 % (0-6); Ovalocytes 1+; Platelet Estimate Adequate (Adequate); Schistocytes None Seen
[2024-07-23] MEDS: HYDROCORTISONE SODIUM SUCCINATE 100 MG/2 ML VIAL IV PUSH (06:17)
[2024-07-23] MEDS: CENTRAL LINE FLUSH 10 ML IV PUSH ×3 (06:17→20:30)
[2024-07-23] MEDS: CHOLECALCIFEROL 1,000 UNITS TABLET 2000 UNITS PO (07:39)
[2024-07-23] MEDS: CALCIUM/VITAMIN D 500 MG/5 MCG (200 I.U.) TABLET PO ×2 (07:39→17:47)
[2024-07-23] MEDS: ENOXAPARIN 40 MG/0.4 ML SYRINGE SUB-Q (07:39)
[2024-07-23] MEDS: MEROPENEM 1 GM/NS 100 ML 1 GM/100 ML BAG IVPB ×2 (07:44→20:30)
[2024-07-23] MEDS: [UNRECOGNIZED DRUG - OTHER] BY MOUTH (08:33)
[2024-07-23] MEDS: FENOFIBRATE 160 MG BY MOUTH (08:33)
[2024-07-23] MEDS: LACTATED RINGERS 1,000 ML 50 ML IV CONT (09:27)
[2024-07-23 09:41] LABS: Hematocrit 32.2 % (42.0-52.0); Hemoglobin 9.9 g/dL (14.0-18.0); Mean Corpuscular HGB Conc 30.7 g/dl (32-36); Mean Corpuscular Hemoglobin 27.5 pg (26-34); Mean Corpuscular Volume 89.4 fl (80-100); Mean Platelet Volume 8.5 fl (7.4-10.4); Platelet Count Result 152 k/mm3 (150-375); Red Cell Distribution Width 15.9 % (11.5-14.5)
[2024-07-23 09:45] LABS: White Blood Count 1.8 K/mm3 (4.5-10.0)
--- NOTE | 2024-07-23 10:49 | P.PNINT_ITS ---
Progress Note: A&P Assessment and Plan (1) Septic shock: Code(s): A41.9 - Sepsis, unspecified organism; R65.21 - Severe sepsis with septic shock Status: Acute Assessment and Plan: Septic shock secondary to UTI. UA consistent of UTI and history CT scan reviewed Blood and urine culture have been sent and are pending He is allergic to ceftriaxone and was started on Levaquin which was later switched to meropenem after discussion with Infectious Disease pharmacist Levophed has been weaned off Continue stress dose hydrocortisone and wean as patient has been on off prednisone as an outpatient Continue IV fluids but decrease rate Continue to Hold Coreg Echo reviewed and shows EF of 60-65% with diastolic dysfunction (2) Acute renal failure: Qualifiers: Acute renal failure type: unspecified Qualified Code(s): N17.9 - Acute kidney failure, unspecified Code(s): N17.9 - Acute kidney failure, unspecified Status: Acute Assessment and Plan: Patient was recently admitted and treated for acute kidney injury. Patient has elevated creatinine since 2022 and I suspect he has chronic kidney disease. His discharge creatinine was 1.65 and he presented today with 2.55 suggestive of ELIZABETH likely secondary to sepsis and septic shock Continue IV fluids. Monitor urine output electrolytes and creatinine Normal CK level CT scan reviewed and showed No acute pathology within the abdomen or pelvis. Redemonstration of a 10 mm calculus within the left kidney. Chronic left UPJ obstruction. Findings suggesting cystitis Hepatomegaly Patient was well by Urology and she as per urology note patient has a nonobstructing left renal stone and stable left chronic hydronephrosis. No intervention planned at this time. Creatinine slightly improved to 2.34 Electrolytes are stable Consult nephrology (3) UTI (urinary tract infection): Qualifiers: Hematuria presence: without hematuria Urinary tract infection type: acute cystitis Qualified Code(s): N30.00 - Acute cystitis without hematuria Code(s): N39.0 - Urinary tract infection, site not specified Status: Acute Assessment and Plan: See above (4) LFT elevation: Code(s): R79.89 - Other specified abnormal findings of blood chemistry Status: Acute Assessment and Plan: Presented with elevated AST and ALT I suspect this is secondary to shock liver He had normal less than 2 months ago Right upper quadrant ultrasound showed hepatic steatosis Hold statin LFTs are improving Plan DVT prophylaxis -Lovenox Stress ulcer prophylaxis -Protonix Nutrition -diet ordered Full code Incentive spirometry and up in chair Transfer out of ICU today Subjective Date/time seen: 07/23/24 Overnight events reviewed. Afebrile On nasal cannula Levophed weaned off last night Continues to be sedated with Vitals acceptable Interval history: Patient remains on Levophed. Feels better. Denies any other complaints. Review of Systems Review of Systems: All systems reviewed & are unremarkable except as noted in HPI and below (HPI) Exam Narrative: General: Pt is alert awake and in NAD Lungs/Chest: Trachea central Clear BS B/L, No crackles or wheezing. Cardiac: RRR. Normal S1 S2. No murmurs Circulation: Pedal pulses are intact and symmetrical. Abdomen: Normal bowel sounds.. Soft. NT. ND. Extremities: No clubbing, cyanosis or edema. Warm : NAD Neurologic: Follows commands. Moves all 4 extremities PERRL Skin: No Rash Objective Data Vital Signs Vital Signs: Vital Signs - 24 hr 07/22/24 11:24 07/22/24 12:00 07/22/24 12:00 Temperature 36.6 C Pulse Rate 98 99 93 Respiratory Rate 20 Blood Pressure 114/56 L 114/57 L Pulse Oximetry 98 Oxygen Delivery Oxygen Flow Rate 07/22/24 12:00 07/22/24 12:00 07/22/24 13:23 Temperature Pulse Rate 93 90 96 Respiratory Rate 24 H Blood Pressure 107/63 Pulse Oximetry 98 Oxygen Delivery Nasal Cannula Oxygen Flow Rate 2 07/22/24 13:23 07/22/24 13:51 07/22/24 13:51 Temperature Pulse Rate 96 100 99 Respiratory Rate Blood Pressure 107/63 107/63 132/60 Pulse Oximetry Oxygen Delivery Oxygen Flow Rate 07/22/24 14:00 07/22/24 14:00 07/22/24 14:00 Temperature Pulse Rate 75 75 91 Respiratory Rate 24 H Blood Pressure 125/76 125/76 Pulse Oximetry 98 Oxygen Delivery Oxygen Flow Rate 07/22/24 14:00 07/22/24 14:15 07/22/24 14:30 Temperature Pulse Rate 79 92 87 Respiratory Rate Blood Pressure 125/76 139/50 L 131/60 Pulse Oximetry Oxygen Delivery Oxygen Flow Rate 07/22/24 15:45 07/22/24 16:00 07/22/24 16:00 Temperature Pulse Rate 82 84 84 Respiratory Rate 23 H Blood Pressure 129/65 123/54 L Pulse Oximetry 97 Oxygen Delivery Oxygen Flow Rate 07/22/24 16:00 07/22/24 16:00 07/22/24 16:00 Temperature Pulse Rate 81 81 79 Respiratory Rate 14 Blood Pressure 123/54 L 123/54 L Pulse Oximetry 96 Oxygen Delivery Nasal Cannula Oxygen Flow Rate 2 07/22/24 17:03 07/22/24 17:54 07/22/24 18:00 Temperature Pulse Rate 84 77 79 Respiratory Rate Blood Pressure 130/65 132/64 Pulse Oximetry Oxygen Delivery Oxygen Flow Rate 07/22/24 18:00 07/22/24 18:00 07/22/24 18:00 Temperature Pulse Rate 78 79 89 Respiratory Rate 22 H Blood Pressure 110/81 111/79 111/79 Pulse Oximetry 100 Oxygen Delivery Oxygen Flow Rate 07/22/24 19:30 07/22/24 19:35 07/22/24 19:45 Temperature Pulse Rate 81 88 79 Respiratory Rate 24 H 23 H Blood Pressure 134/74 134/74 126/71 Pulse Oximetry 100 96 Oxygen Delivery Oxygen Flow Rate 07/22/24 19:46 07/22/24 19:55 07/22/24 20:00 Temperature 36.6 C Pulse Rate 81 81 88 Respiratory Rate 23 H 26 H Blood Pressure 126/71 129/91 H Pulse Oximetry 96 99 Oxygen Delivery Nasal Cannula Oxygen Flow Rate 2 07/22/24 20:00 07/22/24 20:00 07/22/24 20:00 Temperature Pulse Rate 96 90 88 Respiratory Rate Blood Pressure 129/91 H 129/91 H Pulse Oximetry Oxygen Delivery Oxygen Flow Rate 07/22/24 20:20 07/22/24 20:30 07/22/24 20:45 Temperature Pulse Rate 89 105 H 98 Respiratory Rate 22 H Blood Pressure 117/67 117/63 120/75 Pulse Oximetry 99 Oxygen Delivery Oxygen Flow Rate 07/22/24 21:00 07/22/24 21:30 07/22/24 21:40 Temperature Pulse Rate 97 95 95 Respiratory Rate 24 H 24 H Blood Pressure 122/66 126/67 126/67 Pulse Oximetry 100 99 Oxygen Delivery Oxygen Flow Rate 07/22/24 21:45 07/22/24 22:00 07/22/24 22:00 Temperature Pulse Rate 95 93 93 Respiratory Rate 23 H 22 H Blood Pressure 116/62 115/64 Pulse Oximetry 99 99 Oxygen Delivery Oxygen Flow Rate 07/22/24 22:00 07/22/24 22:00 07/22/24 22:45 Temperature Pulse Rate 93 93 99 Respiratory Rate 28 H Blood Pressure 115/64 115/64 115/64 Pulse Oximetry 100 Oxygen Delivery Oxygen Flow Rate 07/23/24 00:00 07/23/24 00:00 07/23/24 00:00 Temperature Pulse Rate 98 98 93 Respiratory Rate Blood Pressure 126/66 126/66 Pulse Oximetry Oxygen Delivery Oxygen Flow Rate 07/23/24 00:00 07/23/24 00:15 07/23/24 02:00 Temperature 37.6 C Pulse Rate 95 103 H 91 Respiratory Rate 24 H 28 H Blood Pressure 126/66 Pulse Oximetry 100 100 Oxygen Delivery Nasal Cannula Oxygen Flow Rate 2 07/23/24 02:00 07/23/24 02:00 07/23/24 02:00 Temperature Pulse Rate 90 91 91 Respiratory Rate 19 Blood Pressure 112/59 L 112/59 L 112/59 L Pulse Oximetry 95 Oxygen Delivery Oxygen Flow Rate 07/23/24 04:00 07/23/24 04:00 07/23/24 04:00 Temperature 36.9 C Pulse Rate 87 87 87 Respiratory Rate 14 Blood Pressure 111/70 111/70 111/70 Pulse Oximetry 97 Oxygen Delivery Oxygen Flow Rate 07/23/24 04:00 07/23/24 04:00 07/23/24 06:00 Temperature Pulse Rate 87 92 89 Respiratory Rate 14 28 H Blood Pressure 129/71 Pulse Oximetry 97 100 Oxygen Delivery Nasal Cannula Oxygen Flow Rate 2 07/23/24 06:00 07/23/24 06:00 07/23/24 06:00 Temperature Pulse Rate 89 89 89 Respiratory Rate Blood Pressure 129/71 129/71 Pulse Oximetry Oxygen Delivery Oxygen Flow Rate 07/23/24 08:00 07/23/24 08:00 07/23/24 08:00 Temperature 36.2 C L Pulse Rate 84 89 89 Respiratory Rate 20 Blood Pressure 125/78 Pulse Oximetry 98 Oxygen Delivery Oxygen Flow Rate 07/23/24 08:00 07/23/24 08:00 07/23/24 08:56 Temperature Pulse Rate 79 Respiratory Rate Blood Pressure Pulse Oximetry 100 100 Oxygen Delivery Nasal Cannula Nasal Cannula Oxygen Flow Rate 1 1 07/23/24 10:00 07/23/24 10:00 Temperature Pulse Rate 84 84 Respiratory Rate 18 Blood Pressure 129/73 Pulse Oximetry 98 Oxygen Delivery Oxygen Flow Rate Intake/Output Intake/Output: Intake & Output 07/20/24 07/21/24 07/22/24 07/23/24 23:59 23:59 23:59 23:59 Intake Total 6101.1 2340 Output Total 1450 2200 Balance 4651.1 140 Meds/Results Medications: Active Medications Generic Name Dose Route Start Last Admin Trade Name Freq PRN Reason Stop Dose Admin Alendronate Sodium 70 mg 07/25/24 06:30 Alendronate Sodium 70 Mg Tablet PO WEEKLY@0630 ANOOP Calcium Carbonate 500 mg 07/22/24 09:00 07/23/24 07:39 Calcium/Vitamin D 500 Mg/5 Mcg (200 I.U.) Tablet PO 500 mg BID ANOOP Administration Enoxaparin Sodium 40 mg 07/22/24 09:00 07/23/24 07:39 Enoxaparin 40 Mg/0.4 Ml Syringe SUB-Q 40 mg DAILY ANOOP Administration Gabapentin 800 mg 07/22/24 21:00 07/22/24 20:27 Gabapentin 400 Mg Capsule PO 800 mg QHS ANOOP Administration Hydrocortisone Sodium Succinate 100 mg 07/22/24 14:00 07/23/24 06:17 Hydrocortisone Sodium Succinate 100 Mg/2 Ml Vial IV PUSH 100 mg Q8HR ANOOP Administration Lactated Ringer's 1,000 mls @ 50 mls/hr 07/22/24 08:59 07/23/24 09:27 Lactated Ringers IV CONT 07/23/24 23:59 50 mls/hr .Q20H ANOOP Administration Meropenem 1 gm in 100 mls @ 200 mls/hr 07/22/24 11:00 07/23/24 08:14 IVPB Infused Q12HR ANOOP Infusion Albumin Human 100 mls @ 60 mls/hr 07/23/24 12:00 Albutein IVPB 07/24/24 07:39 Q6HR ANOOP Melatonin 10 mg 07/22/24 04:50 07/23/24 01:41 Melatonin 5 Mg Tablet PO 10 mg HS PRN Administration Insomnia Miscellaneous Information 1 each 07/22/24 00:01 07/23/24 03:39 Pyridoxine 500 Mg Tablet Nonformulary, We Do Carry 50 Mg Tablets But Pt Would Have To Take XX 08/21/24 00:00 Not Given CLARIFY ANOOP Nonformulary Drug 0 mg 07/22/24 09:00 07/23/24 08:33 Fenofibrate 160 Mg BY MOUTH 08/21/24 08:59 160 mg Tablet DAILY ANOOP Administration Non-Formulary Medication 500 mg 07/22/24 09:00 Pyridoxine (Vitamin B6) PO 08/21/24 08:59 DAILY ANOOP Pantoprazole Sodium 40 mg 07/22/24 09:00 07/22/24 09:46 Pantoprazole 40 Mg Tablet PO 40 mg Q48H ANOOP Administration Perflutren Lipid Microsphere 0 ml 07/22/24 08:38 Perflutren Lipid Microspheres 1.5 Ml Vial Diluted To 10 Ml Total Volume IV PUSH 07/25/24 08:38 ONCE PRN adequate visualization Protocol Sodium Chloride 10 ml 07/22/24 22:00 07/23/24 06:17 Central Line Flush IV PUSH 10 ml Q8HR ANOOP Administration Sodium Chloride 20 ml 07/22/24 20:38 Central Line Flush IV PUSH PRN PRN after blood draws Vitamin D 2,000 units 07/22/24 09:00 07/23/24 07:39 Cholecalciferol 1,000 Units Tablet PO 2,000 units DAILY ANOOP Administration Radiology Results: ITS Impressions Abdomen/Pelvis CT 07/21/24 23:33 IMPRESSION: No acute pathology within the abdomen or pelvis. Redemonstration of a 10 mm calculus within the left kidney. Chronic left UPJ obstruction. Findings suggesting cystitis Hepatomegaly Chest X-Ray 07/22/24 01:07 IMPRESSION: Interval placement of a left internal jugular central venous catheter, in p osition and ready for immediate use. Abdomen Ultrasound 07/22/24 09:47 IMPRESSION: 1. Diffuse hepatic steatosis. Labs Labs: Laboratory Results - last 24 hr 07/22/24 07/22/24 07/23/24 11:46 14:47 04:17 WBC 1.9 L* RBC 3.57 L Hgb 9.8 L Hct 31.6 L MCV 88.5 MCH 27.5 MCHC 31.0 L RDW 15.7 H Plt Count 160 MPV 8.3 Immature Gran % (Auto) 0.5 Neut % (Auto) 73.0 Lymph % (Auto) 6.9 L Larue % (Auto) 19.1 H Eos % (Auto) 0.5 Baso % (Auto) 0.0 L Lymph # (Auto) 0.13 L Larue # (Auto) 0.4 Eos # (Auto) 0.0 Baso # (Auto) 0.0 Abs Immat Gran (auto) 0.01 Absolute Neuts (auto) 1.4 Absolute Nucleated RBC 0.000 Band Neutrophils % 0 Nucleated RBC % 0.0 Platelet Estimate Adequate Ovalocytes 1+ Schistocytes None seen Sodium 135 L Potassium 4.2 Chloride 103 Carbon Dioxide 23 Anion Gap 9 BUN 37 H Creatinine 2.34 H Estim Creat Clear Calc 29 Estimated GFR 27 L Glucose 132 H Lactic Acid 1.3 Calcium 8.4 Magnesium 1.6 Total Bilirubin 0.6 AST 86 H ALT 79 H Alkaline Phosphatase 86 Total Protein 6.0 L Albumin 3.0 L Lipase 528 H Ur Random Sodium 29 Urine Creatinine 72.6 C. difficile (PCR) Negative 07/23/24 09:28 WBC 1.8 L* RBC 3.60 L Hgb 9.9 L Hct 32.2 L MCV 89.4 MCH 27.5 MCHC 30.7 L RDW 15.9 H Plt Count 152 MPV 8.5 Immature Gran % (Auto) Neut % (Auto) Lymph % (Auto) Larue % (Auto) Eos % (Auto) Baso % (Auto) Lymph # (Auto) Larue # (Auto) Eos # (Auto) Baso # (Auto) Abs Immat Gran (auto) Absolute Neuts (auto) Absolute Nucleated RBC Band Neutrophils % Nucleated RBC % Platelet Estimate Ovalocytes Schistocytes Sodium Potassium Chloride Carbon Dioxide Anion Gap BUN Creatinine Estim Creat Clear Calc Estimated GFR Glucose Lactic Acid Calcium Magnesium Total Bilirubin AST ALT Alkaline Phosphatase Total Protein Albumin Lipase Ur Random Sodium Urine Creatinine C. difficile (PCR) Quality VTE Prophylaxis VTE prophylaxis: pharmacologic ordered
[2024-07-23] MEDS: ALBUMIN HUMAN 25% 25 GM/100 ML 100 ML IVPB ×3 (11:55→23:28)
--- NOTE | 2024-07-23 12:00 | PM.CNNEP ---
History of Present Illness Reason for Consult Consult date: 07/23/24 Reason for consult: acute renal failure (on chronic kidney disease) Chief Complaint Chief complaint: UTI? Septic shock Review of Systems Review of Systems: As per HPI. [facility] Past Medical History Medical History LFT elevation Septic shock Other idiopathic peripheral autonomic neuropathy Unspecified disorder of circulatory system Broken arm (~1952) History of broken leg (~1970) Prostate cancer Pure hyperglyceridemia Essential hypertension Cardiac abnormality Incontinence Surgical History Surgical History History of prostatectomy History of sinus surgery Total knee replacement status (~2005) H/O hernia repair (~2014) Total knee replacement status (~07/23/18) Family History Family History Father Family history of malignant neoplasm Mother Family history of malignant neoplasm of breast in first degree relative Other Family history of cardiovascular disease Hypertension Social History Social History Social History: Caffeine- Smoking packs per day: 1 Smoking cigarettes per day: 20.0 Years smoked: 20 Smoking pack-years: 20.00 Smoking status: Former smoker Tobacco type: cigarettes Second hand tobacco smoke exposure: No Smoking end date: 03/19/85 Alcohol intake: current Drinks per week: 4 Substance use: never Substance use type: does not use Do You Feel Safe in your Home?: Yes Lack of Transportation: No Lack of Food: Never True Current Housing: I Have Housing Concerned About Future Housing: No Difficulty Paying Gas/Electric Bills: No Difficulty Paying for Meds: No Currently Unemployed: No Education: Associate Degree Difficulty w/ Childcare or Family Care: No Living arrangements: with family Spiritual care concerns: No Meds Home Medications and Allergies Home Medications ?Medication ?Instructions ?Recorded ?Confirmed ?Type omeprazole 20 mg capsule,delayed 20 mg PO DAILY 09/30/19 07/22/24 History release pyridoxine (vitamin B6) 500 mg 500 mg PO DAILY 09/30/19 07/22/24 History tablet cholecalciferol (vitamin D3) 50 50 mcg PO DAILY 10/07/19 07/22/24 History mcg (2,000 unit) capsule leuprolide acetate (6 month) 45 mg 45 mg subcut [id number] 10/24/19 07/22/24 History (6 month) subcutaneous syringe (Elifariba) gabapentin 300 mg capsule 800 mg PO QHS 06/12/23 07/22/24 History prednisone 10 mg tablet 15 mg PO DAILY 06/12/23 07/22/24 History carvedilol 3.125 mg tablet 3.125 mg PO Q12H #180 tabs 12/21/23 07/22/24 Rx lovastatin 20 mg tablet 20 mg PO DAILY #90 tabs 12/21/23 07/22/24 Rx alendronate 70 mg tablet 70 mg PO WEEKLY 01/04/24 07/22/24 History melatonin 10 mg tablet 10 mg PO HS PRN Insomnia 01/04/24 07/22/24 History fenofibrate 160 mg tablet 160 mg PO DAILY #90 tabs 01/25/24 07/22/24 Rx calcium 600 mg (as 1 tablet PO BID 07/22/24 07/22/24 History carbonate)-vitamin D3 5 mcg (200 unit) tablet (Calcium 600 + D(3)) Allergies Allergy/AdvReac Type Severity Reaction Status Date / Time ceftriaxone (From [facility]) AdvReac Mild Rash Verified 07/22/24 02:46 Vital Signs Vital Signs Temp Pulse Resp BP Pulse Ox O2 Del Method O2 Flow Rate 07/23/24 12:00 97.3 F L 88 22 H 125/76 93 07/23/24 10:00 84 18 129/73 98 07/23/24 10:00 84 07/23/24 08:56 100 Nasal Cannula 1 07/23/24 08:00 100 Nasal Cannula 1 07/23/24 08:00 79 07/23/24 08:00 89 07/23/24 08:00 97.2 F L 89 20 125/78 98 07/23/24 08:00 84 07/23/24 06:00 89 129/71 07/23/24 06:00 89 129/71 07/23/24 06:00 89 07/23/24 06:00 89 28 H 129/71 100 07/23/24 04:00 92 07/23/24 04:00 87 14 97 Nasal Cannula 2 07/23/24 04:00 87 111/70 07/23/24 04:00 87 111/70 07/23/24 04:00 98.5 F 87 14 111/70 97 07/23/24 02:00 91 112/59 L 07/23/24 02:00 91 112/59 L 07/23/24 02:00 90 19 112/59 L 95 07/23/24 02:00 91 07/23/24 00:15 103 H 28 H 100 Nasal Cannula 2 07/23/24 00:00 99.6 F 95 24 H 126/66 100 07/23/24 00:00 93 07/23/24 00:00 98 126/66 07/23/24 00:00 98 126/66 07/22/24 22:45 99 28 H 115/64 100 07/22/24 22:00 93 115/64 07/22/24 22:00 93 115/64 07/22/24 22:00 93 22 H 115/64 99 07/22/24 22:00 93 07/22/24 21:45 95 23 H 116/62 99 07/22/24 21:40 95 126/67 07/22/24 21:30 95 24 H 126/67 99 07/22/24 21:00 97 24 H 122/66 100 07/22/24 20:45 98 120/75 07/22/24 20:30 105 H 117/63 07/22/24 20:20 89 22 H 117/67 99 07/22/24 20:00 88 07/22/24 20:00 90 129/91 H 07/22/24 20:00 96 129/91 H 07/22/24 20:00 98 F 88 26 H 129/91 H 99 07/22/24 19:55 81 23 H 96 Nasal Cannula 2 07/22/24 19:46 81 126/71 07/22/24 19:45 79 23 H 126/71 96 07/22/24 19:35 88 134/74 07/22/24 19:30 81 24 H 134/74 100 07/22/24 18:00 89 111/79 07/22/24 18:00 79 111/79 07/22/24 18:00 78 22 H 110/81 100 07/22/24 18:00 79 07/22/24 17:54 77 132/64 07/22/24 17:03 84 130/65 Results Lab Results 07/23/24 09:28 07/23/24 04:17 Lab results: Most recent lab results Calcium 8.4 mg/dL (8.4-10.2) 07/23/24 04:17 Magnesium 1.6 mg/dL (1.6-2.3) 07/23/24 04:17 Urine Creatinine 72.6 mg/dL 07/22/24 11:46
--- NOTE | 2024-07-23 16:33 | P.PNIM_ITS ---
Progress Note: A&P Assessment and Plan (1) Septic shock: Code(s): A41.9 - Sepsis, unspecified organism; R65.21 - Severe sepsis with septic shock Status: Acute Assessment and Plan: * As evidenced by lactic acid of 4.8, hypotension persistent despite initiation of IV fluids. * Started on Levophed * Patient received IV fluid bolus of 2.5 L in the ER. * Blood cultures pending * Urine culture pending * Levaquin initiated which has been switched to meropenem On hydrocortisone I (2) UTI (urinary tract infection): Qualifiers: Hematuria presence: without hematuria Urinary tract infection type: acute cystitis Qualified Code(s): N30.00 - Acute cystitis without hematuria Code(s): N39.0 - Urinary tract infection, site not specified Status: Acute Assessment and Plan: * See 1. 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 10 mm calculus within left kidney * Urology consult (5) Hyperlipidemia: Qualifiers: Hyperlipidemia type: unspecified Qualified Code(s): E78.5 - Hyperlipidemia, unspecified Code(s): E78.5 - Hyperlipidemia, unspecified Status: Chronic Assessment and Plan: * Continue home medications (6) Essential hypertension: Code(s): I10 - Essential (primary) hypertension Status: Chronic Assessment and Plan: * Hold home hypertensive medications in the setting that patient is requiring Levophed to maintain blood pressure. 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 patient remains clinically and stats feeling much better compare to when he arrived. patient is present and gave updates. 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 patient remains clinically and stats feeling much better compare to when he arrived. patient is present and gave updates. Review of Systems Review of Systems: All systems reviewed & are unremarkable except as noted in HPI and below (HPI) Exam Narrative: Patient is comfortable, NAD HEENT: eyes are clear and none icteric LUNGS:CTA HEART: RR S1S2 ABD: BS+, Soft and nontender Lower extremities: no edema SKIN: nonjaundiced Neuro: grossly intact. Objective Data Vital Signs Vital Signs: Vital Signs - 24 hr 07/22/24 17:03 07/22/24 17:54 07/22/24 18:00 Temperature Pulse Rate 84 77 79 Respiratory Rate Blood Pressure 130/65 132/64 Pulse Oximetry Oxygen Delivery Oxygen Flow Rate 07/22/24 18:00 07/22/24 18:00 07/22/24 18:00 Temperature Pulse Rate 78 79 89 Respiratory Rate 22 H Blood Pressure 110/81 111/79 111/79 Pulse Oximetry 100 Oxygen Delivery Oxygen Flow Rate 07/22/24 19:30 07/22/24 19:35 07/22/24 19:45 Temperature Pulse Rate 81 88 79 Respiratory Rate 24 H 23 H Blood Pressure 134/74 134/74 126/71 Pulse Oximetry 100 96 Oxygen Delivery Oxygen Flow Rate 07/22/24 19:46 07/22/24 19:55 07/22/24 20:00 Temperature 36.6 C Pulse Rate 81 81 88 Respiratory Rate 23 H 26 H Blood Pressure 126/71 129/91 H Pulse Oximetry 96 99 Oxygen Delivery Nasal Cannula Oxygen Flow Rate 2 07/22/24 20:00 07/22/24 20:00 07/22/24 20:00 Temperature Pulse Rate 96 90 88 Respiratory Rate Blood Pressure 129/91 H 129/91 H Pulse Oximetry Oxygen Delivery Oxygen Flow Rate 07/22/24 20:20 07/22/24 20:30 07/22/24 20:45 Temperature Pulse Rate 89 105 H 98 Respiratory Rate 22 H Blood Pressure 117/67 117/63 120/75 Pulse Oximetry 99 Oxygen Delivery Oxygen Flow Rate 07/22/24 21:00 07/22/24 21:30 07/22/24 21:40 Temperature Pulse Rate 97 95 95 Respiratory Rate 24 H 24 H Blood Pressure 122/66 126/67 126/67 Pulse Oximetry 100 99 Oxygen Delivery Oxygen Flow Rate 07/22/24 21:45 07/22/24 22:00 07/22/24 22:00 Temperature Pulse Rate 95 93 93 Respiratory Rate 23 H 22 H Blood Pressure 116/62 115/64 Pulse Oximetry 99 99 Oxygen Delivery Oxygen Flow Rate 07/22/24 22:00 07/22/24 22:00 07/22/24 22:45 Temperature Pulse Rate 93 93 99 Respiratory Rate 28 H Blood Pressure 115/64 115/64 115/64 Pulse Oximetry 100 Oxygen Delivery Oxygen Flow Rate 07/23/24 00:00 07/23/24 00:00 07/23/24 00:00 Temperature Pulse Rate 98 98 93 Respiratory Rate Blood Pressure 126/66 126/66 Pulse Oximetry Oxygen Delivery Oxygen Flow Rate 07/23/24 00:00 07/23/24 00:15 07/23/24 02:00 Temperature 37.6 C Pulse Rate 95 103 H 91 Respiratory Rate 24 H 28 H Blood Pressure 126/66 Pulse Oximetry 100 100 Oxygen Delivery Nasal Cannula Oxygen Flow Rate 2 07/23/24 02:00 07/23/24 02:00 07/23/24 02:00 Temperature Pulse Rate 90 91 91 Respiratory Rate 19 Blood Pressure 112/59 L 112/59 L 112/59 L Pulse Oximetry 95 Oxygen Delivery Oxygen Flow Rate 07/23/24 04:00 07/23/24 04:00 07/23/24 04:00 Temperature 36.9 C Pulse Rate 87 87 87 Respiratory Rate 14 Blood Pressure 111/70 111/70 111/70 Pulse Oximetry 97 Oxygen Delivery Oxygen Flow Rate 07/23/24 04:00 07/23/24 04:00 07/23/24 06:00 Temperature Pulse Rate 87 92 89 Respiratory Rate 14 28 H Blood Pressure 129/71 Pulse Oximetry 97 100 Oxygen Delivery Nasal Cannula Oxygen Flow Rate 2 07/23/24 06:00 07/23/24 06:00 07/23/24 06:00 Temperature Pulse Rate 89 89 89 Respiratory Rate Blood Pressure 129/71 129/71 Pulse Oximetry Oxygen Delivery Oxygen Flow Rate 07/23/24 08:00 07/23/24 08:00 07/23/24 08:00 Temperature 36.2 C L Pulse Rate 84 89 89 Respiratory Rate 20 Blood Pressure 125/78 Pulse Oximetry 98 Oxygen Delivery Oxygen Flow Rate 07/23/24 08:00 07/23/24 08:00 07/23/24 08:56 Temperature Pulse Rate 79 Respiratory Rate Blood Pressure Pulse Oximetry 100 100 Oxygen Delivery Nasal Cannula Nasal Cannula Oxygen Flow Rate 1 1 07/23/24 10:00 07/23/24 10:00 07/23/24 12:00 Temperature 36.3 C L Pulse Rate 84 84 88 Respiratory Rate 18 22 H Blood Pressure 129/73 125/76 Pulse Oximetry 98 93 Oxygen Delivery Oxygen Flow Rate 07/23/24 12:00 07/23/24 12:00 07/23/24 14:00 Temperature Pulse Rate 88 87 87 Respiratory Rate 18 Blood Pressure Pulse Oximetry 97 Oxygen Delivery Room Air Oxygen Flow Rate 07/23/24 14:00 Temperature Pulse Rate 84 Respiratory Rate 24 H Blood Pressure 132/74 Pulse Oximetry 96 Oxygen Delivery Oxygen Flow Rate Intake/Output Intake/Output: Intake & Output 07/20/24 07/21/24 07/22/24 07/23/24 23:59 23:59 23:59 23:59 Intake Total 6101.1 2560 Output Total 1450 2200 Balance 4651.1 360 Meds/Results Medications: Active Medications Generic Name Dose Route Start Last Admin Trade Name Freq PRN Reason Stop Dose Admin Alendronate Sodium 70 mg 07/25/24 06:30 Alendronate Sodium 70 Mg Tablet PO WEEKLY@0630 [facility] Calcium Carbonate 500 mg 07/22/24 09:00 07/23/24 07:39 Calcium/Vitamin D 500 Mg/5 Mcg (200 I.U.) Tablet PO 500 mg BID [facility] Administration Enoxaparin Sodium 40 mg 07/22/24 09:00 07/23/24 07:39 Enoxaparin 40 Mg/0.4 Ml Syringe SUB-Q 40 mg DAILY ANOOP Administration Gabapentin 800 mg 07/22/24 21:00 07/22/24 20:27 Gabapentin 400 Mg Capsule PO 800 mg QHS ANOOP Administration Hydrocortisone Sodium Succinate 100 mg 07/24/24 09:00 Hydrocortisone Sodium Succinate 100 Mg/2 Ml Vial IV PUSH QAM ANOOP Lactated Ringer's 1,000 mls @ 50 mls/hr 07/22/24 08:59 07/23/24 09:27 Lactated Ringers IV CONT 07/23/24 23:59 50 mls/hr .Q20H ANOOP Administration Meropenem 1 gm in 100 mls @ 200 mls/hr 07/22/24 11:00 07/23/24 08:14 IVPB Infused Q12HR ANOOP Infusion Albumin Human 100 mls @ 60 mls/hr 07/23/24 12:00 07/23/24 13:36 Albutein IVPB 07/24/24 07:39 Infused Q6HR ANOOP Infusion Melatonin 10 mg 07/22/24 04:50 07/23/24 01:41 Melatonin 5 Mg Tablet PO 10 mg HS PRN Administration Insomnia Miscellaneous Information 1 each 07/22/24 00:01 07/23/24 03:39 Pyridoxine 500 Mg Tablet Nonformulary, We Do Carry 50 Mg Tablets But Pt Would Have To Take XX 08/21/24 00:00 Not Given CLARIFY ANOOP Nonformulary Drug 0 mg 07/22/24 09:00 07/23/24 08:33 Fenofibrate 160 Mg BY MOUTH 08/21/24 08:59 160 mg Tablet DAILY ANOOP Administration Non-Formulary Medication 500 mg 07/22/24 09:00 Pyridoxine (Vitamin B6) PO 08/21/24 08:59 DAILY ANOOP Pantoprazole Sodium 40 mg 07/22/24 09:00 07/22/24 09:46 Pantoprazole 40 Mg Tablet PO 40 mg Q48H ANOOP Administration Perflutren Lipid Microsphere 0 ml 07/22/24 08:38 Perflutren Lipid Microspheres 1.5 Ml Vial Diluted To 10 Ml Total Volume IV PUSH 07/25/24 08:38 ONCE PRN adequate visualization Protocol Sodium Chloride 10 ml 07/22/24 22:00 07/23/24 13:28 Central Line Flush IV PUSH 10 ml Q8HR ANOOP Administration Sodium Chloride 20 ml 05/06/25 20:38 Central Line Flush IV PUSH PRN PRN after blood draws Vitamin D 2,000 units 07/22/24 09:00 07/23/24 07:39 Cholecalciferol 1,000 Units Tablet PO 2,000 units DAILY ANOOP Administration Radiology Results: ITS Impressions Abdomen/Pelvis CT 07/21/24 23:33 IMPRESSION: No acute pathology within the abdomen or pelvis. Redemonstration of a 10 mm calculus within the left kidney. Chronic left UPJ obstruction. Findings suggesting cystitis Hepatomegaly Chest X-Ray 07/22/24 01:07 IMPRESSION: Interval placement of a left internal jugular central venous catheter, in position and ready for immediate use. Abdomen Ultrasound 07/22/24 09:47 IMPRESSION: 1. Diffuse hepatic steatosis. Renal Ultrasound 07/23/24 16:18 IMPRESSION: No hydronephrosis or renal calculi. Findings suggesting medical renal disease. Labs Labs: Laboratory Results - last 24 hr 07/23/24 07/23/24 04:17 09:28 WBC 1.9 L* 1.8 L* RBC 3.57 L 3.60 L Hgb 9.8 L 9.9 L Hct 31.6 L 32.2 L MCV 88.5 89.4 MCH 27.5 27.5 MCHC 31.0 L 30.7 L RDW 15.7 H 15.9 H Plt Count 160 152 MPV 8.3 8.5 Immature Gran % (Auto) 0.5 Neut % (Auto) 73.0 Lymph % (Auto) 6.9 L [place] % (Auto) 19.1 H Eos % (Auto) 0.5 Baso % (Auto) 0.0 L Lymph # (Auto) 0.13 L [place] # (Auto) 0.4 Eos # (Auto) 0.0 Baso # (Auto) 0.0 Abs Immat Gran (auto) 0.01 Absolute Neuts (auto) 1.4 Absolute Nucleated RBC 0.000 Band Neutrophils % 0 Nucleated RBC % 0.0 Platelet Estimate Adequate Ovalocytes 1+ Schistocytes None seen Sodium 135 L Potassium 4.2 Chloride 103 Carbon Dioxide 23 Anion Gap 9 BUN 37 H Creatinine 2.34 H Estim Creat Clear Calc 29 Estimated GFR 27 L Glucose 132 H Lactic Acid 1.3 Calcium 8.4 Magnesium 1.6 Total Bilirubin 0.6 AST 86 H ALT 79 H Alkaline Phosphatase 86 Total Protein 6.0 L Albumin 3.0 L Lipase 528 H Quality VTE Prophylaxis VTE prophylaxis: pharmacologic ordered
[2024-07-23 18:21] LABS: Creatinine Urine 61.4 mg/dL; Total Protein Urine Random 15 mg/dL; Ur Ttl Prot Creatinine Ratio 0.24 mg/mg (0-0.20)
[2024-07-23] MEDS: GABAPENTIN 400 MG CAPSULE 800 MG PO (20:30)
[2024-07-23 21:23] LABS: Eosinophil Urine None Seen % (None Seen)
[2024-07-23 21:28] LABS: Urine Eos QC 2nd Tech Confirmed
[2024-07-24] VITALS (17 sets, daily range): BP systolic 117–162; BP diastolic 65–88; PULSE 78–134; RESP 18–28; TEMP 36.4–37.2; O2SAT 91–97
[2024-07-24] MEDS: ALBUMIN HUMAN 25% 25 GM/100 ML 100 ML IVPB (06:01)
[2024-07-24] MEDS: CENTRAL LINE FLUSH 10 ML IV PUSH ×2 (06:02→14:05)
[2024-07-24 06:19] LABS: Hematocrit 29.3 % (42.0-52.0); Hemoglobin 9.1 g/dL (14.0-18.0); Mean Corpuscular HGB Conc 31.1 g/dl (32-36); Mean Corpuscular Hemoglobin 27.8 pg (26-34); Mean Corpuscular Volume 89.6 fl (80-100); Mean Platelet Volume 9.2 fl (7.4-10.4); Platelet Count Result 157 k/mm3 (150-375); Red Blood Count 3.27 M/mm3 (4.6-6.20); Red Cell Distribution Width 16.3 % (11.5-14.5); White Blood Count 3.2 K/mm3 (4.5-10.0)
[2024-07-24 06:30] LABS: Alanine Aminotransferase 48 U/L (6-50); Albumin Level 3.7 g/dL (3.5-5.1); Alkaline Phosphatase 74 U/L (38-126); Anion Gap 9 mmol/L (4-12); Aspartate Amino Transferase 45 U/L (17-59); Bilirubin,Total 0.5 mg/dL (0.2-1.3); Blood Urea Nitrogen 32 mg/dL (9-20); Calcium 8.9 mg/dL (8.4-10.2); Carbon Dioxide 25 mmol/L (22-30); Chloride 106 mmol/L (98-107); Estimated CRCL calculation 43 ml/min; Estimated Glomerular Filt Rate 43; Glucose 95 mg/dL (65-110); Magnesium 1.8 mg/dL (1.6-2.3); Sodium 140 mmol/L (137-145)
--- NOTE | 2024-07-24 07:33 | ECG_ITS ---
Test Date: 2024-07-24 08:54:19 Measurements Intervals [place] Rate: 123 P: 6 IA: 184 QRS: -49 QRSD: 109 T: 102 QT: 309 QTc: 442 Interpretive Statements SINUS TACHYCARDIA WITH FIRST DEGREE AV BLOCK WITH OCCASIONAL VENTRICULAR PREMATURE COMPLEXES INCOMPLETE LEFT BUNDLE BRANCH BLOCK Compared to ECG 07/21/2024 21:20:15 Ventricular premature complex(es) now present Electronically Signed On 07-24-2024 10:10:33 CDT by Katelyn Grover M.D.
[2024-07-24] MEDS: carvediloL 6.25 MG TABLET PO ×2 (08:06→21:51)
[2024-07-24] MEDS: CALCIUM/VITAMIN D 500 MG/5 MCG (200 I.U.) TABLET PO ×2 (08:06→17:14)
[2024-07-24] MEDS: PANTOPRAZOLE 40 MG TABLET PO (08:07)
[2024-07-24] MEDS: HYDROCORTISONE SODIUM SUCCINATE 100 MG/2 ML VIAL IV PUSH (08:07)
[2024-07-24] MEDS: MEROPENEM 1 GM/NS 100 ML 1 GM/100 ML BAG IVPB ×2 (08:07→21:51)
[2024-07-24] MEDS: CHOLECALCIFEROL 1,000 UNITS TABLET 2000 UNITS PO (08:07)
[2024-07-24] MEDS: ENOXAPARIN 40 MG/0.4 ML SYRINGE SUB-Q (08:07)
[2024-07-24] MEDS: [UNRECOGNIZED DRUG - OTHER] BY MOUTH (08:08)
[2024-07-24] MEDS: FENOFIBRATE 160 MG BY MOUTH (08:08)
[2024-07-24 08:33] LABS: Lipase 288 U/L (23-300)
--- NOTE | 2024-07-24 09:07 | PM.IMPN ---
Progress Note: A&P Assessment and Plan (1) Septic shock: Code(s): A41.9 - Sepsis, unspecified organism; R65.21 - Severe sepsis with septic shock Status: Acute Assessment and Plan: Weaned Septic shock secondary to UTI. UA consistent of UTI and history CT scan reviewed Blood and urine culture have been sent and are negative was now He is allergic to ceftriaxone and was started on Levaquin which was later switched to meropenem after discussion with Infectious Disease pharmacist Levophed has been weaned off Decreased stress dose hydrocortisone to q.a.m. as patient is on prednisone as an outpatient Discontinue further IV fluid Echo reviewed and shows EF of 60-65% with diastolic dysfunction (2) Acute renal failure: Qualifiers: Acute renal failure type: unspecified Qualified Code(s): N17.9 - Acute kidney failure, unspecified Code(s): N17.9 - Acute kidney failure, unspecified Status: Acute Assessment and Plan: Patient was recently admitted and treated for acute kidney injury. Patient has elevated creatinine since 2022 and I suspect he has chronic kidney disease. His discharge creatinine was 1.65 and he presented today with 2.55 suggestive of ELIZABETH likely secondary to sepsis and septic shock Treated with IV fluids with for further IV fluids at this time. Monitor urine output electrolytes and creatinine Normal CK level CT scan reviewed and showed No acute pathology within the abdomen or pelvis. Redemonstration of a 10 mm calculus within the left kidney. Chronic left UPJ obstruction. Findings suggesting cystitis Hepatomegaly Patient was well by Urology and she as per urology note patient has a nonobstructing left renal stone and stable left chronic hydronephrosis. No intervention planned at this time. Creatinine improved to 1.5 Electrolytes are stable Nephrology consulted and follow (3) UTI (urinary tract infection): Qualifiers: Hematuria presence: without hematuria Urinary tract infection type: acute cystitis Qualified Code(s): N30.00 - Acute cystitis without hematuria Code(s): N39.0 - Urinary tract infection, site not specified Status: Acute Assessment and Plan: See above (4) LFT elevation: Code(s): R79.89 - Other specified abnormal findings of blood chemistry Status: Acute Assessment and Plan: Presented with elevated AST and ALT I suspect this is secondary to shock liver He had normal less than 2 months ago Right upper quadrant ultrasound showed hepatic steatosis Hold statin LFTs are improving (5) Tachycardia: Code(s): R00.0 - Tachycardia, unspecified Status: Acute Assessment and Plan: TSH normal Sinus tachycardia since last night. EKG done and reviewed Resume patient's home Coreg Plan DVT prophylaxis -Lovenox Stress ulcer prophylaxis -Protonix Nutrition -diet ordered Full code Incentive spirometry and up in chair Subjective Date/time seen: 07/24/24 Overnight events reviewed. Afebrile. Denies any complaints On nasal can Tachycardic this morning Patient denies fever, chest pain, shortness of breath, cough, nausea vomiting, abdominal pain,, diarrhea, headache or constipation. All other systems were reviewed and were negative Improved urine output Other Vitals acceptable Tolerating p.o. diet Review of Systems Review of Systems: All systems reviewed & are unremarkable except as noted in HPI and below (HPI) Exam Narrative: General: Pt is alert awake and in NAD Lungs/Chest: Trachea central Clear BS B/L, No crackles or wheezing. Cardiac: RRR. Normal S1 S2. No murmurs Circulation: Pedal pulses are intact and symmetrical. Abdomen: Normal bowel sounds.. Soft. NT. ND. Extremities: No clubbing, cyanosis or edema. Warm : NAD Neurologic: Follows commands. Moves all 4 extremities PERRL AO x3 Skin: No Rash Objective Data Vital Signs Vital Signs: Vital Signs - 24 hr 07/23/24 10:00 07/23/24 10:07/23/24 12:00 Temperature 36.3 C L Pulse Rate 84 84 88 Respiratory Rate 18 22 H Blood Pressure 129/73 125/76 Pulse Oximetry 98 93 Oxygen Delivery Oxygen Flow Rate Fraction of Inspired Oxygen 07/23/24 12:00 07/23/24 12:00 07/23/24 14:00 Temperature Pulse Rate 88 87 87 Respiratory Rate 18 Blood Pressure Pulse Oximetry 97 Oxygen Delivery Room Air Oxygen Flow Rate Fraction of Inspired Oxygen 07/23/24 14:00 07/23/24 16:00 07/23/24 16:00 Temperature 36.4 C L Pulse Rate 84 86 84 Respiratory Rate 24 H 22 H Blood Pressure 132/74 114/78 Pulse Oximetry 96 100 Oxygen Delivery Oxygen Flow Rate Fraction of Inspired Oxygen 07/23/24 16:00 07/23/24 18:00 07/23/24 18:00 Temperature Pulse Rate 90 90 89 Respiratory Rate 23 H 25 H Blood Pressure 114/78 Pulse Oximetry 97 98 Oxygen Delivery Room Air Oxygen Flow Rate Fraction of Inspired Oxygen 07/23/24 20:00 07/23/24 20:00 07/23/24 20:15 Temperature 36.6 C Pulse Rate 86 86 89 Respiratory Rate 25 H 23 H Blood Pressure 147/93 H Pulse Oximetry 100 99 Oxygen Delivery Room Air Oxygen Flow Rate Fraction of Inspired Oxygen 07/23/24 21:19 07/23/24 22:00 07/23/24 22:00 Temperature Pulse Rate 85 84 83 Respiratory Rate 18 Blood Pressure 147/93 H Pulse Oximetry 98 94 Oxygen Delivery Room Air Oxygen Flow Rate Fraction of Inspired Oxygen 21 07/23/24 23:30 07/24/24 00:00 07/24/24 00:00 Temperature 36.8 C Pulse Rate 93 93 95 Respiratory Rate 22 H 18 Blood Pressure 143/82 H Pulse Oximetry 94 93 Oxygen Delivery Room Air Oxygen Flow Rate Fraction of Inspired Oxygen 07/24/24 02:00 07/24/24 04:00 07/24/24 04:00 Temperature 36.6 C Pulse Rate 109 H 120 H 120 H Respiratory Rate 22 H Blood Pressure 162/88 H Pulse Oximetry 95 Oxygen Delivery Oxygen Flow Rate Fraction of Inspired Oxygen 07/24/24 04:25 07/24/24 06:00 07/24/24 08:00 Temperature Pulse Rate 119 H 123 H 123 H Respiratory Rate 22 H 27 H Blood Pressure Pulse Oximetry 95 95 Oxygen Delivery Room Air Nasal Cannula Oxygen Flow Rate 3 Fraction of Inspired Oxygen 21 07/24/24 08:00 07/24/24 08:06 Temperature 37.2 C Pulse Rate 122 H 128 H Respiratory Rate 28 H Blood Pressure 123/65 Pulse Oximetry 95 Oxygen Delivery Oxygen Flow Rate Fraction of Inspired Oxygen Intake/Output Intake/Output: Intake & Output 07/21/24 07/22/24 07/23/24 07/24/24 23:59 23:59 23:59 23:59 Intake Total 6101.1 3360 590 Output Total 1450 3100 1100 Balance 4651.1 260 -510 Meds/Results Medications: Active Medications Generic Name Dose Route Start Last Admin Trade Name Freq PRN Reason Stop Dose Admin Alendronate Sodium 70 mg 07/25/24 06:30 Alendronate Sodium 70 Mg Tablet PO WEEKLY@0630 [facility] Calcium Carbonate 500 mg 07/22/24 09:00 07/24/24 08:06 Calcium/Vitamin D 500 Mg/5 Mcg (200 I.U.) Tablet PO 500 mg BID ANOOP Administration Carvedilol 6.25 mg 07/24/24 09:00 07/24/24 08:06 Carvedilol 6.25 Mg Tablet PO 6.25 mg Q12HR ANOOP Administration Enoxaparin Sodium 40 mg 07/22/24 09:00 07/24/24 08:07 Enoxaparin 40 Mg/0.4 Ml Syringe SUB-Q 40 mg DAILY ANOOP Administration Gabapentin 800 mg 07/22/24 21:00 07/23/24 20:30 Gabapentin 400 Mg Capsule PO 800 mg QHS ANOOP Administration Hydrocortisone Sodium Succinate 100 mg 07/24/24 09:00 07/24/24 08:07 Hydrocortisone Sodium Succinate 100 Mg/2 Ml Vial IV PUSH 100 mg QAM ANOOP Administration Meropenem 1 gm in 100 mls @ 200 mls/hr 07/22/24 11:00 07/24/24 08:07 IVPB 200 mls/hr Q12HR ANOOP Administration Melatonin 10 mg 07/22/24 04:50 07/23/24 22:17 Melatonin 5 Mg Tablet PO 10 mg HS PRN Administration Insomnia Miscellaneous Information 1 each 07/22/24 00:01 07/23/24 03:39 Pyridoxine 500 Mg Tablet Nonformulary, We Do Carry 50 Mg Tablets But Pt Would Have To Take XX 08/21/24 00:00 Not Given CLARIFY ANOOP Nonformulary Drug 0 mg 07/22/24 09:00 07/24/24 08:08 Fenofibrate 160 Mg BY MOUTH 08/21/24 08:59 160 mg Tablet DAILY ANOOP Administration Non-Formulary Medication 500 mg 07/22/24 09:00 Pyridoxine (Vitamin B6) PO 08/21/24 08:59 DAILY ANOOP Pantoprazole Sodium 40 mg 07/22/24 09:00 07/24/24 08:07 Pantoprazole 40 Mg Tablet PO 40 mg Q48H ANOOP Administration Perflutren Lipid Microsphere 0 ml 07/22/24 08:38 Perflutren Lipid Microspheres 1.5 Ml Vial Diluted To 10 Ml Total Volume IV PUSH 07/25/24 08:38 ONCE PRN adequate visualization Protocol Sodium Chloride 10 ml 07/22/24 22:00 07/24/24 06:02 Central Line Flush IV PUSH 10 ml Q8HR ANOOP Administration Sodium Chloride 20 ml 07/22/24 20:38 Central Line Flush IV PUSH PRN PRN after blood draws Vitamin D 2,000 units 07/22/24 09:00 07/24/24 08:07 Cholecalciferol 1,000 Units Tablet PO 2,000 units DAILY ANOOP Administration Radiology Results: ITS Impressions Abdomen/Pelvis CT 07/21/24 23:33 IMPRESSION: No acute pathology within the abdomen or pelvis. Redemonstration of a 10 mm calculus within the left kidney. Chronic left UPJ obstruction. Findings suggesting cystitis Hepatomegaly Chest X-Ray 07/22/24 01:07 IMPRESSION: Interval placement of a left internal jugular central venous catheter, in position and ready for immediate use. Abdomen Ultrasound 07/22/24 09:47 IMPRESSION: 1. Diffuse hepatic steatosis. Renal Ultrasound 07/23/24 16:18 IMPRESSION: No hydronephrosis or renal calculi. Findings suggesting medical renal disease. Labs Labs: Laboratory Results - last 24 hr 07/23/24 07/23/24 07/24/24 09:28 17:52 06:06 WBC 1.8 L* 3.2 L RBC 3.60 L 3.27 L Hgb 9.9 L 9.1 L Hct 32.2 L 29.3 L MCV 89.4 89.6 MCH 27.5 27.8 MCHC 30.7 L 31.1 L RDW 15.9 H 16.3 H Plt Count 152 157 MPV 8.5 9.2 Sodium 140 Potassium 4.0 Chloride 106 Carbon Dioxide 25 Anion Gap 9 BUN 32 H Creatinine 1.56 H Estim Creat Clear Calc 43 Estimated GFR 43 L Glucose 95 Calcium 8.9 Magnesium 1.8 Total Bilirubin 0.5 AST 45 ALT 48 Alkaline Phosphatase 74 Total Protein 6.0 L Albumin 3.7 Lipase Urine Eosinophils None seen U Random Total Protein 15 Urine Creatinine 61.4 Protein/Creat Ratio 2 0.24 H 07/24/24 08:04 WBC RBC Hgb Hct MCV MCH MCHC RDW Plt Count MPV Sodium Potassium Chloride Carbon Dioxide Anion Gap BUN Creatinine Estim Creat Clear Calc Estimated GFR Glucose Calcium Magnesium Total Bilirubin AST ALT Alkaline Phosphatase Total Protein Albumin Lipase 288 Urine Eosinophils U Random Total Protein Urine Creatinine Protein/Creat Ratio 2 Quality VTE Prophylaxis VTE prophylaxis: pharmacologic ordered
--- NOTE | 2024-07-24 12:35 | P.PNNP_ITS ---
Subjective Date/time seen: 07/24/24 12:35 Interval history: Follow-up for acute kidney injury/acute renal failure on chronic kidney disease. Exam 2 Narrative: General: elderly but WD/WN male in NAD Heart: normal S1 and S2; no rub Lungs: clear anteriolry Abdomen: soft, nontender, nondistended, positive bowel sounds Extremities: no cyanosis or clubbing; no edema Skin: warm and dry Objective Data Vital Signs Vital Signs: Vital Signs Temp Pulse Resp BP Pulse Ox O2 Del Method O2 Flow Rate 07/24/24 12:00 97.9 F 105 H 26 H 117/80 93 07/24/24 10:00 110 H 07/24/24 08:06 128 H 07/24/24 08:00 134 H 07/24/24 08:00 99 F 122 H 28 H 123/65 95 07/24/24 08:00 123 H 27 H 95 Nasal Cannula 3 07/24/24 06:00 123 H 07/24/24 04:25 119 H 22 H 95 Room Air 07/24/24 04:00 120 H 07/24/24 04:00 98 F 120 H 22 H 162/88 H 95 07/24/24 02:00 109 H 07/24/24 00:00 95 07/24/24 00:00 98.2 F 93 18 143/82 H 93 07/23/24 23:30 93 22 H 94 Room Air 07/23/24 22:00 83 18 147/93 H 94 07/23/24 22:00 84 07/23/24 21:19 85 98 Room Air 07/23/24 20:15 89 23 H 99 Room Air 07/23/24 20:00 97.9 F 86 25 H 147/93 H 100 07/23/24 20:00 86 07/23/24 18:00 89 25 H 114/78 98 07/23/24 18:00 90 Intake/Output Intake/Output: Intake & Output 07/21/24 07/22/24 07/23/24 07/24/24 23:59 23:59 23:59 23:59 Intake Total 6101.1 3360 810 Output Total 1450 3100 1100 Balance 4651.1 260 -290 Meds/Results Medications: Active Medications Generic Name Dose Route Start Last Admin Trade Name Freq PRN Reason Stop Dose Admin Alendronate Sodium 70 mg 07/25/24 06:30 Alendronate Sodium 70 Mg Tablet PO WEEKLY@0630 ANOOP Calcium Carbonate 500 mg 07/22/24 09:00 07/24/24 17:14 Calcium/Vitamin D 500 Mg/5 Mcg (200 I.U.) Tablet PO 500 mg BID ANOOP Administration Carvedilol 6.25 mg 07/24/24 09:00 07/24/24 08:06 Carvedilol 6.25 Mg Tablet PO 6.25 mg Q12HR ANOOP Administration Enoxaparin Sodium 40 mg 07/22/24 09:00 07/24/24 08:07 Enoxaparin 40 Mg/0.4 Ml Syringe SUB-Q 40 mg DAILY ANOOP Administration Gabapentin 800 mg 07/22/24 21:00 07/23/24 20:30 Gabapentin 400 Mg Capsule PO 800 mg QHS ANOOP Administration Hydrocortisone Sodium Succinate 100 mg 07/24/24 09:00 07/24/24 08:07 Hydrocortisone Sodium Succinate 100 Mg/2 Ml Vial IV PUSH 100 mg QAM ANOOP Administration Meropenem 1 gm in 100 mls @ 200 mls/hr 07/22/24 11:00 07/24/24 08:37 IVPB Infused Q12HR ANOOP Infusion Melatonin 10 mg 07/22/24 04:50 07/23/24 22:17 Melatonin 5 Mg Tablet PO 10 mg HS PRN Administration Insomnia Nonformulary Drug 0 mg 07/22/24 09:00 07/24/24 08:08 Fenofibrate 160 Mg BY MOUTH 08/21/24 08:59 160 mg Tablet DAILY ANOOP Administration Pantoprazole Sodium 40 mg 07/22/24 09:00 07/24/24 08:07 Pantoprazole 40 Mg Tablet PO 40 mg Q48H ANOOP Administration Perflutren Lipid Microsphere 0 ml 07/22/24 08:38 Perflutren Lipid Microspheres 1.5 Ml Vial Diluted To 10 Ml Total Volume IV PUSH 07/25/24 08:38 ONCE PRN adequate visualization Protocol Sodium Chloride 10 ml 07/22/24 22:00 07/24/24 14:05 Central Line Flush IV PUSH 10 ml Q8HR ANOOP Administration Sodium Chloride 20 ml 07/22/24 20:38 Central Line Flush IV PUSH PRN PRN after blood draws Vitamin D 2,000 units 07/22/24 09:00 07/24/24 08:07 Cholecalciferol 1,000 Units Tablet PO 2,000 units DAILY ANOOP Administration Radiology Results: ITS Impressions Abdomen/Pelvis CT 07/21/24 23:33 IMPRESSION: No acute pathology within the abdomen or pelvis. Redemonstration of a 10 mm calculus within the left kidney. Chronic left UPJ obstruction. Findings suggesting cystitis Hepatomegaly Chest X-Ray 07/22/24 01:07 IMPRESSION: Interval placement of a left internal jugular central venous catheter, in position and ready for immediate use. Abdomen Ultrasound 07/22/24 09:47 IMPRESSION: 1. Diffuse hepatic steatosis. Renal Ultrasound 07/23/24 16:18 IMPRESSION: No hydronephrosis or renal calculi. Findings suggesting medical renal disease. Labs Labs: Laboratory Tests 07/24/24 06:06 07/24/24 06:06 Calcium 8.9 Magnesium 1.8 Total Bilirubin 0.5 AST 45 ALT 48 Alkaline Phosphatase 74 Total Protein 6.0 L Albumin 3.7
--- NOTE | 2024-07-24 16:36 | PM.IMPN ---
Progress Note: A&P Assessment and Plan (1) Septic shock: Code(s): A41.9 - Sepsis, unspecified organism; R65.21 - Severe sepsis with septic shock Status: Acute Assessment and Plan: Weaned Septic shock secondary to UTI. UA consistent of UTI and history CT scan reviewed Blood and urine culture have been sent and are negative was now He is allergic to ceftriaxone and was started on Levaquin which was later switched to meropenem after discussion with Infectious Disease pharmacist Levophed has been weaned off Decreased stress dose hydrocortisone to q.a.m. as patient is on prednisone as an outpatient Discontinue further IV fluid Echo reviewed and shows EF of 60-65% with diastolic dysfunction (2) Acute renal failure: Qualifiers: Acute renal failure type: unspecified Qualified Code(s): N17.9 - Acute kidney failure, unspecified Code(s): N17.9 - Acute kidney failure, unspecified Status: Acute Assessment and Plan: Patient was recently admitted and treated for acute kidney injury. Patient has elevated creatinine since 2022 and I suspect he has chronic kidney disease. His discharge creatinine was 1.65 and he presented today with 2.55 suggestive of ELIZABETH likely secondary to sepsis and septic shock Treated with IV fluids with for further IV fluids at this time. Monitor urine output electrolytes and creatinine Normal CK level CT scan reviewed and showed No acute pathology within the abdomen or pelvis. Redemonstration of a 10 mm calculus within the left kidney. Chronic left UPJ obstruction. Findings suggesting cystitis Hepatomegaly Patient was well by Urology and she as per urology note patient has a nonobstructing left renal stone and stable left chronic hydronephrosis. No intervention planned at this time. Creatinine improved to 1.5 Electrolytes are stable Nephrology consulted and follow (3) UTI (urinary tract infection): Qualifiers: Hematuria presence: without hematuria Urinary tract infection type: acute cystitis Qualified Code(s): N30.00 - Acute cystitis without hematuria Code(s): N39.0 - Urinary tract infection, site not specified Status: Acute Assessment and Plan: See above (4) LFT elevation: Code(s): R79.89 - Other specified abnormal findings of blood chemistry Status: Acute Assessment and Plan: Presented with elevated AST and ALT I suspect this is secondary to shock liver He had normal less than 2 months ago Right upper quadrant ultrasound showed hepatic steatosis Hold statin LFTs are improving (5) Tachycardia: Code(s): R00.0 - Tachycardia, unspecified Status: Acute Assessment and Plan: TSH normal Sinus tachycardia since last night. EKG done and reviewed Resume patient's home Coreg Plan Patient is off Levophed, patient serum creatinine was elevated upon arrival 2.55 patient last serum cratinine was 1.65, patient was hypotensive and most likely due to hypoperfusion, and was placed on Levophed and his blood pressure has now improved and off Levophed, patient is discharge from ICU to IMU, patient is seen by Telephoto Installer, patient with history for leukopenia, seen by logger driving horses and being treated with steroids. steroids were resumed, white counts are trending up, urine and blood culture are so far no growth, patient remains clinically and stats feeling much better compare to when he arrived. patient is present and gave updates. DVT prophylaxis -Lovenox Stress ulcer prophylaxis -Protonix Nutrition -diet ordered Full code Incentive spirometry and up in chair Subjective Date/time seen: 07/24/24 16:36 Interval history: Patient is off Levophed, patient serum creatinine was elevated upon arrival 2.55 patient last serum cratinine was 1.65, patient was hypotensive and most likely due to hypoperfusion, and was placed on Levophed and his blood pressure has now improved and off Levophed, patient is discharge from ICU to IMU, patient is seen by Telephoto Installer, patient with history for leukopenia, seen by logger driving horses and being treated with steroids. steroids were resumed, white counts are trending up, urine and blood culture are so far no growth, patient remains clinically and stats feeling much better compare to when he arrived. patient is present and gave updates. Review of Systems Review of Systems: All systems reviewed & are unremarkable except as noted in HPI and below (HPI) Exam Narrative: Patient is comfortable, NAD HEENT: eyes are clear and none icteric LUNGS:CTA HEART: RR S1S2 ABD: BS+, Soft and nontender Lower extremities: no edema SKIN: nonjaundiced Neuro: grossly intact. Objective Data Vital Signs Vital Signs: Vital Signs - 24 hr 07/23/24 18:00 07/23/24 18:00 07/23/24 20:00 Temperature Pulse Rate 90 89 86 Respiratory Rate 25 H Blood Pressure 114/78 Pulse Oximetry 98 Oxygen Delivery Oxygen Flow Rate Fraction of Inspired Oxygen 07/23/24 20:00 07/23/24 20:15 07/23/24 21:19 Temperature 36.6 C Pulse Rate 86 89 85 Respiratory Rate 25 H 23 H Blood Pressure 147/93 H Pulse Oximetry 100 99 98 Oxygen Delivery Room Air Room Air Oxygen Flow Rate Fraction of Inspired Oxygen 21 07/23/24 22:00 07/23/24 22:00 07/23/24 23:30 Temperature Pulse Rate 84 83 93 Respiratory Rate 18 22 H Blood Pressure 147/93 H Pulse Oximetry 94 94 Oxygen Delivery Room Air Oxygen Flow Rate Fraction of Inspired Oxygen 07/24/24 00:00 07/24/24 00:00 07/24/24 02:00 Temperature 36.8 C Pulse Rate 93 95 109 H Respiratory Rate 18 Blood Pressure 143/82 H Pulse Oximetry 93 Oxygen Delivery Oxygen Flow Rate Fraction of Inspired Oxygen 07/24/24 04:00 07/24/24 04:00 07/24/24 04:25 Temperature 36.6 C Pulse Rate 120 H 120 H 119 H Respiratory Rate 22 H 22 H Blood Pressure 162/88 H Pulse Oximetry 95 95 Oxygen Delivery Room Air Oxygen Flow Rate Fraction of Inspired Oxygen 21 07/24/24 06:00 07/24/24 08:00 07/24/24 08:00 Temperature 37.2 C Pulse Rate 123 H 123 H 122 H Respiratory Rate 27 H 28 H Blood Pressure 123/65 Pulse Oximetry 95 95 Oxygen Delivery Nasal Cannula Oxygen Flow Rate 3 Fraction of Inspired Oxygen 07/24/24 08:00 07/24/24 08:06 07/24/24 10:00 Temperature Pulse Rate 134 H 128 H 110 H Respiratory Rate Blood Pressure Pulse Oximetry Oxygen Delivery Oxygen Flow Rate Fraction of Inspired Oxygen 07/24/24 12:00 07/24/24 12:00 07/24/24 12:00 Temperature 36.6 C Pulse Rate 105 H 105 H 91 Respiratory Rate 26 H 28 H Blood Pressure 117/80 Pulse Oximetry 93 97 Oxygen Delivery Nasal Cannula Oxygen Flow Rate 1 Fraction of Inspired Oxygen 07/24/24 14:00 07/24/24 14:06 Temperature Pulse Rate 90 Respiratory Rate Blood Pressure Pulse Oximetry Oxygen Delivery Room Air Oxygen Flow Rate Fraction of Inspired Oxygen Intake/Output Intake/Output: Intake & Output 07/21/24 07/22/24 07/23/24 07/24/24 23:59 23:59 23:59 23:59 Intake Total 6101.1 3360 810 Output Total 1450 3100 1100 Balance 4651.1 260 -290 Meds/Results Medications: Active Medications Generic Name Dose Route Start Last Admin Trade Name Freq PRN Reason Stop Dose Admin Alendronate Sodium 70 mg 07/25/24 06:30 Alendronate Sodium 70 Mg Tablet PO WEEKLY@0630 ANOOP Calcium Carbonate 500 mg 07/22/24 09:00 07/24/24 08:06 Calcium/Vitamin D 500 Mg/5 Mcg (200 I.U.) Tablet PO 500 mg BID ANOOP Administration Carvedilol 6.25 mg 07/24/24 09:00 07/24/24 08:06 Carvedilol 6.25 Mg Tablet PO 6.25 mg Q12HR ANOOP Administration Enoxaparin Sodium 40 mg 07/22/24 09:00 07/24/24 08:07 Enoxaparin 40 Mg/0.4 Ml Syringe SUB-Q 40 mg DAILY ANOOP Administration Gabapentin 800 mg 07/22/24 21:00 07/23/24 20:30 Gabapentin 400 Mg Capsule PO 800 mg QHS ANOOP Administration Hydrocortisone Sodium Succinate 100 mg 07/24/24 09:00 07/24/24 08:07 Hydrocortisone Sodium Succinate 100 Mg/2 Ml Vial IV PUSH 100 mg QAM ANOOP Administration Meropenem 1 gm in 100 mls @ 200 mls/hr 07/22/24 11:00 07/24/24 08:37 IVPB Infused Q12HR ANOOP Infusion Melatonin 10 mg 07/22/24 04:50 07/23/24 22:17 Melatonin 5 Mg Tablet PO 10 mg HS PRN Administration Insomnia Miscellaneous Information 1 each 07/22/24 00:01 07/23/24 03:39 Pyridoxine 500 Mg Tablet Nonformulary, We Do Carry 50 Mg Tablets But Pt Would Have To Take XX 08/21/24 00:00 Not Given [facility] Nonformulary Drug 0 mg 07/22/24 09:00 07/24/24 08:08 Fenofibrate 160 Mg BY MOUTH 08/21/24 08:59 160 mg Tablet DAILY ANOOP Administration Non-Formulary Medication 500 mg 07/22/24 09:00 Pyridoxine (Vitamin B6) PO 08/21/24 08:59 DAILY [facility] Pantoprazole Sodium 40 mg 07/22/24 09:00 07/24/24 08:07 Pantoprazole 40 Mg Tablet PO 40 mg Q48H ANOOP Administration Perflutren Lipid Microsphere 0 ml 07/22/24 08:38 Perflutren Lipid Microspheres 1.5 Ml Vial Diluted To 10 Ml Total Volume IV PUSH 07/25/24 08:38 ONCE PRN adequate visualization Protocol Sodium Chloride 10 ml 07/22/24 22:00 07/24/24 14:05 Central Line Flush IV PUSH 10 ml Q8HR ANOOP Administration Sodium Chloride 20 ml 07/22/24 20:38 Central Line Flush IV PUSH PRN PRN after blood draws Vitamin D 2,000 units 07/22/24 09:00 07/24/24 08:07 Cholecalciferol 1,000 Units Tablet PO 2,000 units DAILY ANOOP Administration Radiology Results: ITS Impressions Abdomen/Pelvis CT 07/21/24 23:33 IMPRESSION: No acute pathology within the abdomen or pelvis. Redemonstration of a 10 mm calculus within the left kidney. Chronic left UPJ obstruction. Findings suggesting cystitis Hepatomegaly Chest X-Ray 07/22/24 01:07 IMPRESSION: Interval placement of a left internal jugular central venous catheter, in position and ready for immediate use. Abdomen Ultrasound 07/22/24 09:47 IMPRESSION: 1. Diffuse hepatic steatosis. Renal Ultrasound 07/23/24 16:18 IMPRESSION: No hydronephrosis or renal calculi. Findings suggesting medical renal disease. Labs Labs: Laboratory Results - last 24 hr 07/23/24 07/24/24 07/24/24 17:52 06:06 08:04 WBC 3.2 L RBC 3.27 L Hgb 9.1 L Hct 29.3 L MCV 89.6 MCH 27.8 MCHC 31.1 L RDW 16.3 H Plt Count 157 MPV 9.2 Sodium 140 Potassium 4.0 Chloride 106 Carbon Dioxide 25 Anion Gap 9 BUN 32 H Creatinine 1.56 H Estim Creat Clear Calc 43 Estimated GFR 43 L Glucose 95 Calcium 8.9 Magnesium 1.8 Total Bilirubin 0.5 AST 45 ALT 48 Alkaline Phosphatase 74 Total Protein 6.0 L Albumin 3.7 Lipase 288 TSH (Reflex) 1.590 Urine Eosinophils None seen U Random Total Protein 15 Urine Creatinine 61.4 Protein/Creat Ratio 2 0.24 H Quality VTE Prophylaxis VTE prophylaxis: pharmacologic ordered
--- NOTE | 2024-07-24 18:02 | PC.NURSE ---
Report given to Shefali Galicia RN @ [id number] (bedside handoff) all patient belongings and documentation sent with patient to IMU room 209.
[2024-07-24] MEDS: GABAPENTIN 400 MG CAPSULE 800 MG PO (21:51)
[2024-07-24] MEDS: MELATONIN 5 MG TABLET 10 MG PO (22:58)
[2024-07-25] VITALS (12 sets, daily range): BP systolic 112–140; BP diastolic 65–87; PULSE 67–84; RESP 18–22; TEMP 36.4–36.8; O2SAT 94–96
[2024-07-25 04:49] LABS: Hematocrit 26.8 % (42.0-52.0); Hemoglobin 8.4 g/dL (14.0-18.0); Mean Corpuscular HGB Conc 31.3 g/dl (32-36); Mean Corpuscular Hemoglobin 27.7 pg (26-34); Mean Corpuscular Volume 88.4 fl (80-100); Mean Platelet Volume 9.1 fl (7.4-10.4); Platelet Count Result 143 k/mm3 (150-375); Red Blood Count 3.03 M/mm3 (4.6-6.20); Red Cell Distribution Width 16.4 % (11.5-14.5); White Blood Count 2.6 K/mm3 (4.5-10.0)
[2024-07-25 05:00] LABS: Alanine Aminotransferase 39 U/L (6-50); Albumin Level 3.5 g/dL (3.5-5.1); Alkaline Phosphatase 65 U/L (38-126); Anion Gap 5 mmol/L (4-12); Aspartate Amino Transferase 28 U/L (17-59); Bilirubin,Total 0.9 mg/dL (0.2-1.3); Blood Urea Nitrogen 29 mg/dL (9-20); Calcium 8.9 mg/dL (8.4-10.2); Carbon Dioxide 30 mmol/L (22-30); Chloride 104 mmol/L (98-107); Estimated CRCL calculation 51 ml/min; Estimated Glomerular Filt Rate 52; Glucose 102 mg/dL (65-110); Magnesium 1.9 mg/dL (1.6-2.3); Potassium 3.7 mmol/L (3.4-5.0); Sodium 139 mmol/L (137-145)
[2024-07-25] MEDS: carvediloL 6.25 MG TABLET PO (09:17)
[2024-07-25] MEDS: HYDROCORTISONE SODIUM SUCCINATE 100 MG/2 ML VIAL IV PUSH (09:17)
[2024-07-25] MEDS: CALCIUM/VITAMIN D 500 MG/5 MCG (200 I.U.) TABLET PO ×2 (09:17→16:28)
[2024-07-25] MEDS: CHOLECALCIFEROL 1,000 UNITS TABLET 2000 UNITS PO (09:17)
[2024-07-25] MEDS: MEROPENEM 1 GM/NS 100 ML 1 GM/100 ML BAG IVPB (09:18)
[2024-07-25] MEDS: [UNRECOGNIZED DRUG - OTHER] BY MOUTH (09:18)
[2024-07-25] MEDS: ENOXAPARIN 40 MG/0.4 ML SYRINGE SUB-Q (09:18)
[2024-07-25] MEDS: FENOFIBRATE 160 MG BY MOUTH (09:18)
--- NOTE | 2024-07-25 10:34 | P.PNNP_ITS ---
Subjective Date/time seen: 07/25/24 10:34 Objective Data Vital Signs Vital Signs: Vital Signs Temp Pulse Resp BP Pulse Ox O2 Del Method O2 Flow Rate 07/25/24 10:48 Room Air 07/25/24 10:00 75 07/25/24 09:17 74 07/25/24 08:00 81 07/25/24 08:00 98.3 F 67 22 H 130/67 95 07/25/24 06:00 70 07/25/24 04:38 69 20 95 Room Air 07/25/24 04:00 69 07/25/24 04:00 98.1 F 69 20 112/68 95 07/25/24 02:00 69 07/25/24 00:37 72 18 96 Room Air 07/25/24 00:00 70 07/25/24 00:00 97.7 F 72 18 116/65 96 07/24/24 22:00 78 07/24/24 21:51 78 07/24/24 21:10 78 91 Room Air 07/24/24 20:35 80 20 96 Room Air 07/24/24 20:00 85 07/24/24 20:00 97.5 F L 80 20 129/75 96 07/24/24 18:00 80 07/24/24 16:00 91 28 H 97 Nasal Cannula 1 07/24/24 16:00 98.2 F 86 24 H 118/76 95 07/24/24 16:00 79 Intake/Output Intake/Output: Intake & Output 07/22/24 07/23/24 07/24/24 07/25/24 23:59 23:59 23:59 23:59 Intake Total 6101.1 3360 1880 880 Output Total 1450 3100 3000 600 Balance 4651.1 260 -1120 280 Meds/Results Medications: Active Medications Generic Name Dose Route Start Last Admin Trade Name Freq PRN Reason Stop Dose Admin Alendronate Sodium 70 mg 07/25/24 06:30 07/25/24 06:15 Alendronate Sodium 70 Mg Tablet PO Not Given WEEKLY@0630 [facility] Amoxicillin/Clavulanate Potassium 1 tablet 07/25/24 21:00 Amoxicillin/Clavulanate K 875-125 Mg Tab PO 07/28/24 21:01 Q12HR [facility] Calcium Carbonate 500 mg 07/22/24 09:00 07/25/24 09:17 Calcium/Vitamin D 500 Mg/5 Mcg (200 I.U.) Tablet PO 500 mg BID ANOOP Administration Carvedilol 6.25 mg 07/24/24 09:00 07/25/24 09:17 Carvedilol 6.25 Mg Tablet PO 6.25 mg Q12HR ANOOP Administration Enoxaparin Sodium 40 mg 07/22/24 09:00 07/25/24 09:18 Enoxaparin 40 Mg/0.4 Ml Syringe SUB-Q 40 mg DAILY ANOOP Administration Gabapentin 800 mg 07/22/24 21:00 07/24/24 21:51 Gabapentin 400 Mg Capsule PO 800 mg QHS ANOOP Administration Hydrocortisone Sodium Succinate 100 mg 07/24/24 09:00 07/25/24 09:17 Hydrocortisone Sodium Succinate 100 Mg/2 Ml Vial IV PUSH 100 mg QAM ANOOP Administration Melatonin 10 mg 07/22/24 04:50 07/24/24 22:58 Melatonin 5 Mg Tablet PO 10 mg HS PRN Administration Insomnia Nonformulary Drug 0 mg 07/22/24 09:00 07/25/24 09:18 Fenofibrate 160 Mg BY MOUTH 08/21/24 08:59 160 mg Tablet DAILY ANOOP Administration Pantoprazole Sodium 40 mg 07/22/24 09:00 07/24/24 08:07 Pantoprazole 40 Mg Tablet PO 40 mg Q48H ANOOP Administration Vitamin D 2,000 units 07/22/24 09:00 07/25/24 09:17 Cholecalciferol 1,000 Units Tablet PO 2,000 units DAILY ANOOP Administration Radiology Results: ITS Impressions Abdomen/Pelvis CT 07/21/24 23:33 IMPRESSION: No acute pathology within the abdomen or pelvis. Redemonstration of a 10 mm calculus within the left kidney. Chronic left UPJ obstruction. Findings suggesting cystitis Hepatomegaly Chest X-Ray 07/22/24 01:07 IMPRESSION: Interval placement of a left internal jugular central venous catheter, in position and ready for immediate use. Abdomen Ultrasound 07/22/24 09:47 IMPRESSION: 1. Diffuse hepatic steatosis. Renal Ultrasound 07/23/24 16:18 IMPRESSION: No hydronephrosis or renal calculi. Findings suggesting medical renal disease. Labs Labs: Laboratory Tests 07/25/24 04:24 07/25/24 04:24 Calcium 8.9 Magnesium 1.9 Total Bilirubin 0.9 AST 28 ALT 39 Alkaline Phosphatase 65 Total Protein 6.0 L Albumin 3.5
--- NOTE | 2024-07-25 15:15 | P.PNIM_ITS ---
Progress Note: A&P Assessment and Plan (1) Septic shock: Code(s): A41.9 - Sepsis, unspecified organism; R65.21 - Severe sepsis with septic shock Status: Acute Assessment and Plan: Weaned Septic shock secondary to UTI. UA consistent of UTI and history CT scan reviewed Blood and urine culture have been sent and are negative was now He is allergic to ceftriaxone and was started on Levaquin which was later swi tched to meropenem after discussion with Infectious Disease pharmacist Levophed has been weaned off Decreased stress dose hydrocortisone to q.a.m. as patient is on prednisone as an outpatient Discontinue further IV fluid Echo reviewed and shows EF of 60-65% with diastolic dysfunction (2) Acute renal failure: Qualifiers: Acute renal failure type: unspecified Qualified Code(s): N17.9 - Acute kidney failure, unspecified Code(s): N17.9 - Acute kidney failure, unspecified Status: Acute Assessment and Plan: Patient was recently admitted and treated for acute kidney injury. Patient has elevated creatinine since 2022 and I suspect he has chronic kidney disease. His discharge creatinine was 1.65 and he presented today with 2.55 suggestive of ELIZABETH likely secondary to sepsis and septic shock Treated with IV fluids with for further IV fluids at this time. Monitor urine output electrolytes and creatinine Normal CK level CT scan reviewed and showed No acute pathology within the abdomen or pelvis. Redemonstration of a 10 mm calculus within the left kidney. Chronic left UPJ obstruction. Findings suggesting cystitis Hepatomegaly Patient was well by Urology and she as per urology note patient has a nonobstructing left renal stone and stable left chronic hydronephrosis. No intervention planned at this time. Creatinine improved to 1.5 Electrolytes are stable Nephrology consulted and follow (3) UTI (urinary tract infection): Qualifiers: Hematuria presence: without hematuria Urinary tract infection type: acute cystitis Qualified Code(s): N30.00 - Acute cystitis without hematuria Code(s): N39.0 - Urinary tract infection, site not specified Status: Acute Assessment and Plan: See above (4) LFT elevation: Code(s): R79.89 - Other specified abnormal findings of blood chemistry Status: Acute Assessment and Plan: Presented with elevated AST and ALT I suspect this is secondary to shock liver He had normal less than 2 months ago Right upper quadrant ultrasound showed hepatic steatosis Hold statin LFTs are improving (5) Tachycardia: Code(s): R00.0 - Tachycardia, unspecified Status: Acute Assessment and Plan: TSH normal Sinus tachycardia since last night. EKG done and reviewed Resume patient's home Coreg Plan Patient is off Levophed, patient serum creatinine was elevated upon arrival 2.55 patient last serum cratinine was 1.65, patient was hypotensive and most likely due to hypoperfusion, and was placed on Levophed and his blood pressure has now improved and off Levophed, patient is discharge from ICU to IMU, patient is seen by Setter Automatic Spinning Lathe, patient with history for leukopenia, seen by superintendent compressor stations and being treated with steroids. steroids were resumed, white counts are trending up, urine and blood culture are so far no growth, patient remains clinically and stats feeling much better compare to when he arrived. patient is present and gave updates. patient symptoms are improving his BP is close to normal, his Scr has improved, will discuss with mice raiser and urologist for discharge plan. DVT prophylaxis -Lovenox Stress ulcer prophylaxis -Protonix Nutrition -diet ordered Full code Incentive spirometry and up in chair Subjective Date/time seen: 07/25/24 15:15 Interval history: Patient is off Levophed, patient serum creatinine was elevated upon arrival 2.55 patient last serum cratinine was 1.65, patient was hypotensive and most likely due to hypoperfusion, and was placed on Levophed and his blood pressure has now improved and off Levophed, patient is discharge from ICU to IMU, patient is seen by Setter Automatic Spinning Lathe, patient with history for leukopenia, seen by superintendent compressor stations and being treated with steroids. steroids were resumed, white counts are trending up, urine and blood culture are so far no growth, patient remains clinically and stats feeling much better compare to when he arrived. patient is present and gave updates. patient symptoms are improving his BP is close to normal, his Scr has improved, will discuss with mice raiser and urologist for discharge plan. Review of Systems Review of Systems: All systems reviewed & are unremarkable except as noted in HPI and below (HPI) Exam Narrative: Patient is comfortable, NAD HEENT: eyes are clear and none icteric LUNGS:CTA HEART: RR S1S2 ABD: BS+, Soft and nontender Lower extremities: no edema SKIN: nonjaundiced Neuro: grossly intact. Objective Data Vital Signs Vital Signs: Vital Signs - 24 hr 07/24/24 16:00 07/24/24 16:00 07/24/24 16:00 Temperature 36.8 C Pulse Rate 79 86 91 Respiratory Rate 24 H 28 H Blood Pressure 118/76 Pulse Oximetry 95 97 Oxygen Delivery Nasal Cannula Oxygen Flow Rate 1 Fraction of Inspired Oxygen 07/24/24 18:00 07/24/24 20:00 07/24/24 20:00 Temperature 36.4 C L Pulse Rate 80 80 85 Respiratory Rate 20 Blood Pressure 129/75 Pulse Oximetry 96 Oxygen Delivery Oxygen Flow Rate Fraction of Inspired Oxygen 07/24/24 20:35 07/24/24 21:10 07/24/24 21:51 Temperature Pulse Rate 80 78 78 Respiratory Rate 20 Blood Pressure Pulse Oximetry 96 91 Oxygen Delivery Room Air Room Air Oxygen Flow Rate Fraction of Inspired Oxygen 21 07/24/24 22:00 07/25/24 00:00 07/25/24 00:00 Temperature 36.5 C Pulse Rate 78 72 70 Respiratory Rate 18 Blood Pressure 116/65 Pulse Oximetry 96 Oxygen Delivery Oxygen Flow Rate Fraction of Inspired Oxygen 07/25/24 00:37 07/25/24 02:00 07/25/24 04:00 Temperature 36.7 C Pulse Rate 72 69 69 Respiratory Rate 18 20 Blood Pressure 112/68 Pulse Oximetry 96 95 Oxygen Delivery Room Air Oxygen Flow Rate Fraction of Inspired Oxygen 07/25/24 04:00 07/25/24 04:38 07/25/24 06:00 Temperature Pulse Rate 69 69 70 Respiratory Rate 20 Blood Pressure Pulse Oximetry 95 Oxygen Delivery Room Air Oxygen Flow Rate Fraction of Inspired Oxygen 07/25/24 08:00 07/25/24 08:00 07/25/24 09:17 Temperature 36.8 C Pulse Rate 67 81 74 Respiratory Rate 22 H Blood Pressure 130/67 Pulse Oximetry 95 Oxygen Delivery Oxygen Flow Rate Fraction of Inspired Oxygen 07/25/24 10:00 07/25/24 10:48 07/25/24 12:00 Temperature 36.8 C Pulse Rate 75 79 Respiratory Rate 20 Blood Pressure 140/72 Pulse Oximetry 94 Oxygen Delivery Room Air Oxygen Flow Rate Fraction of Inspired Oxygen 07/25/24 12:00 07/25/24 13:59 Temperature Pulse Rate 79 84 Respiratory Rate Blood Pressure Pulse Oximetry Oxygen Delivery Oxygen Flow Rate Fraction of Inspired Oxygen Intake/Output Intake/Output: Intake & Output 07/22/24 07/23/24 07/24/24 07/25/24 23:59 23:59 23:59 23:59 Intake Total 6101.1 3360 1880 880 Output Total 1450 3100 3000 600 Balance 4651.1 260 -1120 280 Meds/Results Medications: Active Medications Generic Name Dose Route Start Last Admin Trade Name Freq PRN Reason Stop Dose Admin Alendronate Sodium 70 mg 07/25/24 06:30 07/25/24 06:15 Alendronate Sodium 70 Mg Tablet PO Not Given WEEKLY@0630 [facility] Amoxicillin/Clavulanate Potassium 1 tablet 07/25/24 21:00 Amoxicillin/Clavulanate K 875-125 Mg Tab PO 07/28/24 21:01 Q12HR ANOOP Calcium Carbonate 500 mg 07/22/24 09:00 07/25/24 09:17 Calcium/Vitamin D 500 Mg/5 Mcg (200 I.U.) Tablet PO 500 mg BID ANOOP Administration Carvedilol 6.25 mg 07/24/24 09:00 07/25/24 09:17 Carvedilol 6.25 Mg Tablet PO 6.25 mg Q12HR ANOOP Administration Enoxaparin Sodium 40 mg 07/22/24 09:00 07/25/24 09:18 Enoxaparin 40 Mg/0.4 Ml Syringe SUB-Q 40 mg DAILY ANOOP Administration Gabapentin 800 mg 07/22/24 21:00 07/24/24 21:51 Gabapentin 400 Mg Capsule PO 800 mg QHS ANOOP Administration Hydrocortisone Sodium Succinate 100 mg 07/24/24 09:00 07/25/24 09:17 Hydrocortisone Sodium Succinate 100 Mg/2 Ml Vial IV PUSH 100 mg QAM ANOOP Administration Melatonin 10 mg 07/22/24 04:50 07/24/24 22:58 Melatonin 5 Mg Tablet PO 10 mg HS PRN Administration Insomnia Nonformulary Drug 0 mg 07/22/24 09:00 07/25/24 09:18 Fenofibrate 160 Mg BY MOUTH 08/21/24 08:59 160 mg Tablet DAILY ANOOP Administration Pantoprazole Sodium 40 mg 07/22/24 09:00 07/24/24 08:07 Pantoprazole 40 Mg Tablet PO 40 mg Q48H ANOOP Administration Vitamin D 2,000 units 07/22/24 09:00 07/25/24 09:17 Cholecalciferol 1,000 Units Tablet PO 2,000 units DAILY ANOOP Administration Radiology Results: ITS Impressions Abdomen/Pelvis CT 07/21/24 23:33 IMPRESSION: No acute pathology within the abdomen or pelvis. Redemonstration of a 10 mm calculus within the left kidney. Chronic left UPJ obstruction. Findings suggesting cystitis Hepatomegaly Chest X-Ray 07/22/24 01:07 IMPRESSION: Interval placement of a left internal jugular central venous catheter, in position and ready for immediate use. Abdomen Ultrasound 07/22/24 09:47 IMPRESSION: 1. Diffuse hepatic steatosis. Renal Ultrasound 07/23/24 16:18 IMPRESSION: No hydronephrosis or renal calculi. Findings suggesting medical renal disease. Labs Labs: Laboratory Results - last 24 hr 07/25/24 04:24 WBC 2.6 L RBC 3.03 L Hgb 8.4 L Hct 26.8 L MCV 88.4 MCH 27.7 MCHC 31.3 L RDW 16.4 H Plt Count 143 L MPV 9.1 Sodium 139 Potassium 3.7 Chloride 104 Carbon Dioxide 30 Anion Gap 5 BUN 29 H Creatinine 1.33 H Estim Creat Clear Calc 51 Estimated GFR 52 L Glucose 102 Calcium 8.9 Magnesium 1.9 Total Bilirubin 0.9 AST 28 ALT 39 Alkaline Phosphatase 65 Total Protein 6.0 L Albumin 3.5 Quality VTE Prophylaxis VTE prophylaxis: pharmacologic ordered
--- NOTE | 2024-07-25 16:29 | P.DS_ITS ---
DS: Admitting Diagnosis Discharge Date 07/25/24 Admitting Diagnosis Dizziness and weakness DS: Discharge Diagnosis Discharge Diagnosis (1) Septic shock: Code(s): A41.9 - Sepsis, unspecified organism; R65.21 - Severe sepsis with septic shock Status: Acute Assessment and Plan: Weaned Septic shock secondary to UTI. UA consistent of UTI and history CT scan reviewed Blood and urine culture have been sent and are negative was now He is allergic to ceftriaxone and was started on Levaquin which was later switched to meropenem after discussion with Infectious Disease pharmacist Levophed has been weaned off Decreased stress dose hydrocortisone to q.a.m. as patient is on prednisone as an outpatient Discontinue further IV fluid Echo reviewed and shows EF of 60-65% with diastolic dysfunction (2) Acute renal failure: Qualifiers: Acute renal failure type: unspecified Qualified Code(s): N17.9 - Acute kidney failure, unspecified Code(s): N17.9 - Acute kidney failure, unspecified Status: Acute Assessment and Plan: Patient was recently admitted and treated for acute kidney injury. Patient has elevated creatinine since 2022 and I suspect he has chronic kidney disease. His discharge creatinine was 1.65 and he presented today with 2.55 suggestive of ELIZABETH likely secondary to sepsis and septic shock Treated with IV fluids with for further IV fluids at this time. Monitor urine output electrolytes and creatinine Normal CK level CT scan reviewed and showed No acute pathology within the abdomen or pelvis. Redemonstration of a 10 mm calculus within the left kidney. Chronic left UPJ obstruction. Findings suggesting cystitis Hepatomegaly Patient was well by Urology and she as per urology note patient has a nonobstructing left renal stone and stable left chronic hydronephrosis. No intervention planned at this time. Creatinine improved to 1.5 Electrolytes are stable Nephrology consulted and follow (3) UTI (urinary tract infection): Qualifiers: Hematuria presence: without hematuria Urinary tract infection type: acute cystitis Qualified Code(s): N30.00 - Acute cystitis without hematuria Code(s): N39.0 - Urinary tract infection, site not specified Status: Acute Assessment and Plan: See above (4) LFT elevation: Code(s): R79.89 - Other specified abnormal findings of blood chemistry Status: Acute Assessment and Plan: Presented with elevated AST and ALT I suspect this is secondary to shock liver He had normal less than 2 months ago Right upper quadrant ultrasound showed hepatic steatosis Hold statin LFTs are improving (5) Tachycardia: Code(s): R00.0 - Tachycardia, unspecified Status: Acute Assessment and Plan: TSH normal Sinus tachycardia since last night. EKG done and reviewed Resume patient's home Coreg Plan Patient is off Levophed, patient serum creatinine was elevated upon arrival 2.55 patient last serum cratinine was 1.65, patient was hypotensive and most likely due to hypoperfusion, and was placed on Levophed and his blood pressure has now improved and off Levophed, patient is discharge from ICU to IMU, patient is seen by Consumer Lending Manager, patient with history for leukopenia, seen by potable water treatment operator and being treated with steroids. steroids were resumed, white counts are trending up, urine and blood culture are so far no growth, patient remains clinically and stats feeling much better compare to when he arrived. patient is present and gave updates. patient symptoms are improving his BP is close to normal, his Scr has improved, will discuss with electric drill operator and urologist for discharge plan. DVT prophylaxis -Lovenox Stress ulcer prophylaxis -Protonix Nutrition -diet ordered Full code Incentive spirometry and up in chair DS: Summary Hospital Course Hospital Course: Patient is off Levophed, patient serum creatinine was elevated upon arrival 2.55 patient last serum cratinine was 1.65, patient was hypotensive and most likely due to hypoperfusion, and was placed on Levophed and his blood pressure has now improved and off Levophed, patient is discharge from ICU to IMU, patient is seen by Consumer Lending Manager, patient with history for leukopenia, seen by potable water treatment operator and being treated with steroids. steroids were resumed, white counts are trending up, urine and blood culture are so far no growth, patient remains clinically and stats feeling much better compare to when he arrived. patient is clinically stable will discharge patient home today. Time Spent with Patient Time attestation: Total time spent providing and/or coordinating discharge services: Exam Narrative: Patient is comfortable, NAD HEENT: eyes are clear and none icteric LUNGS:CTA HEART: RR S1S2 ABD: BS+, Soft and nontender Lower extremities: no edema SKIN: nonjaundiced Neuro: grossly intact. DS: Data Data Completed and Pending Labs on day of discharge: Labs from last 24 hours 07/25/24 04:24 WBC 2.6 L RBC 3.03 L Hgb 8.4 L Hct 26.8 L MCV 88.4 MCH 27.7 MCHC 31.3 L RDW 16.4 H Plt Count 143 L MPV 9.1 Sodium 139 Potassium 3.7 Chloride 104 Carbon Dioxide 30 Anion Gap 5 BUN 29 H Creatinine 1.33 H Estim Creat Clear Calc 51 Estimated GFR 52 L Glucose 102 Calcium 8.9 Magnesium 1.9 Total Bilirubin 0.9 AST 28 ALT 39 Alkaline Phosphatase 65 Total Protein 6.0 L Albumin 3.5 Preliminary micro results at discharge 07/21/24 22:24 Blood Culture - Preliminary Blood 07/21/24 22:35 Blood Culture - Preliminary Blood Discharge Plan Discharge Attending physician on discharge: Brad Mejia Consulting providers: Jesus Paredes; Duy Jules; Phyllis Pang Discharging Clinician: Poornima Jenkins Patient Disposition: Home with Home Health Service Activity: as tolerated Diet: diabetic Discharge Instructions: Per Care Coordination: [facility] will contact you prior to their first visit. [facility] will follow for PT/OT eval and treat. [facility] can be contacted at [phone]. Patient to follow up with his primary care, urologist and electric drill operator as soon as possible, patient is instructed if any symptoms worsen to go to nearest ER. Patient Instructions: Antibiotic Form, Urinary Tract Infection in Men (DC), Heart Healthy Diet (DC) Patient Language: Kazakh Stand Alone Forms: General Discharge Information Follow-up/Referrals: Jesus Paredes MD [Physician] - Phyllis Pang MD [Physician] - Don Bronson DO [Primary Care Provider] - Discharge Medications: New amoxicillin-pot clavulanate [Augmentin] 500-125 mg tablet 1 tablet PO Q8H Qty: 15 0RF Continued gabapentin 300 mg capsule 800 mg PO QHS omeprazole 20 mg capsule,delayed release(DR/EC) 20 mg PO DAILY Patient Comments: TAKES EVERYOTHER DAY pyridoxine (vitamin B6) 500 mg tablet 500 mg PO DAILY cholecalciferol (vitamin D3) 50 mcg (2,000 unit) capsule 50 mcg PO DAILY Eligard (6 month) 45 mg syringe 45 mg SUB-Q [id number] prednisone 10 mg tablet 15 mg PO DAILY melatonin 10 mg Tablet 10 mg PO HS PRN (Reason: Insomnia) alendronate 70 mg tablet 70 mg PO WEEKLY Patient Comments: TAKES ON FRIDAYS calcium carbonate-vitamin D3 [Calcium 600 + D(3)] 600 mg-5 mcg (200 unit) tablet 1 tablet PO BID carvedilol 3.125 mg tablet 3.125 mg PO Q12H Qty: 180 3RF Rx Instructions: must administer with a meal/food lovastatin 20 mg tablet 20 mg PO DAILY Qty: 90 3RF fenofibrate 160 mg tablet 160 mg PO DAILY Qty: 90 3RF Date of admission: 07/22/24 00:55 Primary Care Provider: Don Bronson Admitting Provider: Brad Mejia Attending physician on admission: Brad Mejia Condition: Stable
== END 2024-07-25 18:20 | disposition home health service (06) | DRG 871 ==
LOC: ANHED 21:29 → ANHICU 07-22 01:09 → ANHIMU 07-25 14:15 → ANHICU 07-28 11:14
PROVIDERS: Internal Medicine; Internal Medicine Nephrology; Nurse Practitioner Adult Health; Admitting Provider Internal Medicine; Emergency Provider Emergency Medicine; PCP Internal Medicine; Visit Provider Family Medicine
DX: A41.9 Sepsis, unspecified organism (principal); R65.21 Severe sepsis with septic shock; N13.6 Pyonephrosis; N17.9 Acute kidney failure, unspecified; I10 Essential (primary) hypertension; E78.5 Hyperlipidemia, unspecified; R00.0 Tachycardia, unspecified; G90.9 Disorder of the autonomic nervous system, unspecified; Z96.659 Presence of unspecified artificial knee joint; Z85.46 Personal history of malignant neoplasm of prostate; Z87.891 Personal history of nicotine dependence
CPT/HCPCS: 36415; 36556; 71046; 74176; 76705; 76775; 80053; 81001; 82550; 82570; 83605; 83690; 83735; 84156; 84300; 84443; 85025; 85027; 85610; 85730; 85999; 86140; 87040; 87086; 87493; 87637; 87641; 93005; 93306; 94640; 96361; 96365; 96367; 97110; 97116; 97161; 97166; 99291; A9270; C1751; J1650; J1720; J1956; J2185; J7120; P9047

== ENCOUNTER 2024-08-01 17:57 | Inpatient (IN) | payer MEDICARE, SELFPAY ==
[2024-08-01] VITALS (34 sets, daily range): BP systolic 66–127; BP diastolic 35–90; PULSE 103–127; RESP 20–35; TEMP 36.3–37.6; O2SAT 88–100
--- NOTE | ~2024-08-01 | XR_ITS ---
XR chest 1V portable Ordering provider: Rima Musa History: 78 years Male with . hypoxic . Comparison: July 22, 2024 FINDINGS: MEDIASTINUM: The cardiac silhouette is slightly enlarged. Congestive jose. LUNGS: No effusions or pneumothorax. Opacification of the right upper and lower lobe and lower lobe s uggestive of early pneumonia. Underlying pulmonary edema is not excluded. Highly suggestive nodule or granuloma in the left upper lobe. Three-month follow-up is advised. Pleural calcifications seen bilaterally. OTHER: No free air under the diaphragm. IMPRESSION: Bilateral pneumonia follow-up to resolution is advised. Underlying pulmonary edema is not excluded. Granuloma in the left upper lobe. 3 months follow-up advised to exclude a nodule. Reviewed, dictated and finalized at location A. IMPRESSION: Bilateral pneumonia follow-up to resolution is advised. Underlying pulmonary edema is not excluded. Granuloma in the left upper lobe. 3 months follow-up advised to exclude a nodul e.
--- NOTE | ~2024-08-01 | CT_ITS ---
CT brain wo con Ordering provider: Jeferson Silva History: 78 years Male with . dizzy . Comparison: None. Technique: CT of the head without contrast. Radiation reduction technique utilized.The dose-length product was 681 mGy-cm. FINDINGS: BRAIN PARENCHYMA AND CSF SPACES: Mild leukoaraiosis and diffuse cortical atrophy. Mild atheromatous d isease. No midline shift, mass effect or hemorrhage. The brain parenchyma and CSF spaces are otherwi se normal. VISUALIZED PARANASAL SINUSES: Well aerated. MASTOIDS: Well aerated. BONES: The bones appear intact. SOFT TISSUES: Visualized nasopharynx is normal. Superficial soft tissues are normal. IMPRESSION: No acute intracranial findings. Reviewed, dictated and finalized at location A.
--- NOTE | ~2024-08-01 | CT_ITS ---
CT chest abdomen pelvis w con Ordering provider: Jeferson Silva History: 78 years Male with . sepsis, unknown cause . Comparison: July 21, 2024 Technique: CT chest with IV contrast. CT abdomen and pelvis CT abdomen and pelvis with IV and with or al contrast. Radiation reduction technique utilized.The dose-length product was 1549.57 mGy-cm. 100 mL Omnipaque 350 was given IV. FINDINGS: CHEST: --VISUALIZED THORACIC INLET: Normal. --MEDIASTINUM: Aorta/coronary arteries: Mild atheromatous disease. Heart/other: The heart is not enlarged. Lymph nodes: No mediastinal or hilar adenopathy. --LUNGS: Fibrotic changes seen in the right upper lobe posteriorly. Atelectasis versus nodule seen in the right lung base medially. Follow-up CT in 3 months is advised. Atelectasis versus nodule is also seen in the lingula and right upper lobe. No pulmonary masses. No effusions. No pneumothorax. Bilate ral extensive pleural calcification. --MUSCULOSKELETAL: Soft tissues: The superficial soft tissues are normal. Bones: Age appropriate degenerative changes of the spine. No suspicious bony lytic or sclerotic lesio ns. Fracture in the inferior endplate of T5 is seen which may be acute or chronic fracture. MRI is ad vised. ABDOMEN/PELVIS: --MUSCULOSKELETAL: Bones: Age appropriate degenerative changes of the spine. No suspicious bony lytic or sclerotic lesio ns. Superficial soft tissues: Bilateral inguinal fat containing hernia is seen. The superficial soft tiss ues are normal. --UPPER ABDOMINAL ORGANS: Liver: Fat infiltration. Hepatomegaly. Gallbladder: Normal. Spleen: Normal. Stomach/duodenum: Sliding hiatus hernia. Pancreas: Normal. Adrenals: Normal. Kidneys: Bilateral renal cysts with the largest seen in the left parapelvic area measuring 3.4 x 3.9 cm. Stone is seen in the left kidney midpole measuring 7 mm. --PELVIC ORGANS: The bladder is underfilled.. No bladder stones. --BOWEL AND MESENTERY: Colon: No evidence of diverticulitis.. Appendix is not demonstrated. Small Bowel: Normal. No obstruction. Peritoneum/mesentery: No free air or free fluid. No mesenteric lymphadenopathy. --RETROPERITONEUM: Mild atheromatous disease of the abdominal aorta. 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 Proper angiography is advised for evaluation. No retroperitoneal lymphadenopathy. IMPRESSION: CHEST: 1. Fibrotic changes of the lungs. 2. Extensive pleural calcification. 3. Atelectasis versus nodule in the right lung base and in the lingula. 3 months follow-up CT is adv ised. ABDOMEN/PELVIS: 1. No evidence of appendicitis, diverticulitis or intestinal obstruction. 2. Hepatomegaly with fat infiltration. 3. Left kidney stone with bilateral renal cysts. 4. Sliding hiatus hernia. 5. 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 Conv entional Angiography is advised. Reviewed, dictated and finalized at location A. IMPRESSION: CHEST: 1. Fibrotic changes of the lungs. 2. Extensive pleural calcification. 3. Atelectasis versus nodule in the right lung base and in the lingula. 3 kelley hs follow-up CT is advised. ABDOMEN/PELVIS: 1. No evidence of appendicitis, diverticulitis or intestinal obstruction. 2. Hepatomegaly with fat infiltration. 3. Left kidney stone with bilateral renal cysts. 4. Sliding hiatus hernia. 5. 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 Conventional Angiography is advised.
--- NOTE | ~2024-08-01 | XR_ITS ---
XR chest port-a-cath/central Ordering provider: Jeferson Silva History: 78 years Male with . CENTRAL LINE PLACEMENT . Comparison: August 01, 2024 FINDINGS/impression: Left central line with the tip overlying superior vena cava. Other appearances are unchanged from previous examination. Reviewed, dictated and finalized at location A.
--- OUTSIDE RECORDS SUMMARY | 2024-08-01 17:59 | XMS_ITS | Clinical Summary ---
Author Organization [facility] [id number] Address [address] [place] [id number] Care Team Providers Care Addresser Name Role Phone Tano Ibarra DO Unavailable Hardik Call MD Unavailable [phone] Don Bronson DO Primary Care Provider [phone] Allergies No known active allergies Medications omeprazole [...] month, (ELIGARD) 22.5 mg syringe Active calcium carbonate-vitam in D3 500 mg(1,250mg) -400 unit chewable tablet Take 1 tablet by mouth daily Active pyridoxine (VITAMIN B-6) 100 mg tablet Take 1 tablet (100 mg total) by mouth daily Active cholecalciferol (VITAMIN D-3) 2000 unit capsule 1 capsule (2,000 Units total) Active ciprofloxacin (CIPRO) 500 mg tablet Take 1 tablet (500 mg total) by mouth 2 (two) times a day 5 Active levOCARNitine (CARNITOR) 330 mg tabletIndicatio ns:Carnitine Deficiency Take 2 tablets (660 mg total) by mouth 2 (two) times a day For neuropathy 360 tablet 5 05/02/19 26 Active gabapentin (NEURONTIN) 800 mg tablet Take 1 tablet (800 mg total) by mouth daily 90 tablet 3 5 Active predniSONE (DELTASONE) 10 mg tablet Take 1.5 tablets (15 mg) by mouth daily 135 tablet 1 5 Active Active Problems Problem Noted Date Diagnosed Date [...] Orders Only [facility] Oncology [address] [place] [address] [address] [place] [address] Tano Ibarra DO 06/18/2024 Orders Only [facility] Oncology [address] [place] [address] [address] [place] [address] Ky Davidson MD 05/26/2024 Telephone [facility] Oncology [address] [place] [address] [address] [place] [address] Jacquelin Rosenberg RN 05/21/2024 Results Follow-Up [facility] at [address] [address] Kasandra Davila NP 05/19/2024 12:14 PM AQUACULTURIST - 05/19/2024 11:59 PM AQUACULTURIST Hospital Encounter [address] [address] Dysuria Discharge Disposition: Discharge to home or self care 05/19/2024 12:00 PM AQUACULTURIST Office Visit [facility] [address] [address] Veronica Flannery NP Dysuria (Primary Dx) from Last 3 Months Immunizations Immunization Administration [...] Medical History Date Comments Hx Other Medical 2010 cancer prostrat e Hx Other Medical 1971 [...] on file Legal Sex Male 2:39 PM AQUACULTURIST Gender Identity Not on file Sexual Orientation Not on file Obstetrics History Last Filed Vital Signs Vital Sign Reading Time Taken Comments Blood Pressure 157/83 05/19/2024 12:01 PM AQUACULTURIST Pulse 95 05/19/2024 12:01 PM AQUACULTURIST Temperature 37.4 C (99.3 F) 05/19/2024 12:01 PM AQUACULTURIST Respiratory Rate 20 05/19/2024 12:01 PM AQUACULTURIST Oxygen Saturation 96% 05/19/2024 12:01 PM AQUACULTURIST Inhaled Oxygen Concentration - - Weight 105.2 kg (232 lb) 05/19/2024 12:01 PM AQUACULTURIST Height 182.9 cm (6') 05/25/2023 2:58 PM AQUACULTURIST Body Mass Index 31.46 05/25/2023 2:58 PM AQUACULTURIST Plan of Treatment Health Maintenance Due Date [...] CDT URINE CULTURE Routine 05/19/2024 12:14 PM AQUACULTURIST Dysuria POCT URINALYSIS DIPSTICK Routine 05/19/2024 12:05 PM AQUACULTURIST Dysuria from Last 3 Months Results * (ABNORMAL) [...] - 07/02/2024 6:09 AM CDT Performed at: [address] [place] [id number] Game Programmer: Ascencion Thomas PhD, Phone: [phone] Specimen Comment: A courtesy copy of this report has been sent to [phone] Tano Ibarra DO LAB BLOOD ORDERABLES Final R esult Performing Organization Address [facility] Co de Phone Number [facility] - 01 * BMP - Basic Metabolic Panel (7) (06/17/2024 8:42 AM CDT) Historical Provider LAB BLOOD ORDERABLES Vivian l Result Performing Organization Address City/[facility] Co de Phone Number EXTERNAL LAB * CBC with auto differential (06/17/2024 8:42 AM CDT) Blood Historical Provider MD LAB BLOOD ORDERABLES Vivian l Result * (ABNORMAL) Urine culture Urine, clean voided (05/19/2024 12:14 PM AQUACULTURIST) Report Final Report: Greater than or equal to 100,000 colonies/mL of Aerococcus urinae Isolates of Aerococcus urinae are typically susceptible to beta-lactams (including penicillin and cephalosporins), vancomycin, and tetracyclines (including doxycycline), but resistant to trimethoprim-sulf amethoxazole. Plus growth of clinically insignificant bacterial gurpreet. (.) Comment:Testing performed by : [facility], [address] [place]., [address] Organism AEROCOCCUS URINAE SEMAJ Organism PLUS GROWTH OF CLINICALLY INSIGNIFICANT GURPREET. SEMAJ Urine, clean voided 05/19/2024 12:14 PM AQUACULTURIST 05/20/2024 12:03 AM AQUACULTURIST Narrative SEMAJ - 05/21/2024 7:46 AM AQUACULTURIST Testing performed by [facility]biology Laboratory ([phone]) Veronica Flannery NP LAB MICROBIOLOGY - GENERAL ORDERABLES Final Result SEMAJ [address] Department [place] [address] * (ABNORMAL) POCT urinalysis dipstick (05/19/2024 12:05 PM AQUACULTURIST) Color, Urine, POC Yellow Clarity, ur, POC Cloudy(A) Clear Glucose, ur, POC Negative Negative MG/DL Bilirubin, ur, POC Negative Negative, Small, Moderate, Large Ketones, ur, POC Negative Negative Specific Bryant, POC 1.020 1.003 - 1.030 Blood, ur, POC Small(A) Negative pH, ur, POC 7.0 5.0 - 8.0 Protein, ur, POC 300.(A) Negative Urobilinogen, urine, POC 1.0 0.2 - 1.0 mg/dL Nitrite, ur, POC Negative Negative Leukocytes, ur, POC Small(A) Negative Lot Number [id number] Urine 05/19/2024 12:0 5 PM AQUACULTURIST Veronica Flannery NP POINT OF CARE TEST ORDERAB LES Final Result from Last 3 Months Insurance [employer] [facility] MEDICARE SUPPLEMENT MEDICARE [facility] MEDIC[facility] SUPPLEMENT Care Teams Addresser Relationship Specialty Start Date End Date Don Bronson DO [address] [facility] [address] [place], [place] [id number] PCP - General Internal Medicine 05/02/24 Tano Ibarra DO [address] [place] [id number] Medical Oncologist/Money Market Clerk Hematology and Oncology 04/30/20 Hardik Call MD [address] [place] [id number] Consulting Physician Urology 10/28/21
--- OUTSIDE RECORDS SUMMARY | 2024-08-01 17:59 | XMS_ITS | Referral Summary ---
Author Organization [id number] [place] Address [address] [place] [address] Care Team Providers Care Devops Architect Name Role Phone Tano Ibarra DO Unavailable [phone] Hardik Call MD Unavailable [phone] Don Bronson DO Primary Care Provider [phone] Encounters Date Type Department Care Team Description 07/01/2024 Orders Only [facility] Oncology [address] [place] [address] [address] [place] [address] Tano Ibarra DO 06/18/2024 Orders Only [facility] Oncology [address] [place] [address] [address] [place] [address] ProviderKy MD 05/26/2024 Telephone [facility] Oncology [address] [place] [address] [address] [place] [address] Jacquelin Rosenberg, CHANDLER 05/21/2024 Results Follow-Up [facility] [address] [address] Kasandra Davila NP 05/19/2024 12:14 PM PLASTIC SURGERY NURSE - 05/19/2024 11:59 PM PLASTIC SURGERY NURSE Hospital Encounter [address] [address] Dysuria Discharge Disposition: Discharge to home or self care 05/19/2024 12:00 PM PLASTIC SURGERY NURSE Office Visit [facility] [address] [address] Veronica Flannery, WILL Dysuria (Primary Dx) from Last 3 Months Allergies No known [...] on file Legal Sex Male 2:39 PM PLASTIC SURGERY NURSE Gender Identity Not on file Sexual Orientation Not on file Last Filed Vital Signs Vital Sign Reading Time Taken Comments Blood Pressure 157/83 05/19/2024 12:01 PM PLASTIC SURGERY NURSE Pulse 95 05/19/2024 12:01 PM PLASTIC SURGERY NURSE Temperature 37.4 C (99.3 F) 05/19/2024 12:01 PM PLASTIC SURGERY NURSE Respiratory Rate 20 05/19/2024 12:01 PM PLASTIC SURGERY NURSE Oxygen Saturation 96% 05/19/2024 12:01 PM PLASTIC SURGERY NURSE Inhaled Oxygen Concentration - - Weight 105.2 kg (232 lb) 05/19/2024 12:01 PM PLASTIC SURGERY NURSE Height 182.9 cm (6') 05/25/2023 2:58 PM PLASTIC SURGERY NURSE Body Mass Index 31.46 05/25/2023 2:58 PM PLASTIC SURGERY NURSE Plan of Treatment Not on file Procedures Procedure Name Priority Date/Time Associated Diagnosis Comments CBC WITH AUTO DIFFERENTIAL Routine 07/01/2024 3:05 PM CDT BMP - BASIC METABOLIC PANEL (7) Routine 06/17/2024 8:42 AM CDT CBC WITH AUTO DIFFERENTIAL Routine 06/17/2024 8:42 AM CDT URINE CULTURE Routine 05/19/2024 12:14 PM PLASTIC SURGERY NURSE Dysuria POCT URINALYSIS DIPSTICK Routine 05/19/2024 12:05 PM PLASTIC SURGERY NURSE Dysuria from Last 3 Months Results * [...] - 07/02/2024 6:09 AM CDT Performed at: [address] [place] [id number] Bowling Ball Marker: Ascencion Thomas PhD, Phone: [phone] Specimen Comment: A courtesy copy of this report has been sent to [phone] Tano Ibarra DO LAB BLOOD ORDERABLES Final R esult Performing Organization Address [facility] Co de Phone Number [facility] - 01 * BMP - Basic Metabolic Panel (7) (06/17/2024 8:42 AM CDT) Historical Provider LAB BLOOD ORDERABLES Vivian l Result Performing Organization Address [facility] Co de Phone Number EXTERNAL LAB * CBC with auto differential (06/17/2024 8:42 AM CDT) Blood Historical Provider LAB BLOOD ORDERABLES Vivian l Result * (ABNORMAL) Urine culture Urine, clean voided (05/19/2024 12:14 PM PLASTIC SURGERY NURSE) Report Final Report: Greater than or equal to 100,000 colonies/mL of Aerococcus urinae Isolates of Aerococcus urinae are typically susceptible to beta-lactams (including penicillin and cephalosporins), vancomycin, and tetracyclines (including doxycycline), but resistant to trimethoprim-sulf amethoxazole. Plus growth of clinically insignificant bacterial susie. (.) Comment:Testing performed by : [facility], [address] [place]., [address] Organism AEROCOCCUS URINAE SEMAJ HALL Organism PLUS GROWTH OF CLINICALLY INSIGNIFICANT SUSIE. SEMAJ Urine, clean voided 05/19/2024 12:14 PM PLASTIC SURGERY NURSE 05/20/2024 12:03 AM PLASTIC SURGERY NURSE Narrative SEMAJ - 05/21/2024 7:46 AM PLASTIC SURGERY NURSE Testing performed by [facility] ([phone]) Veronica Flannery NP LAB MICROBIOLOGY - GENERAL ORDERABLES Final Result SEMAJ [id number] [address] [place] [address] * (ABNORMAL) POCT urinalysis dipstick (05/19/2024 12:05 PM PLASTIC SURGERY NURSE) Color, Urine, POC Yellow Clarity, ur, POC Cloudy(A) Clear Glucose, ur, POC Negative Negative MG/DL Bilirubin, ur, POC Negative Negative, Small, Moderate, Large Ketones, ur, POC Negative Negative Specific [place], POC 1.020 1.003 - 1.030 Blood, ur, POC Small(A) Negative pH, ur, POC 7.0 5.0 - 8.0 Protein, ur, POC 300.(A) Negative Urobilinogen, urine, POC 1.0 0.2 - 1.0 mg/dL Nitrite, ur, POC Negative Negative Leukocytes, ur, POC Small(A) Negative Lot Number [id number] Urine 05/19/2024 12:0 5 PM PLASTIC SURGERY NURSE Veronica Flannery NP POINT OF CARE TEST ORDERAB LES Final Result from Last 3 Months Insurance MEDICARE [facility] MEDICARE [employer] MEDICARE SUPPLEMENT MEDICARE [facility] MEDICARE SUPPLEMENT Care Teams Devops Architect Relationship Specialty Start Date End Date Don Bronson DO [address] [place], [place] [id number] PCP - General Internal Medicine 05/02/24 Tano Ibarra DO [address] [place] [id number] Medical Oncologist/Corporate Buyer Hematology and Oncology 04/30/20 Hardik Call MD [address] [place] [address] [id number] Consulting Physician Urology 10/28/21
--- NOTE | 2024-08-01 18:35 | ED_ITS ---
HPI - General Adult General Chief complaint: Dizziness <Rima Yoon July, INTERNIST MEDICAL DOCTOR MD - Last Filed: 08/01/24 19:13> Stated complaint: Low BP, dizziness-admitted in ICU last week <Rima Yoon July, INTERNIST MEDICAL DOCTOR MD - Last Filed: 08/01/24 19:13> Time Seen by Provider: 08/01/24 18:35 <Rima Yoon July, INTERNIST MEDICAL DOCTOR MD - Last Filed: 08/01/24 19:13> Focused HPI: Tano Gupta is a 78 y/o male who presents [facility] family, Family states that he was admitted here for Urosepsis d/c from ICU 1 week ago today, states he has been doing well at home until today he woke up and states that he felt tired and dizzy, he took a nap and when he woke up still feeling tired checked b/p here and it was 79/45 b/p here is 66 systolic and o2 sat 95 but when he talks drops to 88 % Patient is oriented X 4 but falling asleep easily GENERAL: pale/ lethargic HEAD: Normocephalic, atraumatic. CHEST: dyspneic HEART: Regular rate and rhythm.? NEURO: ?lethargic but oriented x3. Patient screened in triage and initial orders placed.? ?Additional care and disposition to be based upon?diagnostic testing and treatment. <Rima Yoon July, INTERNIST MEDICAL DOCTOR MD - Last Filed: 08/01/24 19:13> History of Present Illness HPI narrative: Agree with HPI aboe. 78-year-old male with past medical history including hypertension, prostate cancer, recurrent urinary tract infections with recent ICU admission 1 week ago for septic shock secondary to urinary infection. Patient was discharged home after improving blood pressures and renal function. He returns today as he woke up feeling generalized weakness and dizziness where he felt like he was lightheaded and going to pass out. He denies any urinary complaints, abdominal pain, flank pain, chest pain or difficulty breathing. Your IV in triage with unstable vitals with a blood pressure 66/35, tachypneic and hypoxic. He was brought back to room 14 for evaluation and resuscitation. Family members provide collateral information. Patient is currently awake alert oriented. <Jeferson Silva MD - Last Filed: 08/02/24 07:38> Related Data Home medications: Home Medications ?Medication ?Instructions ?Recorded ?Confirmed ?Last Taken ?Type omeprazole 20 mg capsule,delayed 20 mg PO DAILY 09/30/19 08/02/24 08/01/24 History release pyridoxine (vitamin B6) 500 mg 500 mg PO DAILY 09/30/19 08/02/24 08/01/24 History tablet cholecalciferol (vitamin D3) 50 50 mcg PO DAILY 10/07/19 08/02/24 08/01/24 History mcg (2,000 unit) capsule leuprolide acetate (6 month) 45 mg 45 mg subcut [id number] 10/24/19 08/02/24 Unknown History (6 month) subcutaneous syringe ([employer]) gabapentin 300 mg capsule 800 mg PO QHS 06/12/23 08/02/24 08/01/24 History prednisone 10 mg tablet 15 mg PO DAILY 06/12/23 08/02/24 08/01/24 History alendronate 70 mg tablet 70 mg PO WEEKLY 01/04/24 08/02/24 08/01/24 History melatonin 10 mg tablet 10 mg PO HS PRN Insomnia 01/04/24 08/02/24 Unknown History calcium 600 mg (as 1 tablet PO BID 07/22/24 08/02/24 08/01/24 History carbonate)-vitamin D3 5 mcg (200 unit) tablet (Calcium 600 + D(3)) <Rima Musa, INTERNIST MEDICAL DOCTOR MD - Last Filed: 08/01/24 19:13> Allergies/adverse reactions: Allergies Allergy/AdvReac Type Severity Reaction Status Date / Time ceftriaxone (From [facility]) AdvReac Mild Rash Verified 08/02/24 05:06 <Rima Musa, INTERNIST MEDICAL DOCTOR MD - Last Filed: 08/01/24 19:13> Review of Systems 2 Review of Systems: As reviewed above in HPI <Jeferson Silva MD - Last Filed: 08/02/24 07:38> All systems reviewed & are unremarkable except as noted in HPI and below < Jeferson Silva MD - Last Filed: 08/02/24 07:38> PMFSH Past Medical History Medical History: Medical History (Updated 08/02/24 @ 07:38 by Jeferson Silva MD) 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 Unspecified disorder of circulatory system Broken arm (~1953) History of broken leg (~1970) Prostate cancer Pure hyperglyceridemia Essential hypertension Incontinence <Rima Yoon July, Last Filed: 08/01/24 19:13> Surgical History Surgical History: Surgical History (Updated 08/02/24 @ 05:54 by Polly Ellington PA-C) History of bilateral knee arthroplasty History of hernia repair History of prostatectomy History of sinus surgery <Rima Yoon July, - Last Filed: 08/01/24 19:13> Family History Family History: Family History Father Family history of malignant neoplasm Mother Family history of malignant neoplasm of breast in first degree relative Other Family history of cardiovascular disease Hypertension <Rima Yoon July, Last Filed: 08/01/24 19:13> Social History Social History: Social History (Updated 08/02/24 @ 05:55 by Polly Ellington PA-C) Social History: Surrogate medical decision maker: Marylu Gupta, spouse. Code status: Full code. Smoking packs per day: 1 Smoking cigarettes per day: 20.0 Years smoked: 20 Smoking pack-years: 20.00 Smoking status: Former smoker Second hand tobacco smoke exposure: No Alcohol intake: current Drinks per week: 3 Substance use: never Substance use type: does not use Do You Feel Safe in your Home?: Yes Lack of Transportation: No Lack of Food: Never True Current Housing: I Have Housing Concerned About Future Housing: No Difficulty Paying Gas/Electric Bills: No Difficulty Paying for Meds: No Currently Unemployed: No Education: Associate Degree Difficulty w/ Childcare or Family Care: No Living arrangements: with family Spiritual care concerns: No <Rima Yoon July, Last Filed: 08/01/24 19:13> Exam 2 Narrative: GENERAL: Ill-appearing, not any acute distress but is tachypneic HEAD: [Normocephalic, atraumatic.] EYES: [PERRLA and EOMI.] ENT: Nares clear, no rhinorrhea or epistaxis. Mucous membranes moist. NECK: Supple. CHEST: Tachypneic, clear to auscultation, no wheezing HEART: [Regular rate and rhythm]. No murmur heard. [Normal peripheral pulses.] ABDOMEN: [Soft, nondistended], [nontender], [No rigidity or guarding] bruising to the bilateral lower abdominal wall likely secondary to anticoagulation injections EXTREMITIES: Normal range of motion. [No edema.] SKIN: Warm, dry, no rash. NEURO: [No focal deficits]. Alert and oriented [x3.] PSYCH: [Normal mood and affect.] <Jeferson Silva MD - Last Filed: 08/02/24 07:38> Course Vital Signs Vital signs: Vital Signs Temperature 36.3 C L 08/01/24 18:45 Pulse Rate 103 H 08/01/24 18:45 Respiratory Rate 34 H 08/01/24 18:45 Blood Pressure 66/35 L 08/01/24 18:45 Pulse Oximetry 88 L 08/01/24 18:45 Oxygen Delivery Room Air 08/01/24 18:45 Temperature 36.6 C 08/02/24 04:50 Pulse Rate 93 08/02/24 06:00 Respiratory Rate 24 H 08/02/24 06:00 Blood Pressure 98/56 L 08/02/24 06:00 Pulse Oximetry 95 08/02/24 06:00 Oxygen Delivery Nasal Cannula 08/01/24 22:38 Oxygen Flow Rate 3 08/01/24 22:38 <Rima Musa APRN - Last Filed: 08/01/24 19:13> Vital Signs Temperature 36.3 C L 08/01/24 18:45 Pulse Rate 103 H 08/01/24 18:45 Respiratory Rate 34 H 08/01/24 18:45 Blood Pressure 66/35 L 08/01/24 18:45 Pulse Oximetry 88 L 08/01/24 18:45 Oxygen Delivery Room Air 08/01/24 18:45 Temperature 36.6 C 08/02/24 04:50 Pulse Rate 93 08/02/24 06:00 Respiratory Rate 24 H 08/02/24 06:00 Blood Pressure 98/56 L 08/02/24 06:00 Pulse Oximetry 95 08/02/24 06:00 Oxygen Delivery Nasal Cannula 08/01/24 22:38 Oxygen Flow Rate 3 08/01/24 22:38 <Jeferson Silva MD - Last Filed: 08/02/24 07:38> Procedures Central Line Placement Left SC: Central Line Date: 08/01/24 <Jeferson Silva MD - Last Filed: 08/02/24 07:38> Central Line Time: 22:20 <Jeferson Silva MD - Last Filed: 08/02/24 07:38> Discussed w/ the patient/family/POA,the placement of a central venous catheter, including its clinical necessity/indication & associated potential risks, benifits and alternatives.: Yes <Jeferson Silva MD - Last Filed: 08/02/24 07:38> The patient/family/POA understand(s) and acknowledge(s) the need to proceed with central venous catheter insertion as an important element of the patient's clinical management.: Yes <Jeferson Silva MD - Last Filed: 08/02/24 07:38> Time Out Performed: Yes <Jeferson Silva MD - Last Filed: 08/02/24 07:38> Patient Placed on Monitor/Pulse Ox: Yes <Jeferson Silva MD - Last Filed: 08/02/24 07:38> Max. Sterile Barrier Technique: Caps, large sterile sheet and hand hygiene <Jeferson Silva MD - Last Filed: 08/02/24 07:38> Central Line Prep: 2% chlorhexidine scrub and sterile drapes applied <Jeferson Silva MD - Last Filed: 08/02/24 07:38> Technique: US-Guided <Jeferson Silva MD - Last Filed: 08/02/24 07:38> Local Anesthetic: lidocaine 1% <Jeferson Silva MD - Last Filed: 08/02/24 07:38> Amount of anesthesia used (mL): 5 <Jeferson Silva MD - Last Filed: 08/02/24 07:38> Ultrasound Used for Placement: Yes <MD Jaxson Rosado Last Filed: 08/02/24 07:38> Central Line Lumen Inserted: triple <Jeferson Silva MD - Last Filed: 08/02/24 07:38> Post Procedure: sutured in place, good blood return, all ports aspirated, flushed, capped and sterile dressing applied <Jeferson Silva MD - Last Filed: 08/02/24 07:38> Post Procedure X-Ray: tip of catheter in good position and no pneumothorax seen < Jeferson Silva MD - Last Filed: 08/02/24 07:38> Patient Tolerated Procedure: well and no complications <Jeferson Silva MD - Last Filed: 08/02/24 07:38> Complications: none <Jeferson Silva MD - Last Filed: 08/02/24 07:38> Medical Decision Making MDM Narrative Medical decision making narrative: 78-year-old male with a past medical history including hypertension, prostate cancer, recent ICU admission for sepsis and septic shock likely secondary to urologic source and urinary tract infection. Patient was treated with antibiotics, had blood pressure improvements in kidney function improvement and discharged home. His discharge was 1 week prior. Today patient presents with unstable vitals, hypotension, tachycardia, tachypnea, hypoxia and generalized malaise, dizziness. He is ill-appearing and tachypneic but answering questions appropriately. Suspicion presently is for recurrence of urinary tract infection and septic shock versus pneumonia leading to sepsis, bloodstream infection other source, intra-abdominal infection or abscess formation, kidney infection. Patient was brought to room 14 for resuscitation, 30 cc/kg bolus of fluid was initiated, started on vancomycin and Zosyn for broad-spectrum coverage given his allergy to ceftriaxone. CBC, CMP, blood cultures, lactic acid, CT scans of the chest abdomen pelvis was ordered as well as an EKG and chest x-ray at bedside. Patient placed on oxygen supplementation. Placed on monitoring coordinator and re-evaluated. Patient received 30 cc/kg of fluid resuscitation still remains hypotensive. Central venous access was placed in left subclavian vessel under ultrasound guidance. He was given additional fluid resuscitation and norepinephrine was initiated after successful confirmation placement of the line. Patient remains on broad-spectrum antibiotics at this time and has an elevated lactic acidosis as well as a white count of 13.4, hemoglobin 10.9 which is around his baseline. Normal platelets. Electrolytes reveal an acute kidney injury on chronic kidney disease with intravascular volume depletion as likely source. His lactic acid of 5.1 down trended 2.1 after volume resuscitation. His ALT and LFTs are mildly elevated likely from intravascular depletion and hypotension. Urinalysis shows signs of urinary tract infection which is the likely source but CT scan is pending. CT scan shows fibrotic lung changes, pleural calcifications, atelectasis versus nodule in the lingula. Abdomen pelvis without any appendicitis, diverticulitis or obstruction. Bilateral renal cysts without any hydronephrosis. Left mid pole kidney stone at 7 mm, no signs of obstruction. Postprocedural chest x-ray shows appropriate position of left subclavian catheter. Patient has been stabilized from a hemodynamic standpoint and will require ICU admission at this time. Discussed the case with Dr. Sierra the breakfast and room attendant as well as the hospitalist who currently being covered by the midlevel provider Polly, who accepted the patient to the ICU. Patient and family members were comfortable with the plan and made aware of admission. <Jeferson Silva MD - Last Filed: 08/02/24 07:38> Medical Records Medical records reviewed: Yes I reviewed the external patient's medical records. <Jeferson Silva MD - Last Filed: 08/02/24 07:38> Vital Signs Vital Signs: Vital Signs Temperature 36.3 C L 08/01/24 18:45 Pulse Rate 103 H 08/01/24 18:45 Respiratory Rate 34 H 08/01/24 18:45 Blood Pressure 66/35 L 08/01/24 18:45 Pulse Oximetry 88 L 08/01/24 18:45 Oxygen Delivery Room Air 08/01/24 18:45 Temperature 36.6 C 08/02/24 04:50 Pulse Rate 93 08/02/24 06:00 Respiratory Rate 24 H 08/02/24 06:00 Blood Pressure 98/56 L 08/02/24 06:00 Pulse Oximetry 95 08/02/24 06:00 Oxygen Delivery Nasal Cannula 08/01/24 22:38 Oxygen Flow Rate 3 08/01/24 22:38 <Rima Musa APRN - Last Filed: 08/01/24 19:13> Vital Signs Temperature 36.3 C L 08/01/24 18:45 Pulse Rate 103 H 08/01/24 18:45 Respiratory Rate 34 H 08/01/24 18:45 Blood Pressure 66/35 L 08/01/24 18:45 Pulse Oximetry 88 L 08/01/24 18:45 Oxygen Delivery Room Air 08/01/24 18:45 Temperature 36.6 C 08/02/24 04:50 Pulse Rate 93 08/02/24 06:00 Respiratory Rate 24 H 08/02/24 06:00 Blood Pressure 98/56 L 08/02/24 06:00 Pulse Oximetry 95 08/02/24 06:00 Oxygen Delivery Nasal Cannula 08/01/24 22:38 Oxygen Flow Rate 3 08/01/24 22:38 <Jeferson Silva MD - Last Filed: 08/02/24 07:38> Lab Data Lab results reviewed: Yes I reviewed the patient's lab results. <Jeferson Silva MD - Last Filed: 08/02/24 07:38> Result diagrams: 08/02/24 05:59 08/02/24 05:59 <Rima Musa APRN - Last Filed: 08/01/24 19:13> Labs: Lab Results 08/01/24 08/01/24 Range/Units 19:05 23:43 WBC 13.9 H (4.5-10.0) K/mm3 RBC 4.03 L (4.6-6.20) M/mm3 Hgb 10.9 L (14.0-18.0) g/dL Hct 36.9 L (42.0-52.0) % MCV 91.6 (80-100) fl MCH 27.0 (26-34) pg MCHC 29.5 L (32-36) g/dl RDW 15.9 H (11.5-14.5) % Plt Count 385 H D (150-375) k/mm3 MPV 8.7 (7.4-10.4) fl Immature Gran % (Auto) Not Reportable Neut % (Auto) Not Reportable Lymph % (Auto) Not Reportable [place] % (Auto) Not Reportable Eos % (Auto) Not Reportable Baso % (Auto) Not Reportable Lymph # (Auto) Not Reportable [place] # (Auto) Not Reportable Eos # (Auto) Not Reportable Baso # (Auto) Not Reportable Abs Immat Gran (auto) Not Reportable Absolute Neuts (auto) Not Reportable Absolute Nucleated RBC Not Reportable Total Counted 100 Neutrophils % (Manual) 85 H (46-73) % Band Neutrophils % 14 H (0-6) % Monocytes % (Manual) 1 L (3-9) % Nucleated RBC % Not Reportable Abs Neuts (Manual) 13.76 H (1.3-6.7) K/mm3 Abs Monocytes (Manual) 0.13 (0.1-0.90) K/mm3 Platelet Estimate Slightly increased (Adequate) Hypochromasia 1+ Anisocytosis 1+ Schistocytes None seen PT 13.8 (11.1-14.7) Seconds INR 1.0 APTT 20.5 L (22.3-36.8) Seconds Sodium 135 L (137-145) mmol/L Potassium 4.7 (3.4-5.0) mmol/L Chloride 98 (98-107) mmol/L Carbon Dioxide 23 (22-30) mmol/L Anion Gap 14 H (4-12) mmol/L BUN 34 H (9-20) mg/dL Creatinine 2.17 H (0.7-1.3) mg/dL Estim Creat Clear Calc 32 ml/min Estimated GFR 30 L (59 - ) Glucose 120 H (65-110) mg/dL Lactic Acid 5.1 H* (0.7-2.0) mmol/L Calcium 9.0 (8.4-10.2) mg/dL Total Bilirubin 2.8 H (0.2-1.3) mg/dL AST 537 H (17-59) U/L ALT 156 H (6-50) U/L Alkaline Phosphatase 131 H (38-126) U/L C-Reactive Protein 4.2 H (<1.0) mg/dL Total Protein 7.0 (6.3-8.2) g/dL Albumin 4.2 (3.5-5.1) g/dL Urine Color Dark yellow (Yellow) Urine Appearance Cloudy H (Clear) Urine pH 5.0 (5.0-9.0) Ur Specific Burns > 1.045 H (1.001-1.035) Urine Protein 1+ H (Negative) mg/dL Urine Glucose (UA) Negative (Negative) mg/dL Urine Ketones Trace H (Negative) mg/dL Ur Blood (Man) Negative (Negative) Urine Nitrate Negative (Negative) Urine Bilirubin 2+ H (Negative) Urine Urobilinogen 1.0 (<2.0) mg/dL Add Ur Microanalysis Reviewed Leukocyte Esterase Rfl 1+ H (Negative) ANITA/UL Urine RBC 3-5 H (0-2) /hpf Urine WBC 21-50 H (0-3) /hpf Ur Squamous Epith Cells Moderate (Few) /hpf Urine Bacteria None seen /hpf Urine Casts >20 <Rima Musa, INTERNIST MEDICAL DOCTOR MD - Last Filed: 08/01/24 19:13> Lab Results 08/01/24 08/01/24 Range/Units 19:05 23:43 WBC 13.9 H (4.5-10.0) K/mm3 RBC 4.03 L (4.6-6.20) M/mm3 Hgb 10.9 L (14.0-18.0) g/dL Hct 36.9 L (42.0-52.0) % MCV 91.6 (80-100) fl MCH 27.0 (26-34) pg MCHC 29.5 L (32-36) g/dl RDW 15.9 H (11.5-14.5) % Plt Count 385 H D (150-375) k/mm3 MPV 8.7 (7.4-10.4) fl Immature Gran % (Auto) Not Reportable Neut % (Auto) Not Reportable Lymph % (Auto) Not Reportable [place] % (Auto) Not Reportable Eos % (Auto) Not Reportable Baso % (Auto) Not Reportable Lymph # (Auto) Not Reportable [place] # (Auto) Not Reportable Eos # (Auto) Not Reportable Baso # (Auto) Not Reportable Abs Immat Gran (auto) Not Reportable Absolute Neuts (auto) Not Reportable Absolute Nucleated RBC Not Reportable Total Counted 100 Neutrophils % (Manual) 85 H (46-73) % Band Neutrophils % 14 H (0-6) % Monocytes % (Manual) 1 L (3-9) % Nucleated RBC % Not Reportable Abs Neuts (Manual) 13.76 H (1.3-6.7) K/mm3 Abs Monocytes (Manual) 0.13 (0.1-0.90) K/mm3 Platelet Estimate Slightly increased (Adequate) Hypochromasia 1+ Anisocytosis 1+ Schistocytes None seen PT 13.8 (11.1-14.7) Seconds INR 1.0 APTT 20.5 L (22.3-36.8) Seconds Sodium 135 L (137-145) mmol/L Potassium 4.7 (3.4-5.0) mmol/L Chloride 98 (98-107) mmol/L Carbon Dioxide 23 (22-30) mmol/L Anion Gap 14 H (4-12) mmol/L BUN 34 H (9-20) mg/dL Creatinine 2.17 H (0.7-1.3) mg/dL Estim Creat Clear Calc 32 ml/min Estimated GFR 30 L (59 - ) Glucose 120 H (65-110) mg/dL Lactic Acid 5.1 H* (0.7-2.0) mmol/L Calcium 9.0 (8.4-10.2) mg/dL Total Bilirubin 2.8 H (0.2-1.3) mg/dL AST 537 H (17-59) U/L ALT 156 H (6-50) U/L Alkaline Phosphatase 131 H (38-126) U/L C-Reactive Protein 4.2 H (<1.0) mg/dL Total Protein 7.0 (6.3-8.2) g/dL Albumin 4.2 (3.5-5.1) g/dL Urine Color Dark yellow (Yellow) Urine Appearance Cloudy H (Clear) Urine pH 5.0 (5.0-9.0) Ur Specific [place] > 1.045 H (1.001-1.035) Urine Protein 1+ H (Negative) mg/dL Urine Glucose (UA) Negative (Negative) mg/dL Urine Ketones Trace H (Negative) mg/dL Ur Blood (Man) Negative (Negative) Urine Nitrate Negative (Negative) Urine Bilirubin 2+ H (Negative) Urine Urobilinogen 1.0 (<2.0) mg/dL Add Ur Microanalysis Reviewed Leukocyte Esterase Rfl 1+ H (Negative) ANITA/UL Urine RBC 3-5 H (0-2) /hpf Urine WBC 21-50 H (0-3) /hpf Ur Squamous Epith Cells Moderate (Few) /hpf Urine Bacteria None seen /hpf Urine Casts >20 <Jeferson Silva MD - Last Filed: 08/02/24 07:38> Imaging Data Attestation: I personally reviewed and interpreted this imaging study as follows: < Jeferson Silva MD - Last Filed: 08/02/24 07:38> My impression: Impressions Chest X-Ray 08/01/24 19:57 IMPRESSION: Bilateral pneumonia follow-up to resolution is advised. Underlying pulmonary edema is not excluded. Granuloma in the left upper lobe. 3 months follow-up advised to exclude a nodule. Head CT 08/01/24 20:23 IMPRESSION: No acute intracranial findings. Chest/Abdomen/Pelvis CT 08/01/24 22:33 IMPRESSION: CHEST: 1. Fibrotic changes of the lungs. 2. Extensive pleural calcification. 3. Atelectasis versus nodule in the right lung base and in the lingula. 3 months follow-up CT is advised. ABDOMEN/PELVIS: 1. No evidence of appendicitis, diverticulitis or intestinal obstruction. 2. Hepatomegaly with fat infiltration. 3. Left kidney stone with bilateral renal cysts. 4. Sliding hiatus hernia. 5. 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 Conventional Angiography is advised. <Jeferson Silva MD - Last Filed: 08/02/24 07:38> Critical Care Time Critical Care Time Critical Care Time: Yes <Jeferson Silva MD - Last Filed: 08/02/24 07:38> Total Critical Care Time: 75 (Critical care time is exclusive of the separately billed procedures above) <Jeferson Silva MD - Last Filed: 08/02/24 07:38> Discharge Plan Discharge Clinical Impression: Septic shock, Acute UTI, ELIZABETH (acute kidney injury), Acute dehydration, Acidosis, lactic <Rima Musa APRN - Last Filed: 08/01/24 19:13> Patient Disposition: Still a Patient <Rima Musa APRN - Last Filed: 08/01/24 19:13> Condition: Critical <Rima Musa APRN - Last Filed: 08/01/24 19:13>
--- NOTE | 2024-08-01 18:42 | ECG_ITS ---
Test Date: 2024-08-01 19:00:06 Measurements Intervals [place] Rate: 99 P: -13 RI: 158 QRS: -62 QRSD: 109 T: 136 QT: 333 QTc: 428 Interpretive Statements SINUS RHYTHM LEFT ANTERIOR FASCICULAR BLOCK [QRS AXIS <= -45, QR IN I, RS IN II] ANTEROSEPTAL MYOCARDIAL INFARCTION , OF INDETERMINATE AGE [40+ ms Q WAVE IN V1-V4] MODERATE T-WAVE ABNORMALITY, CONSIDER LATERAL ISCHEMIA [-0.1+ mV T-WAVE IN I/aVL/V5/V6] ABNORMAL ECG Electronically Signed On 08-02-2024 08:04:38 CDT by Blu Larson M.D.
[2024-08-01 19:13] LABS: Hematocrit 36.9 % (42.0-52.0); Hemoglobin 10.9 g/dL (14.0-18.0); Mean Corpuscular HGB Conc 29.5 g/dl (32-36); Mean Corpuscular Volume 91.6 fl (80-100); Mean Platelet Volume 8.7 fl (7.4-10.4); Platelet Count Result 385 k/mm3 (150-375); Red Blood Count 4.03 M/mm3 (4.6-6.20); Red Cell Distribution Width 15.9 % (11.5-14.5); White Blood Count 13.9 K/mm3 (4.5-10.0)
[2024-08-01] MEDS: SODIUM CHLORIDE 0.9% IV 1,000 ML 999 ML IV CONT ×2 (19:13→20:10)
[2024-08-01 19:25] LABS: Alanine Aminotransferase 156 U/L (6-50); Albumin Level 4.2 g/dL (3.5-5.1); Alkaline Phosphatase 131 U/L (38-126); Anion Gap 14 mmol/L (4-12); Aspartate Amino Transferase 537 U/L (17-59); Bilirubin,Total 2.8 mg/dL (0.2-1.3); Blood Urea Nitrogen 34 mg/dL (9-20); CRP 4.2 mg/dL (<1.0); Carbon Dioxide 23 mmol/L (22-30); Chloride 98 mmol/L (98-107); Estimated CRCL calculation 32 ml/min; Estimated Glomerular Filt Rate 30; Glucose 120 mg/dL (65-110); Lactic Acid Reflex 5.1 mmol/L (0.7-2.0); Potassium 4.7 mmol/L (3.4-5.0); Sodium 135 mmol/L (137-145)
--- NOTE | 2024-08-01 19:28 | ED_ITS ---
HPI - Dizziness General Chief Complaint: Dizziness Stated Complaint: Low BP, dizziness-admitted in ICU last week Time Seen by Provider: 08/01/24 18:35 History of Present Illness HPI Narrative: 78-year-old male with past medical history including hypertension, prostate cancer, recurrent urinary tract infections with recent ICU admission 1 week ago for septic shock secondary to urinary infection. Patient was discharged home after improving blood pressures and renal function. He returns today as he woke up feeling generalized weakness and dizziness where he felt like he was lightheaded and going to pass out. He denies any urinary complaints, abdominal pain, flank pain, chest pain or difficulty breathing. Your IV in triage with unstable vitals with a blood pressure 66/35, tachypneic and hypoxic. He was brought back to room 14 for evaluation and resuscitation. Family members provide collateral information. Patient is currently awake alert oriented. Related Data Home Medications ?Medication ?Instructions ?Recorded ?Confirmed ?Last Taken ?Type omeprazole 20 mg capsule,delayed 20 mg PO DAILY 09/30/19 07/22/24 Unknown History release pyridoxine (vitamin B6) 500 mg 500 mg PO DAILY 09/30/19 07/22/24 01/03/24 History tablet cholecalciferol (vitamin D3) 50 50 mcg PO DAILY 10/07/19 07/22/24 01/03/24 History mcg (2,000 unit) capsule leuprolide acetate (6 month) 45 mg 45 mg subcut [id number] 10/24/19 07/22/24 Unknown History (6 month) subcutaneous syringe (Eligard) gabapentin 300 mg capsule 800 mg PO QHS 06/12/23 07/22/24 Unknown History prednisone 10 mg tablet 15 mg PO DAILY 06/12/23 07/22/24 01/10/24 07:00 History alendronate 70 mg tablet 70 mg PO WEEKLY 01/04/24 07/22/24 07/18/24 History melatonin 10 mg tablet 10 mg PO HS PRN Insomnia 01/04/24 07/22/24 Unknown History calcium 600 mg (as 1 tablet PO BID 07/22/24 07/22/24 Unknown History carbonate)-vitamin D3 5 mcg (200 unit) tablet (Calcium 600 + D(3)) Allergies Allergy/AdvReac Type Severity Reaction Status Date / Time ceftriaxone (From Rocephin) AdvReac Mild Rash Verified 07/22/24 02:46 Review of Systems 2 Review of Systems: As reviewed above in [facility] Past Medical History Medical History LFT elevation Septic shock Other idiopathic peripheral autonomic neuropathy Unspecified disorder of circulatory system Broken arm (~1952) History of broken leg (~1970) Prostate cancer Pure hyperglyceridemia Essential hypertension Cardiac abnormality Incontinence Surgical History Surgical History History of prostatectomy History of sinus surgery Total knee replacement status (~2005) H/O hernia repair (~2014) Total knee replacement status (~07/23/18) Family History Family History Father Family history of malignant neoplasm Mother Family history of malignant neoplasm of breast in first degree relative Other Family history of cardiovascular disease Hypertension Social History Social History Social History: Caffeine- Smoking packs per day: 1 Smoking cigarettes per day: 20.0 Years smoked: 20 Smoking pack-years: 20.00 Smoking status: Former smoker Tobacco type: cigarettes Second hand tobacco smoke exposure: No Smoking end date: 03/19/85 Alcohol intake: current Drinks per week: 4 Substance use: never Substance use type: does not use Do You Feel Safe in your Home?: Yes Lack of Transportation: No Lack of Food: Never True Current Housing: I Have Housing Concerned About Future Housing: No Difficulty Paying Gas/Electric Bills: No Difficulty Paying for Meds: No Currently Unemployed: No Education: Associate Degree Difficulty w/ Childcare or Family Care: No Living arrangements: with family Spiritual care concerns: No Exam 2 Narrative: GENERAL: Ill-appearing, not any acute distress but is tachypneic HEAD: [Normocephalic, atraumatic.] EYES: [PERRLA and EOMI.] ENT: Nares clear, no rhinorrhea or epistaxis. Mucous membranes moist. NECK: Supple. CHEST: Tachypneic, clear to auscultation, no wheezing HEART: [Regular rate and rhythm]. No murmur heard. [Normal peripheral pulses.] ABDOMEN: [Soft, nondistended], [nontender], [No rigidity or guarding] bruising to the bilateral lower abdominal wall likely secondary to anticoagulation injections EXTREMITIES: Normal range of motion. [No edema.] SKIN: Warm, dry, no rash. NEURO: [No focal deficits]. Alert and oriented [x3.] PSYCH: [Normal mood and affect.] Course Vital Signs Vital signs: Vital Signs Temperature 36.3 C L 08/01/24 18:45 Pulse Rate 103 H 08/01/24 18:45 Respiratory Rate 34 H 08/01/24 18:45 Blood Pressure 66/35 L 08/01/24 18:45 Pulse Oximetry 88 L 08/01/24 18:45 Oxygen Delivery Room Air 08/01/24 18:45 Temperature 36.3 C L 08/01/24 18:45 Pulse Rate 103 H 08/01/24 18:45 Respiratory Rate 34 H 08/01/24 18:45 Blood Pressure 66/35 L 08/01/24 18:45 Pulse Oximetry 93 08/01/24 18:47 Oxygen Delivery Nasal Cannula 08/01/24 18:47 Oxygen Flow Rate 2 08/01/24 18:47 MDM - Dizziness MDM Narrative Medical decision making narrative: 78-year-old male with a past medical history including prostate cancer, hypertension, recent ICU admission for septic shock secondary to urinary tract infection Lab Data 08/01/24 19:05 08/01/24 19:05 Labs: Lab Results 08/01/24 Range/Units 19:05 WBC Pending RBC Pending Hgb Pending Hct Pending MCV Pending MCH Pending MCHC Pending RDW Pending Plt Count Pending MPV Pending Immature Gran % (Auto) Pending Neut % (Auto) Pending Lymph % (Auto) Pending Glades % (Auto) Pending Eos % (Auto) Pending Baso % (Auto) Pending Lymph # (Auto) Pending Glades # (Auto) Pending Eos # (Auto) Pending Baso # (Auto) Pending Abs Immat Gran (auto) Pending Absolute Neuts (auto) Pending Absolute Nucleated RBC Pending Nucleated RBC % Pending PT Pending INR Pending APTT Pending Sodium 135 L (137-145) mmol/L Potassium 4.7 (3.4-5.0) mmol/L Chloride 98 (98-107) mmol/L Carbon Dioxide 23 (22-30) mmol/L Anion Gap 14 H (4-12) mmol/L BUN 34 H (9-20) mg/dL Creatinine 2.17 H (0.7-1.3) mg/dL Estim Creat Clear Calc 32 ml/min Estimated GFR 30 L (59 - ) Glucose 120 H (65-110) mg/dL Lactic Acid 5.1 H* (0.7-2.0) mmol/L Calcium 9.0 (8.4-10.2) mg/dL Total Bilirubin 2.8 H (0.2-1.3) mg/dL AST 537 H (17-59) U/L ALT 156 H (6-50) U/L Alkaline Phosphatase 131 H (38-126) U/L C-Reactive Protein 4.2 H (<1.0) mg/dL Total Protein 7.0 (6.3-8.2) g/dL Albumin 4.2 (3.5-5.1) g/dL Discharge Plan Discharge Patient Language: Malawian Prescriptions: No Action gabapentin 300 mg capsule 800 mg PO QHS omeprazole 20 mg capsule,delayed release(DR/EC) 20 mg PO DAILY Patient Comments: TAKES EVERYOTHER DAY pyridoxine (vitamin B6) 500 mg tablet 500 mg PO DAILY cholecalciferol (vitamin D3) 50 mcg (2,000 unit) capsule 50 mcg PO DAILY Eligard (6 month) 45 mg syringe 45 mg SUB-Q [id number] prednisone 10 mg tablet 15 mg PO DAILY melatonin 10 mg Tablet 10 mg PO HS PRN (Reason: Insomnia) alendronate 70 mg tablet 70 mg PO WEEKLY Patient Comments: TAKES ON FRIDAYS calcium carbonate-vitamin D3 [Calcium 600 + D(3)] 600 mg-5 mcg (200 unit) tablet 1 tablet PO BID amoxicillin-pot clavulanate [Augmentin] 500-125 mg tablet 1 tablet PO Q8H Qty: 15 0RF lovastatin 20 mg tablet 20 mg PO DAILY Qty: 90 3RF fenofibrate 160 mg tablet 160 mg PO DAILY Qty: 90 3RF carvedilol 3.125 mg tablet 3.125 mg PO Q12H Qty: 180 3RF Rx Instructions: must administer with a meal/food Follow-up/Referrals: Don Bronson DO [Primary Care Provider] -
--- OUTSIDE RECORDS SUMMARY | 2024-08-01 19:29 | XMS_ITS | Referral Summary ---
Author Organization [place] [id number] [facility] Address [address] [place] [address] Care Team Providers Care Vice President Diversity Name Role Phone Tano Ibarra DO Unavailable [phone] Hardik Call MD Unavailable [phone] Don Bronson DO Primary Care Provider [phone] Encounters Date Type Department Care Team Description 07/01/2024 Orders Only [facility] Physicians [facility] Oncology [address] [place] [address] [address] [place] [address] Tano Ibarra DO 06/18/2024 Orders Only [facility] Physicians [facility] Oncology [address] [place] [address] [address] [place] [address] ProviderKy MD 05/26/2024 Telephone [facility] Oncology [address] [place] [address] [address] [place] [address] Jacquelin Rosenberg, CHANDLER 05/21/2024 Results Follow-Up [facility] at [address] [address] Kasandra Davila NP 05/19/2024 12:14 PM NETWORK SUPPORT MANAGER - 05/19/2024 11:59 PM NETWORK SUPPORT MANAGER Hospital Encounter [address] [address] Dysuria Discharge Disposition: Discharge to home or self care 05/19/2024 12:00 PM NETWORK SUPPORT MANAGER Office Visit [facility] at [address] [address] Veronica Flannery, WILL Dysuria (Primary [...] on file Legal Sex Male 2:39 PM NETWORK SUPPORT MANAGER Gender Identity Not on file Sexual Orientation Not on file Last Filed Vital Signs Vital Sign Reading Time Taken Comments Blood Pressure 157/83 05/19/2024 12:01 PM NETWORK SUPPORT MANAGER Pulse 95 05/19/2024 12:01 PM NETWORK SUPPORT MANAGER Temperature 37.4 C (99.3 F) 05/19/2024 12:01 PM NETWORK SUPPORT MANAGER Respiratory Rate 20 05/19/2024 12:01 PM NETWORK SUPPORT MANAGER Oxygen Saturation 96% 05/19/2024 12:01 PM NETWORK SUPPORT MANAGER Inhaled Oxygen Concentration - - Weight 105.2 kg (232 lb) 05/19/2024 12:01 PM NETWORK SUPPORT MANAGER Height 182.9 cm (6') 05/25/2023 2:58 PM NETWORK SUPPORT MANAGER Body Mass Index 31.46 05/25/2023 2:58 PM NETWORK SUPPORT MANAGER Plan of Treatment Not on file Procedures Procedure Name Priority Date/Time Associated Diagnosis Comments CBC WITH AUTO DIFFERENTIAL Routine 07/01/2024 3:05 PM CDT BMP - BASIC METABOLIC PANEL (7) Routine 06/17/2024 8:42 AM CDT CBC WITH AUTO DIFFERENTIAL Routine 06/17/2024 8:42 AM CDT URINE CULTURE Routine 05/19/2024 12:14 PM NETWORK SUPPORT MANAGER Dysuria POCT URINALYSIS DIPSTICK Routine 05/19/2024 12:05 PM NETWORK SUPPORT MANAGER Dysuria from Last 3 Months Results * [...] - 07/02/2024 6:09 AM CDT Performed at: [address] [place] [id number] Client Services Administrator: Ascencion Thomas PhD, Phone: [phone] Specimen Comment: A courtesy copy of this report has been sent to [phone] Tano Ibarra DO LAB BLOOD ORDERABLES Final R esult Performing Organization Address [facility] Co de Phone Number [facility] - 01 * BMP - Basic Metabolic Panel (7) (06/17/2024 8:42 AM CDT) Historical Provider LAB BLOOD ORDERABLES Vivian l Result Performing Organization Address City/[facility] Co de Phone Number EXTERNAL LAB * CBC with auto differential (06/17/2024 8:42 AM CDT) Blood Historical Provider LAB BLOOD ORDERABLES Vivian l Result * (ABNORMAL) Urine culture Urine, clean voided (05/19/2024 12:14 PM NETWORK SUPPORT MANAGER) Report Final Report: Greater than or equal to 100,000 colonies/mL of Aerococcus urinae Isolates of Aerococcus urinae are typically susceptible to beta-lactams (including penicillin and cephalosporins), vancomycin, and tetracyclines (including doxycycline), but resistant to trimethoprim-sulf amethoxazole. Plus growth of clinically insignificant bacterial susie. (.) Comment:Testing performed by : [facility], [address] [place]., [address] Organism AEROCOCCUS URINAE [place] Organism PLUS GROWTH OF CLINICALLY INSIGNIFICANT SUSIE. SEMAJ Urine, clean voided 05/19/2024 12:14 PM NETWORK SUPPORT MANAGER 05/20/2024 12:03 AM NETWORK SUPPORT MANAGER Narrative SEMAJ - 05/21/2024 7:46 AM NETWORK SUPPORT MANAGER Testing performed by [facility] Microbiology Laboratory ([phone]) Veronica Falnnery NP LAB MICROBIOLOGY - GENERAL ORDERABLES Final Result SEMAJ [id number] [address] Department [place] [address] * (ABNORMAL) POCT urinalysis dipstick (05/19/2024 12:05 PM NETWORK SUPPORT MANAGER) Color, Urine, POC Yellow Clarity, ur, POC Cloudy(A) Clear Glucose, ur, POC Negative Negative MG/DL Bilirubin, ur, POC Negative Negative, Small, Moderate, Large Ketones, ur, POC Negative Negative Specific [place], POC 1.020 1.003 - 1.030 Blood, ur, POC Small(A) Negative pH, ur, POC 7.0 5.0 - 8.0 Protein, ur, POC 300.(A) Negative Urobilinogen, urine, POC 1.0 0.2 - 1.0 mg/dL Nitrite, ur, POC Negative Negative Leukocytes, ur, POC Small(A) Negative Lot Number [id number] Urine 05/19/2024 12:0 5 PM NETWORK SUPPORT MANAGER Veronica Flannery NP POINT OF CARE TEST ORDERAB LES Final Result from Last 3 Months Insurance MEDICARE [facility] MEDICARE [place] MEDICARE SUPPLEMENT MEDICARE [facility] MEDICARE SUPPLEMENT Care Teams Vice President Diversity Relationship Specialty Start Date End Date Don Bronson DO [address] [facility] [address] [address] [place], [place] [id number] PCP - General Internal Medicine 05/02/24 Tano Ibarra DO [address] [place] [id number] Medical Oncologist/Double Needle Operator Hematology and Oncology 04/30/20 Hardik Call MD [address] [place] [phone] Consulting Physician Urology 10/28/21
--- OUTSIDE RECORDS SUMMARY | 2024-08-01 19:29 | XMS_ITS | Clinical Summary ---
Author Organization [place] [id number] [facility] Address [address] [place] [phone] Care Team Providers Care Valet Name Role Phone Tano Ibarra DO Unavailable [phone] Hardik Call MD Unavailable Don Bronson DO Primary Care Provider [phone] Allergies No known active allergies Medications omeprazole [...] Department Care Team Description 07/01/2024 Orders Only [facility] Physicians [facility] Oncology [address] [place] [address] [address] [place] [address] Tano Ibarra DO 06/18/2024 Orders Only [facility] Physicians [facility] Oncology [address] [place] [address] [address] [place] [address] Ky Davidson MD 05/26/2024 Telephone [facility] Physicians [facility] Oncology [address] [place] [address] [address] [place] [address] Jacquelin Rosenberg RN 05/21/2024 Results Follow-Up [facility] at [address] [address] Kasandra Davila NP 05/19/2024 12:14 PM HAIRSPRING VIBRATOR - 05/19/2024 11:59 PM HAIRSPRING VIBRATOR Hospital Encounter [address] [address] Dysuria Discharge Disposition: Discharge to home or self care 05/19/2024 12:00 PM HAIRSPRING VIBRATOR Office Visit [facility] at [address] [address] Veronica Flannery NP Dysuria (Primary Dx) from [...] on file Legal Sex Male 2:39 PM HAIRSPRING VIBRATOR Gender Identity Not on file Sexual Orientation Not on file Obstetrics History Last Filed Vital Signs Vital Sign Reading Time Taken Comments Blood Pressure 157/83 05/19/2024 12:01 PM HAIRSPRING VIBRATOR Pulse 95 05/19/2024 12:01 PM HAIRSPRING VIBRATOR Temperature 37.4 C (99.3 F) 05/19/2024 12:01 PM HAIRSPRING VIBRATOR Respiratory Rate 20 05/19/2024 12:01 PM HAIRSPRING VIBRATOR Oxygen Saturation 96% 05/19/2024 12:01 PM HAIRSPRING VIBRATOR Inhaled Oxygen Concentration - - Weight 105.2 kg (232 lb) 05/19/2024 12:01 PM HAIRSPRING VIBRATOR Height 182.9 cm (6') 05/25/2023 2:58 PM HAIRSPRING VIBRATOR Body Mass Index 31.46 05/25/2023 2:58 PM HAIRSPRING VIBRATOR Plan of Treatment Health Maintenance Due Date [...] CDT URINE CULTURE Routine 05/19/2024 12:14 PM HAIRSPRING VIBRATOR Dysuria POCT URINALYSIS DIPSTICK Routine 05/19/2024 12:05 PM HAIRSPRING VIBRATOR Dysuria from Last 3 Months Results * [...] - 07/02/2024 6:09 AM CDT Performed at: [address] [place] [id number] Frame And Scrap Crusher: Ascencion Thomas PhD, Phone: [phone] Specimen Comment: A courtesy copy of this report has been sent to [phone] Tano Ibarra DO LAB BLOOD ORDERABLES Final R esult Performing Organization Address [facility] Co de Phone Number [facility] - 01 * BMP - Basic Metabolic Panel (7) (06/17/2024 8:42 AM CDT) Historical Provider LAB BLOOD ORDERABLES Vivian l Result Performing Organization Address City/[facility] Co de Phone Number EXTERNAL LAB * CBC with auto differential (06/17/2024 8:42 AM CDT) Blood Historical Provider MD LAB BLOOD ORDERABLES Vivian l Result * (ABNORMAL) Urine culture Urine, clean voided (05/19/2024 12:14 PM HAIRSPRING VIBRATOR) Report Final Report: Greater than or equal to 100,000 colonies/mL of Aerococcus urinae Isolates of Aerococcus urinae are typically susceptible to beta-lactams (including penicillin and cephalosporins), vancomycin, and tetracyclines (including doxycycline), but resistant to trimethoprim-sulf amethoxazole. Plus growth of clinically insignificant bacterial gurpreet. (.) Comment:Testing performed by : [facility], [address] [place]., [address] Organism AEROCOCCUS URINAE SEMAJ Organism PLUS GROWTH OF CLINICALLY INSIGNIFICANT GURPREET. SEMAJ Urine, clean voided 05/19/2024 12:14 PM HAIRSPRING VIBRATOR 05/20/2024 12:03 AM HAIRSPRING VIBRATOR Narrative SEMAJ - 05/21/2024 7:46 AM HAIRSPRING VIBRATOR Testing performed by [facility] Microbiology Laboratory ([phone]) Veronica Flannery NP LAB MICROBIOLOGY - GENERAL ORDERABLES Final Result SEM[place] [id number] [address] Department [place] [address] * (ABNORMAL) POCT urinalysis dipstick (05/19/2024 12:05 PM HAIRSPRING VIBRATOR) Color, Urine, POC Yellow Clarity, ur, POC Cloudy(A) Clear Glucose, ur, POC Negative Negative MG/DL Bilirubin, ur, POC Negative Negative, Small, Moderate, Large Ketones, ur, POC Negative Negative Specific [place], POC 1.020 1.003 - 1.030 Blood, ur, POC Small(A) Negative pH, ur, POC 7.0 5.0 - 8.0 Protein, ur, POC 300.(A) Negative Urobilinogen, urine, POC 1.0 0.2 - 1.0 mg/dL Nitrite, ur, POC Negative Negative Leukocytes, ur, POC Small(A) Negative Lot Number [id number] Urine 05/19/2024 12:0 5 PM HAIRSPRING VIBRATOR Veronica Flannery NP POINT OF CARE TEST ORDERAB LES Final Result from Last 3 Months Insurance [facility] MEDIC[place] [address] [facility] MEDICARE SUPPLEMENT Care Teams Valet Relationship Specialty Start Date End Date Don Bronson DO [address] [facility] [address] [place], [place] [id number] PCP - General Internal Medicine 05/02/24 Tano Ibarra DO [address] [place] [id number] Medical Oncologist/Cell Lead Hematology and Oncology 04/30/20 Hardik Call MD [address] [place] [id number] Consulting Physician Urology 10/28/21
[2024-08-01 19:40] LABS: Band Neutrophils Percent 14 % (0-6); Monocytes Absolute Manual 0.13 K/mm3 (0.1-0.90); Monocytes Percent Manual 1 % (3-9); Neutrophils Absolute Manual 13.76 K/mm3 (1.3-6.7); Neutrophils Percent Manual 85 % (46-73); Total Cells Counted 100
[2024-08-01 19:41] LABS: Hypochromasia 1+; Platelet Estimate Slightly Increased (Adequate); Schistocytes None Seen
[2024-08-01 19:42] LABS: Anisocytosis 1+
[2024-08-01 19:58] LABS: Partial Thromboplastin Time 20.5 Seconds (22.3-36.8)
[2024-08-01 20:00] LABS: Prothrombin Time 13.8 Seconds (11.1-14.7)
[2024-08-01 21:09] LABS: Reflex Lactic Acid Yes or No Add Lactic
[2024-08-01] MEDS: SODIUM CHLORIDE 0.9% IV 200 ML 999 ML IV CONT (21:09)
[2024-08-01] MEDS: PIPERACILLIN/TAZ 4.5G/NS 100ML 4.5 GM/100 ML BAG IVPB (22:00)
--- NOTE | 2024-08-01 22:20 | ECG_ITS ---
Test Date: 2024-08-01 22:22:47 Measurements Intervals [place] Rate: 106 P: 41 ND: 176 QRS: -61 QRSD: 111 T: 135 QT: 321 QTc: 428 Interpretive Statements SINUS TACHYCARDIA LOW QRS VOLTAGE IN PRECORDIAL LEADS [QRS DEFLECTION < 1.0 mV IN CHEST LEADS] INFERIOR MYOCARDIAL INFARCTION , PROBABLY OLD [40+ ms Q WAVE AND/OR ST/T ABNORMALITY IN II/aVF] ANTEROSEPTAL MYOCARDIAL INFARCTION , OF INDETERMINATE AGE MODERATE T-WAVE ABNORMALITY, CONSIDER LATERAL ISCHEMIA [-0.1+ mV T WAVE IN I/aVL/V5/V6] ABNORMAL ECG Compared to ECG 08/01/2024 19:00:06 Myocardial infarct finding still present T-wave abnormality still present Possible ischemia still present Electronically Signed On 08-02-2024 13:01:16 CDT by Blu Larson M.D.
[2024-08-01] MEDS: SODIUM CHLORIDE 0.9% IV 1,000 ML 999 ML (22:23)
--- NOTE | 2024-08-01 22:56 | PC.NURSE ---
2251-PORTABLE CHEST X-RAY COMPLETED. OK TO USE CENTRAL LINE PER DR. EVERETT.
[2024-08-01] MEDS: NOREPINEPHRINE 8 MG/D5W 250 ML 8 MG/250 ML BAG 9.38 MG IV CONT (23:15)
[2024-08-01] MEDS: VANCOMYCIN 1,500 MG/NS 500 ML 1,500 MG/500 ML BAG 250 MG IVPB (23:43)
[2024-08-02] VITALS (62 sets, daily range): BP systolic 84–129; BP diastolic 47–98; PULSE 70–112; RESP 14–34; TEMP 36.5–36.6; O2SAT 93–100; BMI 29.2
[2024-08-02 00:10] LABS: Add Urine Microscopic? YES; Appearance Urine Cloudy (Clear); Bacteria Urine None Seen /hpf; Bilirubin Urine 2+ (Negative); Blood Urine Negative (Negative); Color Urine Dark Yellow (Yellow); Glucose Urine UA Negative (Negative); Ketones Urine Trace mg/dL (Negative); Leukocyte Esterase Ur 1+ LEU/UL (Negative); Need Manual Microscopic Reviewed; Nitrate Urine Negative (Negative); Non Pathogenic Casts >20; Protein Urine 1+ mg/dL (Negative); Specific Grav Ur > 1.045 (1.001-1.035); Squamous Epithelial Cell Urine Moderate /hpf (Few); WBC Urine 21-50 /hpf (0-3)
--- NOTE | 2024-08-02 01:35 | P.HP_ITS ---
H&P: HPI History of Present Illness Date/Time: 08/02/24 02:30 Chief Complaint: Weak and dizzy. Narrative: This is a pleasant 78-year-old male with history of idiopathic peripheral autonomic neuropathy, hypertension, chronic kidney disease, gastroesophageal reflux disease, and prostate cancer status post prostatectomy who presented to the emergency department via EMS from home for evaluation of weakness and d izziness. He was recently admitted to the ICU and treated for urosepsis however all cultures came back negative. He was discharged home about a week ago on Augmentin. He has reportedly been doing well up until yesterday when upon wakening he was feeling very weak and dizzy. Not long after waking he lay down in his recliner to rest. He then got up to use the restroom and I almost fell out because I was so weak and dizzy. Blood pressure at that time was 79/45 and his called 911. He tells me that he has been eating and drinking normally. He denies fever, headache, neck ache, sinus congestion, sore throat, cough, abdominal pain, back pain, nausea, vomiting, diarrhea, and dysuria. He also denies chest pain, pleuritic pain, and palpitations. He has not had any recent change in medications and does not think that he could of accidentally taken more medicine than what is prescribed. Regarding the documented history of idiopathic peripheral autonomic neuropathy, he cannot provide me with specifics and he does not see a neurologist. In the ED: Vital signs on arrival include a temperature of 97.3?, blood pressure 66/35, pulse 103, respiratory rate 34, SpO2 88% on room air. Labs were s ignificant for WBC count 13.9 with 14% bands, hemoglobin 10.9, platelet 385, sodium 135, anion gap 14, BUN 34, creatinine 2.17, lactic acid 5.1, total bilirubin 2.8, AST 537, ALT 156, alkaline phosphatase 131, CRP 4.2. Urinalysis was positive for 1+ protein, trace ketones, 1+ leukocyte esterase, 21 to 50 WBC, and greater than 20 casts. No bacteria seen on microscopy. 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 He received 3200 mL normal saline bolus as well as vancomycin and piperacillin-tazobactam for broad-spectrum coverage due to concerns for infection. Central line was inserted for refractory hypotension he is currently on norepinephrine at 5 micrograms/minute. He is being admitted to the ICU in this setting. Review of Systems Review of Systems: 12 systems were reviewed and are negativ e except for as per HPI. [facility] Past Medical History Medical History (Updated 08/02/24 @ 07:38 by Jeferson Silva MD) 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 Unspecified disorder of circulatory system Broken arm (~1952) History of broken leg (~1970) Prostate cancer Pure hyperglyceridemia Essential hypertension Incontinence Surgical History Surgical History (Updated 08/02/24 @ 05:54 by Polly Ellington PA-C) History of bilateral knee arthroplasty History of hernia repair History of prostatectomy History of sinus surgery Family History Family History Father Family history of malignant neoplasm Mother Family history of malignant neoplasm of breast in first degree relative Other Family history of cardiovascular disease Hypertension Social History Social History (Updated 08/02/24 @ 05:55 by Polly Ellington PA-C) Social History: Surrogate medical decision maker: Marylu Gupta, spouse. Code status: Full code. Smoking packs per day: 1 Smoking cigarettes per day: 20.0 Years smoked: 20 Smoking pack-years: 20.00 Smoking status: Former smoker Second hand tobacco smoke exposure: No Alcohol intake: current Drinks per week: 3 Substance use: never Substance use type: does not use Do You Feel Safe in your Home?: Yes Lack of Transportation: No Lack of Food: Never True Current Housing: I Have Housing Concerned About Future Housing: No Difficulty Paying Gas/Electric Bills: No Difficulty Paying for Meds: No Currently Unemployed: No Education: Associate Degree Difficulty w/ Childcare or Family Care: No Living arrangements: with family Spiritual care concerns: No Meds Home Medications and Allergies Home Medications ?Medication ?Instructions ?Recorded ?Confirmed ?Type omeprazole 20 mg capsule,delayed 20 mg PO DAILY 09/30/19 08/02/24 History release pyridoxine (vitamin B6) 500 mg 500 mg PO DAILY 09/30/19 08/02/24 History tablet cholecalciferol (vitamin D3) 50 50 mcg PO DAILY 10/07/19 08/02/24 History mcg (2,000 unit) capsule leuprolide acetate (6 month) 45 mg 45 mg subcut [id number] 10/24/19 08/02/24 History (6 month) subcutaneous syringe (RachaeliRewindd) gabapentin 300 mg capsule 800 mg PO QHS 06/12/23 08/02/24 History prednisone 10 mg tablet 15 mg PO DAILY 06/12/23 08/02/24 History lovastatin 20 mg tablet 20 mg PO DAILY #90 tabs 12/21/23 08/02/24 Rx alendronate 70 mg tablet 70 mg PO WEEKLY 01/04/24 08/02/24 History melatonin 10 mg tablet 10 mg PO HS PRN Insomnia 01/04/24 08/02/24 History fenofibrate 160 mg tablet 160 mg PO DAILY #90 tabs 01/25/24 08/02/24 Rx calcium 600 mg (as 1 tablet PO BID 07/22/24 08/02/24 History carbonate)-vitamin D3 5 mcg (200 unit) tablet (Calcium 600 + D(3)) carvedilol 3.125 mg tablet 3.125 mg PO Q12H #180 tabs 07/31/24 08/02/24 Rx Allergies Allergy/AdvReac Type Severity Reaction Status Date / Time ceftriaxone (From Rocephin) AdvReac Mild Rash Verified 08/02/24 05:06 Vital Signs Vital Signs - 24 hr 08/01/24 18:45 08/01/24 18:47 08/01/24 20:10 Temperature 97.3 F L Pulse Rate 103 H 121 H Respiratory Rate 34 H 21 H Blood Pressure 66/35 L 107/63 Pulse Oximetry 88 L 93 100 Oxygen Delivery Room Air Nasal Cannula Oxygen Flow Rate 2 08/01/24 20:11 08/01/24 22:10 08/01/24 22:28 Temperature 99.7 F H Pulse Rate 121 H 110 H 108 H Respiratory Rate 24 H 22 H Blood Pressure 84/51 L 79/41 L Pulse Oximetry 97 98 Oxygen Delivery Oxygen Flow Rate 08/01/24 22:38 08/01/24 22:46 08/01/24 23:03 Temperature 99 F Pulse Rate 109 H 111 H Respiratory Rate 22 H 22 H Blood Pressure 85/71 L 96/52 L Pulse Oximetry 100 100 97 Oxygen Delivery Nasal Cannula Oxygen Flow Rate 3 08/01/24 23:15 08/01/24 23:26 08/01/24 23:44 Temperature 98.7 F Pulse Rate 109 H 106 H 104 H Respiratory Rate 22 H Blood Pressure 97/54 L 115/58 L 102/54 L Pulse Oximetry 98 Oxygen Delivery Oxygen Flow Rate 08/01/24 23:49 08/02/24 00:13 Temperature Pulse Rate 105 H 103 H Respiratory Rate 20 24 H Blood Pressure 96/49 L 98/53 L Pulse Oximetry 97 96 Oxygen Delivery Oxygen Flow Rate Exam Narrative: General: Chronically ill-appearing male in the semi-Gordillo position in bed. Weight: 106.3 kg. BMI: 29.3. HEENT: Hard of hearing. Wearing corrective lenses. PERRL, EOMI. Sclera anicteric. Tacky mucous membranes. Neck: Supple. No JVD. Respiratory: Mildly tachypneic speaking in 4 to 5 word sentences. Currently on 3 L nasal cannula. Lung sounds are coarse with a few crackles. Cardiovascular: Tachycardic with occasional ectopy. No significant murmur. Chest: Left subclavian central line. Gastrointestinal: Abdomen is soft, nontender, and nondistended with positive bowel sounds. Skin: Warm and dry with generalized pallor. Capillary refill approximately 3 seconds. Extremities are slightly cool. Extremities: No cyanosis, clubbing, or edema. Radial and pedal pulses intact. Neurological: Alert. Cranial nerves 2-12 are grossly intact. Generalized weakness without gross focal findings. Psychiatric: Pleasant and cooperative with appropriate mood and affect. H&P: Results Labs Labs: Short CBC 08/01/24 Range/Units 19:05 WBC 13.9 H (4.5-10.0) K/mm3 Hgb 10.9 L (14.0-18.0) g/dL Hct 36.9 L (42.0-52.0) % Plt Count 385 H D (150-375) k/mm3 BMP 08/01/24 19:05 Sodium 135 L Potassium 4.7 Chloride 98 Carbon Dioxide 23 BUN 34 H Creatinine 2.17 H Glucose 120 H Calcium 9.0 Liver Function 08/01/24 Range/Units 19:05 Total Bilirubin 2.8 H (0.2-1.3) mg/dL AST 537 H (17-59) U/L ALT 156 H (6-50) U/L Alkaline Phosphatase 131 H (38-126) U/L Albumin 4.2 (3.5-5.1) g/dL Urine 08/01/24 Range/Units 23:43 Urine Color Dark yellow (Yellow) Urine Appearance Cloudy H (Clear) Urine pH 5.0 (5.0-9.0) Ur Specific [place] > 1.045 H (1.001-1.035) Urine Protein 1+ H (Negative) mg/dL Urine Glucose (UA) Negative (Negative) mg/dL Impressions Chest X-Ray 08/01/24 19:57 IMPRESSION: Bilateral pneumonia follow-up to resolution is advised. Underlying pulmonary edema is not excluded. Granuloma in the left upper lobe. 3 months follow-up advised to exclude a nodule. Head CT 08/01/24 20:23 IMPRESSION: No acute intracranial findings. Chest/Abdomen/Pelvis CT 08/01/24 22:33 IMPRESSION: CHEST: 1. Fibrotic changes of the lungs. 2. Extensive pleural calcification. 3. Atelectasis versus nodule in the right lung base and in the lingula. 3 months follow-up CT is advised. ABDOMEN/PELVIS: 1. No evidence of appendicitis, diverticulitis or intestinal obstruction. 2. Hepatomegaly with fat infiltration. 3. Left kidney stone with bilateral renal cysts. 4. Sliding hiatus hernia. 5. 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 Conventional Angiography is advised. Assessment and Plan Assessment and plan (1) Shock: Code(s): R57.9 - Shock, unspecified Status: Acute Assessment and Plan: Patient presented with refractory hypotension, leukocytosis with bandemia, lactic acidosis, acute on chronic kidney injury, and transaminitis. Etiology is not entirely clear but could be sepsis with possible lung or urine source. He was admitted earlier this month with similar findings and negative cultures. An echocardiogram at that time showed normal left ventricular function and grade 1 diastolic dysfunction and cardiogenic shock is unlikely. He states he has been eating and drinking normally but looks a bit dry on exam and by labs. There is no evidence of anaphylaxis and this is unlikely to be drug related. No history of adrenal insufficiency and electrolytes are normal. * Subclavian central venous catheter placed in the ED on 08/01/2024. * Currently on low-dose norepinephrine to maintain an MAP or greater than 65. * Continue empiric antibiotics to cover for possible infection. * Check cortisol levels and consider stress dose steroids. * Blood, sputum, and urine cultures have been ordered. (2) Acute on chronic kidney failure: Code(s): N17.9 - Acute kidney failure, unspecified; N18.9 - Chronic kidney disease, unspecified Status: Acute Assessment and Plan: Likely due to a hypovolemia from probable mild dehydration and hypoperfusion from hypotension. * Adequately resuscitated in the ED with 30 mL/kg fluid bolus. * Maintain MAP of at least 65. * Bladder scan to rule out retention. * Renally dose all medications. (3) Transaminitis: Code(s): R74.01 - Elevation of levels of liver transaminase levels Status: Acute Assessment and Plan: Abdominal exam is benign in no acute findings were noted on CT. * Likely due to hypotension. * Continue to monitor for now. (4) Pyuria: Code(s): R82.81 - Pyuria Status: Acute Assessment and Plan: Urinalysis is positive for 1+ leukocyte esterase and 21- 50 WBC. No bacteria microscopy and no urinary symptoms. * Continue empiric antibiotics for sepsis picture. * Urine cultures pending. (5) Abnormal finding on lung imaging: Code(s): R91.8 - Other nonspecific abnormal finding of lung field Status: Acute Assessment and Plan: CT showed fibrotic changes of the lungs, extensive pleural calcifications, atelectasis versus nodule in the right lung base and lingula. He does not give a history to suggest underlying pneumonia and no overt pneumonia was noted. * Three-month follow-up CT advised. (6) Other idiopathic peripheral autonomic neuropathy: Code(s): G90.09 - Other idiopathic peripheral autonomic neuropathy Status: Acute Assessment and Plan: Poorly documented in the patient's chart and he cannot provide any insight. Possibly playing a role in low blood pressures though quite profound. (7) Superior mesenteric artery atherosclerosis: Code(s): K55.1 - Chronic vascular disorders of intestine Status: Acute Assessment and Plan: CT scan shows moderate to severe narrowing of the superior mesenteric artery however his abdominal exam is benign, no findings of ischemia were noted on imaging, and he is not having any diarrhea. * Radiologist recommends conventional angiography however he received IV contrast yesterday thus will await this morning's labs to see where his creatinine is sitting. Quality VTE Prophylaxis VTE prophylaxis: pharmacologic ordered Hospitalist MIPS Advance Care Plan I have confirmed that the patient's Advanced Care Plan is present, code status is documented, or surrogate decision maker is listed in patient medical record.: Yes Medication Reconciliation I have utilized all available resources to obtain, update and review the patients current medications (includes all prescriptions, OTC, herbals, cannabis, and nutritional supplements).: Yes Critical Care Time Critical Care Time: Yes Total Critical Care Time: 75 Attestation: Due to a high probability of clinically significant, life threatening deterioration, the patient required my highest level of preparedness to intervene emergently and I personally spent this critical care time directly and personally managing the patient. This critical care time included obtaining a history; examining the patient; pulse oximetry; ordering and review of studies; arranging urgent treatment with development of a management plan; evaluation of patient's response to treatment; frequent reassessment; and discussions with other providers. It was exclusive of separately billable procedures and treating other patients and teaching time. Please see Assessment and Plan section and the rest of the note for further information on patient assessment and treatment.
--- NOTE | 2024-08-02 04:56 | ADMGEN ---
This patient, Tano Gupta, was admitted to Intensive Care Unit-8. Patient/family oriented to hospital policies and general routines including ID bracelet, bed and alarms, visiting hours, pain management, procedures, bathroom and other care routines, personal items, smoking policy, room service/diet, and visiting hours. Information on how to activate the Rapid Response Team has been discussed. Patient/Family are encouraged to report perceived risks to care and to ask questions if they do not understand what they are told or what they should do. Received report from Lily Shahid at 0414. Patient arrived via stretcher at 0430 without issue.
[2024-08-02] MEDS: LACTATED RINGERS 1,000 ML 125 ML IV CONT (05:01)
[2024-08-02 06:18] LABS: Basophils Percent Auto 0.4 % (0.2-1.2); Eosinophils Absolute Auto 0.4 K/mm3 (0-0.3); Eosinophils Percent Auto 4.1 % (0-4.4); Hematocrit 29.2 % (42.0-52.0); Hemoglobin 8.7 g/dL (14.0-18.0); Immature Granulocyte Absolute 0.04 K/mm3 (0.00-0.031); Immature Granulocyte Percent A 0.4 % (0-0.5); Lymphocytes Absolute Auto 0.26 K/mm3 (0.9-3.2); Lymphocytes Percent Auto 2.8 % (18.3-44.2); Mean Corpuscular HGB Conc 29.8 g/dl (32-36); Mean Corpuscular Hemoglobin 27.6 pg (26-34); Mean Corpuscular Volume 92.7 fl (80-100); Mean Platelet Volume 8.9 fl (7.4-10.4); Monocytes Absolute Auto 0.7 K/mm3 (0.1-0.6); Monocytes Percent Auto 7.3 % (2.6-8.5); Neutrophils Absolute Auto 7.9 K/mm3 (1.3-6.7); Platelet Count Result 291 k/mm3 (150-375); Red Blood Count 3.15 M/mm3 (4.6-6.20); White Blood Count 9.3 K/mm3 (4.5-10.0)
[2024-08-02 06:30] LABS: Lactic Acid Reflex 2.1 mmol/L (0.7-2.0)
[2024-08-02 06:32] LABS: Alanine Aminotransferase 118 U/L (6-50); Albumin Level 3.1 g/dL (3.5-5.1); Alkaline Phosphatase 101 U/L (38-126); Anion Gap 8 mmol/L (4-12); Aspartate Amino Transferase 204 U/L (17-59); Bilirubin,Total 2.3 mg/dL (0.2-1.3); Blood Urea Nitrogen 36 mg/dL (9-20); Calcium 7.5 mg/dL (8.4-10.2); Carbon Dioxide 21 mmol/L (22-30); Chloride 106 mmol/L (98-107); Creatine Kinase < 20 U/L (55-170); Estimated CRCL calculation 35 ml/min; Estimated Glomerular Filt Rate 34; Glucose 118 mg/dL (65-110); Magnesium 1.6 mg/dL (1.6-2.3); Potassium 4.6 mmol/L (3.4-5.0); Sodium 135 mmol/L (137-145)
[2024-08-02 06:40] LABS: NT Pro B Type Natriuretic Pept 4780 pg/mL (19.9-100)
[2024-08-02 06:57] LABS: Anisocytosis 1+; Hypochromasia 1+; Ovalocytes 1+; Platelet Estimate Adequate (Adequate)
[2024-08-02 06:58] LABS: Schistocytes None Seen
[2024-08-02 07:00] LABS: MRSA (PCR) NOT DETECTED (NOT DETECTE)
[2024-08-02 07:38] LABS: Cortisol Random 6.41 ug/dL
[2024-08-02] MEDS: PIPERACILLN/TAZ 3.375GM/NS50ML 3.375 GM/50 ML BAG IVPB ×2 (10:39→17:37)
[2024-08-02] MEDS: ALBUMIN HUMAN 25% 25 GM/100 ML 100 ML IVPB ×3 (10:39→22:06)
[2024-08-02] MEDS: LOVASTATIN 20 MG TABLET PO (10:40)
[2024-08-02] MEDS: FENOFIBRATE NANOCRYSTALLIZED 145 MG TABLET PO (10:40)
[2024-08-02] MEDS: MAGNESIUM SULF 2 GM/WATER 50ML 2 GM/50 ML BAG IVPB (10:40)
[2024-08-02] MEDS: HYDROCORTISONE SODIUM SUCCINATE 100 MG/2 ML VIAL IV PUSH ×3 (10:40→21:16)
[2024-08-02] MEDS: MIDODRINE HCL 10 MG TABLET PO ×3 (10:42→17:38)
[2024-08-02] MEDS: LACTATED RINGERS 1,000 ML 75 ML IV CONT (10:42)
[2024-08-02] MEDS: ENOXAPARIN 40 MG/0.4 ML SYRINGE SUB-Q (10:42)
--- NOTE | 2024-08-02 13:20 | P.CONIN_ITS ---
Assessment and Plan Assessment and plan (1) Septic shock: Code(s): A41.9 - Sepsis, unspecified organism; R65.21 - Severe sepsis with septic shock Status: Acute Assessment and Plan: Patient presented with generalized weakness, dizziness was found to be hypotensive in the ER refractory to 3.2 L of IV fluid bolus -central line was inserted and patient started on Levophed -etiology could be pneumonia, UTI, bacteremia, hypovolemia/dehydration -adequately fluid-resuscitated, -albumin for intravascular volume expansion -she continue Levophed>, maintain SBP > 100 mmHg and MAP > for 65 mmHg for adequate end organ perfusion -urine output has been low, acute on chronic kidney disease, continue to monitor urine output (2) Acute on chronic kidney failure: Code(s): N17.9 - Acute kidney failure, unspecified; N18.9 - Chronic kidney disease, unspecified Status: Acute Assessment and Plan: Acute on chronic kidney disease, baseline creatinine is 1.3-1.7. -presented the ED with creatinine of 2.7 of DC'd -received adequate IV fluid -creatinine trending down, continue to monitor urine output, renal function -obtain renal electrolytes, urine eosinophils, CK level -renal ultrasound on 07/23/2024 did not show any hydronephrosis or renal cath, findings suggesting medical renal disease. -08/01: CT scan of the abdomen and pelvis showed left kidney stone with bilateral edema since, no evidence of hydronephrosis (3) Abnormal finding on lung imaging: Code(s): R91.8 - Other nonspecific abnormal finding of lung field Status: Acute Assessment and Plan: 08/01: CT scan of the chest showed Fibrotic changes of the lungs. 2. Extensive pleural calcification. 3.. Atelectasis versus nodule in the right lung base and in the lingula. 3 months follow-up CT is advised. (4) Other idiopathic peripheral autonomic neuropathy: Code(s): G90.09 - Other idiopathic peripheral autonomic neuropathy Status: Acute Assessment and Plan: Patient with autonomic neuropathy, on prednisone at home -will start stress dose steroids -will also start midodrine for blood pressure support Plan DVT prophylaxis: Lovenox Stress ulcer prophylaxis: Not indicated Nutrition: Heart healthy diet Code Status: Full code Critical Care Time Spent: 47 minutes Due to a high probability of clinically significant, life threatening deterioration, the patient required my highest level of preparedness to intervene emergently and I personally spent this critical care time directly and personally managing the patient. This critical care time included obtaining a history; examining the patient; pulse oximetry; ordering and review of studies; arranging urgent treatment with development of a management plan; evaluation of patient's response to treatment; frequent reassessment; and discussions with other providers. It was exclusive of separately billable procedures and treating other patients and teaching time. Please see Assessment and Plan section and the rest of the note for further information on patient assessment and treatment This dictation may have been done utilizing a voice recognition system. Attempts have been made to correct errors. However, there may be uncorrected grammatical, spelling, and recognitions errors present. [employer] Consult Note Consult date: 08/02/24 Reason for consult: Septic shock, dizziness, weakness, hypotension, lactic acidosis, acute kidney injury, anemia HPI: Tano Gupta is a 78 year old male history of idiopathic peripheral autonomic neuropathy, hypertension, chronic kidney disease, gastroesophageal reflux disease, and prostate cancer status post prostatectomy presented to the ED on 08/01/2024 with complains of generalized weakness, dizziness. He stated that he got up to use the restroom and fell so weak that he almost fell out of his recliner. Blood pressures at home were 79/45, EMS was called and patient was brought to ER. Off note patient was recently admitted in the hospital from 07/22/2024 to 07/25/2024 when he was admitted for UTI and was discharged home on Augmentin. After which he stated he was doing well until the day of admission. Patient denies any fevers, chills, chest pain, nausea, vomiting. He also denies any shortness of breath or abdominal pain. In the ED patient's blood pressure was 66 with 35, afebrile, tachycardic, O2 sats were 88% on room air. WBC count 13.9, 14% bands, hemoglobin 10.9, sodium 135, BUN 34, creatinine 2.17, lactic acid 5.1, total bilirubin 2.8, AST 537, ALT 156, CRP 4.2. Urinalysis positive for 1+ protein, trace ketones, 1+ leukocyte esterase, 21-50 wbc's and greater than 20 casts. No bacteria seen on microscopy. CT scan ibrotic changes of the lungs, extensive pleural calcification, atelectasis versus nodule in the right lung base and lingula, hepatomegaly with fatty infiltration, left kidney stone with bilateral renal cysts, and atherosclerotic changes of the superior mesenteric artery with moderate to severe narrowing. He received 3200 mL in IV fluid bolus. Started on vancomycin and Zosyn. Central line was inserted due to refractory hypotension and started on Levophed and transferred to the ICU for further management Patient seen and examined the ICU this morning, pleasant gentleman, currently in no acute distress. Denies any cough, fevers, chills, abdominal pain, nausea, vomiting. States he feels a little better after the fluids peep remains on Levophed at 6 mcg/kg/min. Urine output has been low, creatinine improving. Lactic acid down to 2.1 this morning (5.1 on admission). LFTs trending down. Patient takes prednisone 15 mg at home daily Review of Systems 2 Review of Systems: All systems reviewed & are unremarkable except as noted in HPI and below PMFSH Past Medical History Medical History (Updated 08/02/24 @ 07:38 by Jeferson Silva MD) 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 Unspecified disorder of circulatory system Broken arm (~1952) History of broken leg (~1970) Prostate cancer Pure hyperglyceridemia Essential hypertension Incontinence Surgical History Surgical History (Updated 08/02/24 @ 05:54 by Polly Ellington PA-C) History of bilateral knee arthroplasty History of hernia repair History of prostatectomy History of sinus surgery Family History Family History Father Family history of malignant neoplasm Mother Family history of malignant neoplasm of breast in first degree relative Other Family history of cardiovascular disease Hypertension Social History Social History (Updated 08/02/24 @ 05:55 by Polly Ellington PA-C) Social History: Surrogate medical decision maker: Marylu Gupta, spouse. Code status: Full code. Smoking packs per day: 1 Smoking cigarettes per day: 20.0 Years smoked: 20 Smoking pack-years: 20.00 Smoking status: Former smoker Second hand tobacco smoke exposure: No Alcohol intake: current Drinks per week: 3 Substance use: never Substance use type: does not use Do You Feel Safe in your Home?: Yes Lack of Transportation: No Lack of Food: Never True Current Housing: I Have Housing Concerned About Future Housing: No Difficulty Paying Gas/Electric Bills: No Difficulty Paying for Meds: No Currently Unemployed: No Education: Associate Degree Difficulty w/ Childcare or Family Care: No Living arrangements: with family Spiritual care concerns: No Meds Home Medications and Allergies Home Medications ?Medication ?Instructions ?Recorded ?Confirmed ?Type omeprazole 20 mg capsule,delayed 20 mg PO DAILY 09/30/19 08/02/24 History release pyridoxine (vitamin B6) 500 mg 500 mg PO DAILY 09/30/19 08/02/24 History tablet cholecalciferol (vitamin D3) 50 50 mcg PO DAILY 10/07/19 08/02/24 History mcg (2,000 unit) capsule leuprolide acetate (6 month) 45 mg 45 mg subcut [id number] 10/24/19 08/02/24 History (6 month) subcutaneous syringe ([employer]) gabapentin 300 mg capsule 800 mg PO QHS 06/12/23 08/02/24 History prednisone 10 mg tablet 15 mg PO DAILY 06/12/23 08/02/24 History lovastatin 20 mg tablet 20 mg PO DAILY #90 tabs 12/21/23 08/02/24 Rx alendronate 70 mg tablet 70 mg PO WEEKLY 01/04/24 08/02/24 History melatonin 10 mg tablet 10 mg PO HS PRN Insomnia 01/04/24 08/02/24 History fenofibrate 160 mg tablet 160 mg PO DAILY #90 tabs 01/25/24 08/02/24 Rx calcium 600 mg (as 1 tablet PO BID 07/22/24 08/02/24 History carbonate)-vitamin D3 5 mcg (200 unit) tablet (Calcium 600 + D(3)) carvedilol 3.125 mg tablet 3.125 mg PO Q12H #180 tabs 07/31/24 08/02/24 Rx Allergies Allergy/AdvReac Type Severity Reaction Status Date / Time ceftriaxone (From Rocephin) AdvReac Mild Rash Verified 08/02/24 05:06 Vital Signs Vital Signs - 24 hr 08/01/24 18:45 08/01/24 18:47 08/01/24 20:10 Temperature 97.3 F L Pulse Rate 103 H 121 H Respiratory Rate 34 H 21 H Blood Pressure 66/35 L 107/63 Pulse Oximetry 88 L 93 100 Oxygen Delivery Room Air Nasal Cannula Oxygen Flow Rate 2 08/01/24 20:11 08/01/24 20:30 08/01/24 20:31 Temperature Pulse Rate 121 H 127 H 127 H Respiratory Rate 32 H 31 H Blood Pressure 115/90 Pulse Oximetry 94 98 Oxygen Delivery Oxygen Flow Rate 08/01/24 20:45 08/01/24 20:46 08/01/24 21:00 Temperature Pulse Rate 121 H 119 H 111 H Respiratory Rate 35 H 31 H 27 H Blood Pressure 127/64 Pulse Oximetry 100 100 100 Oxygen Delivery Oxygen Flow Rate 08/01/24 21:01 08/01/24 21:15 08/01/24 21:16 Temperature Pulse Rate 111 H 109 H 110 H Respiratory Rate 27 H 26 H 27 H Blood Pressure 112/43 L 102/49 L Pulse Oximetry 100 100 Oxygen Delivery Oxygen Flow Rate 08/01/24 21:30 08/01/24 21:31 08/01/24 21:45 Temperature Pulse Rate 112 H 111 H 111 H Respiratory Rate 24 H 24 H 31 H Blood Pressure 101/50 L 91/55 L Pulse Oximetry 100 Oxygen Delivery Oxygen Flow Rate 08/01/24 22:01 08/01/24 22:06 08/01/24 22:07 Temperature Pulse Rate Respiratory Rate Blood Pressure 89/46 L 84/51 L Pulse Oximetry 97 96 Oxygen Delivery Oxygen Flow Rate 08/01/24 22:10 08/01/24 22:15 08/01/24 22:16 Temperature 99.7 F H Pulse Rate 110 H Respiratory Rate 24 H Blood Pressure 84/51 L 84/45 L Pulse Oximetry 97 97 97 Oxygen Delivery Oxygen Flow Rate 08/01/24 22:24 08/01/24 22:28 08/01/24 22:38 Temperature Pulse Rate 108 H Respiratory Rate 22 H Blood Pressure 79/41 L 79/41 L Pulse Oximetry 97 98 100 Oxygen Delivery Nasal Cannula Oxygen Flow Rate 3 08/01/24 22:46 08/01/24 22:53 08/01/24 23:03 Temperature 99 F Pulse Rate 109 H 111 H Respiratory Rate 22 H 22 H Blood Pressure 85/71 L 96/52 L Pulse Oximetry 100 100 97 Oxygen Delivery Oxygen Flow Rate 08/01/24 23:15 08/01/24 23:26 08/01/24 23:44 Temperature 98.7 F Pulse Rate 109 H 106 H 104 H Respiratory Rate 22 H Blood Pressure 97/54 L 115/58 L 102/54 L Pulse Oximetry 98 Oxygen Delivery Oxygen Flow Rate 08/01/24 23:45 08/01/24 23:46 08/01/24 23:47 Temperature Pulse Rate 104 H 105 H 103 H Respiratory Rate 24 H 29 H 24 H Blood Pressure 94/49 L 96/49 L Pulse Oximetry 96 97 96 Oxygen Delivery Oxygen Flow Rate 08/01/24 23:49 08/02/24 00:00 08/02/24 00:01 Temperature Pulse Rate 105 H 103 H 104 H Respiratory Rate 20 23 H 23 H Blood Pressure 96/49 L 94/47 L Pulse Oximetry 97 97 96 Oxygen Delivery Oxygen Flow Rate 08/02/24 00:12 08/02/24 00:13 08/02/24 00:15 Temperature Pulse Rate 102 H 103 H 103 H Respiratory Rate 24 H 24 H 25 H Blood Pressure 98/53 L 98/53 L 92/48 L Pulse Oximetry 97 96 95 Oxygen Delivery Oxygen Flow Rate 08/02/24 00:16 08/02/24 00:30 08/02/24 00:31 Temperature Pulse Rate 104 H 103 H 102 H Respiratory Rate 24 H 27 H 25 H Blood Pressure 95/51 L Pulse Oximetry 96 96 97 Oxygen Delivery Oxygen Flow Rate 08/02/24 00:44 08/02/24 00:45 08/02/24 00:46 Temperature Pulse Rate 104 H 100 102 H Respiratory Rate 25 H 26 H 28 H Blood Pressure 87/52 L 85/48 L Pulse Oximetry 97 96 97 Oxygen Delivery Oxygen Flow Rate 08/02/24 01:00 08/02/24 01:01 08/02/24 01:02 Temperature Pulse Rate 100 100 101 H Respiratory Rate 26 H 23 H Blood Pressure 96/51 L 84/51 L Pulse Oximetry 96 97 Oxygen Delivery Oxygen Flow Rate 08/02/24 01:15 08/02/24 01:16 08/02/24 01:30 Temperature Pulse Rate 104 H 101 H 98 Respiratory Rate 30 H 28 H 25 H Blood Pressure 98/53 L 90/53 L Pulse Oximetry 97 98 98 Oxygen Delivery Oxygen Flow Rate 08/02/24 01:31 08/02/24 01:45 08/02/24 01:46 Temperature Pulse Rate 101 H 101 H 99 Respiratory Rate 28 H 28 H 27 H Blood Pressure 96/49 L Pulse Oximetry 97 97 98 Oxygen Delivery Oxygen Flow Rate 08/02/24 02:00 08/02/24 02:01 08/02/24 02:15 Temperature Pulse Rate 102 H 102 H 101 H Respiratory Rate 28 H 25 H 33 H Blood Pressure 89/50 L 95/61 L Pulse Oximetry 98 99 98 Oxygen Delivery Oxygen Flow Rate 08/02/24 02:16 08/02/24 02:30 08/02/24 02:31 Temperature Pulse Rate 100 100 101 H Respiratory Rate 29 H 24 H 34 H Blood Pressure 84/51 L Pulse Oximetry 99 97 98 Oxygen Delivery Oxygen Flow Rate 08/02/24 02:33 08/02/24 02:35 08/02/24 02:45 Temperature Pulse Rate 102 H 100 102 H Respiratory Rate 22 H 23 H Blood Pressure 95/55 L 95/55 L 104/63 Pulse Oximetry 97 98 Oxygen Delivery Oxygen Flow Rate 08/02/24 02:46 08/02/24 03:00 08/02/24 03:01 Temperature Pulse Rate 102 H 99 97 Respiratory Rate 26 H 23 H 25 H Blood Pressure 103/58 L Pulse Oximetry 98 98 98 Oxygen Delivery Oxygen Flow Rate 08/02/24 03:02 08/02/24 03:15 08/02/24 03:16 Temperature Pulse Rate 96 112 H 96 Respiratory Rate 25 H 24 H 24 H Blood Pressure 102/53 L Pulse Oximetry 98 98 98 Oxygen Delivery Oxygen Flow Rate 08/02/24 03:30 08/02/24 03:31 08/02/24 03:45 Temperature Pulse Rate 97 97 96 Respiratory Rate 26 H 24 H 23 H Blood Pressure 102/67 99/52 L Pulse Oximetry 98 98 97 Oxygen Delivery Oxygen Flow Rate 08/02/24 03:46 08/02/24 04:00 08/02/24 04:01 Temperature Pulse Rate 98 96 95 Respiratory Rate 30 H 29 H 29 H Blood Pressure 105/53 L 99/52 L Pulse Oximetry 98 98 98 Oxygen Delivery Oxygen Flow Rate 08/02/24 04:21 08/02/24 04:40 08/02/24 04:50 Temperature 97.8 F Pulse Rate 102 H 90 96 Respiratory Rate 24 H 21 H Blood Pressure 115/59 L 103/58 L 103/58 L Pulse Oximetry 97 98 Oxygen Delivery Oxygen Flow Rate 08/02/24 06:00 08/02/24 06:00 08/02/24 06:00 Temperature Pulse Rate 93 93 93 Respiratory Rate 24 H Blood Pressure 98/56 L 98/56 L Pulse Oximetry 95 Oxygen Delivery Oxygen Flow Rate 08/02/24 08:00 08/02/24 08:00 08/02/24 08:00 Temperature Pulse Rate 95 98 Respiratory Rate Blood Pressure 91/61 L Pulse Oximetry 99 Oxygen Delivery Room Air Oxygen Flow Rate 08/02/24 08:00 08/02/24 10:00 08/02/24 10:00 Temperature Pulse Rate 92 91 90 Respiratory Rate 22 H Blood Pressure 91/61 L 98/63 L Pulse Oximetry 93 Oxygen Delivery Oxygen Flow Rate 08/02/24 10:00 08/02/24 11:19 08/02/24 12:00 Temperature Pulse Rate 90 91 84 Respiratory Rate 22 H Blood Pressure 98/63 L 114/98 H Pulse Oximetry 93 Oxygen Delivery Oxygen Flow Rate 08/02/24 12:00 08/02/24 12:31 08/02/24 12:37 Temperature Pulse Rate 84 86 Respiratory Rate 22 H Blood Pressure 117/62 120/73 Pulse Oximetry 97 98 Oxygen Delivery Room Air Oxygen Flow Rate 08/02/24 12:55 Temperature Pulse Rate 84 Respiratory Rate Blood Pressure 118/69 Pulse Oximetry Oxygen Delivery Oxygen Flow Rate Exam 2 Narrative: General: Pleasant gentleman in no acute distress HEENT:? Pupils equal and reactive, sclera is clear, moist oral mucosa Neck:? Supple, Respiratory:? Coarse breath sounds bilaterally, decreased at bases, no wheezing, adequate air entry Cardiac:? S1-S2 normal, regular rate Abdomen:? Soft, nontender, nondistended, normoactive bowel sounds Extremities:? Trace edema, palpable pedal pulses Neuro:? Patient is awake, alert, oriented x3, nonfocal Skin:? No skin lesions noted, skin is warm and dry Psych:? Normal mentation and affect Results Labs 08/02/24 05:59 08/02/24 05:59 Labs: Short CBC 08/01/24 08/02/24 Range/Units 19:05 05:59 WBC 13.9 H 9.3 (4.5-10.0) K/mm3 Hgb 10.9 L 8.7 L (14.0-18.0) g/dL Hct 36.9 L 29.2 L (42.0-52.0) % Plt Count 385 H D 291 (150-375) k/mm3 BMP 08/01/24 08/02/24 08/02/24 19:05 05:59 05:59 Sodium 135 L 135 L Potassium 4.7 4.6 Chloride 98 106 Carbon Dioxide 23 21 L BUN 34 H 36 H Creatinine 2.17 H Cancelled 1.94 H Glucose 120 H 118 H Calcium 9.0 7.5 L Cardiac Enzymes 08/02/24 Range/Units 05:59 Total Creatine Kinase < 20 L (55-170) U/L Liver Function 08/01/24 08/02/24 Range/Units 19:05 05:59 Total Bilirubin 2.8 H 2.3 H (0.2-1.3) mg/dL AST 537 H 204 H (17-59) U/L ALT 156 H 118 H (6-50) U/L Alkaline Phosphatase 131 H 101 (38-126) U/L Albumin 4.2 3.1 L (3.5-5.1) g/dL Urine 08/01/24 Range/Units 23:43 Urine Color Dark yellow (Yellow) Urine Appearance Cloudy H (Clear) Urine pH 5.0 (5.0-9.0) Ur Specific [place] > 1.045 H (1.001-1.035) Urine Protein 1+ H (Negative) mg/dL Urine Glucose (UA) Negative (Negative) mg/dL Quality VTE Prophylaxis VTE prophylaxis: pharmacologic ordered Hospitalist MIPS Advance Care Plan I have confirmed that the patient's Advanced Care Plan is present, code status is documented, or surrogate decision maker is listed in patient medical record.: Yes Medication Reconciliation I have utilized all available resources to obtain, update and review the patients current medications (includes all prescriptions, OTC, herbals, cannabis, and nutritional supplements).: Yes
[2024-08-02] MEDS: CENTRAL LINE FLUSH 10 ML IV PUSH ×2 (14:12→21:16)
[2024-08-02 14:39] LABS: Creatine Kinase < 20 U/L (55-170)
[2024-08-02 14:47] LABS: Potassium Urine Random 22.2 meq/L; Sodium Urine Random 43 meq/L
[2024-08-02 14:49] LABS: Creatinine Urine 34.6 mg/dL
[2024-08-02 15:19] LABS: Eosinophil Urine Rare % (None Seen); Urine Eos QC 2nd Tech Confirmed
[2024-08-02 20:31] LABS: Vancomycin Random 6.7 ug/mL (10-20)
[2024-08-02] MEDS: GABAPENTIN 400 MG CAPSULE 800 MG PO (21:14)
[2024-08-02] MEDS: VANCOMYCIN 1,500 MG/NS 500 ML 1,500 MG/500 ML BAG 250 MG IVPB (21:15)
[2024-08-02] MEDS: MELATONIN 5 MG TABLET 10 MG PO (22:25)
[2024-08-03] VITALS (10 sets, daily range): BP systolic 117–154; BP diastolic 63–88; PULSE 60–76; RESP 14–29; TEMP 36.4–36.7; O2SAT 94–100
[2024-08-03] MEDS: PIPERACILLN/TAZ 3.375GM/NS50ML 3.375 GM/50 ML BAG IVPB ×4 (00:07→18:43)
[2024-08-03] MEDS: ALBUMIN HUMAN 25% 25 GM/100 ML 100 ML IVPB (04:51)
[2024-08-03 04:59] LABS: Eosinophils Percent Auto 0.3 % (0-4.4); Hematocrit 27.5 % (42.0-52.0); Hemoglobin 8.6 g/dL (14.0-18.0); Immature Granulocyte Absolute 0.01 K/mm3 (0.00-0.031); Immature Granulocyte Percent A 0.3 % (0-0.5); Lymphocytes Absolute Auto 0.23 K/mm3 (0.9-3.2); Mean Corpuscular HGB Conc 31.3 g/dl (32-36); Mean Corpuscular Volume 89.6 fl (80-100); Monocytes Absolute Auto 0.5 K/mm3 (0.1-0.6); Monocytes Percent Auto 15.5 % (2.6-8.5); Neutrophils Absolute Auto 2.5 K/mm3 (1.3-6.7); Neutrophils Percent Auto 76.9 % (45.5-73.1); Platelet Count Result 230 k/mm3 (150-375); Red Blood Count 3.07 M/mm3 (4.6-6.20); Red Cell Distribution Width 16.2 % (11.5-14.5); White Blood Count 3.3 K/mm3 (4.5-10.0)
[2024-08-03 05:15] LABS: Alanine Aminotransferase 86 U/L (6-50); Albumin Level 3.8 g/dL (3.5-5.1); Alkaline Phosphatase 104 U/L (38-126); Anion Gap 11 mmol/L (4-12); Aspartate Amino Transferase 85 U/L (17-59); Bilirubin,Total 1.1 mg/dL (0.2-1.3); Blood Urea Nitrogen 33 mg/dL (9-20); Calcium 8.5 mg/dL (8.4-10.2); Carbon Dioxide 21 mmol/L (22-30); Chloride 107 mmol/L (98-107); Estimated CRCL calculation 43 ml/min; Estimated Glomerular Filt Rate 43; Glucose 179 mg/dL (65-110); Magnesium 2.4 mg/dL (1.6-2.3); Phosphorus 3.6 mg/dL (2.5-4.5); Potassium 4.1 mmol/L (3.4-5.0); Sodium 139 mmol/L (137-145)
[2024-08-03 05:27] LABS: Lactic Acid Reflex 2.1 mmol/L (0.7-2.0)
[2024-08-03] MEDS: HYDROCORTISONE SODIUM SUCCINATE 100 MG/2 ML VIAL IV PUSH (06:45)
[2024-08-03] MEDS: CENTRAL LINE FLUSH 10 ML IV PUSH ×2 (06:45→12:11)
[2024-08-03 06:54] LABS: Reflex Lactic Acid Yes or No Add Lactic
--- NOTE | 2024-08-03 09:14 | WPDINTPN ---
Progress Note: A&P Assessment and Plan (1) Septic shock: Code(s): A41.9 - Sepsis, unspecified organism; R65.21 - Severe sepsis with septic shock Status: Acute Assessment and Plan: Patient presented with generalized weakness, dizziness was found to be hypotensive in the ER refractory to 3.2 L of IV fluid bolus -central line was inserted and patient started on Levophed -etiology could be pneumonia, UTI, bacteremia, hypovolemia/dehydration -adequately fluid-resuscitated, -albumin for intravascular volume expansion -she continue Levophed>, maintain SBP > 100 mmHg and MAP > for 65 mmHg for adequate end organ perfusion -urine output has been low, acute on chronic kidney disease, continue to monitor urine output -continue Zosyn and vancomycin (08/02 -08/01: Blood cultures: Preliminary blood cultures are negative times (2) Acute on chronic kidney failure: Code(s): N17.9 - Acute kidney failure, unspecified; N18.9 - Chronic kidney disease, unspecified Status: Acute Assessment and Plan: Acute on chronic kidney disease, baseline creatinine is 1.3-1.7. -presented the ED with creatinine of 2.7 of DC'd -received adequate IV fluid -creatinine trending down, continue to monitor urine output, renal function -obtain renal electrolytes, urine eosinophils, CK level -renal ultrasound on 07/23/2024 did not show any hydronephrosis or renal cath, findings suggesting medical renal disease. -08/01: CT scan of the abdomen and pelvis showed left kidney stone with bilateral edema since, no evidence of hydronephrosis (3) Abnormal finding on lung imaging: Code(s): R91.8 - Other nonspecific abnormal finding of lung field Status: Acute Assessment and Plan: 08/01: CT scan of the chest showed Fibrotic changes of the lungs. 2. Extensive pleural calcification. 3.. Atelectasis versus nodule in the right lung base and in the lingula. 3 months follow-up CT is advised. (4) Other idiopathic peripheral autonomic neuropathy: Code(s): G90.09 - Other idiopathic peripheral autonomic neuropathy Status: Acute Assessment and Plan: Patient with autonomic neuropathy, patient on prednisone at home -continue stress dose steroids -will also start midodrine for blood pressure support Plan DVT prophylaxis: Lovenox Stress ulcer prophylaxis: Not indicated Nutrition: Heart healthy diet Code Status: Full code Critical Care Time Spent: 31 minutes Due to a high probability of clinically significant, life threatening deterioration, the patient required my highest level of preparedness to intervene emergently and I personally spent this critical care time directly and personally managing the patient. This critical care time included obtaining a history; examining the patient; pulse oximetry; ordering and review of studies; arranging urgent treatment with development of a management plan; evaluation of patient's response to treatment; frequent reassessment; and discussions with other providers. It was exclusive of separately billable procedures and treating other patients and teaching time. Please see Assessment and Plan section and the rest of the note for further information on patient assessment and treatment This dictation may have been done utilizing a voice recognition system. Attempts have been made to correct errors. However, there may be uncorrected grammatical, spelling, and recognitions errors present. Subjective Date/time seen: 08/03/24 09:14 Interval history: Reason for consult: Septic shock, dizziness, weakness, hypotension, lactic acidosis, acute kidney injury, anemia 08/03/2024: Patient seen and examined the ICU this morning, is awake, alert, pleasant gentleman in no acute distress. Denies any shortness of breath, chest pain, abdominal pain, nausea, vomiting. Has been off Levophed, hemodynamically stable, adequate urine output, afebrile. Creatinine improving. Lactic acid has normalized, liver enzymes are trending down Review of Systems Review of Systems: All systems reviewed & are unremarkable except as noted in HPI and below Exam Narrative: General: Pleasant gentleman in no acute distress HEENT:? Pupils equal and reactive, sclera is clear, moist oral mucosa Neck:? Supple, Respiratory:? Coarse breath sounds bilaterally, decreased at bases, no wheezing, adequate air entry Cardiac:? S1-S2 normal, regular rate Abdomen:? Soft, nontender, nondistended, normoactive bowel sounds Extremities:? Trace edema, palpable pedal pulses Neuro:? Patient is awake, alert, oriented x3, nonfocal Skin:? No skin lesions noted, skin is warm and dry Psych:? Normal mentation and affect Objective Data Vital Signs Vital Signs: Vital Signs - 24 hr 08/02/24 10:00 08/02/24 10:00 08/02/24 10:00 Temperature Pulse Rate 91 90 90 Respiratory Rate 22 H Blood Pressure 98/63 L 98/63 L Pulse Oximetry 93 Oxygen Delivery 08/02/24 11:19 08/02/24 12:00 08/02/24 12:00 Temperature Pulse Rate 91 84 84 Respiratory Rate 22 H Blood Pressure 114/98 H 117/62 Pulse Oximetry 97 Oxygen Delivery 08/02/24 12:31 08/02/24 12:37 08/02/24 12:55 Temperature Pulse Rate 86 84 Respiratory Rate Blood Pressure 120/73 118/69 Pulse Oximetry 98 Oxygen Delivery Room Air 08/02/24 14:00 08/02/24 14:00 08/02/24 14:10 Temperature Pulse Rate 77 76 88 Respiratory Rate 18 Blood Pressure 119/71 122/69 Pulse Oximetry 95 Oxygen Delivery 08/02/24 14:51 08/02/24 15:13 08/02/24 16:00 Temperature Pulse Rate 76 73 Respiratory Rate Blood Pressure 124/76 129/68 Pulse Oximetry 96 Oxygen Delivery Room Air 08/02/24 16:00 08/02/24 16:00 08/02/24 16:05 Temperature 97.9 F Pulse Rate 74 73 76 Respiratory Rate 14 Blood Pressure 114/78 111/72 Pulse Oximetry 95 Oxygen Delivery 08/02/24 18:00 08/02/24 18:00 08/02/24 18:37 Temperature Pulse Rate 76 74 75 Respiratory Rate 25 H Blood Pressure 113/70 117/70 Pulse Oximetry 96 Oxygen Delivery 08/02/24 20:00 08/02/24 20:00 08/02/24 20:00 Temperature 97.7 F Pulse Rate 79 77 77 Respiratory Rate 20 21 H Blood Pressure 118/85 Pulse Oximetry 97 100 Oxygen Delivery Room Air 08/02/24 22:00 08/02/24 22:00 08/03/24 00:00 Temperature 98.0 F Pulse Rate 70 70 63 Respiratory Rate 25 H 19 Blood Pressure 117/74 117/65 Pulse Oximetry 100 94 Oxygen Delivery 08/03/24 00:00 08/03/24 00:00 08/03/24 02:00 Temperature Pulse Rate 60 60 69 Respiratory Rate 17 Blood Pressure Pulse Oximetry 95 Oxygen Delivery Room Air 08/03/24 02:00 08/03/24 04:00 08/03/24 04:00 Temperature 97.6 F Pulse Rate 69 61 60 Respiratory Rate 16 14 17 Blood Pressure 125/72 135/86 Pulse Oximetry 96 96 95 Oxygen Delivery Room Air 08/03/24 04:00 08/03/24 06:00 08/03/24 06:00 Temperature Pulse Rate 60 63 63 Respiratory Rate 20 Blood Pressure 137/77 Pulse Oximetry 98 Oxygen Delivery 08/03/24 07:52 Temperature 97.5 F L Pulse Rate 74 Respiratory Rate 26 H Blood Pressure 139/81 Pulse Oximetry 99 Oxygen Delivery Intake/Output Intake/Output: Intake & Output 07/31/24 08/01/24 08/02/24 08/03/24 23:59 23:59 23:59 23:59 Intake Total 3304.5 2809.7 1500 Output Total 2450 800 Balance 3304.5 359.7 700 Meds/Results Medications: Active Medications Generic Name Dose Route Start Last Admin Trade Name Freq PRN Reason Stop Dose Admin Acetaminophen 650 mg 08/02/24 00:54 Acetaminophen 325 Mg Tablet PO Q4H PRN Mild Pain (1-3) or Fever Enoxaparin Sodium 40 mg 08/02/24 09:00 08/02/24 10:42 Enoxaparin 40 Mg/0.4 Ml Syringe SUB-Q 40 mg DAILY ANOOP Administration Fenofibrate 145 mg 08/02/24 09:00 08/02/24 10:40 Fenofibrate Nanocrystallized 145 Mg Tablet PO 145 mg QAM ANOOP Administration Gabapentin 800 mg 08/02/24 21:00 08/02/24 21:14 Gabapentin 400 Mg Capsule PO 800 mg QHS ANOOP Administration Hydrocortisone Sodium Succinate 100 mg 08/02/24 08:25 08/03/24 06:45 Hydrocortisone Sodium Succinate 100 Mg/2 Ml Vial IV PUSH 100 mg Q8HR ANOOP Administration Norepinephrine Bitartrate 8 mg in 250 mls @ 0 mls/hr 08/01/24 22:20 08/02/24 18:37 Levophed 8 Mg/D5w 250 Ml IV CONT Infused .Q0M ANOOP Titration Protocol Piperacillin/Tazobactam/Dextrose 3.375 gm in 50 mls @ 100 mls/hr 08/02/24 07:00 08/03/24 07:15 Zosyn 3.375 Gm/Ns 50 Ml IVPB Infused Q6HR ANOOP Infusion Lovastatin 20 mg 08/02/24 09:00 08/02/24 10:40 Lovastatin 20 Mg Tablet PO 20 mg DAILY ANOOP Administration Melatonin 10 mg 08/02/24 22:20 08/02/24 22:25 Melatonin 5 Mg Tablet PO 10 mg HS ANOOP Administration Midodrine 10 mg 08/02/24 10:10 08/02/24 17:38 Midodrine Hcl 10 Mg Tablet PO 10 mg TID ANOOP Administration Sodium Chloride 10 ml 08/02/24 14:00 08/03/24 06:45 Central Line Flush IV PUSH 10 ml Q8HR ANOOP Administration Sodium Chloride 20 ml 08/02/24 06:42 Central Line Flush IV PUSH PRN PRN after blood draws Vancomycin HCl 1 each 08/01/24 19:48 Vancomycin For Acute Kidney Injury IVPB PRN PRN Vancomycin Protocol Radiology Results: ITS Impressions Head CT 08/01/24 20:23 IMPRESSION: No acute intracranial findings. Chest/Abdomen/Pelvis CT 08/01/24 22:33 IMPRESSION: CHEST: 1. Fibrotic changes of the lungs. 2. Extensive pleural calcification. 3. Atelectasis versus nodule in the right lung base and in the lingula. 3 months follow-up CT is advised. ABDOMEN/PELVIS: 1. No evidence of appendicitis, diverticulitis or intestinal obstruction. 2. Hepatomegaly with fat infiltration. 3. Left kidney stone with bilateral renal cysts. 4. Sliding hiatus hernia. 5. 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 Conventional Angiography is advised. Labs Labs: Laboratory Results - last 24 hr 08/02/24 08/02/24 08/02/24 14:25 14:31 19:57 WBC RBC Hgb Hct MCV MCH MCHC RDW Plt Count MPV Immature Gran % (Auto) Neut % (Auto) Lymph % (Auto) Stephenson % (Auto) Eos % (Auto) Baso % (Auto) Lymph # (Auto) Stephenson # (Auto) Eos # (Auto) Baso # (Auto) Abs Immat Gran (auto) Absolute Neuts (auto) Absolute Nucleated RBC Nucleated RBC % Sodium Potassium Chloride Carbon Dioxide Anion Gap BUN Creatinine Estim Creat Clear Calc Estimated GFR Glucose Lactic Acid Calcium Phosphorus Magnesium Total Bilirubin AST ALT Alkaline Phosphatase Total Creatine Kinase < 20 L Total Protein Albumin TSH Urine Eosinophils Rare Ur Random Sodium 43 Ur Random Potassium 22.2 Urine Creatinine 34.6 Random Vancomycin 6.7 L 08/03/24 08/03/24 04:44 07:49 WBC 3.3 L RBC 3.07 L Hgb 8.6 L Hct 27.5 L MCV 89.6 MCH 28.0 MCHC 31.3 L RDW 16.2 H Plt Count 230 MPV 9.0 Immature Gran % (Auto) 0.3 Neut % (Auto) 76.9 H Lymph % (Auto) 7.0 L Stephenson % (Auto) 15.5 H Eos % (Auto) 0.3 Baso % (Auto) 0.0 L Lymph # (Auto) 0.23 L Stephenson # (Auto) 0.5 Eos # (Auto) 0.0 Baso # (Auto) 0.0 Abs Immat Gran (auto) 0.01 Absolute Neuts (auto) 2.5 Absolute Nucleated RBC 0.000 Nucleated RBC % 0.0 Sodium 139 Potassium 4.1 Chloride 107 Carbon Dioxide 21 L Anion Gap 11 BUN 33 H Creatinine 1.58 H Estim Creat Clear Calc 43 Estimated GFR 43 L Glucose 179 H Lactic Acid 2.1 H 2.0 Calcium 8.5 Phosphorus 3.6 Magnesium 2.4 H Total Bilirubin 1.1 AST 85 H ALT 86 H Alkaline Phosphatase 104 Total Creatine Kinase Total Protein 6.0 L Albumin 3.8 TSH 0.270 L Urine Eosinophils Ur Random Sodium Ur Random Potassium Urine Creatinine Random Vancomycin Quality VTE Prophylaxis VTE prophylaxis: pharmacologic ordered
[2024-08-03] MEDS: FENOFIBRATE NANOCRYSTALLIZED 145 MG TABLET PO (09:18)
[2024-08-03] MEDS: MIDODRINE HCL 10 MG TABLET PO (09:18)
[2024-08-03] MEDS: LOVASTATIN 20 MG TABLET PO (09:18)
[2024-08-03] MEDS: ENOXAPARIN 40 MG/0.4 ML SYRINGE SUB-Q (09:18)
[2024-08-03] MEDS: predniSONE 5 MG TABLET 15 MG PO (12:10)
[2024-08-03] MEDS: MIDODRINE HCL 2.5 MG TABLET 5 MG PO (12:10)
--- NOTE | 2024-08-03 14:39 | PM.IMPN ---
Progress Note: A&P Assessment and Plan (1) Septic shock: Code(s): A41.9 - Sepsis, unspecified organism; R65.21 - Severe sepsis with septic shock Status: Acute (2) Acute on chronic kidney failure: Code(s): N17.9 - Acute kidney failure, unspecified; N18.9 - Chronic kidney disease, unspecified Status: Acute (3) Abnormal finding on lung imaging: Code(s): R91.8 - Other nonspecific abnormal finding of lung field Status: Acute (4) Other idiopathic peripheral autonomic neuropathy: Code(s): G90.09 - Other idiopathic peripheral autonomic neuropathy Status: Acute Plan septic shock pneumonia vs UTI vs dehydration off of Levophed received IVF, albumin continue midodrine continue IV Abx getting steroid follow couture results continue to monitor Rishi on CKD improving 08/01: CT scan of the abdomen and pelvis showed left kidney stone with bilateral edema since, no evidence of hydronephrosis continue to monitor transaminitis in setting of septic shock improving continue to monitor uti follow U/C continue Abx abnormal CT chest history of azbestosis fibrotic changes, pleural calcificatio follow up with repeat CT in 3 months autonomic neuropathy prednison at home 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[facility] secondary to hyper splenism low iron monitor H7H transfuse if Hb less than 7 prostate cancer prostatectomy/radiation elligard/luperon injection every 6m follow with [facility] G1d CHF showed on echo 07/22/24 needs follow up with cardiology HLD statin Subjective Date/time seen: 08/03/24 14:39 Interval history: per hPi: This is a pleasant 78-year-old male with history of idiopathic peripheral autonomic neuropathy, hypertension, chronic kidney disease, gastroesophageal reflux disease, and prostate cancer status post prostatectomy who presented to the emergency department via EMS from home for evaluation of weakness and dizziness. He was recently admitted to the ICU and treated for urosepsis however all cultures came back negative. He was discharged home about a week ago on Augmentin. He has reportedly been doing well up until yesterday when upon wakening he was feeling very weak and dizzy. Not long after waking he lay down in his recliner to rest. He then got up to use the restroom and I almost fell out because I was so weak and dizzy. Blood pressure at that time was 79/45 and his called 911. He tells me that he has been eating and drinking normally. He denies fever, headache, neck ache, sinus congestion, sore throat, cough, abdominal pain, back pain, nausea, vomiting, diarrhea, and dysuria. He also denies chest pain, pleuritic pain, and palpitations. He has not had any recent change in medications and does not think that he could of accidentally taken more medicine than what is prescribed. Regarding the documented history of idiopathic peripheral autonomic neuropathy, he cannot provide me with specifics and he does not see a neurologist. In the ED: Vital signs on arrival include a temperature of 97.3?, blood pressure 66/35, pulse 103, respiratory rate 34, SpO2 88% on room air. Labs were significant for WBC count 13.9 with 14% bands, hemoglobin 10.9, platelet 385, sodium 135, anion gap 14, BUN 34, creatinine 2.17, lactic acid 5.1, total bilirubin 2.8, AST 537, ALT 156, alkaline phosphatase 131, CRP 4.2. Urinalysis was positive for 1+ protein, trace ketones, 1+ leukocyte esterase, 21 to 50 WBC, and greater than 20 casts. No bacteria seen on microscopy. 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 He received 3200 mL normal saline bolus as well as vancomycin and piperacillin-tazobactam for broad-spectrum coverage due to concerns for infection. Central line was inserted for refractory hypotension he is currently on norepinephrine at 5 micrograms/minute. He is being admitted to the ICU in this setting. 08/03/24 Patient was seen and examined at bedside. he is feeling fine denies any chest pain , SOb, abd pain, N/V. has been off of Levophed. getting Midodrine. also on Iv Abx. transfer to [facility] for further management. Review of Systems Review of Systems: 12 systems were reviewed and are negative except for as per HPI. All systems reviewed & are unremarkable except as noted in HPI and below Exam Narrative: General: Pleasant gentleman in no acute distress HEENT:? Pupils equal and reactive, sclera is clear, moist oral mucosa Neck:? Supple, Respiratory:? Coarse breath sounds bilaterally, decreased at bases, no wheezing, adequate air entry Cardiac:? S1-S2 normal, regular rate Abdomen:? Soft, nontender, nondistended, normoactive bowel sounds Extremities:? Trace edema, palpable pedal pulses Neuro:? Patient is awake, alert, oriented x3, nonfocal Skin:? No skin lesions noted, skin is warm and dry Psych:? Normal mentation and affect Objective Data Vital Signs Vital Signs: Vital Signs - 24 hr 08/02/24 14:51 08/02/24 15:13 08/02/24 16:00 Temperature Pulse Rate 76 73 Respiratory Rate Blood Pressure 124/76 129/68 Pulse Oximetry 96 Oxygen Delivery Room Air 08/02/24 16:00 08/02/24 16:00 08/02/24 16:05 Temperature 97.9 F Pulse Rate 74 73 76 Respiratory Rate 14 Blood Pressure 114/78 111/72 Pulse Oximetry 95 Oxygen Delivery 08/02/24 18:00 08/02/24 18:00 08/02/24 18:37 Temperature Pulse Rate 76 74 75 Respiratory Rate 25 H Blood Pressure 113/70 117/70 Pulse Oximetry 96 Oxygen Delivery 08/02/24 20:00 08/02/24 20:00 08/02/24 20:00 Temperature 97.7 F Pulse Rate 79 77 77 Respiratory Rate 20 21 H Blood Pressure 118/85 Pulse Oximetry 97 100 Oxygen Delivery Room Air 08/02/24 22:00 08/02/24 22:00 08/03/24 00:00 Temperature 98.0 F Pulse Rate 70 70 63 Respiratory Rate 25 H 19 Blood Pressure 117/74 117/65 Pulse Oximetry 100 94 Oxygen Delivery 08/03/24 00:00 08/03/24 00:00 08/03/24 02:00 Temperature Pulse Rate 60 60 69 Respiratory Rate 17 Blood Pressure Pulse Oximetry 95 Oxygen Delivery Room Air 08/03/24 02:00 08/03/24 04:00 08/03/24 04:00 Temperature 97.6 F Pulse Rate 69 61 60 Respiratory Rate 16 14 17 Blood Pressure 125/72 135/86 Pulse Oximetry 96 96 95 Oxygen Delivery Room Air 08/03/24 04:00 08/03/24 06:00 08/03/24 06:00 Temperature Pulse Rate 60 63 63 Respiratory Rate 20 Blood Pressure 137/77 Pulse Oximetry 98 Oxygen Delivery 08/03/24 07:52 08/03/24 08:00 08/03/24 08:00 Temperature 97.5 F L Pulse Rate 74 70 71 Respiratory Rate 26 H 26 H Blood Pressure 139/81 Pulse Oximetry 99 96 Oxygen Delivery Room Air 08/03/24 10:00 08/03/24 10:00 Temperature Pulse Rate 69 69 Respiratory Rate 29 H Blood Pressure 141/88 H Pulse Oximetry 100 Oxygen Delivery Intake/Output Intake/Output: Intake & Output 07/31/24 08/01/24 08/02/24 08/03/24 23:59 23:59 23:59 23:59 Intake Total 3304.5 2809.7 1860 Output Total 2450 800 Balance 3304.5 359.7 1060 Meds/Results Medications: Active Medications Generic Name Dose Route Start Last Admin Trade Name Freq PRN Reason Stop Dose Admin Acetaminophen 650 mg 08/02/24 00:54 Acetaminophen 325 Mg Tablet PO Q4H PRN Mild Pain (1-3) or Fever Enoxaparin Sodium 40 mg 08/02/24 09:00 08/03/24 09:18 Enoxaparin 40 Mg/0.4 Ml Syringe SUB-Q 40 mg DAILY ANOOP Administration Fenofibrate 145 mg 08/02/24 09:00 08/03/24 09:18 Fenofibrate Nanocrystallized 145 Mg Tablet PO 145 mg QAM ANOOP Administration Gabapentin 800 mg 08/02/24 21:00 08/02/24 21:14 Gabapentin 400 Mg Capsule PO 800 mg QHS ANOOP Administration Piperacillin/Tazobactam/Dextrose 3.375 gm in 50 mls @ 100 mls/hr 08/02/24 07:00 08/03/24 12:10 Zosyn 3.375 Gm/Ns 50 Ml IVPB 100 mls/hr Q6HR ANOOP Administration Lovastatin 20 mg 08/02/24 09:00 08/03/24 09:18 Lovastatin 20 Mg Tablet PO 20 mg DAILY ANOOP Administration Melatonin 10 mg 08/02/24 22:20 08/02/24 22:25 Melatonin 5 Mg Tablet PO 10 mg HS ANOOP Administration Midodrine 5 mg 08/03/24 13:00 08/03/24 12:10 Midodrine Hcl 2.5 Mg Tablet PO 5 mg TID ANOOP Administration Polyethylene Glycol 17 gm 08/03/24 09:16 Polyethylene Glycol 3350 17 Gm Powd.Pack PO QAM PRN Constipation Prednisone 15 mg 08/03/24 10:12 08/03/24 12:10 Prednisone 5 Mg Tablet PO 15 mg DAILY ANOOP Administration Senna/Docusate Sodium 1 tab 08/03/24 21:00 Senna/Docusate Sodium Tablet PO HS ANOOP Sodium Chloride 10 ml 08/02/24 14:00 08/03/24 12:11 Central Line Flush IV PUSH 10 ml Q8HR ANOOP Administration Sodium Chloride 20 ml 08/02/24 06:42 Central Line Flush IV PUSH PRN PRN after blood draws Vancomycin HCl 1 each 08/01/24 19:48 Vancomycin For Acute Kidney Injury IVPB PRN PRN Vancomycin Protocol Radiology Results: ITS Impressions Head CT 08/01/24 20:23 IMPRESSION: No acute intracranial findings. Chest/Abdomen/Pelvis CT 08/01/24 22:33 IMPRESSION: CHEST: 1. Fibrotic changes of the lungs. 2. Extensive pleural calcification. 3. Atelectasis versus nodule in the right lung base and in the lingula. 3 months follow-up CT is advised. ABDOMEN/PELVIS: 1. No evidence of appendicitis, diverticulitis or intestinal obstruction. 2. Hepatomegaly with fat infiltration. 3. Left kidney stone with bilateral renal cysts. 4. Sliding hiatus hernia. 5. 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 Conventional Angiography is advised. Labs Labs: Laboratory Results - last 24 hr 08/02/24 08/02/24 08/02/24 14:25 14:31 19:57 WBC RBC Hgb Hct MCV MCH MCHC RDW Plt Count MPV Immature Gran % (Auto) Neut % (Auto) Lymph % (Auto) Cobb % (Auto) Eos % (Auto) Baso % (Auto) Lymph # (Auto) Cobb # (Auto) Eos # (Auto) Baso # (Auto) Abs Immat Gran (auto) Absolute Neuts (auto) Absolute Nucleated RBC Nucleated RBC % Sodium Potassium Chloride Carbon Dioxide Anion Gap BUN Creatinine Estim Creat Clear Calc Estimated GFR Glucose Lactic Acid Calcium Phosphorus Magnesium Total Bilirubin AST ALT Alkaline Phosphatase Total Creatine Kinase < 20 L Total Protein Albumin TSH Urine Eosinophils Rare Ur Random Sodium 43 Ur Random Potassium 22.2 Urine Creatinine 34.6 Random Vancomycin 6.7 L 05/18/25 05/18/25 04:44 07:49 WBC 3.3 L RBC 3.07 L Hgb 8.6 L Hct 27.5 L MCV 89.6 MCH 28.0 MCHC 31.3 L RDW 16.2 H Plt Count 230 MPV 9.0 Immature Gran % (Auto) 0.3 Neut % (Auto) 76.9 H Lymph % (Auto) 7.0 L Cobb % (Auto) 15.5 H Eos % (Auto) 0.3 Baso % (Auto) 0.0 L Lymph # (Auto) 0.23 L Cobb # (Auto) 0.5 Eos # (Auto) 0.0 Baso # (Auto) 0.0 Abs Immat Gran (auto) 0.01 Absolute Neuts (auto) 2.5 Absolute Nucleated RBC 0.000 Nucleated RBC % 0.0 Sodium 139 Potassium 4.1 Chloride 107 Carbon Dioxide 21 L Anion Gap 11 BUN 33 H Creatinine 1.58 H Estim Creat Clear Calc 43 Estimated GFR 43 L Glucose 179 H Lactic Acid 2.1 H 2.0 Calcium 8.5 Phosphorus 3.6 Magnesium 2.4 H Total Bilirubin 1.1 AST 85 H ALT 86 H Alkaline Phosphatase 104 Total Creatine Kinase Total Protein 6.0 L Albumin 3.8 TSH 0.270 L Urine Eosinophils Ur Random Sodium Ur Random Potassium Urine Creatinine Random Vancomycin Quality VTE Prophylaxis VTE prophylaxis: pharmacologic ordered
[2024-08-03] MEDS: GABAPENTIN 400 MG CAPSULE 800 MG PO (20:08)
[2024-08-03] MEDS: MELATONIN 5 MG TABLET 10 MG PO (20:08)
[2024-08-03 20:23] LABS: Vancomycin Trough 8.8 ug/mL (10.0-20.0)
[2024-08-03] MEDS: VANCOMYCIN 1,500 MG/NS 500 ML 1,500 MG/500 ML BAG 250 MG IVPB (22:14)
[2024-08-04] VITALS (11 sets, daily range): BP systolic 145–173; BP diastolic 71–94; PULSE 70–95; RESP 20–22; TEMP 36.4–36.7; O2SAT 95–97
[2024-08-04] MEDS: PIPERACILLN/TAZ 3.375GM/NS50ML 3.375 GM/50 ML BAG IVPB ×2 (00:06→05:19)
[2024-08-04 04:16] LABS: Hematocrit 29.5 % (42.0-52.0); Hemoglobin 9.1 g/dL (14.0-18.0); Mean Corpuscular HGB Conc 30.8 g/dl (32-36); Mean Corpuscular Hemoglobin 27.7 pg (26-34); Mean Corpuscular Volume 89.9 fl (80-100); Mean Platelet Volume 9.2 fl (7.4-10.4); Platelet Count Result 289 k/mm3 (150-375); Red Blood Count 3.28 M/mm3 (4.6-6.20); Red Cell Distribution Width 16.5 % (11.5-14.5); White Blood Count 4.9 K/mm3 (4.5-10.0)
[2024-08-04 04:33] LABS: Alanine Aminotransferase 65 U/L (6-50); Alkaline Phosphatase 94 U/L (38-126); Anion Gap 13 mmol/L (4-12); Aspartate Amino Transferase 43 U/L (17-59); Bilirubin,Total 0.7 mg/dL (0.2-1.3); Blood Urea Nitrogen 28 mg/dL (9-20); Calcium 8.9 mg/dL (8.4-10.2); Carbon Dioxide 22 mmol/L (22-30); Chloride 107 mmol/L (98-107); Estimated CRCL calculation 52 ml/min; Estimated Glomerular Filt Rate 54; Glucose 130 mg/dL (65-110); Potassium 3.9 mmol/L (3.4-5.0); Sodium 142 mmol/L (137-145)
[2024-08-04] MEDS: MIDODRINE HCL 2.5 MG TABLET PO ×3 (08:47→17:43)
[2024-08-04] MEDS: FENOFIBRATE NANOCRYSTALLIZED 145 MG TABLET PO (08:47)
[2024-08-04] MEDS: ENOXAPARIN 40 MG/0.4 ML SYRINGE SUB-Q (08:47)
[2024-08-04] MEDS: LOVASTATIN 20 MG TABLET PO (08:48)
[2024-08-04] MEDS: predniSONE 5 MG TABLET 15 MG PO (08:48)
[2024-08-04] MEDS: AMOXICILLIN/CLAVULANATE K 875-125 MG TAB 1 TABLET PO ×2 (10:42→21:01)
[2024-08-04] MEDS: ACETAMINOPHEN 325 MG TABLET 650 MG PO (10:42)
--- NOTE | 2024-08-04 14:47 | P.CDI_ITS ---
CDI Query Clarification Request Please specify type and acuity of heart failure if known. * Acute * Chronic * Acute on Chronic * Unknown * Systolic * Diastolic * Combined Systolic and Diastolic * Unknown The medical chart reflects the following: G1d CHF showed on echo 07/22/24 needs follow up with cardiology BNP 08/02: 4,780 <Zehra Willams RN - Last Filed: 08/04/24 14:56> Provider Comments acute on chronic diastolic <Eloina Levin MD - Last Filed: 08/04/24 14:56>
--- NOTE | 2024-08-04 14:47 | WPDCDIQUERY2 ---
CDI Query Clarification Request Please specify type and acuity of heart failure if known. Acute Chronic Acute on Chronic Unknown Systolic Diastolic Combined Systolic and Diastolic Unknown The medical chart reflects the following: G1d CHF showed on echo 07/22/24 needs follow up with cardiology BNP 08/02: 4,780 <Zehra Willams RN - Last Filed: 08/04/24 14:56> Provider Comments acute on chronic diastolic <Eloina Levin MD - Last Filed: 08/04/24 14:56>
--- NOTE | 2024-08-04 14:56 | PM.IMPN ---
Progress Note: A&P Assessment and Plan (1) Septic shock: Code(s): A41.9 - Sepsis, unspecified organism; R65.21 - Severe sepsis with septic shock Status: Acute (2) Acute on chronic kidney failure: Code(s): N17.9 - Acute kidney failure, unspecified; N18.9 - Chronic kidney disease, unspecified Status: Acute (3) Abnormal finding on lung imaging: Code(s): R91.8 - Other nonspecific abnormal finding of lung field Status: Acute (4) Other idiopathic peripheral autonomic neuropathy: Code(s): G90.09 - Other idiopathic peripheral autonomic neuropathy Status: Acute Plan septic shock pneumonia vs UTI vs dehydration off of Levophed received IVF, albumin continue midodrine. Decreased to 2.5 mg t.i.d. 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 [facility] secondary to hyper splenism low iron monitor H7H transfuse if Hb less than 7 prostate cancer prostatectomy/radiation elligard/luperon injection every 6m follow with [facility] 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 He was recently admitted to the ICU and treated for urosepsis however all cultures came back negative. He was discharged home about a week ago on Augmentin. He has reportedly been doing well up until yesterday when upon wakening he was feeling very weak and dizzy. Not long after waking he lay down in his recliner to rest. He then got up to use the restroom and I almost fell out because I was so weak and dizzy. Blood pressure at that time was 79/45 and his called 911. He tells me that he has been eating and drinking normally. He denies fever, headache, neck ache, sinus congestion, sore throat, cough, abdominal pain, back pain, nausea, vomiting, diarrhea, and dysuria. He also denies chest pain, pleuritic pain, and palpitations. He has not had any recent change in medications and does not think that he could of accidentally taken more medicine than what is prescribed. Regarding the documented history of idiopathic peripheral autonomic neuropathy, he cannot provide me with specifics and he does not see a neurologist. In the ED: Vital signs on arrival include a temperature of 97.3?, blood pressure 66/35, pulse 103, respiratory rate 34, SpO2 88% on room air. Labs were significant for WBC count 13.9 with 14% bands, hemoglobin 10.9, platelet 385, sodium 135, anion gap 14, BUN 34, creatinine 2.17, lactic acid 5.1, total bilirubin 2.8, AST 537, ALT 156, alkaline phosphatase 131, CRP 4.2. Urinalysis was positive for 1+ protein, trace ketones, 1+ leukocyte esterase, 21 to 50 WBC, and greater than 20 casts. No bacteria seen on microscopy. 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 He received 3200 mL normal saline bolus as well as vancomycin and piperacillin-tazobactam for broad-spectrum coverage due to concerns for infection. Central line was inserted for refractory hypotension he is currently on norepinephrine at 5 micrograms/minute. He is being admitted to the ICU in this setting. 08/03/24 Patient was seen and examined at bedside. he is feeling fine denies any chest pain , SOb, abd pain, N/V. has been off of Levophed. getting Midodrine. also on Iv Abx. transfer to [facility] for further management. 08/04/24 Patient was seen examined bedside. He is feeling fine. Denies any chest pain, shortness off breath, abdominal pain, nausea vomiting. No acute event overnight. Follow culture result. Blood pressure under better control. Will decrease midodrine 2.5 mg TID Review of Systems Review of Systems: 12 systems were reviewed and are negative except for as per HPI. All systems reviewed & are unremarkable except as noted in HPI and below Exam Narrative: General: Pleasant gentleman in no acute distress HEENT:? Pupils equal and reactive, sclera is clear, moist oral mucosa Neck:? Supple, Respiratory:? Coarse breath sounds bilaterally, decreased at bases, no wheezing, adequate air entry Cardiac:? S1-S2 normal, regular rate Abdomen:? Soft, nontender, nondistended, normoactive bowel sounds Extremities:? 1+edema, palpable pedal pulses Neuro:? Patient is awake, alert, oriented x3, nonfocal Skin:? No skin lesions noted, skin is warm and dry Psych:? Normal mentation and affect Objective Data Vital Signs Vital Signs: Vital Signs - 24 hr 08/03/24 16:00 08/03/24 20:00 08/03/24 20:00 Temperature 98.1 F Pulse Rate 69 71 Respiratory Rate 26 H Blood Pressure 146/63 H Pulse Oximetry 98 Oxygen Delivery Room Air 08/03/24 20:13 08/04/24 00:00 08/04/24 00:00 Temperature 97.7 F 97.6 F Pulse Rate 76 70 70 Respiratory Rate 18 20 Blood Pressure 154/80 H 145/71 H Pulse Oximetry 98 95 Oxygen Delivery 08/04/24 04:00 08/04/24 07:51 08/04/24 08:00 Temperature 97.5 F L Pulse Rate 79 74 Respiratory Rate 22 H Blood Pressure 152/84 H Pulse Oximetry 97 Oxygen Delivery Room Air 08/04/24 08:00 08/04/24 09:52 08/04/24 12:00 Temperature Pulse Rate 76 95 Respiratory Rate Blood Pressure Pulse Oximetry Oxygen Delivery Room Air 08/04/24 12:02 Temperature Pulse Rate Respiratory Rate Blood Pressure Pulse Oximetry Oxygen Delivery Room Air Intake/Output Intake/Output: Intake & Output 08/01/24 08/02/24 08/03/24 08/04/24 23:59 23:59 23:59 23:59 Intake Total 3304.5 2809.7 2200 1781 Output Total 2450 2250 775 Balance 3304.5 359.7 -50 1006 Meds/Results Medications: Active Medications Generic Name Dose Route Start Last Admin Trade Name Freq PRN Reason Stop Dose Admin Acetaminophen 650 mg 08/02/24 00:54 08/04/24 10:42 Acetaminophen 325 Mg Tablet PO 650 mg Q4H PRN Administration Mild Pain (1-3) or Fever Amoxicillin/Clavulanate Potassium 1 tablet 08/04/24 11:00 08/04/24 10:42 Amoxicillin/Clavulanate K 875-125 Mg Tab PO 08/08/24 21:01 1 tablet Q12HR ANOOP Administration Enoxaparin Sodium 40 mg 08/02/24 09:00 08/04/24 08:47 Enoxaparin 40 Mg/0.4 Ml Syringe SUB-Q 40 mg DAILY ANOOP Administration Fenofibrate 145 mg 08/02/24 09:00 08/04/24 08:47 Fenofibrate Nanocrystallized 145 Mg Tablet PO 145 mg QAM ANOOP Administration Gabapentin 800 mg 08/02/24 21:00 08/03/24 20:08 Gabapentin 400 Mg Capsule PO 800 mg QHS ANOOP Administration Lovastatin 20 mg 08/02/24 09:00 08/04/24 08:48 Lovastatin 20 Mg Tablet PO 20 mg DAILY ANOOP Administration Melatonin 10 mg 08/02/24 22:20 08/03/24 20:08 Melatonin 5 Mg Tablet PO 10 mg HS ANOOP Administration Midodrine 2.5 mg 08/04/24 09:00 08/04/24 13:55 Midodrine Hcl 2.5 Mg Tablet PO 2.5 mg TID ANOOP Administration Polyethylene Glycol 17 gm 08/03/24 09:16 Polyethylene Glycol 3350 17 Gm Powd.Pack PO QAM PRN Constipation Prednisone 15 mg 08/03/24 10:12 08/04/24 08:48 Prednisone 5 Mg Tablet PO 15 mg DAILY ANOOP Administration Senna/Docusate Sodium 1 tab 08/03/24 21:00 08/03/24 20:08 Senna/Docusate Sodium Tablet PO Not Given HS ANOOP Sodium Chloride 20 ml 08/02/24 06:42 Central Line Flush IV PUSH PRN PRN after blood draws Radiology Results: ITS Impressions Head CT 08/01/24 20:23 IMPRESSION: No acute intracranial findings. Chest/Abdomen/Pelvis CT 08/01/24 22:33 IMPRESSION: CHEST: 1. Fibrotic changes of the lungs. 2. Extensive pleural calcification. 3. Atelectasis versus nodule in the right lung base and in the lingula. 3 months follow-up CT is advised. ABDOMEN/PELVIS: 1. No evidence of appendicitis, diverticulitis or intestinal obstruction. 2. Hepatomegaly with fat infiltration. 3. Left kidney stone with bilateral renal cysts. 4. Sliding hiatus hernia. 5. 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 Conventional Angiography is advised. Labs Labs: Laboratory Results - last 24 hr 08/03/24 08/04/24 19:53 04:01 WBC 4.9 RBC 3.28 L Hgb 9.1 L Hct 29.5 L MCV 89.9 MCH 27.7 MCHC 30.8 L RDW 16.5 H Plt Count 289 MPV 9.2 Sodium 142 Potassium 3.9 Chloride 107 Carbon Dioxide 22 Anion Gap 13 H BUN 28 H Creatinine 1.30 Estim Creat Clear Calc 52 Estimated GFR 54 L Glucose 130 H Calcium 8.9 Total Bilirubin 0.7 AST 43 ALT 65 H Alkaline Phosphatase 94 Total Protein 7.0 Albumin 4.0 Vancomycin Trough 8.8 L Quality VTE Prophylaxis VTE prophylaxis: pharmacologic ordered
[2024-08-04] MEDS: GABAPENTIN 400 MG CAPSULE 800 MG PO (21:01)
[2024-08-04] MEDS: SENNA/DOCUSATE SODIUM TABLET 1 TAB PO (21:01)
[2024-08-04] MEDS: MELATONIN 5 MG TABLET 10 MG PO (21:01)
[2024-08-05 04:37] LABS: Hematocrit 29.6 % (42.0-52.0); Hemoglobin 8.9 g/dL (14.0-18.0); Mean Corpuscular HGB Conc 30.1 g/dl (32-36); Mean Corpuscular Hemoglobin 27.7 pg (26-34); Mean Corpuscular Volume 92.2 fl (80-100); Mean Platelet Volume 9.3 fl (7.4-10.4); Platelet Count Result 315 k/mm3 (150-375); Red Blood Count 3.21 M/mm3 (4.6-6.20); Red Cell Distribution Width 16.1 % (11.5-14.5); White Blood Count 3.4 K/mm3 (4.5-10.0)
[2024-08-05 04:54] LABS: Alanine Aminotransferase 50 U/L (6-50); Alkaline Phosphatase 101 U/L (38-126); Anion Gap 9 mmol/L (4-12); Aspartate Amino Transferase 33 U/L (17-59); Blood Urea Nitrogen 24 mg/dL (9-20); Calcium 9.1 mg/dL (8.4-10.2); Carbon Dioxide 27 mmol/L (22-30); Chloride 104 mmol/L (98-107); Estimated CRCL calculation 59 ml/min; Estimated Glomerular Filt Rate > 60; Glucose 97 mg/dL (65-110); Potassium 3.8 mmol/L (3.4-5.0); Sodium 140 mmol/L (137-145)
[2024-08-05 08:12] VITALS: BP 178/97; PULSE 77; RESP 18; TEMP 36.6; O2SAT 100
[2024-08-05] MEDS: predniSONE 5 MG TABLET 15 MG PO (09:18)
[2024-08-05] MEDS: ENOXAPARIN 40 MG/0.4 ML SYRINGE SUB-Q (09:18)
[2024-08-05] MEDS: FENOFIBRATE NANOCRYSTALLIZED 145 MG TABLET PO (09:18)
[2024-08-05] MEDS: AMOXICILLIN/CLAVULANATE K 875-125 MG TAB 1 TABLET PO (09:18)
[2024-08-05] MEDS: LOVASTATIN 20 MG TABLET PO (09:18)
--- NOTE | 2024-08-05 09:51 | PM.DS ---
DS: Admitting Diagnosis Discharge Date 08/05/24 Admitting Diagnosis hypotension, septic shock DS: Discharge Diagnosis Discharge Diagnosis (1) Septic shock: Code(s): A41.9 - Sepsis, unspecified organism; R65.21 - Severe sepsis with septic shock Status: Acute (2) Acute on chronic kidney failure: Code(s): N17.9 - Acute kidney failure, unspecified; N18.9 - Chronic kidney disease, unspecified Status: Acute (3) Abnormal finding on lung imaging: Code(s): R91.8 - Other nonspecific abnormal finding of lung field Status: Acute (4) Other idiopathic peripheral autonomic neuropathy: Code(s): G90.09 - Other idiopathic peripheral autonomic neuropathy Status: Acute Plan septic shock pneumonia vs UTI vs dehydration off of Levophed received IVF, albumin received midodrine. 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[facility] secondary to hyper splenism low iron monitor H7H transfuse if Hb less than 7 prostate cancer prostatectomy/radiation elligard/luperon injection every 6m follow with [facility] Acute on chronic G1d CHF showed on echo 07/22/24 needs follow up with cardiology HLD statin DS: Summary Hospital Course Hospital Course: This is a pleasant 78-year-old male with history of idiopathic peripheral autonomic neuropathy, hypertension, chronic kidney disease, gastroesophageal reflux disease, and prostate cancer status post prostatectomy who presented to the emergency department via EMS from home for evaluation of weakness and dizziness. He was recently admitted to the ICU and treated for urosepsis however all cultures came back negative. He was discharged home about a week ago on Augmentin. He has reportedly been doing well up until yesterday when upon wakening he was feeling very weak and dizzy. Not long after waking he lay down in his recliner to rest. He then got up to use the restroom and I almost fell out because I was so weak and dizzy. Blood pressure at that time was 79/45 and his called 911. He tells me that he has been eating and drinking normally. He denies fever, headache, neck ache, sinus congestion, sore throat, cough, abdominal pain, back pain, nausea, vomiting, diarrhea, and dysuria. He also denies chest pain, pleuritic pain, and palpitations. He has not had any recent change in medications and does not think that he could of accidentally taken more medicine than what is prescribed. Regarding the documented history of idiopathic peripheral autonomic neuropathy, he cannot provide me with specifics and he does not see a neurologist. In the ED: Vital signs on arrival include a temperature of 97.3?, blood pressure 66/35, pulse 103, respiratory rate 34, SpO2 88% on room air. Labs were significant for WBC count 13.9 with 14% bands, hemoglobin 10.9, platelet 385, sodium 135, anion gap 14, BUN 34, creatinine 2.17, lactic acid 5.1, total bilirubin 2.8, AST 537, ALT 156, alkaline phosphatase 131, CRP 4.2. Urinalysis was positive for 1+ protein, trace ketones, 1+ leukocyte esterase, 21 to 50 WBC, and greater than 20 casts. No bacteria seen on microscopy. 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 He received 3200 mL normal saline bolus as well as vancomycin and piperacillin-tazobactam for broad-spectrum coverage due to concerns for infection. Central line was inserted for refractory hypotension he is currently on norepinephrine at 5 micrograms/minute. He is being admitted to the ICU in this setting. 08/03/24 Patient was seen and examined at bedside. he is feeling fine denies any chest pain , SOb, abd pain, N/V. has been off of Levophed. getting Midodrine. also on Iv Abx. transfer to [facility] for further management. 08/04/24 Patient was seen examined bedside. He is feeling fine. Denies any chest pain, shortness off breath, abdominal pain, nausea vomiting. No acute event overnight. Follow culture result. Blood pressure under better control. Will decrease midodrine 2.5 mg TID 08/05/24 Patient was seen and exmained at bedside. He is feeling fine denies any Pain, SOB, N/V. Bp runnig high, will Dc Midodrine. he is requesting to go home. recommended to check Blood pressure every 4-6 h and if Running low come back to Er Status at Discharge Functional status at discharge: independent ambulation Overall status at discharge: patient is back to baseline Time Spent with Patient Time attestation: Total time spent providing and/or coordinating discharge services: Time spent: Greater than 30 minutes Exam Narrative: General: Pleasant gentleman in no acute distress HEENT:? Pupils equal and reactive, sclera is clear, moist oral mucosa Neck:? Supple, Respiratory:? Coarse breath sounds bilaterally, decreased at bases, no wheezing, adequate air entry Cardiac:? S1-S2 normal, regular rate Abdomen:? Soft, nontender, nondistended, normoactive bowel sounds Extremities:? 1+edema, palpable pedal pulses Neuro:? Patient is awake, alert, oriented x3, nonfocal Skin:? No skin lesions noted, skin is warm and dry Psych:? Normal mentation and affect DS: Data Data Completed and Pending Labs on day of discharge: Labs from last 24 hours 08/05/24 03:51 WBC 3.4 L RBC 3.21 L Hgb 8.9 L Hct 29.6 L MCV 92.2 MCH 27.7 MCHC 30.1 L RDW 16.1 H Plt Count 315 MPV 9.3 Sodium 140 Potassium 3.8 Chloride 104 Carbon Dioxide 27 Anion Gap 9 BUN 24 H Creatinine 1.14 Estim Creat Clear Calc 59 Estimated GFR > 60 Glucose 97 Calcium 9.1 Total Bilirubin 1.0 AST 33 ALT 50 Alkaline Phosphatase 101 Total Protein 7.0 Albumin 4.0 Preliminary micro results at discharge 08/01/24 20:32 Blood Culture - Preliminary Blood 08/01/24 19:05 Blood Culture - Preliminary Blood Discharge Plan Discharge Attending physician on discharge: Eloina Levin Consulting providers: Susu Sierra; Eloina Levin Discharging Clinician: Eloina Levin Anticipated Discharge Date/Time: 08/05/24 17:56 Patient Disposition: Home with Home Health Service Activity: as tolerated Diet: heart healthy Discharge Instructions: Per Care Coordination: [facility] will resume services at discharge. [facility] will contact you prior to their first visit. [facility] can be contacted at [phone]. 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 follow with PCP in one week Patient Instructions: Antibiotic Form Patient Language: Wolof Stand Alone Forms: General Discharge Information Follow-up/Referrals: Don Bronson DO [Primary Care Provider] - 1 Week Discharge Medications: New amoxicillin-pot clavulanate 875-125 mg tablet 1 tablet PO Q12H Qty: 10 0RF Continued gabapentin 300 mg capsule 800 mg PO QHS omeprazole 20 mg capsule,delayed release(DR/EC) 20 mg PO DAILY Patient Comments: TAKES EVERYOTHER DAY pyridoxine (vitamin B6) 500 mg tablet 500 mg PO DAILY cholecalciferol (vitamin D3) 50 mcg (2,000 unit) capsule 50 mcg PO DAILY Eligard (6 month) 45 mg syringe 45 mg SUB-Q [id number] prednisone 10 mg tablet 15 mg PO DAILY melatonin 10 mg Tablet 10 mg PO HS PRN (Reason: Insomnia) alendronate 70 mg tablet 70 mg PO WEEKLY Patient Comments: TAKES ON FRIDAYS calcium carbonate-vitamin D3 [Calcium 600 + D(3)] 600 mg-5 mcg (200 unit) tablet 1 tablet PO BID lovastatin 20 mg tablet 20 mg PO DAILY Qty: 90 3RF fenofibrate 160 mg tablet 160 mg PO DAILY Qty: 90 3RF carvedilol 3.125 mg tablet 3.125 mg PO Q12H Qty: 180 3RF Rx Instructions: must administer with a meal/food Date of admission: 08/02/24 00:55 Primary Care Provider: Don Bronson Admitting Provider: Eloina Levin Attending physician on admission: Eloina Levin Condition: Critical Quality VTE Prophylaxis VTE prophylaxis: pharmacologic ordered
== END 2024-08-05 11:40 | disposition home health service (06) | DRG 871 ==
LOC: ANHED 19:26 → ANHICU 08-02 03:54 → ANHIMU 08-03 18:12
PROVIDERS: Internal Medicine; Nurse Practitioner Family; Physician Assistant; Admitting Provider Internal Medicine; Emergency Provider Student in an Organized Health Care Education/Training Program; PCP Internal Medicine; Visit Provider Internal Medicine
DX: A41.9 Sepsis, unspecified organism (principal); I50.33 Acute on chronic diastolic (congestive) heart failure; R65.21 Severe sepsis with septic shock; K55.1 Chronic vascular disorders of intestine; N17.9 Acute kidney failure, unspecified; I13.0 Hypertensive heart and chronic kidney disease with heart failure and stage 1 through stage 4 chronic kidney disease, or unspecified chronic kidney disease; G90.09 Other idiopathic peripheral autonomic neuropathy; K21.9 Gastro-esophageal reflux disease without esophagitis; N18.9 Chronic kidney disease, unspecified; R91.8 Other nonspecific abnormal finding of lung field; R82.81 Pyuria; R74.01 Elevation of levels of liver transaminase levels; Z87.891 Personal history of nicotine dependence; Z90.79 Acquired absence of other genital organ(s); Z85.46 Personal history of malignant neoplasm of prostate; Z96.653 Presence of artificial knee joint, bilateral
CPT/HCPCS: 36415; 36556; 70450; 71045; 71260; 74177; 80053; 80202; 81001; 82436; 82533; 82550; 82570; 83605; 83735; 83880; 84100; 84133; 84300; 84443; 85025; 85027; 85610; 85730; 85999; 86140; 87040; 87641; 93005; 96361; 96365; 96367; 97110; 97161; 97165; 97530; 97535; 99291; A9270; C1751; J1650; J1720; J2003; J2543; J3370; J3475; J7030; J7120; J7512; P9047; Q9967

== ENCOUNTER 2025-02-24 09:49 | Emergency (ER) | payer MEDICARE, SELFPAY ==
--- NOTE | ~2025-02-24 | XR_ITS ---
EXAMINATION: XR femur LT min 2V DATE: 02/24/2025 10:45 INDICATION: Injury TECHNIQUE: Left femur were obtained. COMPARISON: None. FINDINGS: Comminuted displaced intertrochanteric fracture of the left hip noted; see left hip x-ray same day. Old fracture involving the proximal femur diaphysis. Partially visualized left total hip arthroplasty hardware. The bones appear mildly osteopenic diffusely. Other than the left hip fracture, no other definite acute fracture seen. IMPRESSION: 1. Left intertrochanteric hip fracture; see left hip x-ray same date. No other definite acute fracture with several chronic findings as above. Reviewed, dictated and finalized at location A. STARCH OPERATOR
--- NOTE | ~2025-02-24 | XR_ITS ---
EXAMINATION: XR hip LT 2V w AP pelvis DATE: 02/24/2025 10:45 INDICATION: Injury TECHNIQUE: Left hip and pelvis were obtained. COMPARISON: None. FINDINGS: Comminuted intertrochanteric fracture with varus angulation and foreshortening.There is approximately 1.5 cm medial displacement of the distal femur fragment. No other definite fractures seen. IMPRESSION: Comminuted left hip intertrochanteric fracture with displacement of the fracture fragments, and varus angulation. Reviewed, dictated and finalized at location A. MANAGEMENT SPECIALIST
--- NOTE | ~2025-02-24 | XR_ITS ---
EXAMINATION: XR chest 1V DATE: 02/24/2025 10:45 INDICATION: Fall TECHNIQUE: AP view of the chest was obtained COMPARISON: Chest radiograph and CT dated 08/01/2024 FINDINGS: Bilateral calcified pleural plaques. Stable appearance of blunting at the bilateral costophrenic angles and capping of the right apex likely related to associated pleural parenchymal scarring. No new airspace opacities, pulmonary edema, pleural effusion or pneumothorax. The cardiomediastinal silhouette is normal. IMPRESSION: 1. 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 No evident new acute cardiopulmonary disease. Reviewed, dictated and finalized at location A. ET CHANGER IMPRESSION: 1. 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 No evident new acute cardiopulmonary disease.
[2025-02-24 09:53] VITALS: BP 132/110; PULSE 87; RESP 16; TEMP 36.4; O2SAT 98
--- NOTE | 2025-02-24 09:56 | ED.LOWEXIN ---
HPI - Extremity Injury (Lower) General Chief Complaint: Extremity Injury, Lower Stated Complaint: L hip pain/deformity Time Seen by Provider: 02/24/25 09:56 History of Present Illness HPI Narrative: 79-year-old male presents emergency department with left hip pain. Patient states he tripped on some carpet at home fell. He has not been able ambulate since the fall. He has previous fracture to that left femur. He is not on blood thinners. Not hit his head there was no other complaints. Denies any paresthesias or weakness. Related Data Home Medications ?Medication ?Instructions ?Recorded ?Confirmed ?Last Taken ?Type omeprazole 20 mg capsule,delayed 20 mg PO DAILY 09/30/19 12/23/24 08/01/24 History release pyridoxine (vitamin B6) 500 mg 500 mg PO DAILY 09/30/19 12/23/24 08/01/24 History tablet cholecalciferol (vitamin D3) 50 50 mcg PO DAILY 10/07/19 12/23/24 08/01/24 History mcg (2,000 unit) capsule leuprolide acetate (6 month) 45 mg 45 mg subcut [id number] 10/24/19 12/23/24 Unknown History (6 month) subcutaneous syringe (EliTownSquaredd) gabapentin 300 mg capsule 800 mg PO QHS 06/12/23 12/23/24 08/01/24 History prednisone 10 mg tablet 15 mg PO DAILY 06/12/23 12/23/24 08/01/24 History alendronate 70 mg tablet 70 mg PO WEEKLY 01/04/24 12/23/24 08/01/24 History melatonin 10 mg tablet 10 mg PO HS PRN Insomnia 01/04/24 12/23/24 Unknown History calcium 600 mg (as 1 tablet PO BID 07/22/24 12/23/24 08/01/24 History carbonate)-vitamin D3 5 mcg (200 unit) tablet (Calcium 600 + D(3)) cephalexin 500 mg capsule 500 mg PO DAILY 08/15/24 12/23/24 Unknown History Allergies Allergy/AdvReac Type Severity Reaction Status Date / Time ceftriaxone (From Rocephin) AdvReac Mild Rash Verified 02/24/25 09:58 Review of Systems Review of Systems: All systems reviewed & are unremarkable except as noted in HPI and below PMFSH Past Medical History Medical History (Updated 02/24/25 @ 12:42 by Donnell Oshea MD) BMI 29.0-29.9,adult Prostate cancer Other fatigue Ventral hernia without obstruction or gangrene Umbilical hernia without obstruction and without gangrene Right inguinal hernia Primary osteoarthritis of left knee Prediabetes Hypertriglyceridemia History of prostate cancer History of femur fracture Essential (primary) hypertension Colon cancer screening Chronic pain of left knee Bilateral impacted cerumen Aftercare following surgery 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 Unspecified disorder of circulatory system Broken arm (~3) History of broken leg (~1970) Prostate cancer Pure hyperglyceridemia Essential hypertension Incontinence Surgical History Surgical History History of bilateral knee arthroplasty History of hernia repair History of prostatectomy History of sinus surgery Family History Family History (Updated 08/15/24 @ 12:26 by YULIANA Rivera) Father Family history of malignant neoplasm Mother Family history of malignant neoplasm of breast in first degree relative Sibling , Auto immune disease No problems noted. Other Family history of cardiovascular disease Hypertension Social History Social History (Updated 08/15/24 @ 12:28 by YULIANA Rivera) Social History: Surrogate medical decision maker: Marylu Gupta, spouse. Code status: Full code. Smoking packs per day: 1 Smoking cigarettes per day: 20.0 Years smoked: 20 Smoking pack-years: 20.00 Smoking status: Former smoker Second hand tobacco smoke exposure: No Alcohol intake: current Drinks per week: 3 Substance use: never Substance use type: does not use Lack of Transportation: No Lack of Food: Never True Current Housing: I Have Housing Concerned About Future Housing: No Difficulty Paying Gas/Electric Bills: No Difficulty Paying for Meds: No Currently Unemployed: No Education: Associate Degree Difficulty w/ Childcare or Family Care: No Living arrangements: with family Occupation/Education: retired 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 EYES: EOMI, conjunctiva normal ENT: Hearing grossly intact LUNGS: Nonlabored breathing. HEART: [Regular rate and rhythm] ABD: [Soft], [nontender to palpation] EXT: There is foreshortening of the left lower extremity, he is externally rotated. Unable to range secondary to pain. Distal pulses are 2+. Muscle compartments are soft. Pelvis is stable. No midline spinal tenderness. SKIN: [No rashes or lesions.] NEURO: [Alert. No gross focal sensory or strength deficits.] PSYCH: Normal affect Course Vital Signs Vital signs: Vital Signs Temperature 36.4 C 02/24/25 09:53 Pulse Rate 87 02/24/25 09:53 Respiratory Rate 16 02/24/25 09:53 Blood Pressure 132/110 H 02/24/25 09:53 Pulse Oximetry 98 02/24/25 09:53 Oxygen Delivery Room Air 02/24/25 09:53 Temperature 36.4 C 02/24/25 09:53 Pulse Rate 80 02/24/25 12:18 Respiratory Rate 22 H 02/24/25 12:18 Blood Pressure 150/75 H 02/24/25 12:18 Pulse Oximetry 96 02/24/25 12:18 Oxygen Delivery Room Air 02/24/25 09:53 MDM Differential Diagnosis Differential Diagnosis: 79-year-old male presents with posttraumatic left hip pain. Differential is fracture versus dislocation versus contusion. Will obtain preop labs x-ray imaging plane for evaluation of pain medication and workup. Results and re-evaluation Patient's imaging demonstrates a intertrochanteric fracture. I discussed the case with on-call Orthopedic surgery here feel that the patient's prior femur fracture and the fracture itself beyond the capability of this facility and recommended transfer to tertiary center. I have initiated the transfer process is [facility] which is pending at this time. Patient updated, consents to transfer. Multiple re-evaluations spoke with Dr. Kincaid at [facility], also spoke with the on-call orthopedic surgeon at [facility] who agrees to accept transfer. Patient updated transferred in serious condition. Lab Data [facility] Lab Attestation statement: I personally reviewed the patient's lab results. 02/24/25 11:12 02/24/25 11:12 Labs: Lab Results 02/24/25 Range/Units 11:12 WBC 3.9 L (4.5-10.0) K/mm3 RBC 4.07 L (4.6-6.20) M/mm3 Hgb 11.3 L (14.0-18.0) g/dL Hct 37.0 L (42.0-52.0) % MCV 90.9 (80-100) fl MCH 27.8 (26-34) pg MCHC 30.5 L (32-36) g/dl RDW 15.6 H (11.5-14.5) % Plt Count 250 (150-375) k/mm3 MPV 8.8 (7.4-10.4) fl Immature Gran % (Auto) 0.3 (0-0.5) % Neut % (Auto) 66.2 (45.5-73.1) % Lymph % (Auto) 11.1 L (18.3-44.2) % [place] % (Auto) 16.0 H (2.6-8.5) % Eos % (Auto) 5.9 H (0-4.4) % Baso % (Auto) 0.5 (0.2-1.2) % Lymph # (Auto) 0.43 L (0.9-3.2) K/mm3 [place] # (Auto) 0.6 (0.1-0.6) K/mm3 Eos # (Auto) 0.2 (0-0.3) K/mm3 Baso # (Auto) 0.0 (0.0-0.1) K/mm3 Abs Immat Gran (auto) 0.01 (0.00-0.031) K/mm3 Absolute Neuts (auto) 2.6 (1.3-6.7) K/mm3 Absolute Nucleated RBC 0.000 (0.0-0.012) K/mm3 Nucleated RBC % 0.0 (0.0-0.2) % PT 13.0 (11.1-14.7) Seconds INR 1.0 Sodium 137 (137-145) mmol/L Potassium 4.4 (3.4-5.0) mmol/L Chloride 104 (98-107) mmol/L Carbon Dioxide 27 (22-30) mmol/L Anion Gap 6 (4-12) mmol/L BUN 22 H (9-20) mg/dL Creatinine 1.28 (0.7-1.3) mg/dL Estim Creat Clear Calc 55 ml/min Estimated GFR 54 L (59 - ) Glucose 165 H (65-110) mg/dL Calcium 9.0 (8.4-10.2) mg/dL Total Bilirubin 0.4 (0.2-1.3) mg/dL AST 27 (17-59) U/L ALT 19 (6-50) U/L Alkaline Phosphatase 58 (38-126) U/L Total Protein 6.9 (6.3-8.2) g/dL Albumin 4.0 (3.5-5.1) g/dL Blood Type O Positive Antibody Screen Negative Imaging Data Attestation: I personally reviewed and interpreted this imaging study as follows: My impression: Pelvis x-ray shows somewhat comminuted displaced left intertrochanteric fracture. Radiologist's impression: ITS Impressions Chest X-Ray 02/24/25 10:48 IMPRESSION: 1. 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 No evident new acute cardiopulmonary disease. Hip/Pelvis X-Ray 02/24/25 10:50 IMPRESSION: Comminuted left hip intertrochanteric fracture with displacement of the fracture fragments, and varus angulation. Femur X-Ray 02/24/25 10:52 IMPRESSION: 1. Left intertrochanteric hip fracture; see left hip x-ray same date. No other definite acute fracture with several chronic findings as above. Discharge Plan Discharge Clinical Impression: Hip fracture Patient Disposition: Other Condition: Stable Instructions: Antibiotic Form Patient Language: Bulgarian Prescriptions: No Action gabapentin 300 mg capsule 800 mg PO QHS omeprazole 20 mg capsule,delayed release(DR/EC) 20 mg PO DAILY Patient Comments: TAKES EVERYOTHER DAY pyridoxine (vitamin B6) 500 mg tablet 500 mg PO DAILY cholecalciferol (vitamin D3) 50 mcg (2,000 unit) capsule 50 mcg PO DAILY Eligard (6 month) 45 mg syringe 45 mg SUB-Q [id number] prednisone 10 mg tablet 15 mg PO DAILY cephalexin 500 mg capsule 500 mg PO DAILY melatonin 10 mg Tablet 10 mg PO HS PRN (Reason: Insomnia) alendronate 70 mg tablet 70 mg PO WEEKLY Patient Comments: TAKES ON FRIDAYS calcium carbonate-vitamin D3 [Calcium 600 + D(3)] 600 mg-5 mcg (200 unit) tablet 1 tablet PO BID carvedilol 3.125 mg tablet 3.125 mg PO Q12H Qty: 180 3RF Rx Instructions: must administer with a meal/food fenofibrate 160 mg tablet See Rx Instructions .ROUTE .COMPLEX Qty: 90 3RF Dose Instruction: TAKE 1 TABLET EVERY DAY Rx Instructions: TAKE 1 TABLET EVERY DAY lovastatin 40 mg tablet 40 mg PO DAILY Qty: 90 2RF Follow-up/Referrals: Don Bronson DO [Primary Care Provider, Internal Medicine] Time of Disposition: 12:42
[2025-02-24 11:09] VITALS: BP 139/87; PULSE 76; RESP 18; O2SAT 99
[2025-02-24 11:20] LABS: Hematocrit 37.0 % (42.0-52.0); Hemoglobin 11.3 g/dL (14.0-18.0); Immature Granulocyte Percent A 0.3 % (0-0.5); Lymphocytes Absolute Auto 0.43 K/mm3 (0.9-3.2); Mean Corpuscular HGB Conc 30.5 g/dl (32-36); Mean Corpuscular Hemoglobin 27.8 pg (26-34); Mean Corpuscular Volume 90.9 fl (80-100); Nucleated Red Blood Cells Absolute Auto 0.000 K/mm3 (0.0-0.012); Nucleated Red Blood Cells Perc 0.0 % (0.0-0.2); Platelet Count Result 250 k/mm3 (150-375); Red Blood Count 4.07 M/mm3 (4.6-6.20); White Blood Count 3.9 K/mm3 (4.5-10.0)
[2025-02-24 11:32] LABS: INR 1.0; Prothrombin Time 13.0 Seconds (11.1-14.7)
[2025-02-24 11:38] LABS: Alanine Aminotransferase 19 U/L (6-50); Albumin Level 4.0 g/dL (3.5-5.1); Alkaline Phosphatase 58 U/L (38-126); Anion Gap 6 mmol/L (4-12); Aspartate Amino Transferase 27 U/L (17-59); Bilirubin,Total 0.4 mg/dL (0.2-1.3); Blood Urea Nitrogen 22 mg/dL (9-20); Calcium 9.0 mg/dL (8.4-10.2); Carbon Dioxide 27 mmol/L (22-30); Chloride 104 mmol/L (98-107); Estimated CRCL calculation 55 ml/min; Estimated Glomerular Filt Rate 54; Glucose 165 mg/dL (65-110); Potassium 4.4 mmol/L (3.4-5.0); Sodium 137 mmol/L (137-145); Total Protein 6.9 g/dL (6.3-8.2)
[2025-02-24] MEDS: HYDROmorphone HCL INJ (*CRX) 1 MG/ML SYR IV PUSH (12:13)
[2025-02-24 12:18] VITALS: BP 150/75; PULSE 80; RESP 22; O2SAT 96
--- NOTE | 2025-02-24 13:04 | PC.NURSE ---
Report called to CHANDLER Blake at [facility] ER at 1300.
== END 2025-02-24 13:27 | disposition other institution (70) ==
PROVIDERS: Emergency Provider Emergency Medicine; PCP Internal Medicine
DX: S72.142A Displaced intertrochanteric fracture of left femur, initial encounter for closed fracture (principal); I10 Essential (primary) hypertension; R73.03 Prediabetes; E78.1 Pure hyperglyceridemia; G90.09 Other idiopathic peripheral autonomic neuropathy; M17.12 Unilateral primary osteoarthritis, left knee; Z96.653 Presence of artificial knee joint, bilateral; Z85.46 Personal history of malignant neoplasm of prostate; Z87.891 Personal history of nicotine dependence; Z90.79 Acquired absence of other genital organ(s); Z79.899 Other long term (current) drug therapy; W18.09XA Striking against other object with subsequent fall, initial encounter
CPT/HCPCS: 36415; 71045; 73502; 73552; 80053; 85025; 85610; 86850; 86900; 86901; 96374; 99284; J1171